=== PATIENT | male | born 1980 | race Caucasian/White ===

== ENCOUNTER 2020-06-19 19:17 | Emergency (ER) | payer OTHER, SELFPAY ==
[2020-06-19 19:33] VITALS: BP 139/81; PULSE 89; RESP 18; TEMP 37; O2SAT 97; BMI 34.8
[2020-06-19 20:33] LABS: Amphetamine Screen Urine POSITIVE (Not Detect); Barbiturates, Urine Not Detected (Not Detect); Benzodiazepines Screen Urine Not Detected (Not Detect); Cannabinoid Screen Urine POSITIVE (Not Detect); Cocaine Screen Urine Not Detected (Not Detect); Opiate Screen Urine Not Detected (Not Detect); Phencyclidine Screen Urine Not Detected (Not Detect)
[2020-06-19 20:40] LABS: COVID-19 Test Negative (Negative)
--- NOTE | 2020-06-19 21:04 | ED_ITS ---
HPI - Psych General Chief Complaint: Psychiatric Symptoms Stated Complaint: crisis Time Seen by Provider: 06/20/20 01:14 Source: patient and EMS Mode of arrival: EMS Limitations: altered mental status History of Present Illness HPI Narrative: 39-year-old male presents via EMS for suicidal statement and alcohol use. Patient's family called EMS, per EMS report, for suicidal statement made by this patient. At this time of my evaluation, patient is visibly intoxicated, slurring his words, and states that he is here for chest pain evaluation. He states that he is not eating or drinking properly, works 60+ hours a week, states that he was just drinking and smoking marijuana to relax. He needs multiple redirections to answer questions. Related Data Home Medications Medication Instructions Recorded Confirmed amlodipine 1 tab PO DAILY 06/19/20 06/19/20 folic acid 1 tab PO DAILY 06/19/20 06/19/20 gabapentin 300 mg PO BID 06/19/20 06/19/20 multivitamin [Daily-Lanie] 1 tab PO DAILY 06/19/20 06/19/20 trazodone 2 tab PO BEDTIME 06/19/20 06/19/20 Allergies Allergy/AdvReac Type Severity Reaction Status Date / Time lisinopril [Lisinopril] Allergy Intermediate ANGIOEDEMA Unverified 12/12/19 17:28 cat dander [CATS] Allergy Mild PUFFY EYES Unverified 12/12/19 17:28 olanzapine [From ZYPREXA] Allergy Unknown UNKNOWN Unverified 12/12/19 17:28 Review of Systems Review of Systems: Yes Unobtainable due to mental status PMFSH Past Medical History Attestation statement: The following information was validated with the patient. Source: old records reviewed Social History Social History Advance Directives: No Advance Directives Information Provided: No Physical Exam Vital Signs: Vital Signs: Last Vital Signs Temp 98.6 F 06/19/20 19:33 Pulse 89 06/19/20 19:33 Resp 18 06/19/20 19:33 BP 139/81 06/19/20 19:33 Pulse Ox 97 06/19/20 19:33 Body Mass Index 34.8 Appearance: Alert. Oriented X3. Moderate distress. Eyes: Pupils equal, round and reactive to light. ENT: Pharynx normal. Neck: Normal inspection. Neck supple. CVS: Normal heart rate and rhythm. Pulses normal. Respiratory: No respiratory distress. Breath sounds normal. Abdomen: Soft and nontender. Skin: Skin warm and dry. Normal skin color. Normal skin turgor. Extremities: No lower extremity edema. Moves all extremities against resistance. Neuro: No motor deficit. No sensory deficit. Cranial nerves 2-12 intact. No focal neural deficits. Course Course Course Narrative: 39-year-old male presents via EMS for suicidal statement and ETOH intoxication. Patient is not forthcoming with information, states that he is here for chest pain evaluation, he has multiple redirection to stay on task and answer questions, is compliant with physical exam at this time, smells of alcohol. ETOH 115, positive for amphetamines and marijuana. EKG is normal sinus, troponin is negative. Plan of care is for crisis evaluation in the morning. At 2:32 a.m. Physician observation started. Patient placed in physician observation because the patient needs to be evaluated by N and be evaluated and may need possible psych admission. At the time observation was started the patient's vitals were within normal limits and stable, patient is alert oriented, intoxicated on alcohol and amphetamine. Physical exam: No focal neural deficits, cranial nerves 2-12 intact, even unlabored respirations, lung sounds clear to auscultation all lobes, regular rate and rhythm, pulses equal to all extremities, brisk capillary refill, moves all extremities spontaneously. MDM - Psych Differential Diagnosis Differential diagnosis: Likely acute psychosis, suicidal ideation, depression, drug-induced psychotic disorder, acute anxiety, substance abuse, alcohol intoxication and mood disorder Medical Records Attestation: I reviewed the patient's medical records. Lab Data Attestation: I reviewed the patient's lab results. Result diagrams: 06/19/20 21:59 06/19/20 21:59 Labs: Lab Results 06/19/20 06/19/20 06/19/20 Range/Units 19:59 19:59 21:59 WBC (4.8-10.8) X10*3/uL RBC (4.60-5.80) X10*6/uL Hgb (14.0-18.0) g/dl Hct (42-52) % MCV (80-98) fL MCH (27.0-33.0) pg MCHC (31.0-36.0) g/dl RDW (11.0-16.0) % Plt Count (160-400) X10*3/uL MPV (9.4-12.4) fL Immature Gran % (Auto) (0.0-0.4) % Neut % (Auto) (45-73) % Lymph % (Auto) (20-40) % Randolph % (Auto) (2-11) % Eos % (Auto) (0-4) % Baso % (Auto) (0-2) % Lymph # (Auto) (1.2-4.9) X10*3/uL Randolph # (Auto) (0.1-1.2) X10*3/uL Eos # (Auto) (0.0-0.4) X10*3/uL Baso # (Auto) (0.0-0.2) X10*3/uL Abs Immat Gran (auto) (0.00-0.03) X10*3/uL Absolute Neuts (auto) (2.0-8.3) X10*3/uL Absolute Nucleated RBC (0.0-0.012) X10*3/uL Nucleated RBC % (auto) (0.0-0.2) /100WBC Smear Tech's Comments Sodium (135-145) mmol/L Potassium (3.3-5.1) mmol/L Chloride (96-108) mmol/L Carbon Dioxide (22-29) mmol/L Anion Gap (12-20) BUN (9-16) mg/dL Creatinine (0.5-1.4) mg/dL Estim Creat Clear Calc Estimated GFR Random Glucose (60-115) mg/dL Calcium (8.4-10.2) mg/dL Troponin I High Sens (<3.5-35.0) ng/L Urine Opiates Screen Not Detected (Not Detect) Ur Barbiturates Screen Not Detected (Not Detect) Ur Phencyclidine Scrn Not Detected (Not Detect) Ur Amphetamines Screen POSITIVE H (Not Detect) U Benzodiazepines Scrn Not Detected (Not Detect) Urine Cocaine Screen Not Detected (Not Detect) U Marijuana (THC) Screen POSITIVE H (Not Detect) Ethyl Alcohol 115 mg/dL COVID-19 (ROMARIO) Negative (Negative) COVID-19 Clin Com See Note 03/26/21 03/26/21 03/26/21 Range/Units 21:59 21:59 21:59 WBC 10.6 (4.8-10.8) X10*3/uL RBC 4.76 (4.60-5.80) X10*6/uL Hgb 13.9 L (14.0-18.0) g/dl Hct 42.7 (42-52) % MCV 89.7 (80-98) fL MCH 29.2 (27.0-33.0) pg MCHC 32.6 (31.0-36.0) g/dl RDW 13.4 (11.0-16.0) % Plt Count 225 (160-400) X10*3/uL MPV 10.6 (9.4-12.4) fL Immature Gran % (Auto) 0.3 (0.0-0.4) % Neut % (Auto) 62.7 (45-73) % Lymph % (Auto) 28.6 (20-40) % Randolph % (Auto) 5.7 (2-11) % Eos % (Auto) 2.1 (0-4) % Baso % (Auto) 0.6 (0-2) % Lymph # (Auto) 3.0 (1.2-4.9) X10*3/uL Randolph # (Auto) 0.6 (0.1-1.2) X10*3/uL Eos # (Auto) 0.2 (0.0-0.4) X10*3/uL Baso # (Auto) 0.1 (0.0-0.2) X10*3/uL Abs Immat Gran (auto) 0.03 (0.00-0.03) X10*3/uL Absolute Neuts (auto) 6.7 (2.0-8.3) X10*3/uL Absolute Nucleated RBC 0.000 (0.0-0.012) X10*3/uL Nucleated RBC % (auto) 0.0 (0.0-0.2) /100WBC Smear Tech's Comments VERIFIED Sodium 140 (135-145) mmol/L Potassium 4.2 (3.3-5.1) mmol/L Chloride 102 (96-108) mmol/L Carbon Dioxide 23 (22-29) mmol/L Anion Gap 19 (12-20) BUN 13 (9-16) mg/dL Creatinine 0.84 (0.5-1.4) mg/dL Estim Creat Clear Calc 149.7 Estimated GFR > 60 Random Glucose 80 (60-115) mg/dL Calcium 9.7 (8.4-10.2) mg/dL Troponin I High Sens < 3.5 (<3.5-35.0) ng/L Urine Opiates Screen (Not Detect) Ur Barbiturates Screen (Not Detect) Ur Phencyclidine Scrn (Not Detect) Ur Amphetamines Screen (Not Detect) U Benzodiazepines Scrn (Not Detect) Urine Cocaine Screen (Not Detect) U Marijuana (THC) Screen (Not Detect) Ethyl Alcohol mg/dL COVID-19 (ROMARIO) (Negative) COVID-19 Clin Com ECG Data Attestation: I personally reviewed and interpreted this ECG as follows: ECG interpretation date: 06/19/20 ECG interpretation time: 21:29 Prior ECG tracings: not available for review Interpretation: Ventricular rate 58 beats per minute, [place] 164, QRS 96, QT 424, QTC 416, sinus bradycardia, moderate voltage criteria for LVH may be normal variant, nonspecific T-wave abnormality, T-wave inversions in V4 V5 V6. EKG is unavailable on this computer system secondary to system with 130 error. Second computer utilized for comparison, no significant changes noted from October 29, 2018. Discharge Plan Discharge Prescriptions: No Action multivitamin [Daily-Lanie] Tablet 1 tab PO DAILY RF: 0 amlodipine 5 mg tablet 1 tab PO DAILY RF: 0 trazodone 100 mg tablet 2 tab PO BEDTIME RF: 0 gabapentin 300 mg capsule 300 mg PO BID RF: 0 folic acid 1 mg tablet 1 tab PO DAILY RF: 0
--- NOTE | 2020-06-19 21:24 | ECG_ITS ---
Test Reason : CHES DISC Blood Pressure : / mmHG Vent. Rate : 058 BPM Atrial Rate : 058 BPM P-R Int : 164 ms QRS Dur : 096 ms QT Int : 424 ms P-R-T Axes : 017 -03 -13 degrees QTc Int : 416 ms Sinus bradycardia Moderate voltage criteria for LVH, may be normal variant Nonspecific T wave abnormality Abnormal ECG No significant changes when compared with the previous EKG of 29 oct 2018 Referred By: Yulia Aguilar Electronically Signed By:LUCY BOWDEN
[2020-06-19 22:05] LABS: Basophils Percent Auto 0.6 % (0-2); Eosinophils Percent Auto 2.1 % (0-4); Imm Gran Abs Auto 0.03 X10*3/uL (0.00-0.03); Imm Gran Pct Auto 0.3 % (0.0-0.4); MANUAL DIFF FLAG SCAN; PLT CLUMP 1; SCAN SMEAR FLAG 1
[2020-06-19 22:07] LABS: Basophils Absolute Auto 0.1 X10*3/uL (0.0-0.2); Eosinophils Absolute Auto 0.2 X10*3/uL (0.0-0.4); Hematocrit 42.7 % (42-52); Hemoglobin 13.9 g/dl (14.0-18.0); Lymphocytes Percent Auto 28.6 % (20-40); Mean Corpuscular HGB Conc 32.6 g/dl (31.0-36.0); Mean Corpuscular Hemoglobin 29.2 pg (27.0-33.0); Mean Corpuscular Volume 89.7 fL (80-98); Mean Platelet Volume 10.6 fL (9.4-12.4); Monocytes Absolute Auto 0.6 X10*3/uL (0.1-1.2); Monocytes Percent Auto 5.7 % (2-11); Neutrophils Absolute Auto 6.7 X10*3/uL (2.0-8.3); Neutrophils Percent Auto 62.7 % (45-73); Platelet Count 225 X10*3/uL (160-400); Red Blood Count 4.76 X10*6/uL (4.60-5.80); Red Cell Distribution Width 13.4 % (11.0-16.0); White Blood Count 10.6 X10*3/uL (4.8-10.8)
[2020-06-19 22:29] LABS: Ethanol 115 mg/dL
[2020-06-19 22:30] LABS: Anion Gap 19 (12-20); Blood Urea Nitrogen 13 mg/dL (9-16); Calcium 9.7 mg/dL (8.4-10.2); Carbon Dioxide 23 mmol/L (22-29); Chloride 102 mmol/L (96-108); Creatinine Clr Calc Pharmacy 149.7; Estimated Glomerular Filt Rate > 60; Glucose Random 80 mg/dL (60-115); Potassium 4.2 mmol/L (3.3-5.1); Sodium 140 mmol/L (135-145)
[2020-06-19 22:37] LABS: Troponin-I High Sensitivity < 3.5 ng/L (<3.5-35.0)
[2020-06-19 23:02] LABS: SLIDE REVIEW VERIFIED
[2020-06-20] MEDS: LORazepam 1 MG TABLET 2 MG PO (02:46)
--- NOTE | 2020-06-20 07:18 | PC.NURSE ---
Report received from NEO Butler. Pt resting, resp unlabored.
--- NOTE | 2020-06-20 07:52 | PC.NURSE ---
CARE team in to see pt.
[2020-06-20 08:13] VITALS: BP 140/80; PULSE 67; RESP 20; TEMP 36.8; O2SAT 98
[2020-06-20] MEDS: LORazepam 1 MG TABLET PO (08:14)
--- NOTE | 2020-06-20 09:01 | PC.NURSE ---
Pt given discharge instructions- verbalized understanding, states he is safe to be discharged, no concerns reported.
--- NOTE | 2020-06-20 09:12 | PC.NURSE ---
Per pt request: pt given work note to include that he had received Ativan while in the ED. Pt stated he requires this information for his workplace.
== END 2020-06-20 09:14 | disposition home or self-care (01) ==
PROVIDERS: Nurse Practitioner Family; Emergency Provider Emergency Medicine
DX: F32.9 Major depressive disorder, single episode, unspecified (principal); F10.120 Alcohol abuse with intoxication, uncomplicated; Y90.5 Blood alcohol level of 100-119 mg/100 ml; R45.851 Suicidal ideations; F12.90 Cannabis use, unspecified, uncomplicated; Z20.822 Contact with and (suspected) exposure to COVID-19
CPT/HCPCS: 36415; 80048; 80307; 80320; 84484; 85025; 87635; 93005; 99284; 99285

== ENCOUNTER 2020-07-06 00:27 | Emergency (ER) | payer OTHER, SELFPAY ==
--- NOTE | ~2020-07-06 | XR_ITS ---
EXAMINATION: XR CHEST CLINICAL INFORMATION: Cough COMPARISON: 10/29/2018 TECHNIQUE: Frontal view of the chest was obtained. FINDINGS: No significant abnormality is noted involving the heart, lungs, mediastinum, bony thorax or soft tissues. XR/XR chest 1V IMPRESSION: Unremarkable examination.
[2020-07-06 00:29] VITALS: RESP 18; BMI 35.6
--- NOTE | 2020-07-06 00:48 | ECG_ITS ---
Test Reason : MEDINTERACTION Blood Pressure : / mmHG Vent. Rate : 063 BPM Atrial Rate : 063 BPM P-R Int : 154 ms QRS Dur : 094 ms QT Int : 426 ms P-R-T Axes : 029 -11 002 degrees QTc Int : 435 ms Normal sinus rhythm Voltage criteria for left ventricular hypertrophy Nonspecific T wave abnormality Possibly artifact appearing like pacer spikes Abnormal ECG When compared with ECG of 19-JUN-2020 21:29, No significant change was found Referred By: Samira Moore Electronically Signed By:LUCY BOWDEN
[2020-07-06 01:16] LABS: MANUAL DIFF FLAG NO
[2020-07-06 01:17] LABS: Basophils Absolute Auto 0.1 X10*3/uL (0.0-0.2); Basophils Percent Auto 0.6 % (0-2); Eosinophils Absolute Auto 0.3 X10*3/uL (0.0-0.4); Eosinophils Percent Auto 2.6 % (0-4); Hematocrit 43.2 % (42-52); Hemoglobin 14.1 g/dl (14.0-18.0); Imm Gran Abs Auto 0.03 X10*3/uL (0.00-0.03); Imm Gran Pct Auto 0.3 % (0.0-0.4); Lymphocytes Absolute Auto 2.9 X10*3/uL (1.2-4.9); Lymphocytes Percent Auto 29.8 % (20-40); Mean Corpuscular HGB Conc 32.6 g/dl (31.0-36.0); Mean Corpuscular Hemoglobin 29.2 pg (27.0-33.0); Mean Corpuscular Volume 89.4 fL (80-98); Mean Platelet Volume 9.3 fL (9.4-12.4); Monocytes Absolute Auto 0.6 X10*3/uL (0.1-1.2); Monocytes Percent Auto 5.6 % (2-11); Neutrophils Percent Auto 61.1 % (45-73); Platelet Count 316 X10*3/uL (160-400); Red Blood Count 4.83 X10*6/uL (4.60-5.80); Red Cell Distribution Width 13.3 % (11.0-16.0); White Blood Count 9.8 X10*3/uL (4.8-10.8)
[2020-07-06 01:37] LABS: Ethanol 58 mg/dL
[2020-07-06 01:42] LABS: Alanine Aminotransferase 25 U/L (0-40); Albumin Level 4.7 g/dL (3.5-5.0); Alkaline Phosphatase 68 U/L (39-117); Anion Gap 21 (12-20); Aspartate Amino Transferase 26 U/L (5-37); Bilirubin Total 0.2 mg/dL (0.0-1.0); Blood Urea Nitrogen 15 mg/dL (9-16); Calcium 9.3 mg/dL (8.4-10.2); Carbon Dioxide 19 mmol/L (22-29); Chloride 106 mmol/L (96-108); Creatinine Clr Calc Pharmacy 115.7; Estimated Glomerular Filt Rate > 60; Glucose Random 98 mg/dL (60-115); Lipase 26 U/L (8-78); Potassium 3.7 mmol/L (3.3-5.1); Sodium 142 mmol/L (135-145); Total Protein 7.4 g/dL (6.5-8.0)
--- NOTE | 2020-07-06 01:54 | ED_ITS ---
HPI - Alcohol General Chief Complaint: Psychiatric Symptoms Stated Complaint: ETOH USE W/HALLUCINATIONS Time Seen by Provider: 07/06/20 00:48 Source: patient Mode of arrival: EMS History of Present Illness HPI narrative: 40-year-old male who is brought in by EMS for alcohol intoxication and stating that he is hearing voices and wants detox. Otherwise, he denies SI/HI. complaint: alcohol intoxication Related Data Home Medications Medication Instructions Recorded Confirmed amlodipine 1 tab PO DAILY 06/19/20 07/06/20 folic acid 1 tab PO DAILY 06/19/20 07/06/20 gabapentin 300 mg PO BID 06/19/20 07/06/20 multivitamin [Daily-Lanie] 1 tab PO DAILY 06/19/20 07/06/20 trazodone 2 tab PO BEDTIME 06/19/20 07/06/20 lisdexamfetamine [Vyvanse] 1 cap PO QAM 06/20/20 07/06/20 Allergies Allergy/AdvReac Type Severity Reaction Status Date / Time lisinopril [Lisinopril] Allergy Intermediate ANGIOEDEMA Unverified 12/12/19 17:28 cat dander [CATS] Allergy Mild PUFFY EYES Unverified 12/12/19 17:28 olanzapine [From ZYPREXA] Allergy Unknown UNKNOWN Unverified 12/12/19 17:28 Review of Systems Review of Systems: Pertinent positives and negatives as stated in HPI 10 point review of systems is otherwise negative. PMFSH Past Medical History Source: nursing notes reviewed Social History Social History Alcohol intake: current Alcohol intake frequency: 3 or more drinks per day Smoking Status: Current every day smoker Use of substances other than those prescribed or required for medical reasons: Yes Substance Use Type: Marijuana Advance Directives: No Advance Directives Information Provided: No Physical Exam Vital Signs: Vital Signs: Last Vital Signs Temp 97.6 F 07/06/20 06:00 Pulse 60 07/06/20 06:00 Resp 18 07/06/20 06:00 BP 115/60 07/06/20 06:00 Pulse Ox 99 07/06/20 06:00 Body Mass Index 35.6 VITAL SIGNS: Reviewed. GENERAL: Well developed, well nourished, in no acute distress. HEAD: Normocephalic/atraumatic, EYES: PERRLA, EOMI EARS: Ext canals without abnormality NOSE: Nares patent bilateral OROPHARYNX: no oral lesions noted, posterior pharynx clear NECK: Supple, no adenopathy LUNGS: Normal breath sounds. No adventitious sounds or accessory muscle use. SpO2<99> CARDIOVASCULAR: Regular rate and rhythm without noted murmurs ABDOMEN: Soft, non-tender, non-distended with bowel sounds. NEUROLOGIC: Alert and oriented x 4. Course Course Course Narrative: This is a 40-year-old male with history and clinical presentation consistent with alcohol intoxication and suspect patient's statements regarding hallucinations and depression may stem from this. All investigations were reviewed and patient was stable for discharge and currently is not reporting any auditory/visual hallucinations and also denies any SI/HI. MDM - Alcohol Lab Data Result diagrams: 07/06/20 01:10 07/06/20 01:10 Labs: Lab Results 07/06/20 07/06/20 07/06/20 Range/Units 01:10 01:10 01:10 WBC 9.8 (4.8-10.8) X10*3/uL RBC 4.83 (4.60-5.80) X10*6/uL Hgb 14.1 (14.0-18.0) g/dl Hct 43.2 (42-52) % MCV 89.4 (80-98) fL MCH 29.2 (27.0-33.0) pg MCHC 32.6 (31.0-36.0) g/dl RDW 13.3 (11.0-16.0) % Plt Count 316 D (160-400) X10*3/uL MPV 9.3 L (9.4-12.4) fL Immature Gran % (Auto) 0.3 (0.0-0.4) % Neut % (Auto) 61.1 (45-73) % Lymph % (Auto) 29.8 (20-40) % Meagher % (Auto) 5.6 (2-11) % Eos % (Auto) 2.6 (0-4) % Baso % (Auto) 0.6 (0-2) % Lymph # (Auto) 2.9 (1.2-4.9) X10*3/uL Meagher # (Auto) 0.6 (0.1-1.2) X10*3/uL Eos # (Auto) 0.3 (0.0-0.4) X10*3/uL Baso # (Auto) 0.1 (0.0-0.2) X10*3/uL Abs Immat Gran (auto) 0.03 (0.00-0.03) X10*3/uL Absolute Neuts (auto) 6.0 (2.0-8.3) X10*3/uL Absolute Nucleated RBC 0.000 (0.0-0.012) X10*3/uL Nucleated RBC % (auto) 0.0 (0.0-0.2) /100WBC Sodium 142 (135-145) mmol/L Potassium 3.7 (3.3-5.1) mmol/L Chloride 106 (96-108) mmol/L Carbon Dioxide 19 L (22-29) mmol/L Anion Gap 21 H (12-20) BUN 15 (9-16) mg/dL Creatinine 0.93 (0.5-1.4) mg/dL Estim Creat Clear Calc 115.7 Estimated GFR > 60 Random Glucose 98 (60-115) mg/dL Calcium 9.3 (8.4-10.2) mg/dL Total Bilirubin 0.2 (0.0-1.0) mg/dL AST 26 (5-37) U/L ALT 25 (0-40) U/L Alkaline Phosphatase 68 (39-117) U/L Total Protein 7.4 (6.5-8.0) g/dL Albumin 4.7 (3.5-5.0) g/dL Lipase 26 (8-78) U/L Ethyl Alcohol 58 mg/dL ECG Data Attestation: I personally reviewed and interpreted this ECG as follows: Prior ECG tracings: available for review (06/19/2020 no acute changes on compar velvet) Interpretation: Normal sinus rhythm, HR-63, no evidence of acute ischemia, ND/QRS/QTC are within normal limits. Discharge Plan Discharge Clinical Impression: Alcohol dependence Patient Disposition: Home, Self-Care Instructions: Alcohol Use Disorder (ED) Additional Instructions: Please follow-up with your primary care provider in 2-3 days for re-evaluation. Do not hesitate to return to the emergency department should you experience any acute worsening of your symptoms. Prescriptions: No Action multivitamin [Daily-Lanie] Tablet 1 tab PO DAILY RF: 0 amlodipine 5 mg tablet 1 tab PO DAILY RF: 0 trazodone 100 mg tablet 2 tab PO BEDTIME RF: 0 gabapentin 300 mg capsule 300 mg PO BID RF: 0 folic acid 1 mg tablet 1 tab PO DAILY RF: 0 Vyvanse 40 mg capsule 1 cap PO QAM RF: 0 Referrals: Physician,Unknown [Primary Care Provider] - 2 days Interventions: ED Discharge Assessment Last Done: 07/06/20 06:18 Discharge Date/Time: 07/06/20 06:19
[2020-07-06 02:00] VITALS: BP 114/57; PULSE 55; RESP 18; TEMP 36.1; O2SAT 94
[2020-07-06 06:00] VITALS: BP 115/60; PULSE 60; RESP 18; TEMP 36.4; O2SAT 99
== END 2020-07-06 06:19 | disposition home or self-care (01) ==
PROVIDERS: Emergency Provider Student in an Organized Health Care Education/Training Program
DX: F10.220 Alcohol dependence with intoxication, uncomplicated (principal); Y90.2 Blood alcohol level of 40-59 mg/100 ml; R44.0 Auditory hallucinations; F17.200 Nicotine dependence, unspecified, uncomplicated; F12.90 Cannabis use, unspecified, uncomplicated
CPT/HCPCS: 36415; 71045; 80053; 80320; 83690; 85025; 93005; 99284; 99285

== ENCOUNTER 2020-07-09 19:33 | Emergency (ER) | payer OTHER, SELFPAY ==
[2020-07-09 19:51] VITALS: PULSE 77; RESP 16; TEMP 36.7; O2SAT 98; BMI 39.6
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
--- NOTE | 2020-07-09 21:17 | MHC.CARE ---
CARE Team checks in with pt. He reports increased depression and endorses SI. He is requesting a crisis assessment. CARE Team communicates to pt's RNKhadijah and fleet operations manager that pt has endorsed SI. Pt is waiting to be seen by a provider. He reported sx of alcohol withdrawal.
[2020-07-09 22:09] LABS: Appearance Urine CLEAR; Color Urine YELLOW; Glucose Urine UA NEG (NEG); Leukocyte Esterase Urine NEG (NEG); Nitrite Urine NEG (NEG); PH 5.5 (5.0-8.0); Specific Gravity - Urine >= 1.030 (1.005-1.025); Urine Blood 1+ (NEG); Urine Ketones 15 MG/DL (NEG); Urine Protein NEG (NEG-TRACE)
[2020-07-09 22:26] LABS: WBC Urine 0 /HPF (0-4)
[2020-07-09 22:43] LABS: Amphetamine Screen Urine POSITIVE (Not Detect); Barbiturates, Urine Not Detected (Not Detect); Benzodiazepines Screen Urine POSITIVE (Not Detect); Cannabinoid Screen Urine POSITIVE (Not Detect); Cocaine Screen Urine Not Detected (Not Detect); Opiate Screen Urine Not Detected (Not Detect); Phencyclidine Screen Urine Not Detected (Not Detect)
--- NOTE | 2020-07-09 23:16 | PC.NURSE ---
PT RESTING QUIETLY IN STRETCHER WITHOUT COMPLAINTS. PT REQUESTING WATER. PT ALERT, RESPIRATIONS EASY, N/L. SKIN W/D. WILL CONTINUE TO MONITOR PT.
[2020-07-09 23:28] VITALS: BP 150/80; PULSE 61; RESP 15; O2SAT 97
[2020-07-10] MEDS: traZODone HCL 100 MG TABLET 200 MG PO (00:34)
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
[2020-07-10 02:48] VITALS: BP 136/71; PULSE 58; RESP 15; O2SAT 96
--- NOTE | 2020-07-10 03:44 | PC.NURSE ---
FAXED AND CALLED TO N. N RECEIVED FAX.
[2020-07-10 08:11] VITALS: BP 149/85; PULSE 72; RESP 16; O2SAT 98
[2020-07-10] MEDS: LORazepam 1 MG TABLET 2 MG PO (08:50)
--- NOTE | 2020-07-10 12:10 | PC.NURSE ---
pt sleeping, resp even and nonlaboured.
--- NOTE | 2020-07-10 13:08 | PC.NURSE ---
PT AWAKE, EATING BITES OF LUNCH. BHN AT BEDSIDE
[2020-07-10 14:14] VITALS: BP 155/96; PULSE 84; RESP 16; O2SAT 97
--- NOTE | 2020-07-10 14:15 | PC.NURSE ---
TO BE DC'D TO DETOX TO START TOMORROW AM. NO SXS OF ETOH WD AT THIS TIME, DENIES SI/HI.
== END 2020-07-10 14:36 | disposition home or self-care (01) ==
PROVIDERS: Emergency Provider Internal Medicine
DX: F32.9 Major depressive disorder, single episode, unspecified (principal); R45.851 Suicidal ideations; S05.12XA Contusion of eyeball and orbital tissues, left eye, initial encounter; Y04.2XXA Assault by strike against or bumped into by another person, initial encounter; F12.90 Cannabis use, unspecified, uncomplicated; F19.90 Other psychoactive substance use, unspecified, uncomplicated; F13.90 Sedative, hypnotic, or anxiolytic use, unspecified, uncomplicated; F17.200 Nicotine dependence, unspecified, uncomplicated; Y93.9 Activity, unspecified; Y92.9 Unspecified place or not applicable; Y99.9 Unspecified external cause status
CPT/HCPCS: 80307; 81001; 99285

== ENCOUNTER 2020-09-20 08:09 | Emergency (ER) | payer OTHER, SELFPAY ==
[2020-09-20 08:14] VITALS: BP 155/76; PULSE 74
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
[2020-09-20 08:25] VITALS: BP 140/90; PULSE 80; RESP 18; TEMP 36.2; O2SAT 98; BMI 30.8
--- NOTE | 2020-09-20 08:46 | PC.NURSE ---
patient in hallway verbally innapropriate with staff and patients. swearing at patients who walk by in the hallway. taken to the bathroom, able to ambulate with steady gait.
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
== END 2020-09-20 09:30 | disposition home or self-care (01) ==
PROVIDERS: Emergency Provider Emergency Medicine
DX: S01.01XD Laceration without foreign body of scalp, subsequent encounter (principal); Y04.2XXD Assault by strike against or bumped into by another person, subsequent encounter; Z48.02 Encounter for removal of sutures; I10 Essential (primary) hypertension; F17.210 Nicotine dependence, cigarettes, uncomplicated; F12.90 Cannabis use, unspecified, uncomplicated; F10.20 Alcohol dependence, uncomplicated
CPT/HCPCS: 99283

== ENCOUNTER 2020-10-03 21:53 | Emergency (ER) | payer OTHER, SELFPAY ==
[2020-10-03 22:00] VITALS: BP 135/98; BP 149/90; PULSE 100; PULSE 90; RESP 20; TEMP 37.1; O2SAT 98; BMI 30.7
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
[2020-10-03] MEDS: Naloxone HCl Nasal TAKE HOME 4 MG SPRAY NOSTRILALT (23:12)
[2020-10-03 23:13] VITALS: BP 152/94; PULSE 74; RESP 18; O2SAT 98
== END 2020-10-03 23:17 | disposition home or self-care (01) ==
PROVIDERS: Emergency Provider Emergency Medicine Emergency Medical Services
DX: T40.1X1A Poisoning by heroin, accidental (unintentional), initial encounter (principal); Y92.59 Other trade areas as the place of occurrence of the external cause; I10 Essential (primary) hypertension; Z79.899 Other long term (current) drug therapy
CPT/HCPCS: 99283; 99285

== ENCOUNTER 2020-10-30 04:45 | Emergency (ER) | payer OTHER, SELFPAY ==
[2020-10-30 04:53] VITALS: BP 121/76; PULSE 62; RESP 16; O2SAT 96; BMI 27.1
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
[2020-10-30 07:41] VITALS: BP 141/79; PULSE 75; RESP 16; O2SAT 97
--- NOTE | 2020-10-30 07:48 | PC.NURSE ---
pATIENT GIVEN DISCHARGE INSTRUCTIONS AND DENIES ANY QUESTIONS
== END 2020-10-30 08:26 | disposition home or self-care (01) ==
PROVIDERS: Emergency Provider Emergency Medicine
DX: T40.1X1A Poisoning by heroin, accidental (unintentional), initial encounter (principal); Y92.9 Unspecified place or not applicable
CPT/HCPCS: 99282; 99285

== ENCOUNTER 2020-11-22 16:05 | Emergency (ER) | payer OTHER, SELFPAY ==
[2020-11-22 16:19] VITALS: BP 135/70; PULSE 73; RESP 16; O2SAT 94; BMI 30.1
--- NOTE | 2020-11-22 16:46 | ED.PSYCH ---
HPI - Psych General Chief Complaint: Psychiatric Symptoms <Yulia Aguilar NP - Last Filed: 11/23/20 01:11> Stated Complaint: ETOH/SI <Yulia Aguilar NP - Last Filed: 11/23/20 01:11> Time Seen by Provider: 11/23/20 01:39 <Yulia Aguilar NP - Last Filed: 11/23/20 01:11> Source: patient and EMS <Yulia Aguilar NP - Last Filed: 11/23/20 01:11> Mode of arrival: EMS <Yulia Aguilar NP - Last Filed: 11/23/20 01:11> Limitations: altered mental status (Intoxicated) <Yulia Aguilar NP - Last Filed: 11/23/20 01:11> History of Present Illness HPI Narrative: 40-year-old male presents via EMS for ETOH intoxication and suicidal ideation. Has had multiple visits in the past for EtOH, drug overdose requiring Narcan, and psychiatric evaluation <Yulia Aguilar NP - Last Filed: 11/23/20 01:11> MD complaint: suicidal ideation, feels depressed and alcohol abuse <Yulia Aguilar NP - Last Filed: 11/23/20 01:11> Onset (ago): unknown <Yulia Aguilar NP - Last Filed: 11/23/20 01:11> History of same: Yes <Yulia Aguilar NP - Last Filed: 11/23/20 01:11> Relieving factors: none <Yulia Aguilar NP - Last Filed: 11/23/20 01:11> Exacerbating factors: alcohol and drug use <Yulia Aguilar NP - Last Filed: 11/23/20 01:11> Context: recent alcohol abuse and significant life stressor <Yulia Aguilar NP - Last Filed: 11/23/20 01:11> Associated psychiatric symptoms: depression and suicidal ideation <Yulia Aguilar NP - Last Filed: 11/23/20 01:11> Associated symptoms: denies other symptoms <Yulia Aguilar NP - Last Filed: 11/23/20 01:11> Treatments prior to arrival: none <Yulia Aguilar NP - Last Filed: 11/23/20 01:11> If self harm: admits thoughts of self harm <RENETTA Owusu Last Filed: 11/23/20 01:11> Related Data Home Medications: Home Medications Medication Instructions Recorded Confirmed amlodipine 10 mg tablet 1 tab PO DAILY 11/23/20 11/23/20 clonazepam 0.5 mg tablet 1 tab PO DAILY PRN 11/23/20 11/23/20 folic acid 1 mg tablet 1 tab PO DAILY 11/23/20 11/23/20 gabapentin 600 mg tablet 1 tab PO BID 11/23/20 11/23/20 lisdexamfetamine 40 mg capsule 1 cap PO QAM 11/23/20 11/23/20 (Vyvanse) multivitamin with folic acid 400 1 tab PO DAILY 11/23/20 11/23/20 mcg tablet (Daily-Lanie (with folic acid)) naproxen 500 mg tablet 1 tab PO BID 11/23/20 11/23/20 trazodone 100 mg tablet 2 tab PO BEDTIME 11/23/20 11/23/20 ziprasidone HCl 40 mg capsule 1 cap PO BID 11/23/20 11/23/20 <RENETTA Owusu Last Filed: 11/23/20 01:11> Allergies/Adverse Reactions: Allergies Allergy/AdvReac Type Severity Reaction Status Date / Time lisinopril [Lisinopril] Allergy Intermediate ANGIOEDEMA Unverified 12/12/19 17:28 cat dander [CATS] Allergy Mild PUFFY EYES Unverified 12/12/19 17:28 olanzapine [From ZYPREXA] Allergy Unknown UNKNOWN Unverified 12/12/19 17:28 <RENETTA Owusu Last Filed: 11/23/20 01:11> Review of Systems Review of Systems: Yes Unobtainable due to mental status <RENETTA Owusu Last Filed: 11/23/20 01:11> [facility] Past Medical History Attestation statement: The following information was validated with the patient. <RENETTA Owusu Last Filed: 11/23/20 01:11> Source: old records reviewed <RENETTA Owusu Last Filed: 11/23/20 01:11> Medical History: Medical History Alcoholism HTN (hypertension) <Yulia Aguilar NP - Last Filed: 11/23/20 01:11> Social History Social History: Social History Alcohol intake: unknown Patient Tobacco Use Status: Current everyday Tobacco user Substance Use Type: Heroin Advance Directives: No Advance Directives Information Provided: No <Yulia Aguilar NP - Last Filed: 11/23/20 01:11> Physical Exam Vital Signs: Vital Signs: Last Vital Signs Temp 98.7 F 11/23/20 08:00 Pulse 85 11/23/20 08:00 Resp 16 11/23/20 08:00 BP 126/72 11/23/20 08:00 Pulse Ox 96 11/23/20 08:00 Body Mass Index 30.1 <Yulia Aguilar NP - Last Filed: 11/23/20 01:11> Vital Signs: Last Vital Signs Temp 98.7 F 11/23/20 08:00 Pulse 85 11/23/20 08:00 Resp 16 11/23/20 08:00 BP 126/72 11/23/20 08:00 Pulse Ox 96 11/23/20 08:00 Body Mass Index 30.1 <Alayna Hidalgo NP - Last Filed: 11/23/20 09:04> Appearance: Alert. Oriented X3. No acute distress. Eyes: Pupils equal, round and reactive to light. ENT: Pharynx normal. Neck: Normal inspection. Neck supple. CVS: Normal heart rate and rhythm. Pulses normal. Respiratory: No respiratory distress. Breath sounds normal. Abdomen: Soft and nontender. Skin: Skin warm and dry. Normal skin color. Normal skin turgor. Extremities: No lower extremity edema. Moves all extremities against resistance. Neuro: No motor deficit. No sensory deficit. Cranial nerves 2-12 intact. <RENETTA Owusu Last Filed: 11/23/20 01:11> Course Course Course Narrative: 40-year-old male presents with ETOH intoxication and suicidal ideation. Patient is not answering very many questions, but is allowing physical exam. Will order crisis consult, labs, drug screen and ETOH. Physician observation started at this time. <Yulia Aguilar NP - Last Filed: 11/23/20 01:11> 40-year-old male presents with ETOH intoxication and suicidal ideation. Patient is not answering very many questions, but is allowing physical exam. Will order crisis consult, labs, drug screen and ETOH. Physician observation started at this time. 0900-patient was seen by care team. No suicidal thoughts or homicidal thoughts. He is not interested in detox. He will be discharged home. <Alayna Hidalgo NP - Last Filed: 11/23/20 09:04> MDM - Psych Differential Diagnosis Differential diagnosis: Likely acute psychosis, suicidal ideation, depression and alcohol intoxication <Yulia Aguilar NP - Last Filed: 11/23/20 01:11> Medical Records Attestation: I reviewed the patient's medical records. <Yulia Aguilar NP - Last Filed: 11/23/20 01:11> Lab Data Attestation: I reviewed the patient's lab results. <Yulia Aguilar NP - Last Filed: 11/23/20 01:11> Result diagrams: : 11/22/20 16:59 <Yulia Aguilar NP - Last Filed: 11/23/20 01:11> Labs: Lab Results 11/22/20 11/22/20 11/22/20 Range/Units 16:59 16:59 16:59 WBC 8.9 (4.8-10.8) X10*3/uL RBC 4.38 L (4.60-5.80) X10*6/uL Hgb 13.2 L (14.0-18.0) g/dl Hct 39.8 L (42-52) % MCV 90.9 (80-98) fL MCH 30.1 (27.0-33.0) pg MCHC 33.2 (31.0-36.0) g/dl RDW 14.2 (11.0-16.0) % Plt Count 323 (160-400) X10*3/uL MPV 9.0 L (9.4-12.4) fL Immature Gran % (Auto) 0.1 (0.0-0.4) % Neut % (Auto) 55.4 (45-73) % Lymph % (Auto) 33.4 (20-40) % [place] % (Auto) 7.4 (2-11) % Eos % (Auto) 3.1 (0-4) % Baso % (Auto) 0.6 (0-2) % Lymph # (Auto) 3.0 (1.2-4.9) X10*3/uL [place] # (Auto) 0.7 (0.1-1.2) X10*3/uL Eos # (Auto) 0.3 (0.0-0.4) X10*3/uL Baso # (Auto) 0.1 (0.0-0.2) X10*3/uL Abs Immat Gran (auto) 0.01 (0.00-0.03) X10*3/uL Absolute Neuts (auto) 5.0 (2.0-8.3) X10*3/uL Absolute Nucleated RBC 0.000 (0.0-0.012) X10*3/uL Nucleated RBC % (auto) 0.0 (0.0-0.2) /100WBC Salicylates < 5.0 L (15-30) mg/dL Urine Opiates Screen (Not Detect) Urine Fentanyl Screen (Not Detect) Acetaminophen < 1 (<30) mcg/mL Ur Barbiturates Screen (Not Detect) Ur Phencyclidine Scrn (Not Detect) Ur Amphetamines Screen (Not Detect) U Benzodiazepines Scrn (Not Detect) Urine Cocaine Screen (Not Detect) U Marijuana (THC) Screen (Not Detect) Ethyl Alcohol 392 H* mg/dL COVID-19 ([facility]) (Negative) COVID-19 Clin Com 11/22/20 11/23/20 Range/Units 20:37 08:27 WBC (4.8-10.8) X10*3/uL RBC (4.60-5.80) X10*6/uL Hgb (14.0-18.0) g/dl Hct (42-52) % MCV (80-98) fL MCH (27.0-33.0) pg MCHC (31.0-36.0) g/dl RDW (11.0-16.0) % Plt Count (160-400) X10*3/uL MPV (9.4-12.4) fL Immature Gran % (Auto) (0.0-0.4) % Neut % (Auto) (45-73) % Lymph % (Auto) (20-40) % [place] % (Auto) (2-11) % Eos % (Auto) (0-4) % Baso % (Auto) (0-2) % Lymph # (Auto) (1.2-4.9) X10*3/uL [place] # (Auto) (0.1-1.2) X10*3/uL Eos # (Auto) (0.0-0.4) X10*3/uL Baso # (Auto) (0.0-0.2) X10*3/uL Abs Immat Gran (auto) (0.00-0.03) X10*3/uL Absolute Neuts (auto) (2.0-8.3) X10*3/uL Absolute Nucleated RBC (0.0-0.012) X10*3/uL Nucleated RBC % (auto) (0.0-0.2) /100WBC Salicylates (15-30) mg/dL Urine Opiates Screen Not Detected (Not Detect) Urine Fentanyl Screen POSITIVE H (Not Detect) Acetaminophen (<30) mcg/mL Ur Barbiturates Screen Not Detected (Not Detect) Ur Phencyclidine Scrn Not Detected (Not Detect) Ur Amphetamines Screen Not Detected (Not Detect) U Benzodiazepines Scrn Not Detected (Not Detect) Urine Cocaine Screen POSITIVE H (Not Detect) U Marijuana (THC) Screen Not Detected (Not Detect) Ethyl Alcohol mg/dL COVID-19 ([facility]) Negative (Negative) COVID-19 Clin Com See Note <Yulia Aguilar NP - Last Filed: 11/23/20 01:11> Lab Results 11/22/20 11/22/20 11/22/20 Range/Units 16:59 16:59 16:59 WBC 8.9 (4.8-10.8) X10*3/uL RBC 4.38 L (4.60-5.80) X10*6/uL Hgb 13.2 L (14.0-18.0) g/dl Hct 39.8 L (42-52) % MCV 90.9 (80-98) fL MCH 30.1 (27.0-33.0) pg MCHC 33.2 (31.0-36.0) g/dl RDW 14.2 (11.0-16.0) % Plt Count 323 (160-400) X10*3/uL MPV 9.0 L (9.4-12.4) fL Immature Gran % (Auto) 0.1 (0.0-0.4) % Neut % (Auto) 55.4 (45-73) % Lymph % (Auto) 33.4 (20-40) % [place] % (Auto) 7.4 (2-11) % Eos % (Auto) 3.1 (0-4) % Baso % (Auto) 0.6 (0-2) % Lymph # (Auto) 3.0 (1.2-4.9) X10*3/uL [place] # (Auto) 0.7 (0.1-1.2) X10*3/uL Eos # (Auto) 0.3 (0.0-0.4) X10*3/uL Baso # (Auto) 0.1 (0.0-0.2) X10*3/uL Abs Immat Gran (auto) 0.01 (0.00-0.03) X10*3/uL Absolute Neuts (auto) 5.0 (2.0-8.3) X10*3/uL Absolute Nucleated RBC 0.000 (0.0-0.012) X10*3/uL Nucleated RBC % (auto) 0.0 (0.0-0.2) /100WBC Salicylates < 5.0 L (15-30) mg/dL Urine Opiates Screen (Not Detect) Urine Fentanyl Screen (Not Detect) Acetaminophen < 1 (<30) mcg/mL Ur Barbiturates Screen (Not Detect) Ur Phencyclidine Scrn (Not Detect) Ur Amphetamines Screen (Not Detect) U Benzodiazepines Scrn (Not Detect) Urine Cocaine Screen (Not Detect) U Marijuana (THC) Screen (Not Detect) Ethyl Alcohol 392 H* mg/dL COVID-19 ([facility]) (Negative) COVID-19 Clin Com 11/22/20 11/23/20 Range/Units 20:37 08:27 WBC (4.8-10.8) X10*3/uL RBC (4.60-5.80) X10*6/uL Hgb (14.0-18.0) g/dl Hct (42-52) % MCV (80-98) fL MCH (27.0-33.0) pg MCHC (31.0-36.0) g/dl RDW (11.0-16.0) % Plt Count (160-400) X10*3/uL MPV (9.4-12.4) fL Immature Gran % (Auto) (0.0-0.4) % Neut % (Auto) (45-73) % Lymph % (Auto) (20-40) % [place] % (Auto) (2-11) % Eos % (Auto) (0-4) % Baso % (Auto) (0-2) % Lymph # (Auto) (1.2-4.9) X10*3/uL [place] # (Auto) (0.1-1.2) X10*3/uL Eos # (Auto) (0.0-0.4) X10*3/uL Baso # (Auto) (0.0-0.2) X10*3/uL Abs Immat Gran (auto) (0.00-0.03) X10*3/uL Absolute Neuts (auto) (2.0-8.3) X10*3/uL Absolute Nucleated RBC (0.0-0.012) X10*3/uL Nucleated RBC % (auto) (0.0-0.2) /100WBC Salicylates (15-30) mg/dL Urine Opiates Screen Not Detected (Not Detect) Urine Fentanyl Screen POSITIVE H (Not Detect) Acetaminophen (<30) mcg/mL Ur Barbiturates Screen Not Detected (Not Detect) Ur Phencyclidine Scrn Not Detected (Not Detect) Ur Amphetamines Screen Not Detected (Not Detect) U Benzodiazepines Scrn Not Detected (Not Detect) Urine Cocaine Screen POSITIVE H (Not Detect) U Marijuana (THC) Screen Not Detected (Not Detect) Ethyl Alcohol mg/dL COVID-19 ([facility]) Negative (Negative) COVID-19 Clin Com See Note <Alayna Hidalgo NP - Last Filed: 11/23/20 09:04> Discharge Plan Discharge Clinical Impression: Depression, Alcohol intoxication <Yulia Aguilar NP - Last Filed: 11/23/20 01:11> Patient Disposition: Home, Self-Care <Yulia Aguilar NP - Last Filed: 11/23/20 01:11> Instructions: Depression (ED), Alcohol Use Disorder (ED) <Yulia Aguilar NP - Last Filed: 11/23/20 01:11> Prescriptions: No Action gabapentin 600 mg tablet 1 tab PO BID RF: 0 clonazepam 0.5 mg tablet 1 tab PO DAILY PRN (Reason: anxiety) RF: 0 amlodipine 10 mg tablet 1 tab PO DAILY RF: 0 folic acid 1 mg tablet 1 tab PO DAILY RF: 0 ziprasidone HCl 40 mg capsule 1 cap PO BID RF: 0 naproxen 500 mg tablet 1 tab PO BID RF: 0 Vyvanse 40 mg capsule 1 cap PO QAM RF: 0 multivitamin with folic acid [Daily-Lanie (with folic acid)] 400 mcg tablet 1 tab PO DAILY RF: 0 trazodone 100 mg tablet 2 tab PO BEDTIME RF: 0 <Yulia Aguilar NP - Last Filed: 11/23/20 01:11> Referrals: Physician,Unknown [Primary Care Provider] - 2 days <Yulia Aguilar NP - Last Filed: 11/23/20 01:11>
[2020-11-22 17:04] LABS: MANUAL DIFF FLAG NO
[2020-11-22 17:06] LABS: Basophils Absolute Auto 0.1 X10*3/uL (0.0-0.2); Basophils Percent Auto 0.6 % (0-2); Eosinophils Absolute Auto 0.3 X10*3/uL (0.0-0.4); Eosinophils Percent Auto 3.1 % (0-4); Hematocrit 39.8 % (42-52); Hemoglobin 13.2 g/dl (14.0-18.0); Imm Gran Abs Auto 0.01 X10*3/uL (0.00-0.03); Imm Gran Pct Auto 0.1 % (0.0-0.4); Lymphocytes Percent Auto 33.4 % (20-40); Mean Corpuscular HGB Conc 33.2 g/dl (31.0-36.0); Mean Corpuscular Hemoglobin 30.1 pg (27.0-33.0); Mean Corpuscular Volume 90.9 fL (80-98); Monocytes Absolute Auto 0.7 X10*3/uL (0.1-1.2); Monocytes Percent Auto 7.4 % (2-11); Neutrophils Percent Auto 55.4 % (45-73); Platelet Count 323 X10*3/uL (160-400); Red Blood Count 4.38 X10*6/uL (4.60-5.80); Red Cell Distribution Width 14.2 % (11.0-16.0); White Blood Count 8.9 X10*3/uL (4.8-10.8)
[2020-11-22 17:26] LABS: Ethanol 392 mg/dL
[2020-11-22 17:29] LABS: Acetaminophen LAB < 1 mcg/mL (<30); Salicylate < 5.0 mg/dL (15-30)
--- NOTE | 2020-11-22 18:20 | PC.NURSE ---
PT HAS BEEN SLEEPING AND ON A 1:1 SINCE ARRIVAL TO FACILITY. RESP EVEN, NONLABOURED.
[2020-11-22 21:20] LABS: Amphetamine Screen Urine Not Detected (Not Detect); Barbiturates, Urine Not Detected (Not Detect); Benzodiazepines Screen Urine Not Detected (Not Detect); Cannabinoid Screen Urine Not Detected (Not Detect); Cocaine Screen Urine POSITIVE (Not Detect); Fentanyl, urine POSITIVE (Not Detect); Opiate Screen Urine Not Detected (Not Detect); Phencyclidine Screen Urine Not Detected (Not Detect)
[2020-11-23 05:02] VITALS: BP 132/81; PULSE 79; RESP 18; TEMP 36.9; O2SAT 97
[2020-11-23] MEDS: clonazePAM 0.5 MG TABLET PO (05:10)
--- NOTE | 2020-11-23 05:19 | PC.NURSE ---
Patient slept through the night, no distress observed/reported, patient just woke up requesting nighttime medication, patient was informed he can not have his nighttime medication at this time, reported anxiety related to ETOH withdrawal/CIWA assessed scored 3, PRN Klonopin 0.5 mg administered for anxiety, VSS, behavior appropriate, hydrating well, [facility] referral completed/confirmed/pending evaluation in the morning, med compliant, will continue to monitor.
--- NOTE | 2020-11-23 06:56 | PC.NURSE ---
patient appears to remain at rest at present, appears asleep, and in no distress, respirations are even and unlabored
[2020-11-23] MEDS: NaPROXEN 500 MG TABLET PO (07:57)
[2020-11-23] MEDS: Multivitamin TABLET 1 TAB PO (07:57)
[2020-11-23 07:58] VITALS: BP 132/81; PULSE 79
[2020-11-23] MEDS: Gabapentin 600 MG TABLET PO (07:58)
[2020-11-23] MEDS: Folic Acid 1 MG TABLET PO (07:58)
[2020-11-23] MEDS: amLODIPine Besylate 10 MG TABLET PO (07:58)
[2020-11-23 08:00] VITALS: BP 126/72; PULSE 85; RESP 16; TEMP 37.1; O2SAT 96
[2020-11-23 08:48] LABS: COVID-19 Test Negative (Negative); IDNOW Serial# 9DD0AD1C
--- NOTE | 2020-11-23 09:40 | MHC.CARE ---
Patient is a 40 year-old man who came to the ED by ambulance acutely intoxicated, this morning when alert and oriented, CARE Team met with him in 4. Patient denied suicidal ideation, said he did not know how that information was obtained but acknowledged he may have said that as he does not remember the events of last night, does not know how he got to the hospital last night.? In terms of history of suicide attempts, he stated that many years ago he tried to kill himself (no record of self-harm in [facility]). Patient reported that he wants to cut down on drinking, declined offer for referrals/MAT or recovery supports, said he has to work today. Stated he is familiar with the detox process, [facility] and MAT. Patient said he has providers at [facility], takes his medication and attends appointments regularly, has been staying in a [facility] and can return tonight. Patient was informed that his tox screen was positive for Fentanyl, he was not aware. Patient cleared for discharge, provider consulted and in agreement. Bus pass provided.
== END 2020-11-23 10:11 | disposition home or self-care (01) ==
PROVIDERS: Emergency Medicine; Nurse Practitioner Family; Emergency Provider Internal Medicine
DX: F33.1 Major depressive disorder, recurrent, moderate (principal); R45.851 Suicidal ideations; F10.129 Alcohol abuse with intoxication, unspecified; Y90.8 Blood alcohol level of 240 mg/100 ml or more; Z20.822 Contact with and (suspected) exposure to COVID-19; Z79.899 Other long term (current) drug therapy
CPT/HCPCS: 36415; 80143; 80179; 80307; 82077; 85025; 87635; 99285

== ENCOUNTER 2020-12-12 14:44 | Emergency (ER) | payer OTHER, SELFPAY ==
--- NOTE | ~2020-12-12 | CT_ITS ---
EXAMINATION: CT HEAD WITHOUT CONTRAST CLINICAL INFORMATION: Head trauma COMPARISON: Previous head CT most recent November 2018 TECHNIQUE: Contiguous axial imaging was performed from the skull base to vertex without intravenous administration of contrast. This CT examination was performed using dose optimization techniques as appropriate, variously including the following: *Automated exposure control *Adjustment of mA and/or kV according to patient size (this includes techniques or standardized protocols for targeted exams where dose is matched to indication/reason for exam; i.e. extremities or head) *Use of iterative reconstruction technique DLP: 820 mGy-cm FINDINGS: There is no evidence of an extra-axial collection. There is no evidence of intra-axial or extra-axial hemorrhage. The ventricles and extra-axial CSF spaces appear prominent for the patient's age just above mild generalized atrophy. White matter differentiation is normal. No mass, mass effect or infarct is seen. No skull fracture is seen. There are inflammatory changes in the bilateral maxillary sinuses. CT/CT head/brain wo con IMPRESSION: No acute intracranial findings. Probable mild generalized atrophy. Inflammatory changes in the bilateral maxillary sinuses.
--- NOTE | ~2020-12-12 | CT_ITS ---
EXAMINATION: CT CERVICAL SPINE WITHOUT CONTRAST CLINICAL INFORMATION: Fall COMPARISON: Previous exam most recent December 2014 TECHNIQUE: Axial images through the cervical spine without contrast. Sagittal and coronal reconstructions on the technologist workstation were performed. This CT examination was performed using dose optimization techniques as appropriate, variously including the following: *Automated exposure control *Adjustment of mA and/or kV according to patient size (this includes techniques or standardized protocols for targeted exams where dose is matched to indication/reason for exam; i.e. extremities or head) *Use of iterative reconstruction technique DLP: 467 mGy-cm FINDINGS: There is head tilt to the left and curvature of the cervical spine to the right. Bone alignment is otherwise normal. No fracture or dislocation is seen. There is degenerative spondylosis at C3-C4, C4-C5, C5-C6, C6-C7, and T1-T2. Prevertebral soft tissues are normal. Visualized lung apices are clear. There is shotty bilateral cervical lymphadenopathy. CT/CT cervical spine wo con IMPRESSION: Head tilt to the left and degenerative changes. No fracture or dislocation seen.
[2020-12-12 14:59] VITALS: BP 116/74; BP 140/88; PULSE 75; PULSE 85; RESP 18; TEMP 37; O2SAT 95; O2SAT 98; BMI 27.1
--- NOTE | 2020-12-12 15:16 | ED_ITS ---
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 Alkaline Phosphatase (39-117) U/L Total Creatine Kinase 811 H 816 H (38-174) U/L Total Protein (6.5-8.0) g/dL Albumin (3.5-5.0) g/dL Urine Color Urine Appearance Urine pH (5.0-8.0) Ur Specific [place] (1.005-1.025) Urine Protein (NEG-TRACE) MG/DL Urine Glucose (UA) (NEG) MG/DL Urine Ketones (NEG) MG/DL Urine Blood (NEG) Urine Nitrite (NEG) Ur Leukocyte Esterase (NEG) Urine Opiates Screen (Not Detect) Urine Fentanyl Screen (Not Detect) Ur Barbiturates Screen (Not Detect) Ur Phencyclidine Scrn (Not Detect) Ur Amphetamines Screen (Not Detect) U Benzodiazepines Scrn (Not Detect) Urine Cocaine Screen (Not Detect) U Marijuana (THC) Screen (Not Detect) Ethyl Alcohol 151 mg/dL <Steven Amezcua MD - Last Filed: 12/13/20 05:51> Imaging Data CT of head: Attestation: I personally reviewed and interpreted this imaging study as follows: <OTTO Duggan - Last Filed: 12/12/20 17:54> Radiologist's impression: FINDINGS: There is no evidence of an extra-axial collection. There is no evidence of intra-axial or extra-axial hemorrhage. The ventricles and extra-axial CSF spaces appear prominent for the patient's age just above mild generalized atrophy. White matter differentiation is normal. No mass, mass effect or infarct is seen. No skull fracture is seen. There are inflammatory changes in the bilateral maxillary sinuses. CT/CT head/brain wo con IMPRESSION: No acute intracranial findings. Probable mild generalized atrophy. Inflammatory changes in the bilateral maxillary sinuses. <OTTO Duggan - Last Filed: 12/12/20 17:54> CT of cervical spine: Attestation: I personally reviewed and interpreted this imaging study as follows: <OTTO Duggan - Last Filed: 12/12/20 17:54> Radiologist's impression: FINDINGS: There is head tilt to the left and curvature of the cervical spine to the right. Bone alignment is otherwise normal. No fracture or dislocation is seen. There is degenerative spondylosis at C3-C4, C4-C5, C5-C6, C6-C7, and T1-T2. Prevertebral soft tissues are normal. Visualized lung apices are clear. There is shotty bilateral cervical lymphadenopathy. CT/CT cervical spine wo con IMPRESSION: Head tilt to the left and degenerative changes. No fracture or dislocation seen.? <OTTO Duggan - Last Filed: 12/12/20 17:54> Critical Care Time Critical Care Time Critical Care Time: Yes <OTTO Duggan - Last Filed: 12/12/20 17:54> Total Critical Care Time: 37 <OTTO Duggan - Last Filed: 12/12/20 17:54> Attestation: I have personally provided critical care time exclusive of time spent on separately billable procedures. Time includes review of lab data, radiology results, discussion with consultants, and monitoring for potential decompensation. Intervention performed as documented. <OTTO Duggan - Last Filed: 12/12/20 17:54> Discharge Plan Discharge Clinical Impression: Alcoholic intoxication Qualifiers: Complication of substance-induced condition: uncomplicated Qualified Code(s): F10.920 - Alcohol use, unspecified with intoxication, uncomplicated Rhabdomyolysis Qualifiers: Rhabdomyolysis type: non-traumatic Qualified Code(s): M62.82 - Rhabdomyolysis <OTTO Duggan Last Filed: 12/12/20 17:54> Patient Disposition: Home, Self-Care <OTTO Duggan Last Filed: 12/12/20 17:54> Instructions: Rhabdomyolysis (ED), Alcohol Intoxication (ED), Abuse of Alcohol (ED), Alcohol Use Disorder (ED) <OTTO Duggan - Last Filed: 12/12/20 17:54> Additional Instructions: Stop drinking alcohol, it is very bad for your health Drink plenty of water Follow-up with your primary care provider. <OTTO Duggan - Last Filed: 12/12/20 17:54> Prescriptions: No Action gabapentin 600 mg tablet 1 tab PO BID RF: 0 clonazepam 0.5 mg tablet 1 tab PO DAILY PRN (Reason: anxiety) RF: 0 amlodipine 10 mg tablet 1 tab PO DAILY RF: 0 folic acid 1 mg tablet 1 tab PO DAILY RF: 0 ziprasidone HCl 40 mg capsule 1 cap PO BID RF: 0 naproxen 500 mg tablet 1 tab PO BID RF: 0 Vyvanse 40 mg capsule 1 cap PO QAM RF: 0 multivitamin with folic acid [Daily-Lanie (with folic acid)] 400 mcg tablet 1 tab PO DAILY RF: 0 trazodone 100 mg tablet 2 tab PO BEDTIME RF: 0 <OTTO Duggan - Last Filed: 12/12/20 17:54>
[2020-12-12 15:54] LABS: MANUAL DIFF FLAG NO
[2020-12-12 15:55] LABS: Appearance Urine CLEAR; Color Urine STRAW; Glucose Urine UA NEG (NEG); Leukocyte Esterase Urine NEG (NEG); Nitrite Urine NEG (NEG); Specific Gravity - Urine <= 1.005 (1.005-1.025); Urine Blood NEG (NEG); Urine Ketones NEG (NEG); Urine Protein NEG (NEG-TRACE)
[2020-12-12 15:59] LABS: Basophils Percent Auto 0.6 % (0-2); Eosinophils Absolute Auto 0.2 X10*3/uL (0.0-0.4); Eosinophils Percent Auto 3.9 % (0-4); Hematocrit 35.8 % (42-52); Imm Gran Abs Auto 0.02 X10*3/uL (0.00-0.03); Imm Gran Pct Auto 0.3 % (0.0-0.4); Lymphocytes Absolute Auto 2.2 X10*3/uL (1.2-4.9); Lymphocytes Percent Auto 35.5 % (20-40); Mean Corpuscular HGB Conc 33.5 g/dl (31.0-36.0); Mean Corpuscular Hemoglobin 30.2 pg (27.0-33.0); Mean Corpuscular Volume 90.2 fL (80-98); Monocytes Absolute Auto 0.3 X10*3/uL (0.1-1.2); Monocytes Percent Auto 5.3 % (2-11); Neutrophils Absolute Auto 3.4 X10*3/uL (2.0-8.3); Neutrophils Percent Auto 54.4 % (45-73); Platelet Count 288 X10*3/uL (160-400); Red Blood Count 3.97 X10*6/uL (4.60-5.80); Red Cell Distribution Width 14.1 % (11.0-16.0); White Blood Count 6.2 X10*3/uL (4.8-10.8)
[2020-12-12 16:09] LABS: Ethanol 329 mg/dL
[2020-12-12 16:11] LABS: Amphetamine Screen Urine Not Detected (Not Detect); Barbiturates, Urine Not Detected (Not Detect); Benzodiazepines Screen Urine Not Detected (Not Detect); Cannabinoid Screen Urine Not Detected (Not Detect); Cocaine Screen Urine POSITIVE (Not Detect); Fentanyl, urine POSITIVE (Not Detect); Opiate Screen Urine Not Detected (Not Detect); Phencyclidine Screen Urine Not Detected (Not Detect)
[2020-12-12 16:16] LABS: Alanine Aminotransferase 50 U/L (0-40); Alkaline Phosphatase 76 U/L (39-117); Anion Gap 13 (12-20); Aspartate Amino Transferase 50 U/L (5-37); Bilirubin Direct < 0.2 mg/dL (0.0-0.5); Bilirubin Total < 0.2 mg/dL (0.0-1.0); Blood Urea Nitrogen 10 mg/dL (9-16); Calcium 8.5 mg/dL (8.4-10.2); Carbon Dioxide 25 mmol/L (22-29); Chloride 108 mmol/L (96-108); Creatinine Clr Calc Pharmacy 127.8; Estimated Glomerular Filt Rate > 60; Glucose Random 119 mg/dL (60-115); Potassium 3.8 mmol/L (3.3-5.1); Sodium 142 mmol/L (135-145); Total Protein 6.3 g/dL (6.5-8.0)
[2020-12-12] MEDS: 0.9 % Sodium Chloride 1,000 ML 999 ML IVCONT ×2 (17:29→17:31)
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
[2020-12-12 18:08] VITALS: BP 102/55; PULSE 62; RESP 18; TEMP 37.1; O2SAT 95
[2020-12-12 22:42] LABS: Ethanol 151 mg/dL
[2020-12-12 23:52] VITALS: BP 150/83; PULSE 74; RESP 16; O2SAT 95
--- NOTE | 2020-12-12 23:54 | PC.NURSE ---
Pt alert, awaiting plan/dspo. Speaking in full sentences, using bedside urinal as needed. VSS. steady on feet. Reports right hand pain x weeks
--- NOTE | 2020-12-13 04:51 | PC.NURSE ---
pt is currently asleep, respirations even and unlabored
[2020-12-13 05:38] VITALS: BP 138/93; PULSE 74; RESP 16; O2SAT 96
--- NOTE | 2020-12-13 05:40 | PC.NURSE ---
pt resting in the stretcher, pt reports that he is starting to go into withdrawals, reports some nausea/tremors per pt but not visible to this rn with a slight headache, vs stable. aware
[2020-12-13] MEDS: ondansetron HCL 4 MG/2 ML VIAL IVPUSH (06:02)
[2020-12-13] MEDS: LORazepam 1 MG TABLET 2 MG PO (06:03)
== END 2020-12-13 06:33 | disposition home or self-care (01) ==
PROVIDERS: Physician Assistant; Emergency Provider Emergency Medicine
DX: S09.90XA Unspecified injury of head, initial encounter (principal); F10.920 Alcohol use, unspecified with intoxication, uncomplicated; M62.82 Rhabdomyolysis; G44.309 Post-traumatic headache, unspecified, not intractable; M54.2 Cervicalgia; F14.10 Cocaine abuse, uncomplicated; Y90.6 Blood alcohol level of 120-199 mg/100 ml; W19.XXXA Unspecified fall, initial encounter; Y93.9 Activity, unspecified; Y92.410 Unspecified street and highway as the place of occurrence of the external cause; Y99.9 Unspecified external cause status; Z79.899 Other long term (current) drug therapy; F17.200 Nicotine dependence, unspecified, uncomplicated; Z71.6 Tobacco abuse counseling
CPT/HCPCS: 36415; 70450; 72125; 80048; 80076; 80307; 81003; 82077; 82550; 85025; 96361; 96374; 99284; J2405

== ENCOUNTER 2020-12-26 13:12 | Emergency (ER) | payer OTHER, SELFPAY ==
--- NOTE | 2020-12-26 13:20 | ED_ITS ---
HPI - Alcohol General Stated Complaint: etoh/si Time Seen by Provider: 12/26/20 13:20 Source: patient and EMS Mode of arrival: EMS Limitations: other (ETOH use) Related Data Home Medications Medication Instructions Recorded Confirmed amlodipine 10 mg tablet 1 tab PO DAILY 11/23/20 11/23/20 clonazepam 0.5 mg tablet 1 tab PO DAILY PRN 11/23/20 11/23/20 folic acid 1 mg tablet 1 tab PO DAILY 11/23/20 11/23/20 gabapentin 600 mg tablet 1 tab PO BID 11/23/20 11/23/20 lisdexamfetamine 40 mg capsule 1 cap PO QAM 11/23/20 11/23/20 (Vyvanse) multivitamin with folic acid 400 1 tab PO DAILY 11/23/20 11/23/20 mcg tablet (Daily-Lanie (with folic acid)) naproxen 500 mg tablet 1 tab PO BID 11/23/20 11/23/20 trazodone 100 mg tablet 2 tab PO BEDTIME 11/23/20 11/23/20 ziprasidone HCl 40 mg capsule 1 cap PO BID 11/23/20 11/23/20 Allergies Allergy/AdvReac Type Severity Reaction Status Date / Time lisinopril [Lisinopril] Allergy Intermediate ANGIOEDEMA Unverified 12/12/19 17:28 cat dander [CATS] Allergy Mild PUFFY EYES Unverified 12/12/19 17:28 olanzapine [From ZYPREXA] Allergy Unknown UNKNOWN Unverified 12/12/19 17:28 [facility] Past Medical History Medical History Alcoholism HTN (hypertension) Social History Social History Alcohol intake: current Alcohol intake frequency: 3 or more drinks per day Alcohol type: hard liquor Patient Tobacco Use Status: Current everyday Tobacco user Substance Use Type: Crack/Cocaine Discharge Plan Discharge Prescriptions: No Action gabapentin 600 mg tablet 1 tab PO BID RF: 0 clonazepam 0.5 mg tablet 1 tab PO DAILY PRN (Reason: anxiety) RF: 0 amlodipine 10 mg tablet 1 tab PO DAILY RF: 0 folic acid 1 mg tablet 1 tab PO DAILY RF: 0 ziprasidone HCl 40 mg capsule 1 cap PO BID RF: 0 naproxen 500 mg tablet 1 tab PO BID RF: 0 Vyvanse 40 mg capsule 1 cap PO QAM RF: 0 multivitamin with folic acid [Daily-Lanie (with folic acid)] 400 mcg tablet 1 tab PO DAILY RF: 0 trazodone 100 mg tablet 2 tab PO BEDTIME RF: 0
[2020-12-26 13:24] VITALS: BP 152/98; PULSE 100; O2SAT 97; BMI 27.1
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
--- NOTE | 2020-12-26 13:49 | PC.NURSE ---
pts belongings in locker 7
[2020-12-26 14:09] LABS: COVID-19 Test Negative (Negative)
[2020-12-26 14:16] VITALS: BP 112/54; PULSE 64; RESP 18
[2020-12-26 14:19] LABS: Amphetamine Screen Urine Not Detected (Not Detect); Barbiturates, Urine POSITIVE (Not Detect); Benzodiazepines Screen Urine Not Detected (Not Detect); Cannabinoid Screen Urine Not Detected (Not Detect); Cocaine Screen Urine POSITIVE (Not Detect); Fentanyl, urine POSITIVE (Not Detect); Opiate Screen Urine Not Detected (Not Detect); Phencyclidine Screen Urine Not Detected (Not Detect)
[2020-12-26 14:48] LABS: MANUAL DIFF FLAG NO
[2020-12-26 14:50] LABS: Basophils Absolute Auto 0.1 X10*3/uL (0.0-0.2); Basophils Percent Auto 0.7 % (0-2); Eosinophils Absolute Auto 0.1 X10*3/uL (0.0-0.4); Eosinophils Percent Auto 1.2 % (0-4); Hematocrit 39.4 % (42-52); Hemoglobin 13.4 g/dl (14.0-18.0); Imm Gran Abs Auto 0.04 X10*3/uL (0.00-0.03); Imm Gran Pct Auto 0.5 % (0.0-0.4); Lymphocytes Absolute Auto 2.2 X10*3/uL (1.2-4.9); Lymphocytes Percent Auto 26.3 % (20-40); Mean Corpuscular Hemoglobin 30.2 pg (27.0-33.0); Mean Corpuscular Volume 88.9 fL (80-98); Monocytes Absolute Auto 0.5 X10*3/uL (0.1-1.2); Neutrophils Absolute Auto 5.4 X10*3/uL (2.0-8.3); Neutrophils Percent Auto 65.3 % (45-73); Platelet Count 317 X10*3/uL (160-400); Red Blood Count 4.43 X10*6/uL (4.60-5.80); Red Cell Distribution Width 13.8 % (11.0-16.0); White Blood Count 8.3 X10*3/uL (4.8-10.8)
[2020-12-26 15:02] LABS: Ethanol 338 mg/dL
[2020-12-26 15:04] LABS: Alanine Aminotransferase 85 U/L (0-40); Albumin Level 4.2 g/dL (3.5-5.0); Alkaline Phosphatase 77 U/L (39-117); Anion Gap 16 (12-20); Aspartate Amino Transferase 80 U/L (5-37); Bilirubin Direct < 0.2 mg/dL (0.0-0.5); Bilirubin Total 0.2 mg/dL (0.0-1.0); Blood Urea Nitrogen 8 mg/dL (9-16); Carbon Dioxide 20 mmol/L (22-29); Chloride 100 mmol/L (96-108); Estimated Glomerular Filt Rate > 60; Glucose Random 118 mg/dL (60-115); Magnesium 2.1 mg/dL (1.6-2.6); Potassium 3.7 mmol/L (3.3-5.1); Sodium 132 mmol/L (135-145); Total Protein 6.8 g/dL (6.5-8.0)
[2020-12-26 19:02] VITALS: BP 107/63; PULSE 86; TEMP 37.3; O2SAT 95
[2020-12-26] MEDS: LORazepam 1 MG TABLET 2 MG PO (20:48)
--- NOTE | 2020-12-26 21:21 | PC.NURSE ---
[facility] contacted for crisis referral. N stated that no clinicians are available at this time.
[2020-12-27] VITALS (8 sets, daily range): BP systolic 126–141; BP diastolic 66–86; PULSE 70–81; RESP 16–18; TEMP 36.7; O2SAT 95–98
[2020-12-27] MEDS: chlordiazePOXIDE HCl 25 MG CAPSULE 50 MG PO (03:55)
[2020-12-27] MEDS: Multivitamin TABLET 1 TAB PO (08:30)
[2020-12-27] MEDS: Folic Acid 1 MG TABLET PO (08:30)
[2020-12-27] MEDS: amLODIPine Besylate 10 MG TABLET PO (08:31)
[2020-12-27] MEDS: NaPROXEN 500 MG TABLET PO ×2 (08:31→20:09)
[2020-12-27] MEDS: Gabapentin 600 MG TABLET PO ×2 (08:31→20:10)
[2020-12-27] MEDS: LORazepam 1 MG TABLET 2 MG PO ×3 (09:13→18:29)
[2020-12-27] MEDS: Sulfamethox/Trimeth 800/160 TABLET 1 TAB PO ×2 (09:13→20:09)
--- NOTE | 2020-12-27 09:48 | MHC.CARE ---
CARE Team spoke briefly with patient in [facility] to ask if he was interested in a detox referral, he stated that he wants to Section 35 himself tomorrow. Patient said he does not feel that he can stop drinking on his own and detox is not enough treatment. Does not have a family member to support the petition, has done this by himself successfully in the past, unable to say when, however.
[2020-12-27] MEDS: cloNIDine HCL 0.1 MG TABLET PO (15:06)
--- NOTE | 2020-12-27 18:01 | MHC.RECOVSUP ---
? Reason for consult Recovery Support o Current location: [facility] o Identified substance use concern: Alocohol - Support ? Intervention: o Community resources provided o Harm reduction discussion ? Plan: o Follow up tomorrow o Patient awaiting crisis evaluation o Patient to follow up with [facility] after discharge ? Additional information: Patient wants to section 35 himself..Patient will be allowed to stay till the Morning
[2020-12-27] MEDS: traZODone HCL 100 MG TABLET 200 MG PO (20:10)
--- NOTE | 2020-12-27 20:14 | PC.NURSE ---
pt alert, oriented, and calm. requests meds at 8p. meds given, refused geodon.
[2020-12-28 06:15] VITALS: BP 128/59; PULSE 65; RESP 17; TEMP 36.6; O2SAT 96
[2020-12-28] MEDS: clonazePAM 0.5 MG TABLET PO (06:18)
--- NOTE | 2020-12-28 06:28 | PC.NURSE ---
Patient slept through the night, no distress observed/reported, asymptomatic of withdrawal, prn Klonopin 0.5 mg administered per request, patient got seen by care team, patient reported he wants to self check in for section 35, patient will be d/c in the morning, behavior appropriate, medication compliant, will continue to monitor.
--- NOTE | 2020-12-28 07:22 | PC.NURSE ---
patient appears to remain asleep at present, respirations are even and unlabored, patient appears in no distress
[2020-12-28 08:33] VITALS: BP 130/78; PULSE 62; RESP 16; TEMP 36.8; O2SAT 95
== END 2020-12-28 08:56 | disposition home or self-care (01) ==
PROVIDERS: Physician Assistant; Emergency Provider Emergency Medicine; PCP Internal Medicine
DX: F10.129 Alcohol abuse with intoxication, unspecified (principal); F14.90 Cocaine use, unspecified, uncomplicated; Y90.8 Blood alcohol level of 240 mg/100 ml or more; F11.90 Opioid use, unspecified, uncomplicated; Z20.822 Contact with and (suspected) exposure to COVID-19; Z79.899 Other long term (current) drug therapy
CPT/HCPCS: 36415; 80048; 80076; 80307; 82077; 83735; 85025; 87635; 99285

== ENCOUNTER 2020-12-28 15:33 | Emergency (ER) | payer OTHER, SELFPAY ==
[2020-12-28 15:40] VITALS: BMI 27.8
[2020-12-28 16:00] VITALS: TEMP 36.2
--- NOTE | 2020-12-28 16:01 | MHC.CARE ---
CARE team contacted by Sera from [facility]. Pt self presented to request a Sect 35 petition for himself. He arrived intoxicated, then left shortly after completing the paperwork, and when he returned he was more intoxicated. The court officers had him sent to the ED for medical clearance. The motion picture printer approved the Sect 35, going into effect in the morning. Sera is requesting that a BAL and toxicology screen, and if pt is still in the ED come morning that we call the [place] [employer] to notify them that there's an active Sect 35 warrant and to pick him up from the hospital. This tech writer spoke with ED charge nurse re: current plan and request that pt be permitted to remain in ED until the morning. She will relay this information to the nurse and the ED provider when one picks up the assignment. If pt makes any statements of suicide or self harm, CARE team will be consulted to assess him.
[2020-12-28 16:12] VITALS: BP 124/58; PULSE 70; RESP 18; O2SAT 96
--- NOTE | 2020-12-28 16:30 | ED_ITS ---
HPI - Alcohol General Chief Complaint: ETOH/Substance Use Stated Complaint: etoh Time Seen by Provider: 12/28/20 16:22 Source: patient Mode of arrival: EMS Limitations: no limitations History of Present Illness HPI narrative: Patient comes emergency room sent by the court. This morning, patient was discharge from this facility, patient went to court and petition for a Section 35 for himself. Since he was intoxicated in court, he was sent to the emergency room. Patient denies chest pain, no shortness of breath, denies suicidal or homicidal ideations. Related Data Home Medications Medication Instructions Recorded Confirmed amlodipine 10 mg tablet 1 tab PO DAILY 11/23/20 12/26/20 clonazepam 0.5 mg tablet 1 tab PO DAILY PRN 11/23/20 12/26/20 folic acid 1 mg tablet 1 tab PO DAILY 11/23/20 12/26/20 gabapentin 600 mg tablet 1 tab PO BID 11/23/20 12/26/20 lisdexamfetamine 40 mg capsule 1 cap PO QAM 11/23/20 12/26/20 (Vyvanse) multivitamin with folic acid 400 1 tab PO DAILY 11/23/20 12/26/20 mcg tablet (Daily-Lanie (with folic acid)) naproxen 500 mg tablet 1 tab PO BID 11/23/20 12/26/20 trazodone 100 mg tablet 2 tab PO BEDTIME 11/23/20 12/26/20 ziprasidone HCl 40 mg capsule 1 cap PO BID 11/23/20 12/26/20 loratadine 10 mg tablet 1 tab PO DAILY PRN 12/26/20 12/26/20 Allergies Allergy/AdvReac Type Severity Reaction Status Date / Time lisinopril [Lisinopril] Allergy Intermediate ANGIOEDEMA Unverified 12/12/19 17:28 cat dander [CATS] Allergy Mild PUFFY EYES Unverified 12/12/19 17:28 olanzapine [From ZYPREXA] Allergy Unknown UNKNOWN Unverified 12/12/19 17:28 Review of Systems Review of Systems: Constitutional : No Weight loss, No Fever, No Chills, No Night Sweats, No Fatigue, No Malaise ENT/Mouth : No Hearing loss, No Ear Pain, No Nasal Congestion, No Sinus Pain, No Hoarseness, No sore throat, No Rhinorrhea, No Swallowing Difficulty Eyes: No Eye Pain, No Swelling, No Redness, No Foreign Body, No Discharge, No Vision Changes Cardiovascular : No Chest Pain, No SOB, No Dyspnea on Exertion, No Orthopnea, No Edema, No Palpitations Respiratory : No Cough, No Sputum, No Wheezing, No Smoke Exposure, No Dyspnea Gastrointestinal : No Nausea, No Vomiting, No Diarrhea, No Constipation, No abdominal Pain, No Hematochezia, No Melena Genitourinary : no irregular bleeding, No Dysuria, No Urinary Frequency, No Hematuria, No Urinary Incontinence, No Urgency, No Flank Pain, No Urinary Flow Changes, No Hesitancy Musculoskeletal : No joint pain, No Myalgias, No Joint Swelling Skin : No Skin Lesions, No rash Neuro : No Weakness, No Numbness, No Paresthesias, No Loss of Consciousness, No Dizziness, No Headache Psych : No Anxiety/Panic, No Depression, No SI/HI/AH/VH, No Social Issues, Heme/Lymph: No Bruising, No Bleeding,No Lymphadenopathy Endocrine : No Polyuria, No Polydipsia, No Temperature Intolerance [facility] Past Medical History Medical History Alcoholism HTN (hypertension) Social History Social History Alcohol intake: current Alcohol intake frequency: 3 or more drinks per day Alcohol type: beer and hard liquor Patient Tobacco Use Status: Current everyday Tobacco user Use of substances other than those prescribed or required for medical reasons: Yes Substance Use Type: Crack/Cocaine Substance Use Frequency: Daily Last Used Substance: Just Prior to Admission Advance Directives: No Advance Directives Information Provided: No Physical Exam Vital Signs: Vital Signs: Last Vital Signs Temp 97.2 F 12/28/20 16:00 Pulse 70 12/28/20 16:12 Resp 18 12/28/20 16:12 BP 124/58 L 12/28/20 16:12 Pulse Ox 96 12/28/20 16:12 Body Mass Index 27.8 Const: Other: Appearance: Alert. Oriented X3. Somnolent but easily arousable, intoxicated Eyes: Pupils equal, round and reactive to light. ENT: Pharynx normal. Neck: Normal inspection. Neck supple. No lymph nodes noted. No crepitus CVS: Normal heart rate and rhythm. Pulses normal. Normal S1 and S2 Respiratory: No respiratory distress. Breath sounds normal. No Wheezing. No rales Abdomen: Soft and nontender. No rigidity. No distention. good BS x4 Skin: Skin warm and dry. Normal skin color. Normal skin turgor. Extremities: No lower extremity edema. No Lacerations. No Rash Neuro: Oriented X 3. No motor deficit. No sensory deficit. Moving all extermities. No slurred speech Course Course Course Narrative: Take care team was able to get in touch with the court. Patient is sections 35 is active. Plan is to keep the patient overnight, tomorrow he will leave the facility with PD escort. At this time, patient is calm, cooperative, agreeable with plan Physician observation was started at 17:15. Patient will be waiting to be taken to detox for tomorrow in the morning. Sign-out given to Dr. Moore Discharge Plan Discharge Clinical Impression: Alcoholic intoxication Prescriptions: No Action gabapentin 600 mg tablet 1 tab PO BID RF: 0 clonazepam 0.5 mg tablet 1 tab PO DAILY PRN (Reason: anxiety) RF: 0 amlodipine 10 mg tablet 1 tab PO DAILY RF: 0 folic acid 1 mg tablet 1 tab PO DAILY RF: 0 ziprasidone HCl 40 mg capsule 1 cap PO BID RF: 0 naproxen 500 mg tablet 1 tab PO BID RF: 0 Vyvanse 40 mg capsule 1 cap PO QAM RF: 0 multivitamin with folic acid [Daily-Lanie (with folic acid)] 400 mcg tablet 1 tab PO DAILY RF: 0 trazodone 100 mg tablet 2 tab PO BEDTIME RF: 0 loratadine 10 mg tablet 1 tab PO DAILY PRN (Reason: allergies) RF: 0
--- NOTE | 2020-12-28 17:38 | MHC.CARE ---
CARE team met with pt at the request of the ED charge nurse after pt began demanding to leave the hospital. This securities underwriter discussed with the him what the outcome of his Sect 35 petition was and he stated that he wanted to go back to his hotel and turn himself in tomorrow morning. He was encouraged to stay in the ED so that he can have support throughout the night as needed and get some rest before his commitment. He stated that the lights were bright and it was noisy, and that he wanted to get out of this situation and eat [place] food. He was agreeable to moving to the pod and staying the night until he could discharge on the warrant to treatment. After moving to the pod, pt refused to give vitals, refused to change, and refused bloodwork. He was demanding to leave and did not appear to have any recollection of what had just been discussed. He denied having signed any paperwork at the courthouse and that he wasn't being committed on a Sect 35. This securities underwriter reiterated that he is in fact, and that the warrant it active in the morning. He again stated that he would turn himself in but wanted to go back to the hotel. He was agitated and required security presence due to his level of escalation and the escalation of another pt. Pt is unable to be held involuntarily pending warrant and was escorted out of the pod by security.
[2020-12-28 18:20] LABS: Amphetamine Screen Urine Not Detected (Not Detect); Barbiturates, Urine POSITIVE (Not Detect); Benzodiazepines Screen Urine POSITIVE (Not Detect); Cannabinoid Screen Urine Not Detected (Not Detect); Cocaine Screen Urine POSITIVE (Not Detect); Fentanyl, urine Not Detected (Not Detect); Opiate Screen Urine Not Detected (Not Detect); Phencyclidine Screen Urine Not Detected (Not Detect)
[2020-12-28 20:10] LABS: Ethanol 123 mg/dL
[2020-12-28 20:12] LABS: COVID-19 Test Negative (Negative); IDNOW Serial# 08D9AD1C
[2020-12-28 20:13] VITALS: BP 134/73; PULSE 78; RESP 20; TEMP 37.1; O2SAT 97
--- NOTE | 2020-12-28 20:35 | MHC.CARE ---
Pt did not leave the ED. When he discovered that it was raining outside he elected to remain in the BH pod overnight after all. CARE team will continue to check in throughout the evening and will contact [employer] in the morning.
[2020-12-28] MEDS: clonazePAM 0.5 MG TABLET PO (20:43)
[2020-12-28] MEDS: Gabapentin 600 MG TABLET PO (20:43)
[2020-12-28] MEDS: traZODone HCL 100 MG TABLET 200 MG PO (20:43)
[2020-12-28] MEDS: NaPROXEN 500 MG TABLET PO (20:43)
[2020-12-28] MEDS: Sulfamethox/Trimeth 800/160 TABLET 1 TAB PO (20:43)
[2020-12-29] MEDS: LORazepam 1 MG TABLET 2 MG PO ×2 (05:40→09:36)
[2020-12-29 05:46] VITALS: BP 148/87; PULSE 76; RESP 17; TEMP 36.7; O2SAT 97
--- NOTE | 2020-12-29 05:49 | PC.NURSE ---
Patient slept through the night, no distress observed/reported, patient woke up in the morning seems anxious, CIWA assessed scored 8, PRN ativan 2 mg tablet administered as ordered, behavior appropriate, medication compliant, patient self filed for section 35, will leave the ED POD in the morning, will continue to monitor.
--- NOTE | 2020-12-29 07:16 | PC.NURSE ---
patient appears at rest at present with even unlabored breaths patient appears in no distress
[2020-12-29] MEDS: Gabapentin 600 MG TABLET PO (08:44)
[2020-12-29 08:45] VITALS: BP 148/87; PULSE 76
[2020-12-29] MEDS: Multivitamin TABLET 1 TAB PO (08:45)
[2020-12-29] MEDS: amLODIPine Besylate 10 MG TABLET PO (08:45)
[2020-12-29] MEDS: Sulfamethox/Trimeth 800/160 TABLET 1 TAB PO (08:45)
[2020-12-29] MEDS: NaPROXEN 500 MG TABLET PO (08:45)
[2020-12-29] MEDS: Folic Acid 1 MG TABLET PO (08:45)
[2020-12-29 08:58] VITALS: BP 145/90; PULSE 64; RESP 16; TEMP 36.8; O2SAT 96
[2020-12-29] MEDS: clonazePAM 0.5 MG TABLET PO (09:32)
--- NOTE | 2020-12-29 09:46 | PC.NURSE ---
patient escalated a bit prior to police arriving to serve section 35, demanding to leave that he wanted [employer] food, despite the fact in the earlier part of morning patient stated he wanted to continue with section. patient refused to sign dc paperwork with this telegraphic typewriter operator chief.
== END 2020-12-29 09:57 ==
PROVIDERS: Emergency Provider Emergency Medicine
DX: F10.129 Alcohol abuse with intoxication, unspecified (principal); R11.2 Nausea with vomiting, unspecified; F14.90 Cocaine use, unspecified, uncomplicated; Y90.8 Blood alcohol level of 240 mg/100 ml or more; Z20.822 Contact with and (suspected) exposure to COVID-19; Z79.899 Other long term (current) drug therapy
CPT/HCPCS: 36415; 80307; 82077; 87635; 99285

== ENCOUNTER 2021-10-25 14:05 | Emergency (ER) | payer OTHER, SELFPAY ==
[2021-10-25 14:19] VITALS: BP 109/51; PULSE 71; RESP 16; TEMP 36.8; O2SAT 94
--- NOTE | 2021-10-25 14:30 | ED_ITS ---
HPI - Alcohol General Stated Complaint: ETOH Time Seen by Provider: 10/25/21 14:24 Source: patient and EMS Mode of arrival: EMS Limitations: no limitations History of Present Illness HPI narrative: 41-year-old male with a history alcohol abuse and dependence with several ER visits for alcohol intoxication who presents to the ER for medical clearance for placement to a possible detox. He reportedly presented to [facility] for alcohol detox today, he was visibly intoxicated and was referred to the hospital for medical clearance. Patient reports drinking a lot of vodka. unknown when his last intake was. He denies any other drug use. He is a poor historian and is acutely intoxicated. MD complaint: alcohol intoxication Last drink: Unknown Chronic alcohol use: Yes Previous visits for alcohol intoxication: Yes Recent trauma: No Associated symptoms: denies other symptoms Treatments prior to arrival: none Related Data Home Medications Medication Instructions Recorded Confirmed amlodipine 10 mg tablet 1 tab PO DAILY 11/23/20 12/28/20 clonazepam 0.5 mg tablet 1 tab PO DAILY PRN anxiety 11/23/20 12/28/20 folic acid 1 mg tablet 1 tab PO DAILY 11/23/20 12/28/20 gabapentin 600 mg tablet 1 tab PO BID 11/23/20 12/28/20 lisdexamfetamine 40 mg capsule 1 cap PO QAM attention deficit 11/23/20 12/28/20 (Vyvanse) hyperactivity disorder multivitamin with folic acid 400 1 tab PO DAILY 11/23/20 12/28/20 mcg tablet (Daily-Lanie (with folic acid)) naproxen 500 mg tablet 1 tab PO BID 11/23/20 12/28/20 trazodone 100 mg tablet 2 tab PO BEDTIME 11/23/20 12/28/20 loratadine 10 mg tablet 1 tab PO DAILY PRN allergies 12/26/20 12/28/20 sulfamethoxazole-trimethoprim 1 tab PO BID 12/28/20 12/28/20 Allergies Allergy/AdvReac Type Severity Reaction Status Date / Time lisinopril [Lisinopril] Allergy Intermediate ANGIOEDEMA Unverified 12/12/19 17:28 cat dander [CATS] Allergy Mild PUFFY EYES Unverified 12/12/19 17:28 olanzapine [From ZYPREXA] Allergy Unknown UNKNOWN Unverified 12/12/19 17:28 Review of Systems Review of Systems: Constitutional: No Fever, No Chills ENT/Mouth: No sore throat, No Rhinorrhea, No Swallowing Difficulty Eyes: No Eye Pain, No Swelling, No Redness Cardiovascular: No Chest Pain, No SOB, No Orthopnea, No Edema Respiratory: No Cough, No Sputum, No Wheezing, No dyspnea Gastrointestinal: No Nausea, No Vomiting, No Diarrhea, No abdominal Pain, No Hematochezia, No Melena Genitourinary: No Dysuria, No Urinary Frequency, No Hematuria Musculoskeletal: No joint pain, No Myalgias Skin: No Skin Lesions, No rash Neuro: No Weakness, No Numbness, No Dizziness, No Headache Psych: No Anxiety/Panic, + Depression, No SI Heme/Lymph: No Bruising, No Lymphadenopathy Endocrine: No Polyuria, No Polydipsia PMFSH Past Medical History Medical History Alcoholism HTN (hypertension) Social History Social History Alcohol intake: current Alcohol intake frequency: 3 or more drinks per day Alcohol type: beer and hard liquor Patient Tobacco Use Status: Current everyday Tobacco user Substance Use Type: Crack/Cocaine Physical Exam ED Vital Signs: Vital Signs - 24 hr 10/25/21 14:19 Temperature 98.2 F Pulse Rate 71 Respiratory Rate 16 Blood Pressure 109/51 L Pulse Oximetry 94 Oxygen Delivery Method Room Air Appearance: Alert. Oriented X2. Smells of alcohol, slurred speech at times Eyes: Pupils equal, round and reactive to light. ENT: Pharynx normal. Neck: Normal inspection. Neck supple. CVS: Normal heart rate and rhythm. Pulses normal. Respiratory: No respiratory distress. Breath sounds normal. Abdomen: Soft and nontender. +BS x4 Skin: Skin warm and dry. Normal skin color. Normal skin turgor. No rashes. Extremities: No lower extremity edema. No UE track bunn. Neuro: Oriented X 2. moves all extremities, follows commands, nonfocal. Slurred speech, at time incoherent. Course Course Course Narrative: 41-year-old male with a history of alcohol abuse and dependence, depression, polysubstance abuse who presents to the ER intoxicated. He presents for medical clearance for placement to a possible alcohol detox program. Will get alcohol level, basic lab workup, and have the coach professional athletes see him once he is clinically sober. Patient agrees with plan Reevaluation(s) Reevaluation #1: Tech attempted blood draw x1, unsuccessful. Will attempt again, he is currently sleeping. Physician observation started at 5:15pm. Patient placed in physician observation because patient is awaiting lab workup and referral to [facility] for possible detox. At the time observation was started patient's vital signs were stable. Patient is sleeping. Neuro exam is non-focal. CV: RRR and lungs are clear. Will continue to monitor. MDM - Alcohol Lab Data Labs: Lab Results 10/25/21 Range/Units 15:19 COVID-19 ([facility]) Negative (Negative) COVID-19 Clin Com See Note Discharge Plan Discharge Clinical Impression: Alcohol intoxication Patient Disposition: Still a Patient Prescriptions: No Action gabapentin 600 mg tablet 1 tab PO BID clonazepam 0.5 mg tablet 1 tab PO DAILY PRN (Reason: anxiety) amlodipine 10 mg tablet 1 tab PO DAILY folic acid 1 mg tablet 1 tab PO DAILY naproxen 500 mg tablet 1 tab PO BID Vyvanse 40 mg capsule 1 cap PO QAM multivitamin with folic acid [Daily-Lanie (with folic acid)] 400 mcg tablet 1 tab PO DAILY trazodone 100 mg tablet 2 tab PO BEDTIME loratadine 10 mg tablet 1 tab PO DAILY PRN (Reason: allergies) sulfamethoxazole-trimethoprim 1 tab PO BID
[2021-10-25 15:37] LABS: COVID-19 Test Negative (Negative); IDNOW Serial# 16C4AD1C
[2021-10-25 18:35] LABS: MANUAL DIFF FLAG NO
[2021-10-25 18:45] LABS: Basophils Absolute Auto 0.1 X10*3/uL (0.0-0.2); Basophils Percent Auto 0.6 % (0-2); Eosinophils Absolute Auto 0.4 X10*3/uL (0.0-0.4); Hematocrit 41.1 % (42.0-52.0); Hemoglobin 13.9 g/dl (14.0-18.0); Imm Gran Abs Auto 0.05 X10*3/uL (0.00-0.03); Imm Gran Pct Auto 0.6 % (0.0-0.4); Lymphocytes Absolute Auto 3.7 X10*3/uL (1.2-4.9); Lymphocytes Percent Auto 42.3 % (20-40); Mean Corpuscular HGB Conc 33.8 g/dl (31.0-36.0); Mean Corpuscular Hemoglobin 29.4 pg (27.0-33.0); Mean Corpuscular Volume 86.9 fL (80.0-98.0); Mean Platelet Volume 9.8 fL (9.4-12.4); Monocytes Absolute Auto 0.5 X10*3/uL (0.1-1.2); Monocytes Percent Auto 5.3 % (2-11); Neutrophils Percent Auto 46.2 % (45-73); Platelet Count 281 X10*3/uL (160-400); Red Blood Count 4.73 X10*6/uL (4.60-5.80); Red Cell Distribution Width 13.9 % (11.0-16.0); White Blood Count 8.7 X10*3/uL (4.8-10.8)
[2021-10-25 18:58] VITALS: BP 121/84; PULSE 82; RESP 17; O2SAT 96
[2021-10-25 19:13] LABS: Alanine Aminotransferase 17 U/L (0-40); Albumin Level 4.3 g/dL (3.5-5.0); Alkaline Phosphatase 57 U/L (39-117); Anion Gap 17 (12-20); Aspartate Amino Transferase 23 U/L (5-37); Bilirubin Direct < 0.2 mg/dL (0.0-0.5); Bilirubin Total 0.2 mg/dL (0.0-1.0); Blood Urea Nitrogen 9 mg/dL (9-16); Calcium 8.8 mg/dL (8.4-10.2); Carbon Dioxide 21 mmol/L (22-29); Chloride 111 mmol/L (96-108); Estimated Glomerular Filt Rate > 60; Ethanol 224 mg/dL; Glucose Random 99 mg/dL (60-115); Potassium 4.3 mmol/L (3.3-5.1); Sodium 145 mmol/L (135-145); Total Protein 6.9 g/dL (6.5-8.0)
--- NOTE | 2021-10-25 19:28 | PC.NURSE ---
pt left without his diacharge papers. pt told security that he was discharged and he was let out the doors by security. pt was alert oriented steady gait. no s/s of distress.
== END 2021-10-25 19:28 | disposition home or self-care (01) ==
PROVIDERS: Physician Assistant; Emergency Provider Emergency Medicine
DX: F10.129 Alcohol abuse with intoxication, unspecified (principal); Y90.9 Presence of alcohol in blood, level not specified; F33.1 Major depressive disorder, recurrent, moderate; Z20.822 Contact with and (suspected) exposure to COVID-19; Z79.899 Other long term (current) drug therapy
CPT/HCPCS: 80048; 80076; 82077; 82550; 83735; 85025; 87635; 99283

== ENCOUNTER 2021-11-14 19:05 | Emergency (ER) | payer OTHER, SELFPAY ==
[2021-11-14 19:15] VITALS: BP 133/69; BP 142/73; PULSE 79; PULSE 92; RESP 18; TEMP 36.8; O2SAT 96; O2SAT 97; BMI 28.0
--- NOTE | 2021-11-14 19:50 | ED.ALCOHOL ---
HPI - Alcohol General Chief Complaint: ETOH/Substance Use Stated Complaint: neck pain Time Seen by Provider: 11/14/21 19:42 Source: patient, EMS and old records reviewed Mode of arrival: EMS Limitations: no limitations History of Present Illness HPI narrative: 41-year-old male with history of alcohol abuse and dependence, several ER visits for alcohol intoxication who presents to the ER via EMS with alcohol intoxication. History is limited as patient is intoxicated and does not recall the events of today. He has no physical complaints except for being hungry and thirsty. He has no signs of any trauma. MD complaint: alcohol intoxication Last drink: Just prior to admission Chronic alcohol use: Yes Previous visits for alcohol intoxication: Yes Recent trauma: Yes Associated symptoms: denies other symptoms Treatments prior to arrival: none Related Data Home Medications Medication Instructions Recorded Confirmed amlodipine 10 mg tablet 1 tab PO DAILY 11/23/20 12/28/20 clonazepam 0.5 mg tablet 1 tab PO DAILY PRN anxiety 11/23/20 12/28/20 folic acid 1 mg tablet 1 tab PO DAILY 11/23/20 12/28/20 gabapentin 600 mg tablet 1 tab PO BID 11/23/20 12/28/20 lisdexamfetamine 40 mg capsule 1 cap PO QAM attention deficit 11/23/20 12/28/20 (Vyvanse) hyperactivity disorder multivitamin with folic acid 400 1 tab PO DAILY 11/23/20 12/28/20 mcg tablet (Daily-Lanie (with folic acid)) naproxen 500 mg tablet 1 tab PO BID 11/23/20 12/28/20 trazodone 100 mg tablet 2 tab PO BEDTIME 11/23/20 12/28/20 loratadine 10 mg tablet 1 tab PO DAILY PRN allergies 12/26/20 12/28/20 sulfamethoxazole-trimethoprim 1 tab PO BID 12/28/20 12/28/20 Allergies Allergy/AdvReac Type Severity Reaction Status Date / Time lisinopril [Lisinopril] Allergy Intermediate ANGIOEDEMA Unverified 12/12/19 17:28 cat dander [CATS] Allergy Mild PUFFY EYES Unverified 12/12/19 17:28 olanzapine [From ZYPREXA] Allergy Unknown UNKNOWN Unverified 12/12/19 17:28 Review of Systems Review of Systems: Constitutional: No Fever, No Chills ENT/Mouth: No sore throat, No Rhinorrhea, No Swallowing Difficulty Eyes: No Eye Pain, No Swelling, No Redness Cardiovascular: No Chest Pain, No SOB, No Orthopnea, No Edema Respiratory: No Cough, No Sputum, No Wheezing, No dyspnea Gastrointestinal: No Nausea, No Vomiting, No Diarrhea, No abdominal Pain, No Hematochezia, No Melena Genitourinary: No Dysuria, No Urinary Frequency, No Hematuria Musculoskeletal: No joint pain, No Myalgias Skin: No Skin Lesions, No rash Neuro: No Weakness, No Numbness, No Dizziness, No Headache Psych: No Anxiety/Panic, No Depression Heme/Lymph: No Bruising, No Lymphadenopathy Endocrine: No Polyuria, No Polydipsia PMFSH Past Medical History Medical History Alcoholism HTN (hypertension) Social History Social History Alcohol intake: current Alcohol intake frequency: 3 or more drinks per day Alcohol type: beer and hard liquor Patient Tobacco Use Status: Current everyday Tobacco user Substance Use Type: Crack/Cocaine Advance Directives: No Advance Directives Information Provided: No Physical Exam ED Vital Signs: Vital Signs - 24 hr 11/14/21 19:15 11/14/21 23:57 Temperature 98.3 F 98.3 F Pulse Rate 92 72 Respiratory Rate 18 16 Blood Pressure 142/73 H 116/55 L Pulse Oximetry 97 94 Oxygen Delivery Method Room Air Room Air BMI result Body Mass Index 28.0 Appearance: Alert. Oriented X3. No acute distress. Eyes: Pupils equal, round and reactive to light. ENT: Pharynx normal. Neck: Normal inspection. Neck supple. CVS: Normal heart rate and rhythm. Pulses normal. Respiratory: No respiratory distress. Breath sounds normal. Abdomen: Soft and nontender. +BS x4 Skin: Skin warm and dry. Normal skin color. Normal skin turgor. No rashes. Extremities: No lower extremity edema. Atraumatic x4 Neuro: Oriented X 3. Slurred speech, smells of alcohol. slow but steady gait, nonfocal. Course Course Course Narrative: 41 yo male with history of ETOH abuse and dependence presenting with intoxication. Unable to get an accurate history. Will check basic labs, etoh level and utox. Eating and drinking now. will monitor. Reevaluation(s) Reevaluation #1: Patient is sleeping comfortably. Labs showing alcohol level of 261. Once he is clinically sober will have the care team address detox. Physician observation started at 12:51am. Patient placed in physician observation because patient is awaiting sobriety reevaluation for the possible detox At the time observation was started patient's vital signs were stable. Patient is sleeping. Neuro exam is non-focal. CV: RRR and lungs are clear. Will continue to monitor. MDM - Alcohol Lab Data Result diagrams: 11/14/21 20:16 11/14/21 22:53 Labs: Lab Results 11/14/21 11/14/21 11/14/21 Range/Units 20:16 20:16 22:53 WBC 9.7 (4.8-10.8) X10*3/uL RBC 4.90 (4.60-5.80) X10*6/uL Hgb 14.4 (14.0-18.0) g/dl Hct 42.6 (42.0-52.0) % MCV 86.9 (80.0-98.0) fL MCH 29.4 (27.0-33.0) pg MCHC 33.8 (31.0-36.0) g/dl RDW 13.9 (11.0-16.0) % Plt Count 278 (160-400) X10*3/uL MPV 9.1 L (9.4-12.4) fL Immature Gran % (Auto) 0.6 H (0.0-0.4) % Neut % (Auto) 52.9 (45-73) % Lymph % (Auto) 33.0 (20-40) % [place] % (Auto) 6.2 (2-11) % Eos % (Auto) 6.4 H (0-4) % Baso % (Auto) 0.9 (0-2) % Lymph # (Auto) 3.2 (1.2-4.9) X10*3/uL [place] # (Auto) 0.6 (0.1-1.2) X10*3/uL Eos # (Auto) 0.6 H (0.0-0.4) X10*3/uL Baso # (Auto) 0.1 (0.0-0.2) X10*3/uL Abs Immat Gran (auto) 0.06 H (0.00-0.03) X10*3/uL Absolute Neuts (auto) 5.1 (2.0-8.3) x10*3/uL Absolute Nucleated RBC 0.000 (0.0-0.012) X10*3/uL Nucleated RBC % (auto) 0.0 (0.0-0.2) /100WBC Sodium 143 (135-145) mmol/L Potassium 3.9 (3.3-5.1) mmol/L Chloride 108 (96-108) mmol/L Carbon Dioxide 23 (22-29) mmol/L Anion Gap 16 (12-20) BUN 8 L (9-16) mg/dL Creatinine 0.79 (0.5-1.4) mg/dL Estim Creat Clear Calc 136.7 Estimated GFR > 60 Random Glucose 95 (60-115) mg/dL Calcium 8.8 (8.4-10.2) mg/dL Magnesium 2.0 (1.6-2.6) mg/dL Total Bilirubin 0.2 (0.0-1.0) mg/dL Direct Bilirubin < 0.2 (0.0-0.5) mg/dL AST 22 (5-37) U/L ALT 19 (0-40) U/L Alkaline Phosphatase 59 (39-117) U/L Total Protein 6.6 (6.5-8.0) g/dL Albumin 4.1 (3.5-5.0) g/dL Ethyl Alcohol 261 mg/dL COVID-19 ([facility]) Negative (Negative) COVID-19 Clin Com See Note Discharge Plan Discharge Clinical Impression: Alcoholic intoxication Prescriptions: No Action gabapentin 600 mg tablet 1 tab PO BID clonazepam 0.5 mg tablet 1 tab PO DAILY PRN (Reason: anxiety) amlodipine 10 mg tablet 1 tab PO DAILY folic acid 1 mg tablet 1 tab PO DAILY naproxen 500 mg tablet 1 tab PO BID Vyvanse 40 mg capsule 1 cap PO QAM multivitamin with folic acid [Daily-Lanie (with folic acid)] 400 mcg tablet 1 tab PO DAILY trazodone 100 mg tablet 2 tab PO BEDTIME loratadine 10 mg tablet 1 tab PO DAILY PRN (Reason: allergies) sulfamethoxazole-trimethoprim 1 tab PO BID
[2021-11-14 20:21] LABS: MANUAL DIFF FLAG NO
[2021-11-14 20:23] LABS: Basophils Absolute Auto 0.1 X10*3/uL (0.0-0.2); Basophils Percent Auto 0.9 % (0-2); Eosinophils Absolute Auto 0.6 X10*3/uL (0.0-0.4); Eosinophils Percent Auto 6.4 % (0-4); Hematocrit 42.6 % (42.0-52.0); Hemoglobin 14.4 g/dl (14.0-18.0); Imm Gran Abs Auto 0.06 X10*3/uL (0.00-0.03); Imm Gran Pct Auto 0.6 % (0.0-0.4); Lymphocytes Absolute Auto 3.2 X10*3/uL (1.2-4.9); Mean Corpuscular HGB Conc 33.8 g/dl (31.0-36.0); Mean Corpuscular Hemoglobin 29.4 pg (27.0-33.0); Mean Corpuscular Volume 86.9 fL (80.0-98.0); Mean Platelet Volume 9.1 fL (9.4-12.4); Monocytes Absolute Auto 0.6 X10*3/uL (0.1-1.2); Monocytes Percent Auto 6.2 % (2-11); Neutrophils Absolute Auto 5.1 x10*3/uL (2.0-8.3); Neutrophils Percent Auto 52.9 % (45-73); Platelet Count 278 X10*3/uL (160-400); Red Cell Distribution Width 13.9 % (11.0-16.0); White Blood Count 9.7 X10*3/uL (4.8-10.8)
[2021-11-14 20:41] LABS: COVID-19 Test Negative (Negative)
[2021-11-14 23:20] LABS: Alanine Aminotransferase 19 U/L (0-40); Albumin Level 4.1 g/dL (3.5-5.0); Alkaline Phosphatase 59 U/L (39-117); Anion Gap 16 (12-20); Aspartate Amino Transferase 22 U/L (5-37); Bilirubin Direct < 0.2 mg/dL (0.0-0.5); Bilirubin Total 0.2 mg/dL (0.0-1.0); Blood Urea Nitrogen 8 mg/dL (9-16); Calcium 8.8 mg/dL (8.4-10.2); Carbon Dioxide 23 mmol/L (22-29); Chloride 108 mmol/L (96-108); Creatinine Clr Calc Pharmacy 136.7; Estimated Glomerular Filt Rate > 60; Ethanol 261 mg/dL; Glucose Random 95 mg/dL (60-115); Potassium 3.9 mmol/L (3.3-5.1); Sodium 143 mmol/L (135-145); Total Protein 6.6 g/dL (6.5-8.0)
[2021-11-14 23:57] VITALS: BP 116/55; PULSE 72; RESP 16; TEMP 36.8; O2SAT 94
[2021-11-15 00:10] VITALS: PULSE 83
[2021-11-15 03:04] LABS: Appearance Urine Clear; Color Urine Yellow; Glucose Urine UA Negative (Negative); Leukocyte Esterase Urine Negative (Negative); Nitrite Urine Negative (Negative); PH 5.5 (5.0-8.0); Urine Blood Negative (Negative); Urine Ketones Negative (Negative); Urine Protein Negative (Neg-Trace)
[2021-11-15 03:18] LABS: Amphetamine Screen Urine POSITIVE (Not Detect); Barbiturates, Urine Not Detected (Not Detect); Benzodiazepines Screen Urine Not Detected (Not Detect); Cannabinoid Screen Urine POSITIVE (Not Detect); Cocaine Screen Urine Not Detected (Not Detect); Fentanyl, urine POSITIVE (Not Detect); Opiate Screen Urine Not Detected (Not Detect); Phencyclidine Screen Urine Not Detected (Not Detect)
[2021-11-15 05:59] VITALS: BP 115/60; PULSE 59; RESP 20; O2SAT 94
--- NOTE | 2021-11-15 09:46 | PC.NURSE ---
Pt agreeable to [facility].
--- NOTE | 2021-11-15 10:01 | MHC.RECOVRN ---
Referral and phone screen complete with [facility]. Awaiting review.
[2021-11-15 10:09] VITALS: BP 128/70; PULSE 65; RESP 16; O2SAT 95
--- NOTE | 2021-11-15 10:20 | MHC.RECOVRN ---
Pt accepted to [facility] for 3PM admission, must bring medications in hand. RN aware.
== END 2021-11-15 10:48 | disposition home or self-care (01) ==
PROVIDERS: Physician Assistant; Emergency Provider Emergency Medicine
DX: F10.129 Alcohol abuse with intoxication, unspecified (principal); M54.2 Cervicalgia; Y90.8 Blood alcohol level of 240 mg/100 ml or more; Z20.822 Contact with and (suspected) exposure to COVID-19; Z79.899 Other long term (current) drug therapy
CPT/HCPCS: 80048; 80076; 80307; 81003; 82077; 83735; 85025; 87635; 99285

== ENCOUNTER 2021-11-29 19:25 | Inpatient (IN) | payer OTHER, SELFPAY ==
--- NOTE | 2021-11-29 19:50 | ED_ITS ---
HPI - Psych General Stated Complaint: crisis Time Seen by Provider: 11/29/21 19:45 Source: EMS Mode of arrival: EMS Limitations: other (Intoxicated) History of Present Illness HPI Narrative: According to EMS, patient was found in a park, intoxicated. Patient made suicidal statements that he wants to overdose using heroin. Here in the emergency room, patient is awake, too intoxicated to give any significant hist ory. Patient upset, stating that he does not want to be a failure. Patient denies falling or hitting his head. Patient was Section [address] Related Data Home Medications Medication Instructions Recorded Confirmed amlodipine 10 mg tablet 1 tab PO DAILY 11/23/20 12/28/20 clonazepam 0.5 mg tablet 1 tab PO DAILY PRN anxiety 11/23/20 12/28/20 folic acid 1 mg tablet 1 tab PO DAILY 11/23/20 12/28/20 gabapentin 600 mg tablet 1 tab PO BID 11/23/20 12/28/20 lisdexamfetamine 40 mg capsule 1 cap PO QAM attention deficit 11/23/20 12/28/20 (Vyvanse) hyperactivity disorder multivitamin with folic acid 400 1 tab PO DAILY 11/23/20 12/28/20 mcg tablet (Daily-Lanie (with folic acid)) naproxen 500 mg tablet 1 tab PO BID 11/23/20 12/28/20 trazodone 100 mg tablet 2 tab PO BEDTIME 11/23/20 12/28/20 loratadine 10 mg tablet 1 tab PO DAILY PRN allergies 12/26/20 12/28/20 sulfamethoxazole-trimethoprim 1 tab PO BID 12/28/20 12/28/20 Allergies Allergy/AdvReac Type Severity Reaction Status Date / Time lisinopril [Lisinopril] Allergy Intermediate ANGIOEDEMA Unverified 12/12/19 17:28 cat dander [CATS] Allergy Mild PUFFY EYES Unverified 12/12/19 17:28 olanzapine [From ZYPREXA] Allergy Unknown UNKNOWN Unverified 12/12/19 17:28 Review of Systems Review of Systems: Yes Unobtainable due to mental status (Intoxicated) PMFSH Past Medical History Medical History Alcoholism HTN (hypertension) Social History Social History Alcohol intake: current Alcohol intake frequency: 3 or more drinks per day Alcohol type: beer and hard liquor Patient Tobacco Use Status: Current everyday Tobacco user Substance Use Type: Crack/Cocaine Physical Exam Const: Other: Appearance: Alert. Oriented X1. No acute distress. Intoxicated Eyes: Pupils equal, round and reactive to light. ENT: Pharynx normal. Neck: Normal inspection. Neck supple. No lymph nodes noted. No crepitus CVS: Normal heart rate and rhythm. Pulses normal. Normal S1 and S2 Respiratory: No respiratory distress. Breath sounds normal. No Wheezing. No rales Abdomen: Soft and nontender. No rigidity. No distention. Skin: Skin warm and dry. Normal skin color. Normal skin turgor. Extremities: No lower extremity edema. No Lacerations. No Rash Neuro: No motor deficit. No sensory deficit. Moving all extremities. No slurred speech. CN 2 through 12 grossly intact Psych: calm, cooperative, intoxicated Course Course Course Narrative: Patient's labs are pending. Patient is on a Section 12 that was started out in the community by police department. Behavioral health network consult pending. At this time, patient is still intoxicated and not making much sense. Plan: Metabolize to freedom, then have behavioral health network evaluate the patient when he is sober. Physician observation started at 20:00 Discharge Plan Discharge Clinical Impression: Alcohol intoxication, Suicidal ideation Patient Disposition: Still a Patient Prescriptions: No Action gabapentin 600 mg tablet 1 tab PO BID clonazepam 0.5 mg tablet 1 tab PO DAILY PRN (Reason: anxiety) amlodipine 10 mg tablet 1 tab PO DAILY folic acid 1 mg tablet 1 tab PO DAILY naproxen 500 mg tablet 1 tab PO BID Vyvanse 40 mg capsule 1 cap PO QAM multivitamin with folic acid [Daily-Lanie (with folic acid)] 400 mcg tablet 1 tab PO DAILY trazodone 100 mg tablet 2 tab PO BEDTIME loratadine 10 mg tablet 1 tab PO DAILY PRN (Reason: allergies) sulfamethoxazole-trimethoprim 1 tab PO BID
[2021-11-29 19:52] VITALS: BP 150/80; BP 192/90; PULSE 84; PULSE 89; RESP 16; TEMP 37.2; O2SAT 98; BMI 34.2
[2021-11-29 22:00] VITALS: BP 130/73; PULSE 72; RESP 16; TEMP 36.8; O2SAT 98
[2021-11-29 22:02] LABS: MANUAL DIFF FLAG NO
[2021-11-29 22:05] LABS: Basophils Absolute Auto 0.1 X10*3/uL (0.0-0.2); Basophils Percent Auto 0.7 % (0-2); Eosinophils Absolute Auto 0.2 X10*3/uL (0.0-0.4); Eosinophils Percent Auto 1.7 % (0-4); Hematocrit 43.8 % (42.0-52.0); Hemoglobin 14.9 g/dl (14.0-18.0); Imm Gran Pct Auto 0.9 % (0.0-0.4); Lymphocytes Absolute Auto 3.8 X10*3/uL (1.2-4.9); Lymphocytes Percent Auto 33.2 % (20-40); Mean Corpuscular Volume 91.1 fL (80.0-98.0); Mean Platelet Volume 9.4 fL (9.4-12.4); Monocytes Absolute Auto 0.7 X10*3/uL (0.1-1.2); Monocytes Percent Auto 6.3 % (2-11); Neutrophils Absolute Auto 6.5 x10*3/uL (2.0-8.3); Neutrophils Percent Auto 57.2 % (45-73); Platelet Count 236 X10*3/uL (160-400); Red Blood Count 4.81 X10*6/uL (4.60-5.80); Red Cell Distribution Width 14.3 % (11.0-16.0); White Blood Count 11.4 X10*3/uL (4.8-10.8)
[2021-11-29 22:20] LABS: Ethanol 296 mg/dL
[2021-11-29 22:24] LABS: Alanine Aminotransferase 31 U/L (0-40); Albumin Level 4.9 g/dL (3.5-5.0); Alkaline Phosphatase 71 U/L (39-117); Anion Gap 22 (12-20); Aspartate Amino Transferase 57 U/L (5-37); Bilirubin Direct < 0.2 mg/dL (0.0-0.5); Bilirubin Total 0.3 mg/dL (0.0-1.0); Blood Urea Nitrogen 10 mg/dL (9-16); Calcium 8.8 mg/dL (8.4-10.2); Carbon Dioxide 19 mmol/L (22-29); Chloride 103 mmol/L (96-108); Creatinine Clr Calc Pharmacy 157.8; Estimated Glomerular Filt Rate > 60; Glucose Random 70 mg/dL (60-115); Magnesium 1.9 mg/dL (1.6-2.6); Sodium 140 mmol/L (135-145); Total Protein 8.1 g/dL (6.5-8.0)
[2021-11-30 01:41] LABS: COVID-19 Test Negative (Negative)
[2021-11-30 01:43] LABS: Amphetamine Screen Urine Not Detected (Not Detect); Barbiturates, Urine Not Detected (Not Detect); Benzodiazepines Screen Urine Not Detected (Not Detect); Cannabinoid Screen Urine POSITIVE (Not Detect); Cocaine Screen Urine POSITIVE (Not Detect); Fentanyl, urine POSITIVE (Not Detect); Opiate Screen Urine Not Detected (Not Detect); Phencyclidine Screen Urine Not Detected (Not Detect)
--- NOTE | 2021-11-30 01:53 | PC.NURSE ---
[facility] referral sent at this time
[2021-11-30] MEDS: Acetaminophen 325 MG TABLET 975 MG PO (03:58)
[2021-11-30] MEDS: chlordiazePOXIDE HCl 25 MG CAPSULE PO ×2 (03:59→13:24)
[2021-11-30 06:00] VITALS: BP 158/87; PULSE 80; RESP 16; TEMP 36.8; O2SAT 97
[2021-11-30 08:04] VITALS: BP 138/77; PULSE 73; RESP 18; O2SAT 94
[2021-11-30] MEDS: chlordiazePOXIDE HCl 25 MG CAPSULE 50 MG PO (09:25)
[2021-11-30] MEDS: Calcium Carbonate 750 MG TAB.CHEW PO (11:18)
--- NOTE | 2021-11-30 11:44 | PHA.MEDREC ---
Pharmacy Consult ? Medication Reconciliation Pharmacy has completed the medication reconciliation. Pt able to name all of his home medications, but did state that he doesn't know the last time he took them and mentioned when he drinks he avoids taking them. When I asked him about the ziprasidone he did mention that he doesn't like the way it makes him feel and that it keeps him awake, and noted he had been weaning off of it. He mentioned a 40mg and 60mg dose that does show in claim history, however I am not adding it because he has stated he has not been taking it.
[2021-11-30 13:00] VITALS: BP 157/84; PULSE 66; RESP 19; TEMP 36.3; O2SAT 96
[2021-11-30] MEDS: Multivitamin TABLET 1 TAB PO (13:24)
[2021-11-30] MEDS: Gabapentin 600 MG TABLET PO ×2 (13:24→20:16)
[2021-11-30] MEDS: Thiamine HCL 100 MG TABLET PO (13:24)
[2021-11-30] MEDS: Folic Acid 1 MG TABLET PO (13:24)
[2021-11-30] MEDS: amLODIPine Besylate 10 MG TABLET PO (13:26)
[2021-11-30 15:24] LABS: CT PCR NOT DETECTED (Not Detect.); NG PCR NOT DETECTED (Not Detect.)
[2021-11-30] MEDS: clonazePAM 0.5 MG TABLET PO (16:59)
[2021-11-30] MEDS: traZODone HCL 100 MG TABLET 200 MG PO (20:16)
[2021-11-30 20:26] VITALS: BP 153/92; PULSE 75; RESP 16; O2SAT 97
--- NOTE | 2021-11-30 20:43 | PC.NURSE ---
Patient compliant with HS medication, disposition per N is section 12 Inpatient bed search, VSS, Appetite good, behavior non concerning at this time, will continue to monitor.
--- NOTE | 2021-12-01 | ECG_ITS ---
Test Reason : MEDICAL CLEARENCE Blood Pressure : / mmHG Vent. Rate : 070 BPM Atrial Rate : 070 BPM P-R Int : 156 ms QRS Dur : 092 ms QT Int : 432 ms P-R-T Axes : 009 -05 012 degrees QTc Int : 466 ms Normal sinus rhythm Normal ECG When compared with ECG of 06-JUL-2020 00:57, Nonspecific T wave abnormality no longer evident in Anterolateral leads Referred By: Bello Lin Electronically Signed By:LISSETTE MARC
[2021-12-01 00:07] VITALS: BP 143/84; PULSE 98; RESP 17; TEMP 36.8; O2SAT 93
--- NOTE | 2021-12-01 05:32 | PC.NURSE ---
Patient slept through the night, no distress observed/reported, medication compliant, behavior non concerning, asymptomatic of etoh withdrawal, disposition per [facility] is section 12 inpatient bed search, VSS, will continue to monitor.
--- NOTE | 2021-12-01 07:07 | PC.NURSE ---
patient appears to remain asleep at present respirations are even and unlabored patient appears in no distress
[2021-12-01] MEDS: Folic Acid 1 MG TABLET PO (10:57)
[2021-12-01] MEDS: Gabapentin 600 MG TABLET PO ×3 (10:57→20:23)
[2021-12-01] MEDS: Thiamine HCL 100 MG TABLET PO (10:57)
[2021-12-01] MEDS: Multivitamin TABLET 1 TAB PO (10:57)
[2021-12-01] MEDS: Nicotine 14 MG PATCH.TD24 TRANSDERMA (10:57)
[2021-12-01] MEDS: amLODIPine Besylate 10 MG TABLET PO (10:57)
[2021-12-01] MEDS: clonazePAM 0.5 MG TABLET PO (11:03)
[2021-12-01 12:49] LABS: COVID-19 Test Negative (Negative); IDNOW Serial# 16C4AD1C
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
[2021-12-01] MEDS: Acetaminophen 325 MG TABLET 650 MG PO (15:14)
[2021-12-01 15:45] VITALS: BP 132/76; PULSE 79; RESP 16; TEMP 36.6; O2SAT 95
--- NOTE | 2021-12-01 17:25 | PC.NURSE ---
Pt is 41-year-old COVID-negtive male admitted from [facility] ED after endorsing SI with plan, and intent to OD on heroin. However, during assessment on M3, pt denied SI/HI/AH/VH. Pt reports recent stressors including gf kicking him out and the imminent of a child with gf who is eight months . MedHx: Htn, asthma, TBI, chronic back pain, hx of w-d seizures 2 years ago per pt. PsycheHx: F32.9 unspecified depressive d-o; F10.20 alcohol use d-o; F14.20 stimulant use d-o, severe, cocaine. Pt c/o headache, tremors during initial arrival on M3 with leg shaking; however, once settled into interview displayed no visual symptoms of w/d and denied diaphoresis. CIWA 5 based on reported headache, mild anxiety, mild perspiration observed on forehead. Pt A&O, INAD, pleasant and cooperative, appears depressed with congruent affect.
[2021-12-01] MEDS: chlordiazePOXIDE HCl 25 MG CAPSULE 50 MG PO (18:15)
[2021-12-01 19:25] VITALS: BP 142/80; PULSE 77; RESP 16; TEMP 36.6; O2SAT 95
[2021-12-01] MEDS: traZODone HCL 100 MG TABLET 200 MG PO (20:23)
[2021-12-02] MEDS: clonazePAM 0.5 MG TABLET PO ×2 (04:06→19:38)
[2021-12-02] MEDS: Acetaminophen 325 MG TABLET 650 MG PO ×3 (04:15→22:45)
[2021-12-02 07:00] VITALS: BMI 29.1
[2021-12-02 08:30] VITALS: BP 137/82; PULSE 63; RESP 20; TEMP 36.4; O2SAT 94
[2021-12-02 09:19] LABS: Estimated Average Glucose 103 mg/dL; Hemoglobin A1c % 5.2 %
[2021-12-02] MEDS: amLODIPine Besylate 10 MG TABLET PO (09:46)
[2021-12-02] MEDS: Thiamine HCL 100 MG TABLET PO (09:47)
[2021-12-02] MEDS: Gabapentin 600 MG TABLET PO ×3 (09:47→22:45)
[2021-12-02] MEDS: Folic Acid 1 MG TABLET PO (09:47)
[2021-12-02] MEDS: Multivitamin TABLET 1 TAB PO (09:47)
[2021-12-02] MEDS: Nicotine 14 MG PATCH.TD24 TRANSDERMA (09:53)
[2021-12-02] MEDS: LORazepam 1 MG TABLET PO (11:21)
--- NOTE | 2021-12-02 13:44 | HO.PSYCHPN ---
Subjective Subjective Date of Service: 12/02/21 Reason For Visit: Psychosis Subjective Notes: Conditional Voluntary Interim History: Pt in bed, minimally engaging. Pt states he is depressed, denies AH/VH, despite day before stating he hears mother's voice. He states he wants to be back on antidepressant- agrees to start effexor. He reports poor sleep. He denies SI/HI. He states he has a court case on 12/09. Medication Compliance: Yes Side effects from medications: No Attending Groups: No Review of Systems Review of Systems Yes Unobtainable due to mental status (Intoxicated) Constitutional: Reports lethargy and Reports poor appetite Eyes: Reports no additional eye complaints Cardiovascular: Denies chest pain, Denies rapid heart rate, Denies edema, Denies leg ulcers, Denies palpitations, Denies dyspnea and Denies dyspnea on exertion Respiratory: Denies dyspnea and Denies dyspnea on exertion Gastrointestinal: Denies fecal incontinence, Denies diarrhea, Denies nausea and Denies hematemesis Endocrine: Denies palpitations Mental Status Exam Mental Status Exam Narrative: Appearance: casually groomed, fair hygiene in NAD Behavior: superficially cooperative psychomotor: no agitation or retardation noted Speech: clear, normal rate/rhythm/volume, spontaneous Thought process: linear Thought content:no signs of delusions or psychosis, wanting to go back to [facility] Mood: depressed Affect: blunted SI:denies HI:denies VH/AH:none Delusions:none Insight/judgment:poor x 2. Memory/cog: alert, oriented x 3. grossly intact to conversational testing. Diagnostics Vital Signs (24Hr): Vital Signs - 24 hr 12/02/21 21:50 12/03/21 09:58 Temperature 98.4 F 97.8 F Pulse Rate 72 66 Respiratory Rate 18 16 Blood Pressure 144/85 H 134/85 Pulse Oximetry 95 94 Oxygen Delivery Method Room Air Room Air BMI result Body Mass Index 29.1 Labs Results: 11/29/21 21:55 12/02/21 08:30 Labs: Laboratory Results - last 48 hr 12/02/21 12/02/21 12/02/21 08:30 08:30 08:30 Sodium 140 Potassium 4.4 Chloride 105 Carbon Dioxide 21 L Anion Gap 18 BUN 10 Creatinine 0.76 Estim Creat Clear Calc 157.6 Estimated GFR > 60 Fasting Glucose 108 H Estimat Average Glucose 103 Hemoglobin A1c % 5.2 Calcium 9.0 Total Bilirubin 0.2 AST 33 D ALT 32 Alkaline Phosphatase 67 Total Protein 6.7 Albumin 3.9 D Triglycerides 140 Cholesterol 158 LDL Cholesterol, Calc 77 HDL Cholesterol 53 Vitamin B12 1027 H Folate 13.8 Medications Medications Current Medications Acetaminophen (Acetaminophen 325 Mg Tablet) 650 mg PO Q6H PRN PRN Reason: Headache/Pain Mild Scale (1-3) Last Admin: 12/02/21 22:45 Dose: 650 mg Al Hydroxide/Mg Hydroxide (Magnesium Hydrox/Alum Hydrox 30 Ml Oral.Susp) 30 ml PO Q6H PRN PRN Reason: Heartburn/Nausea Albuterol Sulfate (Albuterol Sulfate 90 Mcg 8 Gm Inhaler) 2 puff INHALE Q4H PRN PRN Reason: Wheezing, shortness of Amlodipine Besylate (Amlodipine Besylate 10 Mg Tablet) 10 mg PO DAILY [facility]; Protocol Last Admin: 12/03/21 10:00 Dose: 10 mg Clonazepam (Clonazepam 0.5 Mg Tablet) 0.5 mg PO BID PRN PRN Reason: anxiety Last Admin: 12/03/21 10:12 Dose: 0.5 mg Folic Acid (Folic Acid 1 Mg Tablet) 1 mg PO DAILY [facility] Last Admin: 12/03/21 10:00 Dose: 1 mg Gabapentin (Gabapentin 600 Mg Tablet) 600 mg PO TID [facility] Last Admin: 12/03/21 10:00 Dose: 600 mg Hydroxyzine HCl (Hydroxyzine Hcl 25 Mg Tablet) 25 mg PO Q6H PRN PRN Reason: Anxiety Last Admin: 12/03/21 03:34 Dose: 25 mg Loratadine (Loratadine 10 Mg Tablet) 10 mg PO DAILY PRN PRN Reason: allergies Lorazepam (Lorazepam 1 Mg Tablet) 2 mg PO Q4H PRN PRN Reason: ciwa ar>13-17 Lorazepam (Lorazepam 1 Mg Tablet) 1 mg PO Q4H PRN PRN Reason: ciwa >7-12 Magnesium Hydroxide (Milk Of Magnesia 30 Ml Oral.Susp) 30 ml PO DAILY PRN PRN Reason: Constipation Multivitamins/Vitamin C (Multivitamin Tablet) 1 tab PO DAILY [facility] Last Admin: 12/03/21 09:59 Dose: 1 tab Nicotine (Nicotine 14 Mg Patch.Td24) 14 mg TRANSDERMA DAILY [facility] Last Admin: 12/03/21 10:01 Dose: 14 mg Nicotine Polacrilex (Nicotine Polacrilex 2 Mg Gum) 2 mg BUCCAL Q2H PRN PRN Reason: nicotine withdrawal Last Admin: 12/02/21 21:54 Dose: 2 mg Ondansetron HCl (Ondansetron Odt 4 Mg Tab.Rapdis) 4 mg TRANSLINGU Q8H PRN PRN Reason: Nausea Last Admin: 12/02/21 22:44 Dose: 4 mg Pharmacy Consult (Consult Rx Perform Med Rec) 1 each MISCELLANE ONCE PRN PRN Reason: Consult order Thiamine HCl (Thiamine Hcl 100 Mg Tablet) 100 mg PO DAILY [facility] Last Admin: 12/03/21 10:00 Dose: 100 mg Trazodone HCl (Trazodone Hcl 100 Mg Tablet) 200 mg PO BEDTIME [facility] Last Admin: 12/02/21 22:44 Dose: 200 mg Trazodone HCl (Trazodone Hcl 50 Mg Tablet) 50 mg PO BEDTIME PRN PRN Reason: Insomnia Last Admin: 12/03/21 03:34 Dose: 50 mg Venlafaxine HCl (Venlafaxine Hcl Er 37.5 Mg Cap.Er.24h) 37.5 mg PO DAILY GAB[facility]ELLE Last Admin: 12/03/21 10:00 Dose: 37.5 mg Allergies Allergies Allergy/AdvReac Type Severity Reaction Status Date / Time lisinopril [Lisinopril] Allergy Intermediate ANGIOEDEMA Verified 12/01/21 19:41 cat dander [CATS] Allergy Mild PUFFY EYES Verified 12/01/21 19:41 olanzapine [From ZYPREXA] Allergy Unknown UNKNOWN Verified 12/01/21 19:41 Assessment & Plan Assessment & Plan (1) MDD (major depressive disorder), recurrent episode, moderate: Status: Acute Code(s): F33.1 - Major depressive disorder, recurrent, moderate (2) Alcohol use disorder, moderate, dependence: Status: Acute Code(s): F10.20 - Alcohol dependence, uncomplicated (3) Cocaine use disorder, moderate, dependence: Status: Acute Code(s): F14.20 - Cocaine dependence, uncomplicated Plan Mr. Ko is a 41 year-old male with hx of MDD, polysubstance use disorder, multiple inpatient admission for the past 10 years. Utox positive for fentanyl, cocaine, cannabis. It appears he has been able to stay longer in residential programs for substance use. He completed 6 months program but quickly relapsed in 09/2021. He denies SI/HI. He does not appear internally preoccupied. He endorses depression, reports he wants to go back on antidepressant. We discussed risks, benefits and alternative treatment options. He agrees to start Effexor. He reports in the past he was on geodon but became very restless, so he stopped this medications. PLAN 1. Admit to M3, cv 15 minutes checks for safety 2. Start effexor 37.5mg po daily 3. CIWA- per protocol for alcohol withdrawal 12/02 continue Effexor 37.5mg po daily, will titrate. Pt future oriented in that GF expecting his first baby in less than a month and he wants to get back on track in terms of substance use. No SI/HI. No signs of psychosis. No complications with alcohol withdrawal. I spent minutes with the patient and/or on the patient floor today, greater than?50% of which was spent counseling/coordinating care. Reason for contiued inpatient stay Substantial Risk for: inability to function
[2021-12-02 16:21] LABS: Folate 13.8 ng/mL (> or = 4.0); Vitamin B12 1027 pg/mL (200-900)
[2021-12-02 16:32] LABS: Alanine Aminotransferase 32 U/L (0-40); Albumin Level 3.9 g/dL (3.5-5.0); Alkaline Phosphatase 67 U/L (39-117); Anion Gap 18 (12-20); Aspartate Amino Transferase 33 U/L (5-37); Bilirubin Total 0.2 mg/dL (0.0-1.0); Blood Urea Nitrogen 10 mg/dL (9-16); Carbon Dioxide 21 mmol/L (22-29); Chloride 105 mmol/L (96-108); Cholesterol 158 mg/dL; Creatinine Clr Calc Pharmacy 157.6; Estimated Glomerular Filt Rate > 60; Glucose Fasting 108 mg/dL (60-99); HDL Cholesterol 53 mg/dL; LDL Cholesterol Calculated 77 mg/dl; Potassium 4.4 mmol/L (3.3-5.1); Sodium 140 mmol/L (135-145); Total Protein 6.7 g/dL (6.5-8.0); Triglycerides 140 mg/dL
[2021-12-02] MEDS: Venlafaxine HCl ER 37.5 MG CAP.ER.24H PO (16:35)
[2021-12-02 21:50] VITALS: BP 144/85; PULSE 72; RESP 18; TEMP 36.9; O2SAT 95
[2021-12-02] MEDS: Nicotine Polacrilex 2 MG GUM BUCCAL (21:54)
[2021-12-02] MEDS: traZODone HCL 100 MG TABLET 200 MG PO (22:44)
[2021-12-02] MEDS: Ondansetron ODT 4 MG TAB.RAPDIS TRANSLINGU (22:44)
[2021-12-03] MEDS: hydrOXYzine HCL 25 MG TABLET PO (03:34)
[2021-12-03] MEDS: traZODone HCL 50 MG TABLET PO (03:34)
[2021-12-03 09:58] VITALS: BP 134/85; PULSE 66; RESP 16; TEMP 36.6; O2SAT 94
[2021-12-03] MEDS: Multivitamin TABLET 1 TAB PO (09:59)
[2021-12-03] MEDS: Gabapentin 600 MG TABLET PO ×3 (10:00→22:21)
[2021-12-03] MEDS: Folic Acid 1 MG TABLET PO (10:00)
[2021-12-03] MEDS: amLODIPine Besylate 10 MG TABLET PO (10:00)
[2021-12-03] MEDS: Venlafaxine HCl ER 37.5 MG CAP.ER.24H PO (10:00)
[2021-12-03] MEDS: Thiamine HCL 100 MG TABLET PO (10:00)
[2021-12-03] MEDS: Nicotine 14 MG PATCH.TD24 TRANSDERMA (10:01)
[2021-12-03] MEDS: clonazePAM 0.5 MG TABLET PO ×2 (10:12→19:51)
--- NOTE | 2021-12-03 13:47 | P.PNPSI_ITS ---
Subjective Subjective Date of Service: 12/03/21 Reason For Visit: Psychosis Subjective Notes: Conditional Voluntary Interim History: Pt mostly in bed all day today as well. He reports waking up frequently last night, which is confirmed by nursing. He requests trazodone to be increased- he is currently on 200mg, we discussed max dose 300mg po qhs. He denies SI/HI. He does not appear internally preoccupied. He denies VH/AH. He wants to be discharged prior to court hearing on 12/09 and work OP to find CSS. Medication Compliance: Yes Side effects from medications: No Review of Systems Review of Systems Yes Unobtainable due to mental status (Intoxicated) Constitutional: Reports lethargy and Reports poor appetite Eyes: Reports no additional eye complaints Cardiovascular: Denies chest pain, Denies rapid heart rate, Denies edema, Denies leg ulcers, Denies palpitations, Denies dyspnea and Denies dyspnea on exertion Respiratory: Denies dyspnea and Denies dyspnea on exertion Gastrointestinal: Denies fecal incontinence, Denies diarrhea, Denies nausea and Denies hematemesis Endocrine: Denies palpitations Mental Status Exam Mental Status Exam Narrative: Appearance: casually groomed, fair hygiene in NAD Behavior: superficially cooperative psychomotor: no agitation or retardation noted Speech: clear, normal rate/rhythm/volume, spontaneous Thought process: linear Thought content:no signs of delusions or psychosis, wanting to go back to css Mood: depressed Affect: blunted SI:denies HI:denies VH/AH:none Delusions:none Insight/judgment:poor x 2. Memory/cog: alert, oriented x 3. grossly intact to conversational testing. Diagnostics Vital Signs (24Hr): Vital Signs - 24 hr 12/02/21 21:50 12/03/21 09:58 Temperature 98.4 F 97.8 F Pulse Rate 72 66 Respiratory Rate 18 16 Blood Pressure 144/85 H 134/85 Pulse Oximetry 95 94 Oxygen Delivery Method Room Air Room Air BMI result Body Mass Index 29.1 Labs Results: 11/29/21 21:55 12/02/21 08:30 Labs: Laboratory Results - last 48 hr 12/02/21 12/02/21 12/02/21 08:30 08:30 08:30 Sodium 140 Potassium 4.4 Chloride 105 Carbon Dioxide 21 L Anion Gap 18 BUN 10 Creatinine 0.76 Estim Creat Clear Calc 157.6 Estimated GFR > 60 Fasting Glucose 108 H Estimat Average Glucose 103 Hemoglobin A1c % 5.2 Calcium 9.0 Total Bilirubin 0.2 AST 33 D ALT 32 Alkaline Phosphatase 67 Total Protein 6.7 Albumin 3.9 D Triglycerides 140 Cholesterol 158 LDL Cholesterol, Calc 77 HDL Cholesterol 53 Vitamin B12 1027 H Folate 13.8 Medications Medications Current Medications Acetaminophen (Acetaminophen 325 Mg Tablet) 650 mg PO Q6H PRN PRN Reason: Headache/Pain Mild Scale (1-3) Last Admin: 12/02/21 22:45 Dose: 650 mg Al Hydroxide/Mg Hydroxide (Magnesium Hydrox/Alum Hydrox 30 Ml Oral.Susp) 30 ml PO Q6H PRN PRN Reason: Heartburn/Nausea Albuterol Sulfate (Albuterol Sulfate 90 Mcg 8 Gm Inhaler) 2 puff INHALE Q4H PRN PRN Reason: Wheezing, shortness of Amlodipine Besylate (Amlodipine Besylate 10 Mg Tablet) 10 mg PO DAILY [facility]; Protocol Last Admin: 12/03/21 10:00 Dose: 10 mg Clonazepam (Clonazepam 0.5 Mg Tablet) 0.5 mg PO BID PRN PRN Reason: anxiety Last Admin: 12/03/21 10:12 Dose: 0.5 mg Folic Acid (Folic Acid 1 Mg Tablet) 1 mg PO DAILY [facility] Last Admin: 12/03/21 10:00 Dose: 1 mg Gabapentin (Gabapentin 600 Mg Tablet) 600 mg PO TID [facility] Last Admin: 12/03/21 10:00 Dose: 600 mg Hydroxyzine HCl (Hydroxyzine Hcl 25 Mg Tablet) 25 mg PO Q6H PRN PRN Reason: Anxiety Last Admin: 12/03/21 03:34 Dose: 25 mg Loratadine (Loratadine 10 Mg Tablet) 10 mg PO DAILY PRN PRN Reason: allergies Lorazepam (Lorazepam 1 Mg Tablet) 2 mg PO Q4H PRN PRN Reason: ciwa ar>13-17 Lorazepam (Lorazepam 1 Mg Tablet) 1 mg PO Q4H PRN PRN Reason: ciwa >7-12 Magnesium Hydroxide (Milk Of Magnesia 30 Ml Oral.Susp) 30 ml PO DAILY PRN PRN Reason: Constipation Multivitamins/Vitamin C (Multivitamin Tablet) 1 tab PO DAILY [facility] Last Admin: 12/03/21 09:59 Dose: 1 tab Nicotine (Nicotine 14 Mg Patch.Td24) 14 mg TRANSDERMA DAILY [facility] Last Admin: 12/03/21 10:01 Dose: 14 mg Nicotine Polacrilex (Nicotine Polacrilex 2 Mg Gum) 2 mg BUCCAL Q2H PRN PRN Reason: nicotine withdrawal Last Admin: 12/02/21 21:54 Dose: 2 mg Ondansetron HCl (Ondansetron Odt 4 Mg Tab.Rapdis) 4 mg TRANSLINGU Q8H PRN PRN Reason: Nausea Last Admin: 12/02/21 22:44 Dose: 4 mg Pharmacy Consult (Consult Rx Perform Med Rec) 1 each MISCELLANE ONCE PRN PRN Reason: Consult order Thiamine HCl (Thiamine Hcl 100 Mg Tablet) 100 mg PO DAILY [facility] Last Admin: 12/03/21 10:00 Dose: 100 mg Trazodone HCl (Trazodone Hcl 100 Mg Tablet) 200 mg PO BEDTIME [facility] Last Admin: 12/02/21 22:44 Dose: 200 mg Trazodone HCl (Trazodone Hcl 50 Mg Tablet) 50 mg PO BEDTIME PRN PRN Reason: Insomnia Last Admin: 12/03/21 03:34 Dose: 50 mg Venlafaxine HCl (Venlafaxine Hcl Er 37.5 Mg Cap.Er.24h) 37.5 mg PO DAILY [facility] Last Admin: 12/03/21 10:00 Dose: 37.5 mg Allergies Allergies Allergy/AdvReac Type Severity Reaction Status Date / Time lisinopril [Lisinopril] Allergy Intermediate ANGIOEDEMA Verified 12/01/21 19:41 cat dander [CATS] Allergy Mild PUFFY EYES Verified 12/01/21 19:41 olanzapine [From ZYPREXA] Allergy Unknown UNKNOWN Verified 12/01/21 19:41 Assessment & Plan Assessment & Plan (1) MDD (major depressive disorder), recurrent episode, moderate: Status: Acute Code(s): F33.1 - Major depressive disorder, recurrent, moderate (2) Alcohol use disorder, moderate, dependence: Status: Acute Code(s): F10.20 - Alcohol dependence, uncomplicated (3) Cocaine use disorder, moderate, dependence: Status: Acute Code(s): F14.20 - Cocaine dependence, uncomplicated Plan Mr. Ko is a 41 year-old male with hx of MDD, polysubstance use disorder, multiple inpatient admission for the past 10 years. Utox positive for fentanyl, cocaine, cannabis. It appears he has been able to stay longer in residential programs for substance use. He completed 6 months program but quickly relapsed in 09/2021. He denies SI/HI. He does not appear internally preoccupied. He endorses depression, reports he wants to go back on antidepressant. We discussed risks, benefits and alternative treatment options. He agrees to start Effexor. He reports in the past he was on geodon but became very restless, so he stopped this medications. PLAN 1. Admit to M3, cv 15 minutes checks for safety 2. Start effexor 37.5mg po daily 3. CIWA- per protocol for alcohol withdrawal 12/02 continue Effexor 37.5mg po daily, will titrate. Pt future oriented in that GF expecting his first baby in less than a month and he wants to get back on track in terms of substance use. No SI/HI. No signs of psychosis. No complications with alcohol withdrawal. 12/03 increase tomorrow Effexor to 75mg po daily. Increase trazodone to 300mg po qhs for sleep. add melatonin. I spent minutes with the patient and/or on the patient floor today, greater than?50% of which was spent counseling/coordinating care. Reason for contiued inpatient stay Substantial Risk for: harm to self
[2021-12-03] MEDS: Acetaminophen 325 MG TABLET 650 MG PO (16:43)
[2021-12-03] MEDS: Nicotine Polacrilex 2 MG GUM BUCCAL (18:57)
[2021-12-03] MEDS: Ibuprofen 600 MG TABLET PO (20:21)
[2021-12-03] MEDS: cloNIDine HCL 0.1 MG TABLET PO (20:21)
[2021-12-03 21:00] VITALS: BP 144/83; PULSE 65; RESP 18; TEMP 36.9; O2SAT 99
[2021-12-03] MEDS: traZODone HCL 100 MG TABLET 300 MG PO (22:21)
[2021-12-04 09:21] VITALS: BP 119/59; PULSE 63; RESP 18; TEMP 36.8; O2SAT 94
[2021-12-04] MEDS: amLODIPine Besylate 10 MG TABLET PO (09:22)
[2021-12-04] MEDS: Venlafaxine HCl ER 75 MG CAP.ER.24H PO (09:22)
[2021-12-04] MEDS: Gabapentin 600 MG TABLET PO ×3 (09:22→20:21)
[2021-12-04] MEDS: Multivitamin TABLET 1 TAB PO (09:23)
[2021-12-04] MEDS: Thiamine HCL 100 MG TABLET PO (09:23)
[2021-12-04] MEDS: Folic Acid 1 MG TABLET PO (09:23)
[2021-12-04] MEDS: Acetaminophen 325 MG TABLET 650 MG PO (12:26)
[2021-12-04] MEDS: cloNIDine HCL 0.1 MG TABLET PO ×2 (12:27→20:21)
[2021-12-04] MEDS: clonazePAM 0.5 MG TABLET PO ×2 (12:27→20:58)
[2021-12-04 12:37] VITALS: BP 138/72; PULSE 80; RESP 18; O2SAT 95
--- NOTE | 2021-12-04 15:41 | HO.PSYCHPN ---
Subjective Subjective Date of Service: 12/04/21 Reason For Visit: Psychosis depression Subjective Notes: Conditional Voluntary Interim History: pt fatigued isolated in bedHistory of depression and paranoia relapse with alcohol use had been on Vivitrol previously Medication Compliance: Yes Review of Systems Acute medical concerns: No Mental Status Exam Mental Status Exam Patient Appearance: Fatigued Patient Orientation: Person, Place, Time and Situation Level of Consciousness: Lethargic Patient Behavior: Cooperative Mood Description: Constricted and Depressed Affect Description: Withdrawn and Constricted Hallucinations: None Delusions: Not Present Thought Content: positive for Poverty of Content, negative for Suicidal Ideation or negative for Homicidal Ideation Diagnostics Vital Signs (24Hr): Vital Signs - 24 hr 12/04/21 20:10 12/05/21 06:00 Temperature 97.9 F 98.1 F Pulse Rate 70 58 Respiratory Rate 18 18 Blood Pressure 132/83 120/59 L Pulse Oximetry 95 95 Oxygen Delivery Method Room Air Room Air BMI result Body Mass Index 29.1 Labs Results: 11/29/21 21:55 12/02/21 08:30 Medications Medications Current Medications Acetaminophen (Acetaminophen 325 Mg Tablet) 650 mg PO Q6H PRN PRN Reason: Headache/Pain Mild Scale (1-3) Last Admin: 12/04/21 12:26 Dose: 650 mg Al Hydroxide/Mg Hydroxide (Magnesium Hydrox/Alum Hydrox 30 Ml Oral.Susp) 30 ml PO Q6H PRN PRN Reason: Heartburn/Nausea Albuterol Sulfate (Albuterol Sulfate 90 Mcg 8 Gm Inhaler) 2 puff INHALE Q4H PRN PRN Reason: Wheezing, shortness of Amlodipine Besylate (Amlodipine Besylate 10 Mg Tablet) 10 mg PO DAILY [facility]; Protocol Last Admin: 12/05/21 09:45 Dose: 10 mg Clonazepam (Clonazepam 0.5 Mg Tablet) 0.5 mg PO BID PRN PRN Reason: severe anxiety Last Admin: 12/05/21 12:16 Dose: 0.5 mg Clonidine HCl (Clonidine Hcl 0.1 Mg Tablet) 0.1 mg PO TID PRN; Protocol PRN Reason: anxiety Last Admin: 12/05/21 12:16 Dose: 0.1 mg Folic Acid (Folic Acid 1 Mg Tablet) 1 mg PO DAILY [facility] Last Admin: 12/05/21 09:45 Dose: 1 mg Gabapentin (Gabapentin 600 Mg Tablet) 600 mg PO TID [facility] Last Admin: 12/05/21 09:44 Dose: 600 mg Hydroxyzine HCl (Hydroxyzine Hcl 50 Mg Tablet) 50 mg PO Q6H PRN PRN Reason: Anxiety Ibuprofen (Ibuprofen 600 Mg Tablet) 600 mg PO Q6H PRN PRN Reason: mod pain Last Admin: 12/04/21 20:58 Dose: 600 mg Loratadine (Loratadine 10 Mg Tablet) 10 mg PO DAILY PRN PRN Reason: allergies Lorazepam (Lorazepam 1 Mg Tablet) 2 mg PO Q4H PRN PRN Reason: ciwa ar>13-17 Lorazepam (Lorazepam 1 Mg Tablet) 1 mg PO Q4H PRN PRN Reason: ciwa >7-12 Magnesium Hydroxide (Milk Of Magnesia 30 Ml Oral.Susp) 30 ml PO DAILY PRN PRN Reason: Constipation Multivitamins/Vitamin C (Multivitamin Tablet) 1 tab PO DAILY [facility] Last Admin: 12/05/21 09:44 Dose: 1 tab Nicotine (Nicotine 14 Mg Patch.Td24) 14 mg TRANSDERMA DAILY [facility] Last Admin: 12/05/21 09:45 Dose: 14 mg Nicotine Polacrilex (Nicotine Polacrilex 2 Mg Gum) 2 mg BUCCAL Q2H PRN PRN Reason: nicotine withdrawal Last Admin: 12/03/21 18:57 Dose: 2 mg Ondansetron HCl (Ondansetron Odt 4 Mg Tab.Rapdis) 4 mg TRANSLINGU Q8H PRN PRN Reason: Nausea Last Admin: 12/02/21 22:44 Dose: 4 mg Pharmacy Consult (Consult Rx Perform Med Rec) 1 each MISCELLANE ONCE PRN PRN Reason: Consult order Thiamine HCl (Thiamine Hcl 100 Mg Tablet) 100 mg PO DAILY [facility] Last Admin: 12/05/21 09:44 Dose: 100 mg Trazodone HCl (Trazodone Hcl 50 Mg Tablet) 50 mg PO BEDTIME PRN PRN Reason: Insomnia Last Admin: 12/03/21 03:34 Dose: 50 mg Trazodone HCl (Trazodone Hcl 100 Mg Tablet) 300 mg PO BEDTIME [facility] Last Admin: 12/04/21 21:32 Dose: 300 mg Venlafaxine HCl (Venlafaxine Hcl Er 75 Mg Cap.Er.24h) 75 mg PO DAILY [facility] Last Admin: 12/05/21 09:44 Dose: 75 mg Allergies Allergies Allergy/AdvReac Type Severity Reaction Status Date / Time lisinopril [Lisinopril] Allergy Intermediate ANGIOEDEMA Verified 12/01/21 19:41 cat dander [CATS] Allergy Mild PUFFY EYES Verified 12/01/21 19:41 olanzapine [From ZYPREXA] Allergy Unknown UNKNOWN Verified 12/01/21 19:41 Assessment & Plan Assessment & Plan (1) MDD (major depressive disorder), recurrent episode, moderate: Status: Acute Code(s): F33.1 - Major depressive disorder, recurrent, moderate Assessment and Plan: Continue plan of care CIWA Effexor started restructure naltrexone when possible (2) Alcohol use disorder, moderate, dependence: Status: Acute Code(s): F10.20 - Alcohol dependence, uncomplicated (3) Cocaine use disorder, moderate, dependence: Status: Acute Code(s): F14.20 - Cocaine dependence, uncomplicated Plan Mr. Ko is a 41 year-old male with hx of MDD, polysubstance use disorder, multiple inpatient admission for the past 10 years. Utox positive for fentanyl, cocaine, cannabis. It appears he has been able to stay longer in residential programs for substance use. He completed 6 months program but quickly relapsed in 09/2021. He denies SI/HI. He does not appear internally preoccupied. He endorses depression, reports he wants to go back on antidepressant. We discussed risks, benefits and alternative treatment options. He agrees to start Effexor. He reports in the past he was on geodon but became very restless, so he stopped this medications. PLAN 1. Admit to M3, cv 15 minutes checks for safety 2. Start effexor 37.5mg po daily 3. CIWA- per protocol for alcohol withdrawal I spent minutes with the patient and/or on the patient floor today, greater than?50% of which was spent counseling/coordinating care. Reason for contiued inpatient stay Substantial Risk for: harm to self and rapid decompensation
[2021-12-04 20:10] VITALS: BP 132/83; PULSE 70; RESP 18; TEMP 36.6; O2SAT 95
[2021-12-04] MEDS: Ibuprofen 600 MG TABLET PO (20:58)
[2021-12-04] MEDS: traZODone HCL 100 MG TABLET 300 MG PO (21:32)
[2021-12-05 06:00] VITALS: BP 120/59; PULSE 58; RESP 18; TEMP 36.7; O2SAT 95
[2021-12-05] MEDS: Gabapentin 600 MG TABLET PO ×3 (09:44→21:13)
[2021-12-05] MEDS: Venlafaxine HCl ER 75 MG CAP.ER.24H PO (09:44)
[2021-12-05] MEDS: Multivitamin TABLET 1 TAB PO (09:44)
[2021-12-05] MEDS: Thiamine HCL 100 MG TABLET PO (09:44)
[2021-12-05] MEDS: Folic Acid 1 MG TABLET PO (09:45)
[2021-12-05] MEDS: Nicotine 14 MG PATCH.TD24 TRANSDERMA (09:45)
[2021-12-05] MEDS: amLODIPine Besylate 10 MG TABLET PO (09:45)
[2021-12-05] MEDS: clonazePAM 0.5 MG TABLET PO ×2 (12:16→20:20)
[2021-12-05] MEDS: cloNIDine HCL 0.1 MG TABLET PO ×2 (12:16→18:58)
[2021-12-05 18:55] VITALS: BP 141/87; PULSE 65; RESP 16; TEMP 36.6; O2SAT 97
[2021-12-05] MEDS: Acetaminophen 325 MG TABLET 650 MG PO (20:14)
[2021-12-05 21:20] VITALS: BP 126/73; PULSE 54
--- NOTE | 2021-12-05 22:22 | PC.NURSE ---
Pt A&O, INAD, pleasant and cooperative, responds appropriately. Denies safety concerns, SI/HI/AH/VH/depression, pain. Reports anxiety. 1600 CIWA 1 and 1999 CIWA 3. Consulted with provider who completed schedule CIWA assessments. Pt continues to request clonazepam for anxiety, reports good effectiveness. Medication adherent. Requested PRN acetaminophen for h-a with good effect. Administered prn clonidine for anxiety/elevated BP with good effect.
[2021-12-05] MEDS: traZODone HCL 100 MG TABLET 300 MG PO (22:33)
--- NOTE | 2021-12-05 23:49 | P.PNPSI_ITS ---
Subjective Subjective Date of Service: 12/05/21 Reason For Visit: Psychosis depression Subjective Notes: Conditional Voluntary Interim History: The patient was much more alert today future oriented denied any psychotic symptoms he had a history of being on Geodon we discussed restarting Vivitrol he was interested in the [facility] program or other IOP program. Anxiety a peer to men triggered by his girlfriend's no symptoms of withdrawal Medication Compliance: Yes Mental Status Exam Mental Status Exam Patient Appearance: Appropriate Patient Orientation: Person, Place, Time and Situation Level of Consciousness: Lethargic Patient Behavior: Cooperative Mood Description: Constricted Affect Description: Anxious Ability to Follow Directions: Good Speech Pattern: Clear and Appropriate Hallucinations: None Delusions: Not Present Thought Content: positive for Intact, negative for Suicidal Ideation or negative for Homicidal Ideation Judgement: Good Diagnostics Vital Signs (24Hr): Vital Signs - 24 hr 12/05/21 06:00 12/05/21 18:55 12/05/21 21:20 Temperature 98.1 F 98 F Pulse Rate 58 65 54 Respiratory Rate 18 16 Blood Pressure 120/59 L 141/87 H 126/73 Pulse Oximetry 95 97 Oxygen Delivery Method Room Air Room Air BMI result Body Mass Index 29.1 Labs Results: 11/29/21 21:55 12/02/21 08:30 Medications Medications Current Medications Acetaminophen (Acetaminophen 325 Mg Tablet) 650 mg PO Q6H PRN PRN Reason: Headache/Pain Mild Scale (1-3) Last Admin: 12/05/21 20:14 Dose: 650 mg Al Hydroxide/Mg Hydroxide (Magnesium Hydrox/Alum Hydrox 30 Ml Oral.Susp) 30 ml PO Q6H PRN PRN Reason: Heartburn/Nausea Albuterol Sulfate (Albuterol Sulfate 90 Mcg 8 Gm Inhaler) 2 puff INHALE Q4H PRN PRN Reason: Wheezing, shortness of Amlodipine Besylate (Amlodipine Besylate 10 Mg Tablet) 10 mg PO DAILY [facility]; Protocol Last Admin: 12/05/21 09:45 Dose: 10 mg Clonazepam (Clonazepam 0.5 Mg Tablet) 0.5 mg PO BID PRN PRN Reason: severe anxiety Last Admin: 12/05/21 20:20 Dose: 0.5 mg Clonidine HCl (Clonidine Hcl 0.1 Mg Tablet) 0.1 mg PO TID PRN; Protocol PRN Reason: anxiety Last Admin: 12/05/21 18:58 Dose: 0.1 mg Folic Acid (Folic Acid 1 Mg Tablet) 1 mg PO DAILY [facility] Last Admin: 12/05/21 09:45 Dose: 1 mg Gabapentin (Gabapentin 600 Mg Tablet) 600 mg PO TID [facility] Last Admin: 12/05/21 21:13 Dose: 600 mg Hydroxyzine HCl (Hydroxyzine Hcl 50 Mg Tablet) 50 mg PO Q6H PRN PRN Reason: Anxiety Ibuprofen (Ibuprofen 600 Mg Tablet) 600 mg PO Q6H PRN PRN Reason: mod pain Last Admin: 12/04/21 20:58 Dose: 600 mg Loratadine (Loratadine 10 Mg Tablet) 10 mg PO DAILY PRN PRN Reason: allergies Lorazepam (Lorazepam 1 Mg Tablet) 2 mg PO Q4H PRN PRN Reason: ciwa ar>13-17 Lorazepam (Lorazepam 1 Mg Tablet) 1 mg PO Q4H PRN PRN Reason: ciwa >7-12 Magnesium Hydroxide (Milk Of Magnesia 30 Ml Oral.Susp) 30 ml PO DAILY PRN PRN Reason: Constipation Multivitamins/Vitamin C (Multivitamin Tablet) 1 tab PO DAILY [facility] Last Admin: 12/05/21 09:44 Dose: 1 tab Nicotine (Nicotine 14 Mg Patch.Td24) 14 mg TRANSDERMA DAILY [facility] Last Admin: 12/05/21 09:45 Dose: 14 mg Nicotine Polacrilex (Nicotine Polacrilex 2 Mg Gum) 2 mg BUCCAL Q2H PRN PRN Reason: nicotine withdrawal Last Admin: 12/03/21 18:57 Dose: 2 mg Ondansetron HCl (Ondansetron Odt 4 Mg Tab.Rapdis) 4 mg TRANSLINGU Q8H PRN PRN Reason: Nausea Last Admin: 12/02/21 22:44 Dose: 4 mg Pharmacy Consult (Consult Rx Perform Med Rec) 1 each MISCELLANE ONCE PRN PRN Reason: Consult order Thiamine HCl (Thiamine Hcl 100 Mg Tablet) 100 mg PO DAILY [facility] Last Admin: 12/05/21 09:44 Dose: 100 mg Trazodone HCl (Trazodone Hcl 50 Mg Tablet) 50 mg PO BEDTIME PRN PRN Reason: Insomnia Last Admin: 12/03/21 03:34 Dose: 50 mg Trazodone HCl (Trazodone Hcl 100 Mg Tablet) 300 mg PO BEDTIME [facility] Last Admin: 12/05/21 22:33 Dose: 300 mg Venlafaxine HCl (Venlafaxine Hcl Er 75 Mg Cap.Er.24h) 75 mg PO DAILY [facility] Last Admin: 12/05/21 09:44 Dose: 75 mg Allergies Allergies Allergy/AdvReac Type Severity Reaction Status Date / Time lisinopril [Lisinopril] Allergy Intermediate ANGIOEDEMA Verified 12/01/21 19:41 cat dander [CATS] Allergy Mild PUFFY EYES Verified 12/01/21 19:41 olanzapine [From ZYPREXA] Allergy Unknown UNKNOWN Verified 12/01/21 19:41 Assessment & Plan Assessment & Plan (1) MDD (major depressive disorder), recurrent episode, moderate: Status: Acute Code(s): F33.1 - Major depressive disorder, recurrent, moderate (2) Alcohol use disorder, moderate, dependence: Status: Acute Code(s): F10.20 - Alcohol dependence, uncomplicated (3) Cocaine use disorder, moderate, dependence: Status: Acute Code(s): F14.20 - Cocaine dependence, uncomplicated Plan Mr. Ko is a 41 year-old male with hx of MDD, polysubstance use disorder, multiple inpatient admission for the past 10 years. Utox positive for fentanyl, cocaine, cannabis. It appears he has been able to stay longer in residential programs for substance use. He completed 6 months program but quickly relapsed in 09/2021. He denies SI/HI. He does not appear internally preoccupied. He endorses depression, reports he wants to go back on antidepressant. We discussed risks, benefits and alternative treatment options. He agrees to start Effexor. He reports in the past he was on geodon but became very restless, so he stopped this medications. PLAN 1. Admit to M3, cv 15 minutes checks for safety 2. Start effexor 37.5mg po daily 3. CIWA- per protocol for alcohol withdrawal 12/05/2021 Patient future oriented can discontinue CIWA continue Effexor or naltrexone when possible been looking to go back on Vivitrol I spent minutes with the patient and/or on the patient floor today, greater than?50% of which was spent counseling/coordinating care. Reason for contiued inpatient stay Substantial Risk for: harm to self and med/psych decompensation
[2021-12-06 08:48] VITALS: BP 124/64; PULSE 54; RESP 16; TEMP 36.8; O2SAT 94
[2021-12-06] MEDS: Nicotine 14 MG PATCH.TD24 TRANSDERMA (08:50)
[2021-12-06] MEDS: Multivitamin TABLET 1 TAB PO (08:51)
[2021-12-06] MEDS: Gabapentin 600 MG TABLET PO ×3 (08:51→20:21)
[2021-12-06] MEDS: Venlafaxine HCl ER 75 MG CAP.ER.24H PO (08:51)
[2021-12-06] MEDS: Thiamine HCL 100 MG TABLET PO (08:51)
[2021-12-06] MEDS: Folic Acid 1 MG TABLET PO (08:52)
[2021-12-06] MEDS: amLODIPine Besylate 10 MG TABLET PO (08:53)
[2021-12-06 08:54] VITALS: PULSE 64
--- NOTE | 2021-12-06 09:22 | HO.PSYCHPN ---
Subjective Subjective Date of Service: 12/06/21 Reason For Visit: Psychosis depression Subjective Notes: Conditional Voluntary Interim History: Pt reports he is sleeping better. He reports feeling less depressed, no SI/HI. No signs of psychosis. He has been more visible on the unit. He reports wanting to be referred to [facility], interested in reconnecting with [facility] viv[facility]rol in [place]. No behavioral concerns. Medication Compliance: Yes Side effects from medications: No Review of Systems Review of Systems Yes Unobtainable due to mental status (Intoxicated) Constitutional: Reports lethargy and Reports poor appetite Eyes: Reports no additional eye complaints Cardiovascular: Denies chest pain, Denies rapid heart rate, Denies edema, Denies leg ulcers, Denies palpitations, Denies dyspnea and Denies dyspnea on exertion Respiratory: Denies dyspnea and Denies dyspnea on exertion Gastrointestinal: Denies fecal incontinence, Denies diarrhea, Denies nausea and Denies hematemesis Endocrine: Denies palpitations Mental Status Exam Mental Status Exam Narrative: Appearance: casually groomed, fair hygiene in NAD Behavior: superficially cooperative psychomotor: no agitation or retardation noted Speech: clear, normal rate/rhythm/volume, spontaneous Thought process: linear Thought content:no signs of delusions or psychosis, wanting to go back to [facility] Mood: better Affect: brighter, non labile SI:denies HI:denies VH/AH:none Delusions:none Insight/judgment:poor x 2. Memory/cog: alert, oriented x 3. grossly intact to conversational testing. Diagnostics Vital Signs (24Hr): Vital Signs - 24 hr 12/06/21 14:32 12/06/21 20:30 Temperature 98.6 F Pulse Rate 81 77 Respiratory Rate 18 Blood Pressure 146/81 H 134/77 Pulse Oximetry 95 Oxygen Delivery Method Room Air BMI result Body Mass Index 29.1 Labs Results: 11/29/21 21:55 12/02/21 08:30 Medications Medications Current Medications Acetaminophen (Acetaminophen 325 Mg Tablet) 650 mg PO Q6H PRN PRN Reason: Headache/Pain Mild Scale (1-3) Last Admin: 12/05/21 20:14 Dose: 650 mg Al Hydroxide/Mg Hydroxide (Magnesium Hydrox/Alum Hydrox 30 Ml Oral.Susp) 30 ml PO Q6H PRN PRN Reason: Heartburn/Nausea Albuterol Sulfate (Albuterol Sulfate 90 Mcg 8 Gm Inhaler) 2 puff INHALE Q4H PRN PRN Reason: Wheezing, shortness of Amlodipine Besylate (Amlodipine Besylate 10 Mg Tablet) 10 mg PO DAILY [facility]; Protocol Last Admin: 12/06/21 08:53 Dose: 10 mg Clonazepam (Clonazepam 0.5 Mg Tablet) 0.5 mg PO BID PRN PRN Reason: severe anxiety Last Admin: 12/06/21 22:27 Dose: 0.5 mg Clonidine HCl (Clonidine Hcl 0.1 Mg Tablet) 0.1 mg PO TID PRN; Protocol PRN Reason: anxiety Last Admin: 12/06/21 20:22 Dose: 0.1 mg Folic Acid (Folic Acid 1 Mg Tablet) 1 mg PO DAILY [facility] Last Admin: 12/06/21 08:52 Dose: 1 mg Gabapentin (Gabapentin 600 Mg Tablet) 600 mg PO TID [facility] Last Admin: 12/06/21 20:21 Dose: 600 mg Hydroxyzine HCl (Hydroxyzine Hcl 50 Mg Tablet) 50 mg PO Q6H PRN PRN Reason: Anxiety Ibuprofen (Ibuprofen 600 Mg Tablet) 600 mg PO Q6H PRN PRN Reason: mod pain Last Admin: 12/04/21 20:58 Dose: 600 mg Loratadine (Loratadine 10 Mg Tablet) 10 mg PO DAILY PRN PRN Reason: allergies Magnesium Hydroxide (Milk Of Magnesia 30 Ml Oral.Susp) 30 ml PO DAILY PRN PRN Reason: Constipation Multivitamins/Vitamin C (Multivitamin Tablet) 1 tab PO DAILY [facility] Last Admin: 12/06/21 08:51 Dose: 1 tab Nicotine (Nicotine 14 Mg Patch.Td24) 14 mg TRANSDERMA DAILY [facility] Last Admin: 12/06/21 08:50 Dose: 14 mg Nicotine Polacrilex (Nicotine Polacrilex 2 Mg Gum) 2 mg BUCCAL Q2H PRN PRN Reason: nicotine withdrawal Last Admin: 12/03/21 18:57 Dose: 2 mg Ondansetron HCl (Ondansetron Odt 4 Mg Tab.Rapdis) 4 mg TRANSLINGU Q8H PRN PRN Reason: Nausea Last Admin: 12/02/21 22:44 Dose: 4 mg Pharmacy Consult (Consult Rx Perform Med Rec) 1 each MISCELLANE ONCE PRN PRN Reason: Consult order Thiamine HCl (Thiamine Hcl 100 Mg Tablet) 100 mg PO DAILY [facility] Last Admin: 12/06/21 08:51 Dose: 100 mg Trazodone HCl (Trazodone Hcl 50 Mg Tablet) 50 mg PO BEDTIME PRN PRN Reason: Insomnia Last Admin: 12/03/21 03:34 Dose: 50 mg Trazodone HCl (Trazodone Hcl 100 Mg Tablet) 300 mg PO BEDTIME [facility] Last Admin: 12/06/21 22:26 Dose: 300 mg Venlafaxine HCl (Venlafaxine Hcl Er 75 Mg Cap.Er.24h) 75 mg PO DAILY [facility] Last Admin: 12/06/21 08:51 Dose: 75 mg Allergies Allergies Allergy/AdvReac Type Severity Reaction Status Date / Time lisinopril [Lisinopril] Allergy Intermediate ANGIOEDEMA Verified 12/01/21 19:41 cat dander [CATS] Allergy Mild PUFFY EYES Verified 12/01/21 19:41 olanzapine [From ZYPREXA] Allergy Unknown UNKNOWN Verified 12/01/21 19:41 Assessment & Plan Assessment & Plan (1) MDD (major depressive disorder), recurrent episode, moderate: Status: Acute Code(s): F33.1 - Major depressive disorder, recurrent, moderate (2) Alcohol use disorder, moderate, dependence: Status: Acute Code(s): F10.20 - Alcohol dependence, uncomplicated (3) Cocaine use disorder, moderate, dependence: Status: Acute Code(s): F14.20 - Cocaine dependence, uncomplicated Plan Mr. Ko is a 41 year-old male with hx of MDD, polysubstance use disorder, multiple inpatient admission for the past 10 years. Utox positive for fentanyl, cocaine, cannabis. It appears he has been able to stay longer in residential programs for substance use. He completed 6 months program but quickly relapsed in 09/2021. He denies SI/HI. He does not appear internally preoccupied. He endorses depression, reports he wants to go back on antidepressant. We discussed risks, benefits and alternative treatment options. He agrees to start Effexor. He reports in the past he was on geodon but became very restless, so he stopped this medications. PLAN 1. Admit to M[facility], cv 15 minutes checks for safety 2. Start effexor 37.5mg po daily 3. CIWA- per protocol for alcohol withdrawal 12/05/2021 Patient future oriented can discontinue CIWA continue Effexor or naltrexone when possible been looking to go back on Vivitrol 12/06 continue current medications, plan for d/c on 12/08, interested in PHP, referral to [facility] to resume vivitrol. I spent minutes with the patient and/or on the patient floor today, greater than?50% of which was spent counseling/coordinating care. Reason for contiued inpatient stay Substantial Risk for: stable for discharge
[2021-12-06] MEDS: cloNIDine HCL 0.1 MG TABLET PO ×2 (14:29→20:22)
[2021-12-06] MEDS: clonazePAM 0.5 MG TABLET PO ×2 (14:29→22:27)
[2021-12-06 14:32] VITALS: BP 146/81; PULSE 81
[2021-12-06 20:30] VITALS: BP 134/77; PULSE 77; RESP 18; TEMP 37; O2SAT 95
[2021-12-06] MEDS: traZODone HCL 100 MG TABLET 300 MG PO (22:26)
[2021-12-07 06:00] VITALS: BP 151/78; PULSE 75; RESP 16; TEMP 36.8; O2SAT 95
[2021-12-07] MEDS: Nicotine 14 MG PATCH.TD24 TRANSDERMA (10:04)
[2021-12-07] MEDS: Thiamine HCL 100 MG TABLET PO (10:05)
[2021-12-07] MEDS: Venlafaxine HCl ER 75 MG CAP.ER.24H PO (10:05)
[2021-12-07] MEDS: Folic Acid 1 MG TABLET PO (10:05)
[2021-12-07] MEDS: Gabapentin 600 MG TABLET PO ×3 (10:05→21:34)
[2021-12-07] MEDS: amLODIPine Besylate 10 MG TABLET PO (10:06)
[2021-12-07] MEDS: Multivitamin TABLET 1 TAB PO (10:06)
[2021-12-07] MEDS: Naltrexone HCl 50 MG TABLET PO (10:08)
[2021-12-07] MEDS: cloNIDine HCL 0.1 MG TABLET PO ×2 (10:08→19:05)
[2021-12-07] MEDS: clonazePAM 0.5 MG TABLET PO ×2 (10:09→19:06)
--- NOTE | 2021-12-07 12:47 | P.PNPSI_ITS ---
Subjective Subjective Date of Service: 12/07/21 Reason For Visit: Psychosis depression Subjective Notes: Conditional Voluntary Interim History: Pt reports he is feeling less depressed. He continues to denied SI/HI. No signs of psychosis or delusions. No behavioral concerns. He will step down to [facility]. started on naltrexon with plan to receive OP vivitrol. Per nursing, he slept well. Medication Compliance: Yes Side effects from medications: No Review of Systems Review of Systems Yes Unobtainable due to mental status (Intoxicated) Constitutional: Reports lethargy and Reports poor appetite Eyes: Reports no additional eye complaints Cardiovascular: Denies chest pain, Denies rapid heart rate, Denies edema, Denies leg ulcers, Denies palpitations, Denies dyspnea and Denies dyspnea on exertion Respiratory: Denies dyspnea and Denies dyspnea on exertion Gastrointestinal: Denies fecal incontinence, Denies diarrhea, Denies nausea and Denies hematemesis Endocrine: Denies palpitations Mental Status Exam Mental Status Exam Narrative: Appearance: casually groomed, fair hygiene in NAD Behavior: superficially cooperative psychomotor: no agitation or retardation noted Speech: clear, normal rate/rhythm/volume, spontaneous Thought process: linear Thought content:no signs of delusions or psychosis, wanting to go back to [facility] Mood: better Affect: brighter, non labile SI:denies HI:denies VH/AH:none Delusions:none Insight/judgment:poor x 2. Memory/cog: alert, oriented x 3. grossly intact to conversational testing. Diagnostics Vital Signs (24Hr): Vital Signs - 24 hr 12/06/21 14:32 12/06/21 20:30 12/07/21 06:00 Temperature 98.6 F 98.2 F Pulse Rate 81 77 75 Respiratory Rate 18 16 Blood Pressure 146/81 H 134/77 151/78 H Pulse Oximetry 95 95 Oxygen Delivery Method Room Air Room Air BMI result Body Mass Index 29.1 Labs Results: 11/29/21 21:55 12/02/21 08:30 Medications Medications Current Medications Acetaminophen (Acetaminophen 325 Mg Tablet) 650 mg PO Q6H PRN PRN Reason: Headache/Pain Mild Scale (1-3) Last Admin: 12/05/21 20:14 Dose: 650 mg Al Hydroxide/Mg Hydroxide (Magnesium Hydrox/Alum Hydrox 30 Ml Oral.Susp) 30 ml PO Q6H PRN PRN Reason: Heartburn/Nausea Albuterol Sulfate (Albuterol Sulfate 90 Mcg 8 Gm Inhaler) 2 puff INHALE Q4H PRN PRN Reason: Wheezing, shortness of Amlodipine Besylate (Amlodipine Besylate 10 Mg Tablet) 10 mg PO DAILY [facility]; Protocol Last Admin: 12/07/21 10:06 Dose: 10 mg Clonazepam (Clonazepam 0.5 Mg Tablet) 0.5 mg PO BID PRN PRN Reason: severe anxiety Last Admin: 12/07/21 10:09 Dose: 0.5 mg Clonidine HCl (Clonidine Hcl 0.1 Mg Tablet) 0.1 mg PO TID PRN; Protocol PRN Reason: anxiety Last Admin: 12/07/21 10:08 Dose: 0.1 mg Folic Acid (Folic Acid 1 Mg Tablet) 1 mg PO DAILY [facility] Last Admin: 12/07/21 10:05 Dose: 1 mg Gabapentin (Gabapentin 600 Mg Tablet) 600 mg PO TID [facility] Last Admin: 12/07/21 10:05 Dose: 600 mg Hydroxyzine HCl (Hydroxyzine Hcl 50 Mg Tablet) 50 mg PO Q6H PRN PRN Reason: Anxiety Ibuprofen (Ibuprofen 600 Mg Tablet) 600 mg PO Q6H PRN PRN Reason: mod pain Last Admin: 12/04/21 20:58 Dose: 600 mg Loratadine (Loratadine 10 Mg Tablet) 10 mg PO DAILY PRN PRN Reason: allergies Magnesium Hydroxide (Milk Of Magnesia 30 Ml Oral.Susp) 30 ml PO DAILY PRN PRN Reason: Constipation Multivitamins/Vitamin C (Multivitamin Tablet) 1 tab PO DAILY [facility] Last Admin: 12/07/21 10:06 Dose: 1 tab Naltrexone HCl (Naltrexone Hcl 50 Mg Tablet) 50 mg PO DAILY [facility] Last Admin: 12/07/21 10:08 Dose: 50 mg Nicotine (Nicotine 14 Mg Patch.Td24) 14 mg TRANSDERMA DAILY [facility] Last Admin: 12/07/21 10:04 Dose: 14 mg Nicotine Polacrilex (Nicotine Polacrilex 2 Mg Gum) 2 mg BUCCAL Q2H PRN PRN Reason: nicotine withdrawal Last Admin: 12/03/21 18:57 Dose: 2 mg Ondansetron HCl (Ondansetron Odt 4 Mg Tab.Rapdis) 4 mg TRANSLINGU Q8H PRN PRN Reason: Nausea Last Admin: 12/02/21 22:44 Dose: 4 mg Pharmacy Consult (Consult Rx Perform Med Rec) 1 each MISCELLANE ONCE PRN PRN Reason: Consult order Thiamine HCl (Thiamine Hcl 100 Mg Tablet) 100 mg PO DAILY [facility] Last Admin: 12/07/21 10:05 Dose: 100 mg Trazodone HCl (Trazodone Hcl 50 Mg Tablet) 50 mg PO BEDTIME PRN PRN Reason: Insomnia Last Admin: 12/03/21 03:34 Dose: 50 mg Trazodone HCl (Trazodone Hcl 100 Mg Tablet) 300 mg PO BEDTIME [facility] Last Admin: 12/06/21 22:26 Dose: 300 mg Venlafaxine HCl (Venlafaxine Hcl Er 75 Mg Cap.Er.24h) 75 mg PO DAILY [facility] Last Admin: 12/07/21 10:05 Dose: 75 mg Allergies Allergies Allergy/AdvReac Type Severity Reaction Status Date / Time lisinopril [Lisinopril] Allergy Intermediate ANGIOEDEMA Verified 12/01/21 19:41 cat dander [CATS] Allergy Mild PUFFY EYES Verified 12/01/21 19:41 olanzapine [From ZYPREXA] Allergy Unknown UNKNOWN Verified 12/01/21 19:41 Assessment & Plan Assessment & Plan (1) MDD (major depressive disorder), recurrent episode, moderate: Status: Acute Code(s): F33.1 - Major depressive disorder, recurrent, moderate (2) Alcohol use disorder, moderate, dependence: Status: Acute Code(s): F10.20 - Alcohol dependence, uncomplicated (3) Cocaine use disorder, moderate, dependence: Status: Acute Code(s): F14.20 - Cocaine dependence, uncomplicated Plan Mr. Ko is a 41 year-old male with hx of MDD, polysubstance use disorder, multiple inpatient admission for the past 10 years. Utox positive for fentanyl, cocaine, cannabis. It appears he has been able to stay longer in residential programs for substance use. He completed 6 months program but quickly relapsed in 09/2021. He denies SI/HI. He does not appear internally preoccupied. He endorses depression, reports he wants to go back on antidepressant. We discussed risks, benefits and alternative treatment options. He agrees to start Effexor. He reports in the past he was on geodon but became very restless, so he stopped this medications. PLAN 1. Admit to M3, cv 15 minutes checks for safety 2. Start effexor 37.5mg po daily 3. CIWA- per protocol for alcohol withdrawal 12/05/2021 Patient future oriented can discontinue CIWA continue Effexor or naltrexone when possible been looking to go back on Vivitrol 12/06 continue current medications, plan for d/c on 12/08, interested in PHP, referral to [facility] to resume vivitrol. 12/07 continue current medications and plan. I spent __25____ minutes with the patient and/or on the patient floor today, greater than?50% of which was spent counseling/coordinating care. Reason for contiued inpatient stay Substantial Risk for: stable for discharge
[2021-12-07 21:30] VITALS: BP 124/74; PULSE 93; RESP 18; TEMP 36.4; O2SAT 94
[2021-12-07] MEDS: Ibuprofen 600 MG TABLET PO (21:34)
[2021-12-07] MEDS: hydrOXYzine HCL 50 MG TABLET PO (21:35)
[2021-12-07] MEDS: traZODone HCL 100 MG TABLET 300 MG PO (21:36)
[2021-12-08] MEDS: Nicotine 14 MG PATCH.TD24 TRANSDERMA (08:49)
[2021-12-08] MEDS: Gabapentin 600 MG TABLET PO (08:50)
[2021-12-08] MEDS: Venlafaxine HCl ER 75 MG CAP.ER.24H PO (08:50)
[2021-12-08] MEDS: amLODIPine Besylate 10 MG TABLET PO (08:50)
[2021-12-08] MEDS: Thiamine HCL 100 MG TABLET PO (08:50)
[2021-12-08] MEDS: Folic Acid 1 MG TABLET PO (08:50)
[2021-12-08] MEDS: Multivitamin TABLET 1 TAB PO (08:50)
[2021-12-08] MEDS: Naltrexone HCl 50 MG TABLET PO (08:50)
[2021-12-08] MEDS: cloNIDine HCL 0.1 MG TABLET PO (08:59)
[2021-12-08 09:20] VITALS: BP 129/69; PULSE 62; RESP 14; TEMP 36.6; O2SAT 96
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
[2021-12-08] MEDS: Naloxone HCl Nasal TAKE HOME 4 MG SPRAY NOSTRILALT (10:13)
== END 2021-12-08 11:10 | disposition home health service (06) | DRG 751 ==
LOC: HO.ED 11-30 12:07 → HO.PADLT16 12-01 13:48
PROVIDERS: Emergency Medicine; Emergency Medicine Emergency Medical Services; Physician Assistant; Admitting Provider Psychiatry & Neurology Psychiatry; Emergency Provider Student in an Organized Health Care Education/Training Program; Visit Provider Social Worker
DX: F33.1 Major depressive disorder, recurrent, moderate (principal); R45.851 Suicidal ideations; F17.210 Nicotine dependence, cigarettes, uncomplicated; I10 Essential (primary) hypertension; Z71.6 Tobacco abuse counseling; F10.220 Alcohol dependence with intoxication, uncomplicated; F14.20 Cocaine dependence, uncomplicated; Y90.8 Blood alcohol level of 240 mg/100 ml or more; Z20.822 Contact with and (suspected) exposure to COVID-19; Z88.8 Allergy status to other drugs, medicaments and biological substances; Z79.899 Other long term (current) drug therapy
CPT/HCPCS: 36415; 80048; 80053; 80061; 80076; 80307; 82077; 82607; 82746; 83036; 83735; 85025; 87491; 87591; 87635; 93005; 99285

== ENCOUNTER 2022-01-03 04:12 | Emergency (ER) | payer OTHER, SELFPAY ==
--- NOTE | ~2022-01-03 | CT_ITS ---
EXAMINATION: CT HEAD WITHOUT CONTRAST CLINICAL INFORMATION: Fall, EtOH COMPARISON: CT brain 12/12/2020 TECHNIQUE: Contiguous axial imaging was performed from the skull base to vertex without intravenous administration of contrast. This CT examination was performed using dose optimization techniques as appropriate, variously including the following: *Automated exposure control *Adjustment of mA and/or kV according to patient size (this includes techniques or standardized protocols for targeted exams where dose is matched to indication/reason for exam; i.e. extremities or head) *Use of iterative reconstruction technique DLP: 8.6 mGy-cm FINDINGS: There is no acute intra-axial, extra-axial bleed, masses or midline shift. There is no acute infarction in evolution. There is no edema. [place] to white matter differentiation is maintained normal. The lateral ventricles are symmetrical in size and configuration without enlargement. Bone windows reveal no calvarial abnormality. There is no scalp soft tissue abnormality. There is mild mucoperiosteal thickening of all sinuses. Bilateral mastoid sinuses are clear. CT/CT head/brain wo IV con IMPRESSION: No acute intracranial process seen. Chronic pansinusitis
[2022-01-03 04:31] VITALS: BP 104/55; PULSE 73; RESP 18; TEMP 36.8; O2SAT 94; BMI 32.1
[2022-01-03 04:52] LABS: COVID-19 Test Negative (Negative)
[2022-01-03 05:07] LABS: Alanine Aminotransferase 27 U/L (0-40); Albumin Level 4.8 g/dL (3.5-5.0); Alkaline Phosphatase 66 U/L (39-117); Anion Gap 17 (12-20); Aspartate Amino Transferase 39 U/L (5-37); Bilirubin Direct < 0.2 mg/dL (0.0-0.5); Bilirubin Total 0.4 mg/dL (0.0-1.0); Blood Urea Nitrogen 12 mg/dL (9-16); Calcium 9.1 mg/dL (8.4-10.2); Carbon Dioxide 25 mmol/L (22-29); Chloride 103 mmol/L (96-108); Creatinine Clr Calc Pharmacy 131.4; Estimated Glomerular Filt Rate > 60; Ethanol 244 mg/dL; Glucose Random 107 mg/dL (60-115); Lipase 33 U/L (8-78); Potassium 3.9 mmol/L (3.3-5.1); Sodium 141 mmol/L (135-145); Total Protein 7.6 g/dL (6.5-8.0)
[2022-01-03 06:53] VITALS: BP 105/54; PULSE 70; RESP 18; O2SAT 94
--- NOTE | 2022-01-03 07:21 | ED_ITS ---
HPI - Alcohol General Chief Complaint: ETOH/Substance Use Stated Complaint: ETOH? Time Seen by Provider: 01/03/22 06:36 Source: patient Mode of arrival: ambulatory History of Present Illness HPI narrative: 41-year-old male with history of high blood pressure and alcohol dependence presents requesting detox and states that he fell this evening with pain to the right side of his head but otherwise denies pain anywhere else in the chest wall or bilateral upper extremities. Patient states that he drinks approximately 1-2 pt a day and has had a history of seizures when abstaining from alcohol. He denies any SI/HI. Related Data Home Medications Medication Instructions Recorded Confirmed clonazepam 0.5 mg tablet 1 tab PO BID PRN anxiety 11/23/20 11/30/21 loratadine 10 mg tablet 1 tab PO DAILY PRN allergies 12/26/20 11/30/21 nicotine 14 mg/24 hr daily 1 patch topical DAILY 11/30/21 11/30/21 transdermal patch albuterol sulfate 90 mcg/actuation 2 puff inhalation Q4-6H PRN 12/01/21 12/01/21 aerosol inhaler (ProAir HFA) wheezing Previous Rx's Medication Instructions Recorded amlodipine 10 mg tablet 10 mg PO DAILY #30 tabs 12/08/21 clonidine HCl 0.1 mg tablet 0.1 mg PO TID PRN anxiety #90 tabs 12/08/21 folic acid 1 mg tablet 1 mg PO DAILY #30 tabs 12/08/21 gabapentin 600 mg tablet 600 mg PO TID #90 tabs 12/08/21 hydroxyzine HCl 50 mg tablet 50 mg PO Q6H PRN Anxiety #30 tabs 12/08/21 multivitamin (Daily-Lanie tablet) 1 tab PO DAILY #30 tabs 12/08/21 naltrexone 50 mg tablet 50 mg PO DAILY #30 tabs 12/08/21 thiamine mononitrate (vit B1) 100 100 mg PO DAILY #30 tabs 12/08/21 mg tablet trazodone 100 mg tablet 300 mg PO BEDTIME #90 tabs 12/08/21 venlafaxine 75 mg capsule,extended 75 mg PO DAILY #30 caps 12/08/21 release 24 hr Allergies Allergy/AdvReac Type Severity Reaction Status Date / Time lisinopril [Lisinopril] Allergy Intermediate ANGIOEDEMA Verified 12/01/21 19:41 cat dander [CATS] Allergy Mild PUFFY EYES Verified 12/01/21 19:41 olanzapine [From ZYPREXA] Allergy Unknown UNKNOWN Verified 12/01/21 19:41 Review of Systems Review of Systems: Pertinent positives and negatives as stated in HPI 10 point review of systems is otherwise negative. [facility] Past Medical History Source: nursing notes reviewed Medical History Alcoholism HTN (hypertension) Social History Social History Household Members: Other Household Members Other:: Pt reports gf kicked him out and he is currently homeless. Housing: Other Do you presently have visiting nurse or other home services: No Alcohol intake: current Alcohol intake frequency: 3 or more drinks per day Alcohol type: beer and hard liquor Patient Tobacco Use Status: Current everyday Tobacco user Tobacco use type: Cigarette Cigarette Packs Per Day: 0.5 Cigarettes Per Day: 10.0 Years Smoked: 12 e-Cigarette/Vaping Use: Former Use Second Hand Smoke Exposure: No Substance Use Type: Crack/Cocaine, Marijuana and Caffiene Advance Directives: No Advance Directives Information Provided: No service: No Sexual orientation: Straight/Heterosexual Physical Exam ED Vital Signs: Vital Signs - 24 hr 01/03/22 04:31 01/03/22 06:53 Temperature 98.2 F Pulse Rate 73 70 Respiratory Rate 18 18 Blood Pressure 104/55 L 105/54 L Pulse Oximetry 94 94 Oxygen Delivery Method Room Air Room Air BMI result Body Mass Index 32.1 VITAL SIGNS: Reviewed. GENERAL: Well developed, well nourished, in no acute distress , appears under the influence. HEAD: Normocephalic/Abrasion to right superior parietal EYES: PERRLA, EOMI, no nystagmus EARS: Ext canals without abnormality, TMs non-bulging and non-erythematous NOSE: Nares patent bilateral OROPHARYNX: no oral lesions noted, posterior pharynx clear and non-erythematous without noted tonsillar enlargement/erythema/exudates NECK: Supple, no adenopathy LUNGS: Normal breath sounds. No adventitious sounds or accessory muscle use. SpO2<94> CARDIOVASCULAR: Regular rate and rhythm without noted murmurs ABDOMEN: Soft, non-tender, non-distended with bowel sounds. MUSCULOSKELETAL: No tenderness, deformities, or effusions noted on gross inspection. EXTREMITIES: No cyanosis, clubbing or edema. SKIN: Inspection of the skin reveals no rashes NEUROLOGIC: Alert and oriented x 4. Strength and sensation to light touch were grossly intact x 4. Course Course Course Narrative: 41-year-old male with history and clinical presentation consistent with alcohol dependence and requesting detox. Will obtain head CT to ensure no intracranial bleed although low clinical suspicion as there are no neurological findings. Care team consult placed for detox and patient will receive Librium if CIWA greater than 10. Review of all investigations otherwise negative other than BAL-244. Patient is otherwise medically cleared for detox placement. Reevaluation(s) Reevaluation #1: Patient placed in physician observation because the patient needed more time for detox placement. At the time observation was started the patient's vital signs were stable, patient is alert and oriented but slightly agitated, neuro: Nonfocal, CV RRR, lungs clear Time: 08:22 MDM - Alcohol Lab Data Result diagrams: 01/03/22 07:33 01/03/22 04:33 Labs: Lab Results 01/03/22 01/03/22 01/03/22 Range/Units 04:33 04:33 07:33 WBC 9.0 (4.8-10.8) X10*3/uL RBC 4.63 (4.60-5.80) X10*6/uL Hgb 13.5 L (14.0-18.0) g/dl Hct 40.6 L (42.0-52.0) % MCV 87.7 (80.0-98.0) fL MCH 29.2 (27.0-33.0) pg MCHC 33.3 (31.0-36.0) g/dl RDW 14.1 (11.0-16.0) % Plt Count 244 (160-400) X10*3/uL MPV 9.2 L (9.4-12.4) fL Immature Gran % (Auto) 0.6 H (0.0-0.4) % Neut % (Auto) 43.6 L (45-73) % Lymph % (Auto) 41.0 H (20-40) % [place] % (Auto) 8.1 (2-11) % Eos % (Auto) 5.9 H (0-4) % Baso % (Auto) 0.8 (0-2) % Lymph # (Auto) 3.7 (1.2-4.9) X10*3/uL [place] # (Auto) 0.7 (0.1-1.2) X10*3/uL Eos # (Auto) 0.5 H (0.0-0.4) X10*3/uL Baso # (Auto) 0.1 (0.0-0.2) X10*3/uL Abs Immat Gran (auto) 0.05 H (0.00-0.03) X10*3/uL Absolute Neuts (auto) 3.9 (2.0-8.3) x10*3/uL Absolute Nucleated RBC 0.000 (0.0-0.012) X10*3/uL Nucleated RBC % (auto) 0.0 (0.0-0.2) /100WBC Sodium 141 (135-145) mmol/L Potassium 3.9 (3.3-5.1) mmol/L Chloride 103 (96-108) mmol/L Carbon Dioxide 25 (22-29) mmol/L Anion Gap 17 (12-20) BUN 12 (9-16) mg/dL Creatinine 0.90 (0.5-1.4) mg/dL Estim Creat Clear Calc 131.4 Estimated GFR > 60 Random Glucose 107 D (60-115) mg/dL Calcium 9.1 (8.4-10.2) mg/dL Total Bilirubin 0.4 (0.0-1.0) mg/dL Direct Bilirubin < 0.2 (0.0-0.5) mg/dL AST 39 H (5-37) U/L ALT 27 (0-40) U/L Alkaline Phosphatase 66 (39-117) U/L Total Protein 7.6 (6.5-8.0) g/dL Albumin 4.8 D (3.5-5.0) g/dL Lipase 33 (8-78) U/L Ethyl Alcohol 244 mg/dL COVID-19 (ROMARIO) Negative (Negative) COVID-19 Clin Com See Note Discharge Plan Discharge Clinical Impression: Alcohol use disorder, moderate, dependence, Alcoholic intoxication Patient Disposition: Still a Patient Prescriptions: No Action clonazepam 0.5 mg tablet 1 tab PO BID PRN (Reason: anxiety) loratadine 10 mg tablet 1 tab PO DAILY PRN (Reason: allergies) nicotine 14 mg/24 hr patch 24 hour 1 patch topical DAILY albuterol sulfate [ProAir HFA] 90 mcg/actuation HFA aerosol inhaler 2 puff inhalation Q4-6H PRN (Reason: wheezing) clonidine HCl 0.1 mg Tablet 0.1 mg PO TID PRN (Reason: anxiety) Qty: 90 0RF Protocol: Hold for SBP< HOLD for SBP < : 90 gabapentin 600 mg Tablet 600 mg PO TID Qty: 90 0RF trazodone 100 mg Tablet 300 mg PO BEDTIME Qty: 90 0RF amlodipine 10 mg Tablet 10 mg PO DAILY Qty: 30 0RF Protocol: Hold for SBP< HOLD for SBP < : 90 multivitamin [Daily-Lanie] Tablet 1 tab PO DAILY Qty: 30 0RF venlafaxine 75 mg Capsule,Extended Release 24hr 75 mg PO DAILY Qty: 30 0RF naltrexone 50 mg Tablet 50 mg PO DAILY Qty: 30 0RF hydroxyzine HCl 50 mg Tablet 50 mg PO Q6H PRN (Reason: Anxiety) Qty: 30 0RF folic acid 1 mg Tablet 1 mg PO DAILY Qty: 30 0RF thiamine mononitrate (vit B1) 100 mg Tablet 100 mg PO DAILY Qty: 30 0RF
[2022-01-03 07:37] LABS: MANUAL DIFF FLAG NO
[2022-01-03 07:39] LABS: Basophils Absolute Auto 0.1 X10*3/uL (0.0-0.2); Basophils Percent Auto 0.8 % (0-2); Eosinophils Absolute Auto 0.5 X10*3/uL (0.0-0.4); Eosinophils Percent Auto 5.9 % (0-4); Hematocrit 40.6 % (42.0-52.0); Hemoglobin 13.5 g/dl (14.0-18.0); Imm Gran Abs Auto 0.05 X10*3/uL (0.00-0.03); Imm Gran Pct Auto 0.6 % (0.0-0.4); Lymphocytes Absolute Auto 3.7 X10*3/uL (1.2-4.9); Mean Corpuscular HGB Conc 33.3 g/dl (31.0-36.0); Mean Corpuscular Hemoglobin 29.2 pg (27.0-33.0); Mean Corpuscular Volume 87.7 fL (80.0-98.0); Mean Platelet Volume 9.2 fL (9.4-12.4); Monocytes Absolute Auto 0.7 X10*3/uL (0.1-1.2); Monocytes Percent Auto 8.1 % (2-11); Neutrophils Absolute Auto 3.9 x10*3/uL (2.0-8.3); Neutrophils Percent Auto 43.6 % (45-73); Platelet Count 244 X10*3/uL (160-400); Red Blood Count 4.63 X10*6/uL (4.60-5.80); Red Cell Distribution Width 14.1 % (11.0-16.0)
[2022-01-03] MEDS: chlordiazePOXIDE HCl 25 MG CAPSULE PO (08:42)
--- NOTE | 2022-01-03 10:28 | PHA.MEDREC ---
Addendum entered by Yara Harrell [facility] 01/03/22 10:38: patient has not started taking the naltrexone 50 mg tablets- he wants to wait for injection Original Note: Pharmacy Consult ? Medication Reconciliation Pharmacy has completed the medication reconciliation. spoke with patient in the ED. Patient knew all medications and was able to list off. Patient has his vyvanse with him.
--- NOTE | 2022-01-03 15:10 | MHC.RECOVSUP ---
Recovery Support note: Patient presented to [facility] ED seeking detox. Patient referred to [facility] and accepted for admission. Transported via [employer].
== END 2022-01-03 11:07 | disposition other institution (70) ==
PROVIDERS: Emergency Provider Student in an Organized Health Care Education/Training Program
DX: F10.220 Alcohol dependence with intoxication, uncomplicated (principal); Y90.8 Blood alcohol level of 240 mg/100 ml or more; Z20.822 Contact with and (suspected) exposure to COVID-19; F17.210 Nicotine dependence, cigarettes, uncomplicated; F12.90 Cannabis use, unspecified, uncomplicated; I10 Essential (primary) hypertension; Z79.899 Other long term (current) drug therapy
CPT/HCPCS: 36415; 70450; 80053; 82077; 82248; 83690; 85025; 87635; 99284

== ENCOUNTER 2022-01-09 13:22 | Emergency (ER) | payer OTHER, SELFPAY ==
[2022-01-09 13:31] VITALS: BP 114/76; BP 119/64; PULSE 64; PULSE 69; RESP 16; TEMP 36.6; O2SAT 95; BMI 34.3
--- NOTE | 2022-01-09 13:50 | ED.ALCOHOL ---
HPI - Alcohol General Chief Complaint: ETOH/Substance Use <OTTO Julian - Last Filed: 01/10/22 15:30> Stated Complaint: AMS,ETOH <OTTO Julian - Last Filed: 01/10/22 15:30> Time Seen by Provider: 01/09/22 13:26 <OTTO Julian - Last Filed: 01/10/22 15:30> Source: patient <OTTO Julian - Last Filed: 01/10/22 15:30> Mode of arrival: ambulatory <OTTO Julian - Last Filed: 01/10/22 15:30> Limitations: no limitations <OTTO Julian Last Filed: 01/10/22 15:30> History of Present Illness HPI narrative: 41 yold male with pmh of alcohol abuse presents for alcohol on breath. As per EMS patient was dropped off at [facility] seeking detox, but than he was intoxicated so they called ambulance and brought him to the ED. Patient admits to drinking and is intoxicated. <OTTO Julian - Last Filed: 01/10/22 15:30> MD complaint: alcohol intoxication <OTTO Julian - Last Filed: 01/10/22 15:30> Related Data Home Medications: Home Medications Medication Instructions Recorded Confirmed clonazepam 0.5 mg tablet 1 tab PO BID PRN anxiety 11/23/20 01/09/22 loratadine 10 mg tablet 1 tab PO DAILY PRN allergies 12/26/20 01/09/22 nicotine 14 mg/24 hr daily 1 patch topical DAILY 11/30/21 01/09/22 transdermal patch albuterol sulfate 90 mcg/actuation 2 puff inhalation Q4-6H PRN 12/01/21 01/09/22 aerosol inhaler (ProAir HFA) wheezing dextroamphetamine-amphetamine 10 1 tab PO DAILY@1200 01/03/22 01/09/22 mg tablet lisdexamfetamine 40 mg capsule 1 cap PO DAILY 01/03/22 01/09/22 (Vyvanse) ziprasidone HCl 60 mg capsule 1 cap PO BID 01/03/22 01/09/22 Previous Rx's Medication Instructions Recorded amlodipine 10 mg tablet 10 mg PO DAILY #30 tabs 12/08/21 clonidine HCl 0.1 mg tablet 0.1 mg PO TID PRN anxiety #90 tabs 12/08/21 folic acid 1 mg tablet 1 mg PO DAILY #30 tabs 12/08/21 gabapentin 600 mg tablet 600 mg PO TID #90 tabs 12/08/21 hydroxyzine HCl 50 mg tablet 50 mg PO Q6H PRN Anxiety #30 tabs 12/08/21 multivitamin (Daily-Lanie tablet) 1 tab PO DAILY #30 tabs 12/08/21 naltrexone 50 mg tablet 50 mg PO DAILY #30 tabs 12/08/21 thiamine mononitrate (vit B1) 100 100 mg PO DAILY #30 tabs 12/08/21 mg tablet trazodone 100 mg tablet 300 mg PO BEDTIME #90 tabs 12/08/21 venlafaxine 75 mg capsule,extended 75 mg PO DAILY #30 caps 12/08/21 release 24 hr chlordiazepoxide HCl 25 mg capsule 50 mg PO Q3H PRN alcohol 01/10/22 withdrawal 3 days #14 caps <OTTO Julian - Last Filed: 01/10/22 15:30> Allergies/Adverse Reactions: Allergies Allergy/AdvReac Type Severity Reaction Status Date / Time lisinopril [Lisinopril] Allergy Intermediate ANGIOEDEMA Verified 12/01/21 19:41 cat dander [CATS] Allergy Mild PUFFY EYES Verified 12/01/21 19:41 olanzapine [From ZYPREXA] Allergy Unknown UNKNOWN Verified 12/01/21 19:41 <OTTO Julian - Last Filed: 01/10/22 15:30> Review of Systems Review of Systems: Alcohol on breath <OTTO Julian - Last Filed: 01/10/22 15:30> Yes all other systems are reviewed and are negative <OTTO Julian - Last Filed: 01/10/22 15:30> PMFSH Past Medical History Medical History: Medical History Alcoholism HTN (hypertension) <OTTO Julian - Last Filed: 01/10/22 15:30> Social History Social History: Social History Household Members: Other Household Members Other:: Pt reports gf kicked him out and he is currently homeless. Housing: Other Do you presently have visiting nurse or other home services: No Alcohol intake: current Alcohol intake frequency: 3 or more drinks per day Alcohol type: beer and hard liquor Patient Tobacco Use Status: Current everyday Tobacco user Tobacco use type: Cigarette Cigarette Packs Per Day: 0.5 Cigarettes Per Day: 10.0 Years Smoked: 12 e-Cigarette/Vaping Use: Former Use Second Hand Smoke Exposure: No Substance Use Type: Crack/Cocaine, Marijuana and Caffiene Advance Directives: No Advance Directives Information Provided: No service: No Sexual orientation: Straight/Heterosexual <OTTO Julian Last Filed: 01/10/22 15:30> Physical Exam ED Vital Signs: Vital Signs - 24 hr 01/09/22 20:00 01/10/22 00:37 01/10/22 06:36 Temperature 98.4 F 97.9 F Pulse Rate 70 67 Respiratory Rate 18 18 18 Blood Pressure 116/57 L 149/79 H Pulse Oximetry 92 93 Oxygen Delivery Method Room Air Room Air BMI result Body Mass Index 34.3 <OTTO Julian Last Filed: 01/10/22 15:30> Vital Signs - 24 hr 01/09/22 20:00 01/10/22 00:37 01/10/22 06:36 Temperature 98.4 F 97.9 F Pulse Rate 70 67 Respiratory Rate 18 18 18 Blood Pressure 116/57 L 149/79 H Pulse Oximetry 92 93 Oxygen Delivery Method Room Air Room Air BMI result Body Mass Index 34.3 <Kristi Barnes DO - Last Filed: 01/10/22 10:01> Const General: cooperative, healthy appearing, comfortable, no acute distress, well developed, alert, awake and Physically active <OTTO Julian Last Filed: 01/10/22 15:30> Orientation/consciousness: oriented to person, oriented to place, oriented to time and patient oriented x3 <OTTO Julian Last Filed: 01/10/22 15:30> HENMT Head: Yes normal to inspection, Yes No palpable skull fracture present, Yes normocephalic, Yes atraumatic and No abrasion <OTTO Julian Last Filed: 01/10/22 15:30> Eyes General: appearance normal, both eyes and all related structures <OTTO Julina Last Filed: 01/10/22 15:30> Neck Neck: Yes normal visual inspection, Yes full ROM, Yes no lymphadenopathy, Yes no meningeal signs, Yes trachea midline, Yes supple, No anterior neck swelling and No tender <OTTO Julian Laura Last Filed: 01/10/22 15:30> Chest Chest palpation & inspection: normal inspection of the chest and normal palpation of entire chest wall <OTTO Julian Last Filed: 01/10/22 15:30> Resp Effort & Inspection: normal respiratory effort and able to speak in complete sentences <OTTO Julian Last Filed: 01/10/22 15:30> Auscultation: clear to auscultation bilaterally <OTTO Julian Last Filed: 01/10/22 15:30> Cardio Jugular venous distension: no JVD <OTTO Julian Laura Last Filed: 01/10/22 15:30> Heart sounds: S1 normal heart sound present and S2 normal heart sound present <OTTO Julian Last Filed: 01/10/22 15:30> GI Inspection: Yes normal to inspection and No abdominal wall ecchymosis <TOTO Julian Last Filed: 01/10/22 15:30> Palpation (GI): Soft to palpation, not firm, nontender, no guarding and not rigid <OTTO Julian Laura Last Filed: 01/10/22 15:30> General: No CVA tenderness and Yes no CVA tenderness <OTTO Julian Larua Last Filed: 01/10/22 15:30> Back/Spine/Pelvis Back: no CVA tenderness, No CVA tenderness and No back tenderness <OTTO Julian Last Filed: 01/10/22 15:30> Skin General skin exam: no rashes or lesions noted and elasticity normal <OTTO Julian Last Filed: 01/10/22 15:30> Neuro Other: Alcohol on breath <OTTO Julian Laura Last Filed: 01/10/22 15:30> General: oriented to person, oriented to place, oriented to time, patient oriented x3, gait normal, no meningeal signs and CN's II-XI intact bilaterally <OTTO Julian - Last Filed: 01/10/22 15:30> Cranial nerves: Yes CN's II-XII intact bilaterally <OTTO Julian - Last Filed: 01/10/22 15:30> Extrem General: Yes normal to inspection and Yes full ROM <OTTO Julian - Last Filed: 01/10/22 15:30> Psych Appearance: grossly normal, well kempt and not disheveled <OTTO Julian - Last Filed: 01/10/22 15:30> Course Course Course Narrative: Alcohol on breath. Patient detox per will do labs and care team counsult <OTTO Julian - Last Filed: 01/10/22 15:30> Alcohol on breath. Patient detox per will do labs and care team counsult 10AM - MEDICALLY CLEARED, SEEN BY ADDICTION MEDICINE STABLE FOR DC DECLINES DETOX WILL START ON LIBRIUM TAPER FROM HERE CAN CALL DETOX CENTERS AT HOME <Kristi Barnes DO - Last Filed: 01/10/22 10:01> Reevaluation(s) Reevaluation #1: Care team consulted Erik evaluated patient states patient recently discharged from detox program last week and was at [facility] presents today. He states patient can not do intake today but if patient stable overnight patient and get intake tomorrow go to my [facility]. Patient could be re-evaluated by care team regarding head athletic trainer/strength coach tomorrow for detox placement. Alcohol level 372 at 14:05. <OTTO Julian - Last Filed: 01/10/22 15:30> Time: 19:31 <OTTO Julian - Last Filed: 01/10/22 15:30> MDM - Alcohol Lab Data Result diagrams: : 01/09/22 14:05 01/09/22 14:05 <OTTO Julian - Last Filed: 01/10/22 15:30> Labs: Lab Results 01/09/22 01/09/22 01/09/22 Range/Units 14:05 14:05 14:26 WBC 8.8 (4.8-10.8) X10*3/uL RBC 4.99 (4.60-5.80) X10*6/uL Hgb 14.6 (14.0-18.0) g/dl Hct 44.2 (42.0-52.0) % MCV 88.6 (80.0-98.0) fL MCH 29.3 (27.0-33.0) pg MCHC 33.0 (31.0-36.0) g/dl RDW 14.5 (11.0-16.0) % Plt Count 266 (160-400) X10*3/uL MPV 9.2 L (9.4-12.4) fL Immature Gran % (Auto) 0.6 H (0.0-0.4) % Neut % (Auto) 45.2 (45-73) % Lymph % (Auto) 41.6 H (20-40) % [place] % (Auto) 6.4 (2-11) % Eos % (Auto) 5.2 H (0-4) % Baso % (Auto) 1.0 (0-2) % Lymph # (Auto) 3.7 (1.2-4.9) X10*3/uL [place] # (Auto) 0.6 (0.1-1.2) X10*3/uL Eos # (Auto) 0.5 H (0.0-0.4) X10*3/uL Baso # (Auto) 0.1 (0.0-0.2) X10*3/uL Abs Immat Gran (auto) 0.05 H (0.00-0.03) X10*3/uL Absolute Neuts (auto) 4.0 (2.0-8.3) x10*3/uL Absolute Nucleated RBC 0.000 (0.0-0.012) X10*3/uL Nucleated RBC % (auto) 0.0 (0.0-0.2) /100WBC Sodium 143 (135-145) mmol/L Potassium 4.2 (3.3-5.1) mmol/L Chloride 104 (96-108) mmol/L Carbon Dioxide 22 (22-29) mmol/L Anion Gap 21 H (12-20) BUN 11 (9-16) mg/dL Creatinine 0.79 (0.5-1.4) mg/dL Estim Creat Clear Calc 123.7 Estimated GFR > 60 Random Glucose 108 (60-115) mg/dL Calcium 9.1 (8.4-10.2) mg/dL Total Bilirubin 0.2 (0.0-1.0) mg/dL AST 30 (5-37) U/L ALT 24 (0-40) U/L Alkaline Phosphatase 68 (39-117) U/L Total Protein 7.8 (6.5-8.0) g/dL Albumin 4.7 (3.5-5.0) g/dL Urine Opiates Screen Not Detected (Not Detect) Urine Fentanyl Screen POSITIVE H (Not Detect) Ur Barbiturates Screen POSITIVE H (Not Detect) Ur Phencyclidine Scrn Not Detected (Not Detect) Ur Amphetamines Screen POSITIVE H (Not Detect) U Benzodiazepines Scrn Not Detected (Not Detect) Urine Cocaine Screen Not Detected (Not Detect) U Marijuana (THC) Screen POSITIVE H (Not Detect) Ethyl Alcohol 372 H* mg/dL <OTTO Julian - Last Filed: 01/10/22 15:30> Lab Results 01/09/22 01/09/22 01/09/22 Range/Units 14:05 14:05 14:26 WBC 8.8 (4.8-10.8) X10*3/uL RBC 4.99 (4.60-5.80) X10*6/uL Hgb 14.6 (14.0-18.0) g/dl Hct 44.2 (42.0-52.0) % MCV 88.6 (80.0-98.0) fL MCH 29.3 (27.0-33.0) pg MCHC 33.0 (31.0-36.0) g/dl RDW 14.5 (11.0-16.0) % Plt Count 266 (160-400) X10*3/uL MPV 9.2 L (9.4-12.4) fL Immature Gran % (Auto) 0.6 H (0.0-0.4) % Neut % (Auto) 45.2 (45-73) % Lymph % (Auto) 41.6 H (20-40) % [place] % (Auto) 6.4 (2-11) % Eos % (Auto) 5.2 H (0-4) % Baso % (Auto) 1.0 (0-2) % Lymph # (Auto) 3.7 (1.2-4.9) X10*3/uL [place] # (Auto) 0.6 (0.1-1.2) X10*3/uL Eos # (Auto) 0.5 H (0.0-0.4) X10*3/uL Baso # (Auto) 0.1 (0.0-0.2) X10*3/uL Abs Immat Gran (auto) 0.05 H (0.00-0.03) X10*3/uL Absolute Neuts (auto) 4.0 (2.0-8.3) x10*3/uL Absolute Nucleated RBC 0.000 (0.0-0.012) X10*3/uL Nucleated RBC % (auto) 0.0 (0.0-0.2) /100WBC Sodium 143 (135-145) mmol/L Potassium 4.2 (3.3-5.1) mmol/L Chloride 104 (96-108) mmol/L Carbon Dioxide 22 (22-29) mmol/L Anion Gap 21 H (12-20) BUN 11 (9-16) mg/dL Creatinine 0.79 (0.5-1.4) mg/dL Estim Creat Clear Calc 123.7 Estimated GFR > 60 Random Glucose 108 (60-115) mg/dL Calcium 9.1 (8.4-10.2) mg/dL Total Bilirubin 0.2 (0.0-1.0) mg/dL AST 30 (5-37) U/L ALT 24 (0-40) U/L Alkaline Phosphatase 68 (39-117) U/L Total Protein 7.8 (6.5-8.0) g/dL Albumin 4.7 (3.5-5.0) g/dL Urine Opiates Screen Not Detected (Not Detect) Urine Fentanyl Screen POSITIVE H (Not Detect) Ur Barbiturates Screen POSITIVE H (Not Detect) Ur Phencyclidine Scrn Not Detected (Not Detect) Ur Amphetamines Screen POSITIVE H (Not Detect) U Benzodiazepines Scrn Not Detected (Not Detect) Urine Cocaine Screen Not Detected (Not Detect) U Marijuana (THC) Screen POSITIVE H (Not Detect) Ethyl Alcohol 372 H* mg/dL <Kristi Barnes DO - Last Filed: 01/10/22 10:01> Discharge Plan Discharge Clinical Impression: Polysubstance abuse Alcoholic intoxication Qualifiers: Complication of substance-induced condition: uncomplicated Qualified Code(s): F10.920 - Alcohol use, unspecified with intoxication, uncomplicated <OTTO Julian - Last Filed: 01/10/22 15:30> Patient Disposition: Home, Self-Care <OTTO Julian - Last Filed: 01/10/22 15:30> Instructions: Abuse of Alcohol (ED), Polysubstance Abuse (ED) <OTTO Julian - Last Filed: 01/10/22 15:30> Additional Instructions: return to ED for any worsening symptoms or concerns please consider detox services at home - call from home <OTTO Julian - Last Filed: 01/10/22 15:30> Prescriptions: New chlordiazepoxide HCl 25 mg capsule 50 mg PO Q3H PRN (Reason: alcohol withdrawal) 3 Days Qty: 14 0RF Rx Instructions: until symptoms controlled No Action clonazepam 0.5 mg tablet 1 tab PO BID PRN (Reason: anxiety) loratadine 10 mg tablet 1 tab PO DAILY PRN (Reason: allergies) nicotine 14 mg/24 hr patch 24 hour 1 patch topical DAILY albuterol sulfate [ProAir HFA] 90 mcg/actuation HFA aerosol inhaler 2 puff inhalation Q4-6H PRN (Reason: wheezing) clonidine HCl 0.1 mg Tablet 0.1 mg PO TID PRN (Reason: anxiety) Qty: 90 0RF Protocol: Hold for SBP< HOLD for SBP < : 90 gabapentin 600 mg Tablet 600 mg PO TID Qty: 90 0RF trazodone 100 mg Tablet 300 mg PO BEDTIME Qty: 90 0RF amlodipine 10 mg Tablet 10 mg PO DAILY Qty: 30 0RF Protocol: Hold for SBP< HOLD for SBP < : 90 multivitamin [Daily-Lanie] Tablet 1 tab PO DAILY Qty: 30 0RF venlafaxine 75 mg Capsule,Extended Release 24hr 75 mg PO DAILY Qty: 30 0RF naltrexone 50 mg Tablet 50 mg PO DAILY Qty: 30 0RF hydroxyzine HCl 50 mg Tablet 50 mg PO Q6H PRN (Reason: Anxiety) Qty: 30 0RF folic acid 1 mg Tablet 1 mg PO DAILY Qty: 30 0RF thiamine mononitrate (vit B1) 100 mg Tablet 100 mg PO DAILY Qty: 30 0RF dextroamphetamine-amphetamine 10 mg tablet 1 tab PO DAILY@1200 ziprasidone HCl 60 mg capsule 1 cap PO BID Vyvanse 40 mg capsule 1 cap PO DAILY <OTTO Julian - Last Filed: 01/10/22 15:30> Interventions: ED Discharge Assessment Last Done: 01/10/22 10:39 <OTTO Julian - Last Filed: 01/10/22 15:30> Discharge Date/Time: 01/10/22 10:42 <OTTO Julian - Last Filed: 01/10/22 15:30>
--- NOTE | 2022-01-09 13:56 | MHC.RECOVSUP ---
Recovery Support note: This conventional underwriter contacted [facility] to inquire what happened at their facility. Loni reports patient was scheduled for a 1245 admission time at their facility however he presented intoxicated and fell twice. [facility] unable to admit patient due to level of intoxication.
[2022-01-09 14:15] LABS: MANUAL DIFF FLAG NO
[2022-01-09 14:16] LABS: Basophils Absolute Auto 0.1 X10*3/uL (0.0-0.2); Eosinophils Absolute Auto 0.5 X10*3/uL (0.0-0.4); Eosinophils Percent Auto 5.2 % (0-4); Hematocrit 44.2 % (42.0-52.0); Hemoglobin 14.6 g/dl (14.0-18.0); Imm Gran Abs Auto 0.05 X10*3/uL (0.00-0.03); Imm Gran Pct Auto 0.6 % (0.0-0.4); Lymphocytes Absolute Auto 3.7 X10*3/uL (1.2-4.9); Lymphocytes Percent Auto 41.6 % (20-40); Mean Corpuscular Hemoglobin 29.3 pg (27.0-33.0); Mean Corpuscular Volume 88.6 fL (80.0-98.0); Mean Platelet Volume 9.2 fL (9.4-12.4); Monocytes Absolute Auto 0.6 X10*3/uL (0.1-1.2); Monocytes Percent Auto 6.4 % (2-11); Neutrophils Percent Auto 45.2 % (45-73); Platelet Count 266 X10*3/uL (160-400); Red Blood Count 4.99 X10*6/uL (4.60-5.80); Red Cell Distribution Width 14.5 % (11.0-16.0); White Blood Count 8.8 X10*3/uL (4.8-10.8)
[2022-01-09 14:36] LABS: Alanine Aminotransferase 24 U/L (0-40); Albumin Level 4.7 g/dL (3.5-5.0); Alkaline Phosphatase 68 U/L (39-117); Anion Gap 21 (12-20); Aspartate Amino Transferase 30 U/L (5-37); Bilirubin Total 0.2 mg/dL (0.0-1.0); Blood Urea Nitrogen 11 mg/dL (9-16); Calcium 9.1 mg/dL (8.4-10.2); Carbon Dioxide 22 mmol/L (22-29); Chloride 104 mmol/L (96-108); Creatinine Clr Calc Pharmacy 123.7; Estimated Glomerular Filt Rate > 60; Ethanol 372 mg/dL; Glucose Random 108 mg/dL (60-115); Potassium 4.2 mmol/L (3.3-5.1); Sodium 143 mmol/L (135-145); Total Protein 7.8 g/dL (6.5-8.0)
[2022-01-09 14:45] LABS: Amphetamine Screen Urine POSITIVE (Not Detect); Barbiturates, Urine POSITIVE (Not Detect); Benzodiazepines Screen Urine Not Detected (Not Detect); Cannabinoid Screen Urine POSITIVE (Not Detect); Cocaine Screen Urine Not Detected (Not Detect); Fentanyl, urine POSITIVE (Not Detect); Opiate Screen Urine Not Detected (Not Detect); Phencyclidine Screen Urine Not Detected (Not Detect)
[2022-01-09 15:24] VITALS: BP 132/72; PULSE 55; RESP 18; TEMP 36.3; O2SAT 94
--- OUTSIDE RECORDS SUMMARY | 2022-01-09 16:10 | XMS_ITS | Continuity of Care Document ---
:1980 Author Organization [facility] Address [address] [place] [address]- Care Team Providers Name Role Phone Not on Staff, PCP Primary Care Physician Unavailable Encounter [facility] Date(s): 09/09/20 - 09/09/[address] [address]- Encounter Diagnosis Alcohol intoxication (Final) - 09/09/20 Scalp laceration (Final) - 09/09/20 Facial laceration (Final) - 09/09/20 Discharge Disposition: A-D/C Home Attending Physician: Naun Dent MD Admitting Physician: Naun Dent MD Referring Physician: Not on Staff, Referring MD Immunizations Given and Recorded Vaccine Date Status Refusal Reason tetanus/diphtheria/pertussis, acel(Tdap) 09/09/20 Given Vital Signs Most recent to oldest 1 2 3 [Reference Range]: Oxygen Saturation [94-100 %] 99 % 99 % 98 % (09/09/20 6:35 AM) (09/09/20 5:06 AM) (09/09/20 1:5 5 AM) Pulse Rate [55-90 bpm] 83 bpm 82 bpm 84 bpm (09/09/20 6:35 AM) (09/09/20 5:06 AM) (09/09/20 1:5 5 AM) Blood Pressure [90-138/55-84 mm 137/94 mm Hg 128/96 mm Hg 161/102 mm Hg Hg] (09/09/20 6:35 AM) (09/09/20 5:06 AM) *H* (09/09/20 1:55 AM ) Respiratory Rate [16-30 br/min] 16 br/min 16 br/min 16 br/min (09/09/20 6:35 AM) (09/09/20 5:06 AM) (09/09/20 1:5 5 AM) Temperature [96.8-100.4 DegF] 98.3 DegF (09/09/20 1:55 AM) Mode of Delivery (Oxygen) Room air (09/09/20 1:55 AM) Blood pressure sites Arm, left Arm, left (09/09/20 5:06 AM) (09/09/20 1:55 AM) Temperature Route Oral (09/09/20 1:55 AM)
--- NOTE | 2022-01-09 18:19 | MHC.RECOVSUP ---
Recovery Support note: Patient is a 41 year old Malay speaking male who presented to [facility] via EMS after presenting to [facility] for admission intoxicated. Patient was sent to [facility] from [facility] on 01/03 however reports it was horrible and that he did not stay for the duration of treatment. Patient is interested in going back to [facility]. Grace at reports there is a scheduled discharge tomorrow and that if it goes through, there will be a male bed available for Zeferino. Patient is requesting to remain in the emergency department until tomorrow. Discussed with ED provider.
[2022-01-09 20:00] VITALS: RESP 18
--- NOTE | 2022-01-09 22:42 | PHA.MEDREC ---
Pharmacy Consult ? Medication Reconciliation Pharmacy has reviewed the medication reconciliation completed by Kate. Rhonda Ugalde, Km[facility]
[2022-01-09] MEDS: Gabapentin 600 MG TABLET PO (23:09)
[2022-01-09] MEDS: traZODone HCL 100 MG TABLET 300 MG PO (23:09)
--- NOTE | 2022-01-09 23:09 | PC.NURSE ---
unable to scan medicines due to unavailability of computers on wheels in the department. right patient, right dose, right med verified by myself NEO Moe prior to administration of Trazodone and Gabapentin
[2022-01-10 00:37] VITALS: BP 116/57; PULSE 70; RESP 18; TEMP 36.9; O2SAT 92
--- NOTE | 2022-01-10 04:53 | PC.NURSE ---
Patient still sleeping waiting for him to wake can leave anytime he wakes up.
[2022-01-10 06:36] VITALS: BP 149/79; PULSE 67; RESP 18; TEMP 36.6; O2SAT 93
--- NOTE | 2022-01-10 09:59 | PC.NURSE ---
pt is awake and alert, pt is refusing breakfast. pt maintains appropriate eye contact and speaking in clear and even tones. care team at bedside.
[2022-01-10] MEDS: amLODIPine Besylate 10 MG TABLET PO (10:20)
[2022-01-10] MEDS: Multivitamin TABLET 1 TAB PO (10:20)
[2022-01-10] MEDS: Gabapentin 600 MG TABLET PO (10:20)
[2022-01-10] MEDS: Folic Acid 1 MG TABLET PO (10:20)
[2022-01-10] MEDS: Thiamine HCL 100 MG TABLET PO (10:21)
[2022-01-10] MEDS: Venlafaxine HCl ER 75 MG CAP.ER.24H PO (10:21)
[2022-01-10] MEDS: chlordiazePOXIDE HCl 25 MG CAPSULE 50 MG PO (10:33)
--- NOTE | 2022-01-10 10:55 | MHC.RECOVRN ---
T/W met w/ pt, pt laying down, sunglasses on, alert. T/W reviewed no beds at [facility] per [facility] this a.m, offered [facility]. Pt reports girlfriend is 8.5 months and is due in several days. Pt reports would like to go to Detox in the area. Pt reports is not allowed back at [facility] due to leaving [place] recently. Pt reports headache, anxiety, sensitive to light, CIWA 21. T/W reviewed w/ Provider, pt given dose of Librium and at d/c Librium taper. T/W reviewed plan w/ Pt, pt in agreement. Pt encouraged to call [facility] from the community. Pt given bus passes, med education reviewed related to Librium taper. Pt verbalized understanding.
== END 2022-01-10 10:42 | disposition home or self-care (01) ==
PROVIDERS: Physician Assistant; Emergency Provider Emergency Medicine
DX: F10.129 Alcohol abuse with intoxication, unspecified (principal); Y90.8 Blood alcohol level of 240 mg/100 ml or more; Z79.899 Other long term (current) drug therapy; F17.210 Nicotine dependence, cigarettes, uncomplicated; Z71.6 Tobacco abuse counseling
CPT/HCPCS: 36415; 80053; 80307; 82077; 85025; 99284

== ENCOUNTER 2022-02-02 20:43 | Emergency (ER) | payer OTHER, SELFPAY ==
--- NOTE | ~2022-02-02 | XR_ITS ---
EXAMINATION: XR ELBOW, RIGHT CLINICAL INFORMATION: Trauma COMPARISON: None TECHNIQUE: AP, lateral, and oblique views of the right elbow. FINDINGS: No acute fracture or dislocation. XR/XR elbow RT 2V IMPRESSION: No acute fracture or dislocation right elbow
[2022-02-02 21:39] VITALS: BP 125/79; PULSE 63; RESP 18; O2SAT 94; BMI 32.1
--- NOTE | 2022-02-02 21:39 | ED.GENADULT ---
HPI - General Adult General Chief complaint: ETOH/Substance Use Stated complaint: alcohol poisoning Time Seen by Provider: 02/02/22 22:01 Related Data Home Medications Medication Instructions Recorded Confirmed clonazepam 0.5 mg tablet 1 tab PO BID PRN anxiety 11/23/20 01/09/22 loratadine 10 mg tablet 1 tab PO DAILY PRN allergies 12/26/20 01/09/22 nicotine 14 mg/24 hr daily 1 patch topical DAILY 11/30/21 01/09/22 transdermal patch albuterol sulfate 90 mcg/actuation 2 puff inhalation Q4-6H PRN 12/01/21 01/09/22 aerosol inhaler (ProAir HFA) wheezing dextroamphetamine-amphetamine 10 1 tab PO DAILY@1200 01/03/22 01/09/22 mg tablet lisdexamfetamine 40 mg capsule 1 cap PO DAILY 01/03/22 01/09/22 (Vyvanse) ziprasidone HCl 60 mg capsule 1 cap PO BID 01/03/22 01/09/22 Previous Rx's Medication Instructions Recorded amlodipine 10 mg tablet 10 mg PO DAILY #30 tabs 12/08/21 clonidine HCl 0.1 mg tablet 0.1 mg PO TID PRN anxiety #90 tabs 12/08/21 folic acid 1 mg tablet 1 mg PO DAILY #30 tabs 12/08/21 gabapentin 600 mg tablet 600 mg PO TID #90 tabs 12/08/21 hydroxyzine HCl 50 mg tablet 50 mg PO Q6H PRN Anxiety #30 tabs 12/08/21 multivitamin (Daily-Lanie tablet) 1 tab PO DAILY #30 tabs 12/08/21 naltrexone 50 mg tablet 50 mg PO DAILY #30 tabs 12/08/21 thiamine mononitrate (vit B1) 100 100 mg PO DAILY #30 tabs 12/08/21 mg tablet trazodone 100 mg tablet 300 mg PO BEDTIME #90 tabs 12/08/21 venlafaxine 75 mg capsule,extended 75 mg PO DAILY #30 caps 12/08/21 release 24 hr chlordiazepoxide HCl 25 mg capsule 50 mg PO Q3H PRN alcohol 01/10/22 withdrawal 3 days #14 caps Allergies Allergy/AdvReac Type Severity Reaction Status Date / Time lisinopril [Lisinopril] Allergy Intermediate ANGIOEDEMA Verified 12/01/21 19:41 cat dander [CATS] Allergy Mild PUFFY EYES Verified 12/01/21 19:41 olanzapine [From ZYPREXA] Allergy Unknown UNKNOWN Verified 12/01/21 19:41 [facility] Past Medical History Medical History Alcoholism HTN (hypertension) Social History Social History Household Members: Other Household Members Other:: Pt reports gf kicked him out and he is currently homeless. Housing: Other Do you presently have visiting nurse or other home services: No Alcohol intake: current Alcohol intake frequency: 3 or more drinks per day Alcohol type: beer and hard liquor Patient Tobacco Use Status: Current everyday Tobacco user Tobacco use type: Cigarette Cigarette Packs Per Day: 0.5 Cigarettes Per Day: 10.0 Years Smoked: 12 Smoked in Last 30 Days: Yes e-Cigarette/Vaping Use: Former Use Second Hand Smoke Exposure: No Use of substances other than those prescribed or required for medical reasons: No Substance Use Type: Crack/Cocaine, Marijuana and Caffiene Advance Directives: No Advance Directives Information Provided: No service: No Sexual orientation: Straight/Heterosexual Physical Exam ED Vital Signs: Vital Signs - 24 hr 02/03/22 00:24 02/03/22 04:10 02/03/22 07:54 Temperature 98.6 F Pulse Rate 66 65 64 Respiratory Rate 16 16 20 Blood Pressure 128/77 126/74 102/45 L Pulse Oximetry 95 96 94 Oxygen Delivery Method Room Air Room Air Room Air 02/03/22 10:34 Temperature 98.5 F Pulse Rate 71 Respiratory Rate 19 Blood Pressure 115/53 L Pulse Oximetry 95 Oxygen Delivery Method Room Air BMI result Body Mass Index 32.1 Course Course Course Narrative: -pt states i'm drunk , i wanna go to detox requesting to go to [facility] -pt has incomprehensible speech, slurred speech, 100% alcohol proof 2.5 pints per pt -pt seeking detox, states that that jan 21 2022 his partenr had a baby and wants to stop drinking for them -PE: pt very intoxicated, falling asleep, easily arousable, can't walk, sitting in a wheel chair , slurred speech, BP 125/79, HR 63, no signs of trauma Medical Decision Making Lab Data Result diagrams: 02/02/22 22:49 02/02/22 22:49 Labs: Lab Results 02/02/22 02/02/22 02/03/22 Range/Units 22:49 22:49 07:57 WBC 9.5 (4.8-10.8) X10*3/uL RBC 4.73 (4.60-5.80) X10*6/uL Hgb 14.1 (14.0-18.0) g/dl Hct 41.4 L (42.0-52.0) % MCV 87.5 (80.0-98.0) fL MCH 29.8 (27.0-33.0) pg MCHC 34.1 (31.0-36.0) g/dl RDW 13.5 (11.0-16.0) % Plt Count 284 (160-400) X10*3/uL MPV 9.1 L (9.4-12.4) fL Immature Gran % (Auto) 0.4 (0.0-0.4) % Neut % (Auto) 51.0 (45-73) % Lymph % (Auto) 37.8 (20-40) % Morrison % (Auto) 5.4 (2-11) % Eos % (Auto) 4.6 H (0-4) % Baso % (Auto) 0.8 (0-2) % Lymph # (Auto) 3.6 (1.2-4.9) X10*3/uL Morrison # (Auto) 0.5 (0.1-1.2) X10*3/uL Eos # (Auto) 0.4 (0.0-0.4) X10*3/uL Baso # (Auto) 0.1 (0.0-0.2) X10*3/uL Abs Immat Gran (auto) 0.04 H (0.00-0.03) X10*3/uL Absolute Neuts (auto) 4.8 (2.0-8.3) x10*3/uL Absolute Nucleated RBC 0.000 (0.0-0.012) X10*3/uL Nucleated RBC % (auto) 0.0 (0.0-0.2) /100WBC Sodium 139 (135-145) mmol/L Potassium 3.8 (3.3-5.1) mmol/L Chloride 104 (96-108) mmol/L Carbon Dioxide 22 (22-29) mmol/L Anion Gap 17 (12-20) BUN 10 (9-16) mg/dL Creatinine 0.74 (0.5-1.4) mg/dL Estim Creat Clear Calc 159.8 Estimated GFR > 60 Random Glucose 92 (60-115) mg/dL Calcium 8.8 (8.4-10.2) mg/dL Total Bilirubin 0.3 (0.0-1.0) mg/dL Direct Bilirubin < 0.2 (0.0-0.5) mg/dL AST 29 (5-37) U/L ALT 24 (0-40) U/L Alkaline Phosphatase 66 (39-117) U/L Total Protein 7.2 (6.5-8.0) g/dL Albumin 4.4 (3.5-5.0) g/dL Lipase 29 (8-78) U/L Urine Color Yellow Urine Appearance Clear Urine pH 5.0 (5.0-9.0) Ur Specific Everson 1.015 (1.005-1.025) Urine Protein Negative (Neg-Trace) mg/dL Urine Glucose (UA) Negative (Negative) mg/dL Urine Ketones Negative (Negative) mg/dL Urine Blood Negative (Negative) Urine Nitrite Negative (Negative) Ur Leukocyte Esterase Negative (Negative) Urine Opiates Screen (Not Detect) Urine Fentanyl Screen (Not Detect) Ur Barbiturates Screen (Not Detect) Ur Phencyclidine Scrn (Not Detect) Ur Amphetamines Screen (Not Detect) U Benzodiazepines Scrn (Not Detect) Urine Cocaine Screen (Not Detect) U Marijuana (THC) Screen (Not Detect) Ethyl Alcohol 348 H* mg/dL 02/03/22 Range/Units 07:57 WBC (4.8-10.8) X10*3/uL RBC (4.60-5.80) X10*6/uL Hgb (14.0-18.0) g/dl Hct (42.0-52.0) % MCV (80.0-98.0) fL MCH (27.0-33.0) pg MCHC (31.0-36.0) g/dl RDW (11.0-16.0) % Plt Count (160-400) X10*3/uL MPV (9.4-12.4) fL Immature Gran % (Auto) (0.0-0.4) % Neut % (Auto) (45-73) % Lymph % (Auto) (20-40) % Morrison % (Auto) (2-11) % Eos % (Auto) (0-4) % Baso % (Auto) (0-2) % Lymph # (Auto) (1.2-4.9) X10*3/uL Morrison # (Auto) (0.1-1.2) X10*3/uL Eos # (Auto) (0.0-0.4) X10*3/uL Baso # (Auto) (0.0-0.2) X10*3/uL Abs Immat Gran (auto) (0.00-0.03) X10*3/uL Absolute Neuts (auto) (2.0-8.3) x10*3/uL Absolute Nucleated RBC (0.0-0.012) X10*3/uL Nucleated RBC % (auto) (0.0-0.2) /100WBC Sodium (135-145) mmol/L Potassium (3.3-5.1) mmol/L Chloride (96-108) mmol/L Carbon Dioxide (22-29) mmol/L Anion Gap (12-20) BUN (9-16) mg/dL Creatinine (0.5-1.4) mg/dL Estim Creat Clear Calc Estimated GFR Random Glucose (60-115) mg/dL Calcium (8.4-10.2) mg/dL Total Bilirubin (0.0-1.0) mg/dL Direct Bilirubin (0.0-0.5) mg/dL AST (5-37) U/L ALT (0-40) U/L Alkaline Phosphatase (39-117) U/L Total Protein (6.5-8.0) g/dL Albumin (3.5-5.0) g/dL Lipase (8-78) U/L Urine Color Urine Appearance Urine pH (5.0-9.0) Ur Specific Everson (1.005-1.025) Urine Protein (Neg-Trace) mg/dL Urine Glucose (UA) (Negative) mg/dL Urine Ketones (Negative) mg/dL Urine Blood (Negative) Urine Nitrite (Negative) Ur Leukocyte Esterase (Negative) Urine Opiates Screen Not Detected (Not Detect) Urine Fentanyl Screen POSITIVE H (Not Detect) Ur Barbiturates Screen Not Detected (Not Detect) Ur Phencyclidine Scrn Not Detected (Not Detect) Ur Amphetamines Screen POSITIVE H (Not Detect) U Benzodiazepines Scrn POSITIVE H (Not Detect) Urine Cocaine Screen POSITIVE H (Not Detect) U Marijuana (THC) Screen POSITIVE H (Not Detect) Ethyl Alcohol mg/dL Discharge Plan Discharge Clinical Impression: Alcoholic intoxication Patient Disposition: Home, Self-Care Instructions: Alcohol Intoxication (ED) Additional Instructions: Follow up with your primary care provider. Return to the emergency department immediately if your symptoms worsen or if you develop any dizziness, shortness of breath, difficulty breathing, chest pain, blurry vision, loss of vision, nausea, vomiting, abdominal pain, fever, chills, back pain, or any other complaints. Prescriptions: No Action clonazepam 0.5 mg tablet 1 tab PO BID PRN (Reason: anxiety) loratadine 10 mg tablet 1 tab PO DAILY PRN (Reason: allergies) nicotine 14 mg/24 hr patch 24 hour 1 patch topical DAILY albuterol sulfate [ProAir HFA] 90 mcg/actuation HFA aerosol inhaler 2 puff inhalation Q4-6H PRN (Reason: wheezing) clonidine HCl 0.1 mg Tablet 0.1 mg PO TID PRN (Reason: anxiety) Qty: 90 0RF Protocol: Hold for SBP< HOLD for SBP < : 90 gabapentin 600 mg Tablet 600 mg PO TID Qty: 90 0RF trazodone 100 mg Tablet 300 mg PO BEDTIME Qty: 90 0RF amlodipine 10 mg Tablet 10 mg PO DAILY Qty: 30 0RF Protocol: Hold for SBP< HOLD for SBP < : 90 multivitamin [Daily-Lanie] Tablet 1 tab PO DAILY Qty: 30 0RF venlafaxine 75 mg Capsule,Extended Release 24hr 75 mg PO DAILY Qty: 30 0RF naltrexone 50 mg Tablet 50 mg PO DAILY Qty: 30 0RF hydroxyzine HCl 50 mg Tablet 50 mg PO Q6H PRN (Reason: Anxiety) Qty: 30 0RF folic acid 1 mg Tablet 1 mg PO DAILY Qty: 30 0RF thiamine mononitrate (vit B1) 100 mg Tablet 100 mg PO DAILY Qty: 30 0RF dextroamphetamine-amphetamine 10 mg tablet 1 tab PO DAILY@1200 ziprasidone HCl 60 mg capsule 1 cap PO BID Vyvanse 40 mg capsule 1 cap PO DAILY chlordiazepoxide HCl 25 mg capsule 50 mg PO Q3H PRN (Reason: alcohol withdrawal) 3 Days Qty: 14 0RF Rx Instructions: until symptoms controlled Interventions: ED Discharge Assessment Last Done: 02/03/22 12:30 Discharge Date/Time: 02/03/22 12:31 Print Language: Venezuelan
--- NOTE | 2022-02-02 22:14 | ED.ALCOHOL ---
HPI - Alcohol General Chief Complaint: ETOH/Substance Use Stated Complaint: alcohol poisoning Time Seen by Provider: 02/02/22 22:01 Source: patient Mode of arrival: ambulatory Limitations: no limitations and altered mental status (Due to alcohol intoxication.) History of Present Illness HPI narrative: 41-year-old male with known history of alcohol abuse had multiple previous ED visits for similar presentation. In the ED patient is sleeping with slurred speech, incomprehensible, admitted to drinking alcohol last night, limited historian due to intoxication at this point unable to tell me if he feels suicidal or homicidal, unable to tell me if any other coingestion. Right elbow x-ray was ordered from the waiting room unable to obtain a reason for the x-ray right elbow show no deformity with full range of motion. Related Data Home Medications Medication Instructions Recorded Confirmed clonazepam 0.5 mg tablet 1 tab PO BID PRN anxiety 11/23/20 01/09/22 loratadine 10 mg tablet 1 tab PO DAILY PRN allergies 12/26/20 01/09/22 nicotine 14 mg/24 hr daily 1 patch topical DAILY 11/30/21 01/09/22 transdermal patch albuterol sulfate 90 mcg/actuation 2 puff inhalation Q4-6H PRN 12/01/21 01/09/22 aerosol inhaler (ProAir HFA) wheezing dextroamphetamine-amphetamine 10 1 tab PO DAILY@1200 01/03/22 01/09/22 mg tablet lisdexamfetamine 40 mg capsule 1 cap PO DAILY 01/03/22 01/09/22 (Vyvanse) ziprasidone HCl 60 mg capsule 1 cap PO BID 01/03/22 01/09/22 Previous Rx's Medication Instructions Recorded amlodipine 10 mg tablet 10 mg PO DAILY #30 tabs 12/08/21 clonidine HCl 0.1 mg tablet 0.1 mg PO TID PRN anxiety #90 tabs 12/08/21 folic acid 1 mg tablet 1 mg PO DAILY #30 tabs 12/08/21 gabapentin 600 mg tablet 600 mg PO TID #90 tabs 12/08/21 hydroxyzine HCl 50 mg tablet 50 mg PO Q6H PRN Anxiety #30 tabs 12/08/21 multivitamin (Daily-Lanie tablet) 1 tab PO DAILY #30 tabs 12/08/21 naltrexone 50 mg tablet 50 mg PO DAILY #30 tabs 12/08/21 thiamine mononitrate (vit B1) 100 100 mg PO DAILY #30 tabs 12/08/21 mg tablet trazodone 100 mg tablet 300 mg PO BEDTIME #90 tabs 12/08/21 venlafaxine 75 mg capsule,extended 75 mg PO DAILY #30 caps 12/08/21 release 24 hr chlordiazepoxide HCl 25 mg capsule 50 mg PO Q3H PRN alcohol 01/10/22 withdrawal 3 days #14 caps Allergies Allergy/AdvReac Type Severity Reaction Status Date / Time lisinopril [Lisinopril] Allergy Intermediate ANGIOEDEMA Verified 12/01/21 19:41 cat dander [CATS] Allergy Mild PUFFY EYES Verified 12/01/21 19:41 olanzapine [From ZYPREXA] Allergy Unknown UNKNOWN Verified 12/01/21 19:41 Review of Systems Review of Systems: All other systems are reviewed and are negative Constitutional: Reports as per HPI and Reports no additional constitutional complaints Eyes: Reports as per HPI and Reports no additional eye complaints Reports system reviewed and no additional complaints, except as documented Cardiovascular: Reports as per HPI and Reports no additional cardiovascular complaints Respiratory: Reports as per HPI and Reports no additional respiratory complaints Gastrointestinal: Reports as per HPI and Reports no additional gastrointestinal complaints Genitourinary: Reports no additional female genitourinary complaints Musculoskeletal: Reports no additional musculoskeletal complaints Skin/Breast: Reports system reviewed and no additional complaints, except as docu Psychiatric: Reports no additional psychiatric complaints Endocrine: Reports no additional endocrine complaints Hematologic/Lymphatic: Reports no additional hematologic/lymphatic complaints Allergic/Immunologic: Reports no additional allergic/immunologic complaints Reports system reviewed and no additional complaints, except as documented and Reports Abnormal speech present [facility] Past Medical History Medical History Alcoholism HTN (hypertension) Social History Social History Household Members: Other Household Members Other:: Pt reports gf kicked him out and he is currently homeless. Housing: Other Do you presently have visiting nurse or other home services: No Alcohol intake: current Alcohol intake frequency: 3 or more drinks per day Alcohol type: beer and hard liquor Patient Tobacco Use Status: Current everyday Tobacco user Tobacco use type: Cigarette Cigarette Packs Per Day: 0.5 Cigarettes Per Day: 10.0 Years Smoked: 12 e-Cigarette/Vaping Use: Former Use Second Hand Smoke Exposure: No Substance Use Type: Crack/Cocaine, Marijuana and Caffiene Advance Directives: No Advance Directives Information Provided: No service: No Sexual orientation: Straight/Heterosexual Physical Exam ED Vital Signs: Vital Signs - 24 hr 02/02/22 21:39 Pulse Rate 63 Respiratory Rate 18 Blood Pressure 125/79 Pulse Oximetry 94 Oxygen Delivery Method Room Air BMI result Body Mass Index 32.1 Vital signs have been reviewed as appeared to be correct. Blood pressure normal. Heart rate normal. Respiration rate normal. Temperature normal. Oxygen saturation normal. Appearance: Lethargic a due to alcohol intoxication. No acute distress. Head: Normal external exam. Normocephalic. Atraumatic. No Edwards signs noted. No raccoon eyes noted Eyes: PERRLA. EOMI. Conjunctiva and sclera normal. Eyelids normal. ENT: TM's Normal. Pharynx normal. Uvula midline. Moist mucous membranes. No trismus noted. No drooling noted. No muffled voice noted. Neck: Normal inspection. Neck supple. FROM. No adenopathy. Thyroid Normal. No meningeal signs. No neck mass noted. CVS: Normal heart rate and rhythm. Heart sound normal. No murmurs noted. Pulses normal throughout. Respiratory: No respiratory distress. Painless inspiration. Breath sounds normal. No wheezes/rales/rhonchi noted. Chest nontender. No accessory muscle usage noted or decreased air movement noted. Abdomen: Soft and nontender. Bowel sounds normal in all 4 quadrants. No distention noted. No organomegaly noted. No visible injury noted. Back: No CVA tenderness. Full range of motion noted. Skin: Skin warm and dry. Normal skin color. Normal skin turgor. No rashes/lesions/lacerations noted. Extremities: No lower extremity edema. Extremities exhibit normal range of motion. Extremities nontender. Neuro: Lethargic, slurred speech, incomprehensible conversation. Cranial nerve exam: II-XII are grossly intact No motor deficit. No sensory deficit. Reflexes normal. Course Course Course Narrative: Alcohol intoxication, no history is obtained due to intoxication, will observe the patient until he is more sober but according to triage note patient was requesting detox. Reevaluation(s) Reevaluation #1: Physician observation started at22:20 . Patient placed in physician observation because the patient need care team evaluation for placement patient's vital sign were stable, patient is alert and oriented , neuro exam unchanged, unremarkable rest of physical exam. Time: 22:20 MDM - Alcohol Lab Data Attestation: I reviewed the patient's lab results. Result diagrams: 02/02/22 22:49 02/02/22 22:49 Labs: Lab Results 02/02/22 02/02/22 Range/Units 22:49 22:49 WBC 9.5 (4.8-10.8) X10*3/uL RBC 4.73 (4.60-5.80) X10*6/uL Hgb 14.1 (14.0-18.0) g/dl Hct 41.4 L (42.0-52.0) % MCV 87.5 (80.0-98.0) fL MCH 29.8 (27.0-33.0) pg MCHC 34.1 (31.0-36.0) g/dl RDW 13.5 (11.0-16.0) % Plt Count 284 (160-400) X10*3/uL MPV 9.1 L (9.4-12.4) fL Immature Gran % (Auto) 0.4 (0.0-0.4) % Neut % (Auto) 51.0 (45-73) % Lymph % (Auto) 37.8 (20-40) % Wilcox % (Auto) 5.4 (2-11) % Eos % (Auto) 4.6 H (0-4) % Baso % (Auto) 0.8 (0-2) % Lymph # (Auto) 3.6 (1.2-4.9) X10*3/uL Wilcox # (Auto) 0.5 (0.1-1.2) X10*3/uL Eos # (Auto) 0.4 (0.0-0.4) X10*3/uL Baso # (Auto) 0.1 (0.0-0.2) X10*3/uL Abs Immat Gran (auto) 0.04 H (0.00-0.03) X10*3/uL Absolute Neuts (auto) 4.8 (2.0-8.3) x10*3/uL Absolute Nucleated RBC 0.000 (0.0-0.012) X10*3/uL Nucleated RBC % (auto) 0.0 (0.0-0.2) /100WBC Sodium 139 (135-145) mmol/L Potassium 3.8 (3.3-5.1) mmol/L Chloride 104 (96-108) mmol/L Carbon Dioxide 22 (22-29) mmol/L Anion Gap 17 (12-20) BUN 10 (9-16) mg/dL Creatinine 0.74 (0.5-1.4) mg/dL Estim Creat Clear Calc 159.8 Estimated GFR > 60 Random Glucose 92 (60-115) mg/dL Calcium 8.8 (8.4-10.2) mg/dL Total Bilirubin 0.3 (0.0-1.0) mg/dL Direct Bilirubin < 0.2 (0.0-0.5) mg/dL AST 29 (5-37) U/L ALT 24 (0-40) U/L Alkaline Phosphatase 66 (39-117) U/L Total Protein 7.2 (6.5-8.0) g/dL Albumin 4.4 (3.5-5.0) g/dL Lipase 29 (8-78) U/L Ethyl Alcohol 348 H* mg/dL Imaging Data Right elbow x-ray: Attestation: I personally reviewed and interpreted this imaging study as follows: Radiologist's impression: No fracture and no dislocation of the right elbow. Discharge Plan Discharge Clinical Impression: Alcoholic intoxication Patient Disposition: Still a Patient Prescriptions: No Action clonazepam 0.5 mg tablet 1 tab PO BID PRN (Reason: anxiety) loratadine 10 mg tablet 1 tab PO DAILY PRN (Reason: allergies) nicotine 14 mg/24 hr patch 24 hour 1 patch topical DAILY albuterol sulfate [ProAir HFA] 90 mcg/actuation HFA aerosol inhaler 2 puff inhalation Q4-6H PRN (Reason: wheezing) clonidine HCl 0.1 mg Tablet 0.1 mg PO TID PRN (Reason: anxiety) Qty: 90 0RF Protocol: Hold for SBP< HOLD for SBP < : 90 gabapentin 600 mg Tablet 600 mg PO TID Qty: 90 0RF trazodone 100 mg Tablet 300 mg PO BEDTIME Qty: 90 0RF amlodipine 10 mg Tablet 10 mg PO DAILY Qty: 30 0RF Protocol: Hold for SBP< HOLD for SBP < : 90 multivitamin [Daily-Lanie] Tablet 1 tab PO DAILY Qty: 30 0RF venlafaxine 75 mg Capsule,Extended Release 24hr 75 mg PO DAILY Qty: 30 0RF naltrexone 50 mg Tablet 50 mg PO DAILY Qty: 30 0RF hydroxyzine HCl 50 mg Tablet 50 mg PO Q6H PRN (Reason: Anxiety) Qty: 30 0RF folic acid 1 mg Tablet 1 mg PO DAILY Qty: 30 0RF thiamine mononitrate (vit B1) 100 mg Tablet 100 mg PO DAILY Qty: 30 0RF dextroamphetamine-amphetamine 10 mg tablet 1 tab PO DAILY@1200 ziprasidone HCl 60 mg capsule 1 cap PO BID Vyvanse 40 mg capsule 1 cap PO DAILY chlordiazepoxide HCl 25 mg capsule 50 mg PO Q3H PRN (Reason: alcohol withdrawal) 3 Days Qty: 14 0RF Rx Instructions: until symptoms controlled
[2022-02-02 22:54] LABS: MANUAL DIFF FLAG NO
[2022-02-02 22:55] LABS: Basophils Absolute Auto 0.1 X10*3/uL (0.0-0.2); Basophils Percent Auto 0.8 % (0-2); Eosinophils Absolute Auto 0.4 X10*3/uL (0.0-0.4); Eosinophils Percent Auto 4.6 % (0-4); Hematocrit 41.4 % (42.0-52.0); Hemoglobin 14.1 g/dl (14.0-18.0); Imm Gran Abs Auto 0.04 X10*3/uL (0.00-0.03); Imm Gran Pct Auto 0.4 % (0.0-0.4); Lymphocytes Absolute Auto 3.6 X10*3/uL (1.2-4.9); Lymphocytes Percent Auto 37.8 % (20-40); Mean Corpuscular HGB Conc 34.1 g/dl (31.0-36.0); Mean Corpuscular Hemoglobin 29.8 pg (27.0-33.0); Mean Corpuscular Volume 87.5 fL (80.0-98.0); Mean Platelet Volume 9.1 fL (9.4-12.4); Monocytes Absolute Auto 0.5 X10*3/uL (0.1-1.2); Monocytes Percent Auto 5.4 % (2-11); Neutrophils Absolute Auto 4.8 x10*3/uL (2.0-8.3); Platelet Count 284 X10*3/uL (160-400); Red Blood Count 4.73 X10*6/uL (4.60-5.80); Red Cell Distribution Width 13.5 % (11.0-16.0); White Blood Count 9.5 X10*3/uL (4.8-10.8)
[2022-02-02 23:16] LABS: Alanine Aminotransferase 24 U/L (0-40); Albumin Level 4.4 g/dL (3.5-5.0); Alkaline Phosphatase 66 U/L (39-117); Anion Gap 17 (12-20); Aspartate Amino Transferase 29 U/L (5-37); Bilirubin Direct < 0.2 mg/dL (0.0-0.5); Bilirubin Total 0.3 mg/dL (0.0-1.0); Blood Urea Nitrogen 10 mg/dL (9-16); Calcium 8.8 mg/dL (8.4-10.2); Carbon Dioxide 22 mmol/L (22-29); Chloride 104 mmol/L (96-108); Creatinine Clr Calc Pharmacy 159.8; Estimated Glomerular Filt Rate > 60; Ethanol 348 mg/dL; Glucose Random 92 mg/dL (60-115); Lipase 29 U/L (8-78); Potassium 3.8 mmol/L (3.3-5.1); Sodium 139 mmol/L (135-145); Total Protein 7.2 g/dL (6.5-8.0)
[2022-02-03 00:24] VITALS: BP 128/77; PULSE 66; RESP 16; TEMP 37; O2SAT 95
[2022-02-03 04:10] VITALS: BP 126/74; PULSE 65; RESP 16; O2SAT 96
[2022-02-03 07:54] VITALS: BP 102/45; PULSE 64; RESP 20; O2SAT 94
[2022-02-03 08:04] LABS: Appearance Urine Clear; Color Urine Yellow; Glucose Urine UA Negative (Negative); Leukocyte Esterase Urine Negative (Negative); Nitrite Urine Negative (Negative); Specific Gravity - Urine 1.015 (1.005-1.025); Urine Blood Negative (Negative); Urine Ketones Negative (Negative); Urine Protein Negative (Neg-Trace)
[2022-02-03 08:21] LABS: Amphetamine Screen Urine POSITIVE (Not Detect); Barbiturates, Urine Not Detected (Not Detect); Benzodiazepines Screen Urine POSITIVE (Not Detect); Cannabinoid Screen Urine POSITIVE (Not Detect); Cocaine Screen Urine POSITIVE (Not Detect); Fentanyl, urine POSITIVE (Not Detect); Opiate Screen Urine Not Detected (Not Detect); Phencyclidine Screen Urine Not Detected (Not Detect)
[2022-02-03 10:34] VITALS: BP 115/53; PULSE 71; RESP 19; TEMP 36.9; O2SAT 95
--- NOTE | 2022-02-04 14:31 | MHC.RECOVRN ---
Late entry: Met with pt on 02/03 who requested [facility]. T/w arranged phone intake, pt completed and was given admission time of 5:15PM. [place] requesting to [place] [facility] go home, shower, get clothes, and present to ATS at admission time. RN aware.
== END 2022-02-03 12:31 | disposition home or self-care (01) ==
PROVIDERS: Emergency Provider Emergency Medicine
DX: F10.129 Alcohol abuse with intoxication, unspecified (principal); R45.851 Suicidal ideations; M25.521 Pain in right elbow; Y90.8 Blood alcohol level of 240 mg/100 ml or more; F14.10 Cocaine abuse, uncomplicated; F17.210 Nicotine dependence, cigarettes, uncomplicated; Z71.6 Tobacco abuse counseling; Z79.899 Other long term (current) drug therapy
CPT/HCPCS: 36415; 73070; 80048; 80076; 80307; 81003; 82077; 83690; 85025; 99283; 99284

== ENCOUNTER 2022-02-03 15:34 | Emergency (ER) | payer OTHER, SELFPAY ==
--- NOTE | ~2022-02-03 | CT_ITS ---
EXAMINATION: CT HEAD WITHOUT CONTRAST CLINICAL INFORMATION: Fall COMPARISON: 01/03/2022 TECHNIQUE: Contiguous axial imaging was performed from the skull base to vertex without intravenous administration of contrast. This CT examination was performed using dose optimization techniques as appropriate, variously including the following: *Automated exposure control *Adjustment of mA and/or kV according to patient size (this includes techniques or standardized protocols for targeted exams where dose is matched to indication/reason for exam; i.e. extremities or head) *Use of iterative reconstruction technique DLP: 818 mGy-cm FINDINGS: There is no midline shift. There is no mass effect. There is no hemorrhage. The basal cisterns appear patent. The posterior fossa is grossly within normal limits. There is no extra-axial collection. Note is made of sinus disease. CT/CT head/brain wo IV con IMPRESSION: Negative acute noncontrast CT of the brain. Sinus disease is noted
[2022-02-03 15:50] VITALS: BP 116/71; BP 132/90; PULSE 66; PULSE 76; RESP 18; TEMP 36.9; O2SAT 93; BMI 35.5
[2022-02-03 15:57] VITALS: BP 116/71; PULSE 76; RESP 18; TEMP 36.9; O2SAT 93
--- NOTE | 2022-02-03 16:01 | PC.NURSE ---
Addendum entered by Payal Richmond 02/03/22 16:34: Pt requires 3+ assist to maintain safety while ambulating. Pt moved from 7 to 22H. Report given to Lisa Munoz. Abrasion noted to rt elbow from fall MAT INSPECTOR by EMS for this encounter. Addendum entered by Payal Richmond 02/03/22 16:12: Due to level of intoxication and concerns that patient can not safely remain in a bed w/o rails due ETOH use, plan at this time is to move pt to main ed Original Note: Pt arrives via EMS-for etoh use. Pt unsteady on feet. Pt had vodka on person upon arrival. Pt changed over. Pt placed in [facility] due to fall risk/high level of intoxication. Security searching belongings at this time.
--- NOTE | 2022-02-03 16:12 | ED_ITS ---
HPI - Alcohol General Chief Complaint: ETOH/Substance Use <OTTO Garcia - Last Filed: 02/03/22 23:57> Stated Complaint: etoh <OTTO Garcia - Last Filed: 02/03/22 23:57> Time Seen by Provider: 02/03/22 16:05 <OTTO Garcia - Last Filed: 02/03/22 23:57> Source: patient and EMS <OTTO Garcia - Last Filed: 02/03/22 23:57> Mode of arrival: EMS <OTTO Garcia - Last Filed: 02/03/22 23:57> Limitations: other (Patient evidently intoxicated.) <OTTO Garcia - Last Filed: 02/03/22 23:57> History of Present Illness HPI narrative: This is a 41-year-old male known history of alcohol abuse, major depression, cocaine use disorder presents to the emergency department for 2nd in a row with acute alcohol intoxication. Patient was noted to be intoxicated at a restaurant was brought in by EMS for further evaluation and treatment. Patient tells me drink a lot of vodka today, he states I fucked up . Denies visual, auditory and tactile hallucinations. Denies suicidal and homicidal ideations. Upon arrival patient ambulating with unsteady gait per EMS, tells me he did not fall or have any trauma. Patient was in the hospital yesterday, wanted to get placed for detox, and he ended up leaving earlier today. Patient denies any medical complaints at this time. Patient not on blood thinners. Patient is seeking detox <OTTO Garcia - Last Filed: 02/03/22 23:57> Related Data Home Medications: Home Medications Medication Instructions Recorded Confirmed clonazepam 0.5 mg tablet 1 tab PO BID PRN anxiety 11/23/20 01/09/22 loratadine 10 mg tablet 1 tab PO DAILY PRN allergies 12/26/20 01/09/22 nicotine 14 mg/24 hr daily 1 patch topical DAILY 11/30/21 01/09/22 transdermal patch albuterol sulfate 90 mcg/actuation 2 puff inhalation Q4-6H PRN 12/01/21 01/09/22 aerosol inhaler (ProAir HFA) wheezing dextroamphetamine-amphetamine 10 1 tab PO DAILY@1200 01/03/22 01/09/22 mg tablet lisdexamfetamine 40 mg capsule 1 cap PO DAILY 01/03/22 01/09/22 (Vyvanse) ziprasidone HCl 60 mg capsule 1 cap PO BID 01/03/22 01/09/22 Previous Rx's Medication Instructions Recorded amlodipine 10 mg tablet 10 mg PO DAILY #30 tabs 12/08/21 clonidine HCl 0.1 mg tablet 0.1 mg PO TID PRN anxiety #90 tabs 12/08/21 folic acid 1 mg tablet 1 mg PO DAILY #30 tabs 12/08/21 gabapentin 600 mg tablet 600 mg PO TID #90 tabs 12/08/21 hydroxyzine HCl 50 mg tablet 50 mg PO Q6H PRN Anxiety #30 tabs 12/08/21 multivitamin (Daily-Lanie tablet) 1 tab PO DAILY #30 tabs 12/08/21 naltrexone 50 mg tablet 50 mg PO DAILY #30 tabs 12/08/21 thiamine mononitrate (vit B1) 100 100 mg PO DAILY #30 tabs 12/08/21 mg tablet trazodone 100 mg tablet 300 mg PO BEDTIME #90 tabs 12/08/21 venlafaxine 75 mg capsule,extended 75 mg PO DAILY #30 caps 12/08/21 release 24 hr chlordiazepoxide HCl 25 mg capsule 50 mg PO Q3H PRN alcohol 01/10/22 withdrawal 3 days #14 caps <OTTO Garcia - Last Filed: 02/03/22 23:57> Allergies/Adverse Reactions: Allergies Allergy/AdvReac Type Severity Reaction Status Date / Time lisinopril [Lisinopril] Allergy Intermediate ANGIOEDEMA Verified 12/01/21 19:41 cat dander [CATS] Allergy Mild PUFFY EYES Verified 12/01/21 19:41 olanzapine [From ZYPREXA] Allergy Unknown UNKNOWN Verified 12/01/21 19:41 <OTTO Garcia - Last Filed: 02/03/22 23:57> Review of Systems Review of Systems: Constitutional : No Weight loss, No Fever, No Chills, No Fatigue, No Malaise ENT/Mouth : No sore throat, No Rhinorrhea Eyes: No Eye Pain, No Swelling, No Redness Cardiovascular : No Chest Pain, No SOB, No Dyspnea on Exertion, No Orthopnea, No Edema, No Palpitations Respiratory : No Cough, No Sputum, No Wheezing Gastrointestinal : No Nausea, No Vomiting, No Diarrhea, No Constipation, No abdominal Pain, No Hematochezia, No Melena Genitourinary : No Dysuria, No Urinary Frequency, No Hematuria, Musculoskeletal : No joint pain, No Myalgias, No Joint Swelling Skin : No Skin Lesions, No rash Neuro : No Weakness, No Numbness, No Dizziness, No Headache Psych : No Anxiety/Panic, No Depression All other systems reviewed and are negative <OTTO Garcia - Last Filed: 02/03/22 23:57> Yes all other systems are reviewed and are negative <OTTO Garcia - Last Filed: 02/03/22 23:57> [facility]LY [facility] Past Medical History Attestation statement: The following information was validated with the patient. <OTTO Garcia - Last Filed: 02/03/22 23:57> Source: old records reviewed and nursing notes reviewed <OTTO Garcia - Last Filed: 02/03/22 23:57> Medical History: Medical History Alcoholism HTN (hypertension) <OTTO Garcia - Last Filed: 02/03/22 23:57> Social History Social History: Social History Household Members: Other Household Members Other:: Pt reports gf kicked him out and he is currently homeless. Housing: Other Do you presently have visiting nurse or other home services: No Alcohol intake: current Alcohol intake frequency: 3 or more drinks per day Alcohol type: beer and hard liquor Patient Tobacco Use Status: Current everyday Tobacco user Tobacco use type: Cigarette Cigarette Packs Per Day: 0.5 Cigarettes Per Day: 10.0 Years Smoked: 12 Smoked in Last 30 Days: Yes e-Cigarette/Vaping Use: Former Use Second Hand Smoke Exposure: No Use of substances other than those prescribed or required for medical reasons: No Substance Use Type: Crack/Cocaine, Marijuana and Caffiene Advance Directives: No Advance Directives Information Provided: No service: No Sexual orientation: Straight/Heterosexual <OTOT Garcia - Last Filed: 02/03/22 23:57> Physical Exam ED Vital Signs: Vital Signs - 24 hr 02/03/22 15:50 02/03/22 15:57 02/04/22 01:51 Temperature 98.5 F 98.5 F 99 F Pulse Rate 76 76 75 Respiratory Rate 18 18 17 Blood Pressure 116/71 116/71 142/63 H Pulse Oximetry 93 93 92 Oxygen Delivery Method Room Air Room Air Room Air 02/04/22 04:49 Temperature 98 F Pulse Rate 80 Respiratory Rate 17 Blood Pressure 140/83 H Pulse Oximetry 95 Oxygen Delivery Method Room Air BMI result Body Mass Index 35.5 vss <OTTO Garcia - Last Filed: 02/03/22 23:57> Vital Signs - 24 hr 02/03/22 15:50 02/03/22 15:57 02/04/22 01:51 Temperature 98.5 F 98.5 F 99 F Pulse Rate 76 76 75 Respiratory Rate 18 18 17 Blood Pressure 116/71 116/71 142/63 H Pulse Oximetry 93 93 92 Oxygen Delivery Method Room Air Room Air Room Air 02/04/22 04:49 Temperature 98 F Pulse Rate 80 Respiratory Rate 17 Blood Pressure 140/83 H Pulse Oximetry 95 Oxygen Delivery Method Room Air BMI result Body Mass Index 35.5 <Izaiah Fernandes MD - Last Filed: 02/04/22 07:40> Appearance: Alert.? Oriented X3.? No acute distress.? Patient smells like alcohol. Head: Normocephalic, atraumatic, no step-offs or deformities Eyes: Pupils equal, round and reactive to light.? ENT: Pharynx normal.? Neck: Normal inspection.? Neck supple.? CVS: Normal heart rate and rhythm.? Pulses normal.? Respiratory: No respiratory distress.? Breath sounds normal.? Abdomen: Soft and nontender.? Skin: Skin warm and dry.? Normal skin color.? Normal skin turgor.? Extremities: No lower extremity edema.? No calf ttp. 5/5 strength to bilateral upper and lower extremities Neuro: Oriented X 3.? No motor deficit.? No sensory deficit. CN 2-12 intact. Patient ambulating with steady gait normal coordination. <OTTO Garcia - Last Filed: 02/03/22 23:57> Course Course Course Narrative: 730 am patient refused to go to detox would like to go to detox office on as outpatient will discharge patient home <Izaiah Fernandes MD - Last Filed: 02/04/22 07:40> Reevaluation(s) Reevaluation #1: Patient did not laboratory studies done. However allowed for them to obtain CT of the head which showed no acute findings. Patient agitated, screaming at security, screaming at other staff members, threatening to hit them. Destructive to the unit, tells us is about to become aggressive and other people in the department. Security at bedside. Patient requesting to and states would like to patient given Ativan. <OTTO Garcia - Last Filed: 02/03/22 23:57> Time: 22:40 <OTTO Garcia - Last Filed: 02/03/22 23:57> Reevaluation #2: Ivanna from the care team reports that he was supposed to go to [facility] for 17:15 today however he never made it to me of assistance patient kirsten ded to leave the hospital, now he is back intoxicated. According to the recovery team he is a follow-up for tomorrow. As there are no beds today. <OTTO Garcia - Last Filed: 02/03/22 23:57> Time: 21:07 <OTTO Garcia - Last Filed: 02/03/22 23:57> Reevaluation #3: Patient continues to refuse laboratory studies however he had some done yesterday, which showed no acute findings. At this time patient will be placed into physician observation to allow more time to be evaluated by the care team recovery team for substance use evaluation. At time observation was started patient common cooperative no acute distress will continue to monitor. <OTTO Garcia - Last Filed: 02/03/22 23:57> Time: 23:56 <OTTO Garcia Last Filed: 02/03/22 23:57> Medications Administered Discontinued Medications Generic Name Dose Route Start Last Admin Trade Name Rayo PRN Reason Stop Dose Admin Lorazepam 2 mg 02/03/22 22:33 02/03/22 22:43 Lorazepam 1 Mg Tablet PO 02/03/22 22:34 2 mg ONCE ONE Administration <OTTO Garcia - Last Filed: 02/03/22 23:57> Medications Administered Discontinued Medications Generic Name Dose Route Start Last Admin Trade Name Rayo PRN Reason Stop Dose Admin Lorazepam 2 mg 02/03/22 22:33 02/03/22 22:43 Lorazepam 1 Mg Tablet PO 02/03/22 22:34 2 mg ONCE ONE Administration <Izaiah Fernandes MD - Last Filed: 02/04/22 07:40> MDM - Alcohol MDM Narrative Medical decision making narrative: 1615 41-year-old male presents to the emergency department with acute alcohol intoxication, patient left earlier today, initially he had requested detox however ended up leaving this hospital this morning. Now returns acutely into [facility]. Denies SI HI. No known trauma. Upon physical examination patient smells like alcohol however no focal neuro deficits, ambulating with steady gait, following commands alert and oriented x4. Regular rate and rhythm, lungs clear, abdomen soft nontender nondistended. Plan at this time medical clearance and evaluation by recovery rn. <OTTO Garcia - Last Filed: 02/03/22 23:57> Medical Records Attestation: I reviewed the patient's medical records. <OTTO Garcia - Last Filed: 02/03/22 23:57> Lab Data Attestation: I reviewed the patient's lab results. <OTTO Garcia - Last Filed: 02/03/22 23:57> Result diagrams: : 02/04/22 01:42 02/04/22 01:42 <OTTO Garcia - Last Filed: 02/03/22 23:57> Labs: Lab Results 02/03/22 02/03/22 02/03/22 Range/Units 17:25 17:25 17:26 WBC (4.8-10.8) X10*3/uL RBC (4.60-5.80) X10*6/uL Hgb (14.0-18.0) g/dl Hct (42.0-52.0) % MCV (80.0-98.0) fL MCH (27.0-33.0) pg MCHC (31.0-36.0) g/dl RDW (11.0-16.0) % Plt Count (160-400) X10*3/uL MPV (9.4-12.4) fL Immature Gran % (Auto) (0.0-0.4) % Neut % (Auto) (45-73) % Lymph % (Auto) (20-40) % [place]entry % (Auto) (2-11) % Eos % (Auto) (0-4) % Baso % (Auto) (0-2) % Lymph # (Auto) (1.2-4.9) X10*3/uL [place]entry # (Auto) (0.1-1.2) X10*3/uL Eos # (Auto) (0.0-0.4) X10*3/uL Baso # (Auto) (0.0-0.2) X10*3/uL Abs Immat Gran (auto) (0.00-0.03) X10*3/uL Absolute Neuts (auto) (2.0-8.3) x10*3/uL Absolute Nucleated RBC (0.0-0.012) X10*3/uL Nucleated RBC % (auto) (0.0-0.2) /100WBC Sodium (135-145) mmol/L Potassium (3.3-5.1) mmol/L Chloride (96-108) mmol/L Carbon Dioxide (22-29) mmol/L Anion Gap (12-20) BUN (9-16) mg/dL Creatinine (0.5-1.4) mg/dL Estim Creat Clear Calc Estimated GFR Random Glucose (60-115) mg/dL Calcium (8.4-10.2) mg/dL Magnesium (1.6-2.6) mg/dL Total Bilirubin (0.0-1.0) mg/dL AST (5-37) U/L ALT (0-40) U/L Alkaline Phosphatase (39-117) U/L Total Protein (6.5-8.0) g/dL Albumin (3.5-5.0) g/dL Urine Color Yellow Urine Appearance Clear Urine pH 6.0 (5.0-9.0) Ur Specific [place] <= 1.005 (1.005-1.025) Urine Protein Negative (Neg-Trace) mg/dL Urine Glucose (UA) Negative (Negative) mg/dL Urine Ketones Negative (Negative) mg/dL Urine Blood Negative (Negative) Urine Nitrite Negative (Negative) Ur Leukocyte Esterase Negative (Negative) Urine Opiates Screen Not Detected (Not Detect) Urine Fentanyl Screen Not Detected (Not Detect) Ur Barbiturates Screen Not Detected (Not Detect) Ur Phencyclidine Scrn Not Detected (Not Detect) Ur Amphetamines Screen Not Detected (Not Detect) U Benzodiazepines Scrn Not Detected (Not Detect) Urine Cocaine Screen POSITIVE H (Not Detect) U Marijuana (THC) Screen Not Detected (Not Detect) Ethyl Alcohol mg/dL COVID-19 (ROMARIO) Negative (Negative) COVID-19 Clin Com See Note 02/04/22 02/04/22 Range/Units 01:42 01:42 WBC 7.9 (4.8-10.8) X10*3/uL RBC 4.87 (4.60-5.80) X10*6/uL Hgb 14.3 (14.0-18.0) g/dl Hct 42.9 (42.0-52.0) % MCV 88.1 (80.0-98.0) fL MCH 29.4 (27.0-33.0) pg MCHC 33.3 (31.0-36.0) g/dl RDW 14.1 (11.0-16.0) % Plt Count 288 (160-400) X10*3/uL MPV 9.1 L (9.4-12.4) fL Immature Gran % (Auto) 0.4 (0.0-0.4) % Neut % (Auto) 43.5 L (45-73) % Lymph % (Auto) 40.8 H (20-40) % [place] % (Auto) 7.1 (2-11) % Eos % (Auto) 7.2 H (0-4) % Baso % (Auto) 1.0 (0-2) % Lymph # (Auto) 3.2 (1.2-4.9) X10*3/uL [place] # (Auto) 0.6 (0.1-1.2) X10*3/uL Eos # (Auto) 0.6 H (0.0-0.4) X10*3/uL Baso # (Auto) 0.1 (0.0-0.2) X10*3/uL Abs Immat Gran (auto) 0.03 (0.00-0.03) X10*3/uL Absolute Neuts (auto) 3.5 (2.0-8.3) x10*3/uL Absolute Nucleated RBC 0.000 (0.0-0.012) X10*3/uL Nucleated RBC % (auto) 0.0 (0.0-0.2) /100WBC Sodium 144 (135-145) mmol/L Potassium 4.3 (3.3-5.1) mmol/L Chloride 108 (96-108) mmol/L Carbon Dioxide 24 (22-29) mmol/L Anion Gap 16 (12-20) BUN 12 (9-16) mg/dL Creatinine 1.08 (0.5-1.4) mg/dL Estim Creat Clear Calc 98.5 Estimated GFR > 60 Random Glucose 89 (60-115) mg/dL Calcium 8.8 (8.4-10.2) mg/dL Magnesium 1.9 (1.6-2.6) mg/dL Total Bilirubin 0.3 (0.0-1.0) mg/dL AST 27 (5-37) U/L ALT 23 (0-40) U/L Alkaline Phosphatase 61 (39-117) U/L Total Protein 6.8 (6.5-8.0) g/dL Albumin 4.2 (3.5-5.0) g/dL Urine Color Urine Appearance Urine pH (5.0-9.0) Ur Specific [place] (1.005-1.025) Urine Protein (Neg-Trace) mg/dL Urine Glucose (UA) (Negative) mg/dL Urine Ketones (Negative) mg/dL Urine Blood (Negative) Urine Nitrite (Negative) Ur Leukocyte Esterase (Negative) Urine Opiates Screen (Not Detect) Urine Fentanyl Screen (Not Detect) Ur Barbiturates Screen (Not Detect) Ur Phencyclidine Scrn (Not Detect) Ur Amphetamines Screen (Not Detect) U Benzodiazepines Scrn (Not Detect) Urine Cocaine Screen (Not Detect) U Marijuana (THC) Screen (Not Detect) Ethyl Alcohol 166 mg/dL COVID-19 (ROMARIO) (Negative) COVID-19 Clin Com <OTTO Garcia - Last Filed: 02/03/22 23:57> Lab Results 02/03/22 02/03/22 02/03/22 Range/Units 17:25 17:25 17:26 WBC (4.8-10.8) X10*3/uL RBC (4.60-5.80) X10*6/uL Hgb (14.0-18.0) g/dl Hct (42.0-52.0) % MCV (80.0-98.0) fL MCH (27.0-33.0) pg MCHC (31.0-36.0) g/dl RDW (11.0-16.0) % Plt Count (160-400) X10*3/uL MPV (9.4-12.4) fL Immature Gran % (Auto) (0.0-0.4) % Neut % (Auto) (45-73) % Lymph % (Auto) (20-40) % [place] % (Auto) (2-11) % Eos % (Auto) (0-4) % Baso % (Auto) (0-2) % Lymph # (Auto) (1.2-4.9) X10*3/uL [place] # (Auto) (0.1-1.2) X10*3/uL Eos # (Auto) (0.0-0.4) X10*3/uL Baso # (Auto) (0.0-0.2) X10*3/uL Abs Immat Gran (auto) (0.00-0.03) X10*3/uL Absolute Neuts (auto) (2.0-8.3) x10*3/uL Absolute Nucleated RBC (0.0-0.012) X10*3/uL Nucleated RBC % (auto) (0.0-0.2) /100WBC Sodium (135-145) mmol/L Potassium (3.3-5.1) mmol/L Chloride (96-108) mmol/L Carbon Dioxide (22-29) mmol/L Anion Gap (12-20) BUN (9-16) mg/dL Creatinine (0.5-1.4) mg/dL Estim Creat Clear Calc Estimated GFR Random Glucose (60-115) mg/dL Calcium (8.4-10.2) mg/dL Magnesium (1.6-2.6) mg/dL Total Bilirubin (0.0-1.0) mg/dL AST (5-37) U/L ALT (0-40) U/L Alkaline Phosphatase (39-117) U/L Total Protein (6.5-8.0) g/dL Albumin (3.5-5.0) g/dL Urine Color Yellow Urine Appearance Clear Urine pH 6.0 (5.0-9.0) Ur Specific [place] <= 1.005 (1.005-1.025) Urine Protein Negative (Neg-Trace) mg/dL Urine Glucose (UA) Negative (Negative) mg/dL Urine Ketones Negative (Negative) mg/dL Urine Blood Negative (Negative) Urine Nitrite Negative (Negative) Ur Leukocyte Esterase Negative (Negative) Urine Opiates Screen Not Detected (Not Detect) Urine Fentanyl Screen Not Detected (Not Detect) Ur Barbiturates Screen Not Detected (Not Detect) Ur Phencyclidine Scrn Not Detected (Not Detect) Ur Amphetamines Screen Not Detected (Not Detect) U Benzodiazepines Scrn Not Detected (Not Detect) Urine Cocaine Screen POSITIVE H (Not Detect) U Marijuana (THC) Screen Not Detected (Not Detect) Ethyl Alcohol mg/dL COVID-19 ([facility]IO) Negative (Negative) COVID-19 Clin Com See Note 02/04/22 02/04/22 Range/Units 01:42 01:42 WBC 7.9 (4.8-10.8) X10*3/uL RBC 4.87 (4.60-5.80) X10*6/uL Hgb 14.3 (14.0-18.0) g/dl Hct 42.9 (42.0-52.0) % MCV 88.1 (80.0-98.0) fL MCH 29.4 (27.0-33.0) pg MCHC 33.3 (31.0-36.0) g/dl RDW 14.1 (11.0-16.0) % Plt Count 288 (160-400) X10*3/uL MPV 9.1 L (9.4-12.4) fL Immature Gran % (Auto) 0.4 (0.0-0.4) % Neut % (Auto) 43.5 L (45-73) % Lymph % (Auto) 40.8 H (20-40) % [place] % (Auto) 7.1 (2-11) % Eos % (Auto) 7.2 H (0-4) % Baso % (Auto) 1.0 (0-2) % Lymph # (Auto) 3.2 (1.2-4.9) X10*3/uL [place] # (Auto) 0.6 (0.1-1.2) X10*3/uL Eos # (Auto) 0.6 H (0.0-0.4) X10*3/uL Baso # (Auto) 0.1 (0.0-0.2) X10*3/uL Abs Immat Gran (auto) 0.03 (0.00-0.03) X10*3/uL Absolute Neuts (auto) 3.5 (2.0-8.3) x10*3/uL Absolute Nucleated RBC 0.000 (0.0-0.012) X10*3/uL Nucleated RBC % (auto) 0.0 (0.0-0.2) /100WBC Sodium 144 (135-145) mmol/L Potassium 4.3 (3.3-5.1) mmol/L Chloride 108 (96-108) mmol/L Carbon Dioxide 24 (22-29) mmol/L Anion Gap 16 (12-20) BUN 12 (9-16) mg/dL Creatinine 1.08 (0.5-1.4) mg/dL Estim Creat Clear Calc 98.5 Estimated GFR > 60 Random Glucose 89 (60-115) mg/dL Calcium 8.8 (8.4-10.2) mg/dL Magnesium 1.9 (1.6-2.6) mg/dL Total Bilirubin 0.3 (0.0-1.0) mg/dL AST 27 (5-37) U/L ALT 23 (0-40) U/L Alkaline Phosphatase 61 (39-117) U/L Total Protein 6.8 (6.5-8.0) g/dL Albumin 4.2 (3.5-5.0) g/dL Urine Color Urine Appearance Urine pH (5.0-9.0) Ur Specific [place] (1.005-1.025) Urine Protein (Neg-Trace) mg/dL Urine Glucose (UA) (Negative) mg/dL Urine Ketones (Negative) mg/dL Urine Blood (Negative) Urine Nitrite (Negative) Ur Leukocyte Esterase (Negative) Urine Opiates Screen (Not Detect) Urine Fentanyl Screen (Not Detect) Ur Barbiturates Screen (Not Detect) Ur Phencyclidine Scrn (Not Detect) Ur Amphetamines Screen (Not Detect) U Benzodiazepines Scrn (Not Detect) Urine Cocaine Screen (Not Detect) U Marijuana (THC) Screen (Not Detect) Ethyl Alcohol 166 mg/dL COVID-19 ([facility]IO) (Negative) COVID-19 Clin Com <Izaiah Fernandes MD - Last Filed: 02/04/22 07:40> Critical Care Time Critical Care Time Critical Care Time: No <OTTO Garcia - Last Filed: 02/03/22 23:57> Discharge Plan Discharge Clinical Impression: Alcoholic intoxication <OTTO Garcia - Last Filed: 02/03/22 23:57> Patient Disposition: Home, Self-Care <OTTO Garcia - Last Filed: 02/03/22 23:57> Instructions: Abuse of Alcohol (ED) <OTTO Garcia - Last Filed: 02/03/22 23:57> Additional Instructions: Stop drinking alcohol Follow-up with detox as advised <OTTO Garcia - Last Filed: 02/03/22 23:57> Prescriptions: No Action clonazepam 0.5 mg tablet 1 tab PO BID PRN (Reason: anxiety) loratadine 10 mg tablet 1 tab PO DAILY PRN (Reason: allergies) nicotine 14 mg/24 hr patch 24 hour 1 patch topical DAILY albuterol sulfate [ProAir HFA] 90 mcg/actuation HFA aerosol inhaler 2 puff inhalation Q4-6H PRN (Reason: wheezing) clonidine HCl 0.1 mg Tablet 0.1 mg PO TID PRN (Reason: anxiety) Qty: 90 0RF Protocol: Hold for SBP< HOLD for SBP < : 90 gabapentin 600 mg Tablet 600 mg PO TID Qty: 90 0RF trazodone 100 mg Tablet 300 mg PO BEDTIME Qty: 90 0RF amlodipine 10 mg Tablet 10 mg PO DAILY Qty: 30 0RF Protocol: Hold for SBP< HOLD for SBP < : 90 multivitamin [Daily-Lanie] Tablet 1 tab PO DAILY Qty: 30 0RF venlafaxine 75 mg Capsule,Extended Release 24hr 75 mg PO DAILY Qty: 30 0RF naltrexone 50 mg Tablet 50 mg PO DAILY Qty: 30 0RF hydroxyzine HCl 50 mg Tablet 50 mg PO Q6H PRN (Reason: Anxiety) Qty: 30 0RF folic acid 1 mg Tablet 1 mg PO DAILY Qty: 30 0RF thiamine mononitrate (vit B1) 100 mg Tablet 100 mg PO DAILY Qty: 30 0RF dextroamphetamine-amphetamine 10 mg tablet 1 tab PO DAILY@1200 ziprasidone HCl 60 mg capsule 1 cap PO BID Vyvanse 40 mg capsule 1 cap PO DAILY chlordiazepoxide HCl 25 mg capsule 50 mg PO Q3H PRN (Reason: alcohol withdrawal) 3 Days Qty: 14 0RF Rx Instructions: until symptoms controlled <OTTO Garcia - Last Filed: 02/03/22 23:57>
[2022-02-03 17:37] LABS: Appearance Urine Clear; Color Urine Yellow; Glucose Urine UA Negative (Negative); Leukocyte Esterase Urine Negative (Negative); Nitrite Urine Negative (Negative); Specific Gravity - Urine <= 1.005 (1.005-1.025); Urine Blood Negative (Negative); Urine Ketones Negative (Negative); Urine Protein Negative (Neg-Trace)
[2022-02-03 17:44] LABS: Amphetamine Screen Urine Not Detected (Not Detect); Barbiturates, Urine Not Detected (Not Detect); Benzodiazepines Screen Urine Not Detected (Not Detect); Cannabinoid Screen Urine Not Detected (Not Detect); Cocaine Screen Urine POSITIVE (Not Detect); Fentanyl, urine Not Detected (Not Detect); Opiate Screen Urine Not Detected (Not Detect); Phencyclidine Screen Urine Not Detected (Not Detect)
[2022-02-03 17:52] LABS: COVID-19 Test Negative (Negative); IDNOW Serial# 16C4AD1C
--- NOTE | 2022-02-03 19:00 | MHC.RECOVSUP ---
? Reason for consult:ETOH o? Current location:[facility]22[facility]? o? Identified substance use concern:? -? Seeking ATS (detox) ?? Intervention: o? ATS bed search started/completed/in process o? Harm reduction discussion ? Plan: o? Follow up tomorrow? ? Additional information:RC met with pt, pt is interested in ATS, upon speaking with Payal (nurse) I was informed pt was supposed to go to [facility] today for 5:15 intake but never made it. Please follow up with pt in the morning.
[2022-02-03] MEDS: LORazepam 1 MG TABLET 2 MG PO (22:43)
[2022-02-04 01:51] VITALS: BP 142/63; PULSE 75; RESP 17; TEMP 37.2; O2SAT 92
[2022-02-04 01:51] LABS: MANUAL DIFF FLAG NO
[2022-02-04 01:52] LABS: Basophils Absolute Auto 0.1 X10*3/uL (0.0-0.2); Eosinophils Absolute Auto 0.6 X10*3/uL (0.0-0.4); Eosinophils Percent Auto 7.2 % (0-4); Hematocrit 42.9 % (42.0-52.0); Hemoglobin 14.3 g/dl (14.0-18.0); Imm Gran Abs Auto 0.03 X10*3/uL (0.00-0.03); Imm Gran Pct Auto 0.4 % (0.0-0.4); Lymphocytes Absolute Auto 3.2 X10*3/uL (1.2-4.9); Lymphocytes Percent Auto 40.8 % (20-40); Mean Corpuscular HGB Conc 33.3 g/dl (31.0-36.0); Mean Corpuscular Hemoglobin 29.4 pg (27.0-33.0); Mean Corpuscular Volume 88.1 fL (80.0-98.0); Mean Platelet Volume 9.1 fL (9.4-12.4); Monocytes Absolute Auto 0.6 X10*3/uL (0.1-1.2); Monocytes Percent Auto 7.1 % (2-11); Neutrophils Absolute Auto 3.5 x10*3/uL (2.0-8.3); Neutrophils Percent Auto 43.5 % (45-73); Platelet Count 288 X10*3/uL (160-400); Red Blood Count 4.87 X10*6/uL (4.60-5.80); Red Cell Distribution Width 14.1 % (11.0-16.0); White Blood Count 7.9 X10*3/uL (4.8-10.8)
[2022-02-04 02:24] LABS: Alanine Aminotransferase 23 U/L (0-40); Albumin Level 4.2 g/dL (3.5-5.0); Alkaline Phosphatase 61 U/L (39-117); Anion Gap 16 (12-20); Aspartate Amino Transferase 27 U/L (5-37); Bilirubin Total 0.3 mg/dL (0.0-1.0); Blood Urea Nitrogen 12 mg/dL (9-16); Calcium 8.8 mg/dL (8.4-10.2); Carbon Dioxide 24 mmol/L (22-29); Chloride 108 mmol/L (96-108); Creatinine Clr Calc Pharmacy 98.5; Estimated Glomerular Filt Rate > 60; Ethanol 166 mg/dL; Glucose Random 89 mg/dL (60-115); Magnesium 1.9 mg/dL (1.6-2.6); Potassium 4.3 mmol/L (3.3-5.1); Sodium 144 mmol/L (135-145); Total Protein 6.8 g/dL (6.5-8.0)
[2022-02-04 04:49] VITALS: BP 140/83; PULSE 80; RESP 17; TEMP 36.6; O2SAT 95
== END 2022-02-04 07:53 | disposition home or self-care (01) ==
PROVIDERS: Physician Assistant; Emergency Provider Emergency Medicine
DX: F10.220 Alcohol dependence with intoxication, uncomplicated (principal); Y90.6 Blood alcohol level of 120-199 mg/100 ml; R45.1 Restlessness and agitation; Z91.81 History of falling; Z20.822 Contact with and (suspected) exposure to COVID-19; F33.1 Major depressive disorder, recurrent, moderate; F14.20 Cocaine dependence, uncomplicated; F17.210 Nicotine dependence, cigarettes, uncomplicated; Z79.899 Other long term (current) drug therapy
CPT/HCPCS: 70450; 80053; 80307; 81003; 82077; 83735; 85025; 87635; 99285

== ENCOUNTER 2022-02-05 15:09 | Emergency (ER) | payer OTHER, SELFPAY ==
--- NOTE | ~2022-02-05 | CT_ITS ---
EXAMINATION: CT CERVICAL SPINE without contrast CLINICAL INFORMATION: Reason for Exam intoxicated with facial trauma, neck pain COMPARISON: No prior CT available, TECHNIQUE: Computed axial sagittal and coronal images acquired using department's standard protocol. This CT examination was performed using dose optimization techniques as appropriate, variously including the following: *Automated exposure control *Adjustment of mA and/or kV according to patient size (this includes techniques or standardized protocols for targeted exams where dose is matched to indication/reason for exam; i.e. extremities or head) *Use of iterative reconstruction technique CONTRAST: None DLP: 2807 mGy-cm FINDINGS: Exam somewhat limited, the imaging plane is not aligned to the anatomical axial plane. SKULL BASE: Visualized structures at skull base are normal, CERVICAL VERTEBRAE: Seven cervical vertebrae identified maintaining proper height and alignment, DISCS: C1-C2: There is no CT evidence of significant osseous narrowing of the central canal or neural foramen. C2-C3: There is no CT evidence of significant osseous narrowing of the central canal or neural foramen. C3-C4: There is no CT evidence of significant osseous narrowing of the central canal or neural foramen. C4-C5: There is no CT evidence of significant osseous narrowing of the central canal or neural foramen. C5-C6: There is no CT evidence of significant osseous narrowing of the central canal or neural foramen. C6-C7: There is no CT evidence of significant osseous narrowing of the central canal or neural foramen. C7-T1: There is no CT evidence of significant osseous narrowing of the central canal or neural foramen. PARAVERTEBRAL SOFT TISSUE: Paravertebral soft tissues unremarkable. CT/CT cervical spine wo IV con IMPRESSION: 1. No CT evidence of cervical spine fracture. 2. Exam somewhat limited, the imaging plane is not aligned to the anatomical axial plane.
--- NOTE | ~2022-02-05 | CT_ITS ---
EXAMINATION: CT facial bones wo IV con, CT head/brain wo IV con CLINICAL INFORMATION: Reason for Exam intoxcated with facial trauma COMPARISON: No prior CT scan available for comparison. TECHNIQUE: Department standard protocol. This CT examination was performed using dose optimization techniques as appropriate, variously including the following: *Automated exposure control *Adjustment of mA and/or kV according to patient size (this includes techniques or standardized protocols for targeted exams where dose is matched to indication/reason for exam; i.e. extremities or head) *Use of iterative reconstruction technique DLP: 2807 mGy-cm FINDINGS: CEREBRAL HEMISPHERES: There is no evidence of intra-axial or extra-axial mass, hemorrhage or acute infarct. BRAIN PARENCHYMA: Normal krishnamurthy-white matter differentiation. SUBDURAL SPACE: No bleed. BASAL GANGLIA AND PINEAL GLAND: Unremarkable VENTRICLES: Symmetric and normal in size. CEREBELLUM AND BRAINSTEM: No space-occupying mass, hemorrhage or acute infarct. CEREBELLOPONTINE ANGLES: No lesion found. ORBITS: No intraorbital mass. VESSELS: Unremarkable SKULL BASE: Unremarkable INCLUDED SINUSES AT SKULL BASE: Clear CT FACIAL BONES FINDINGS : SKULL BASE: Included structures at skull base are normal. BONES: Skull base, orbital bones, nasal bones, maxillary bones, mandibles, zygomatic arches, and included cervical vertebrae are normal. ORBITS: Globes are symmetric. Orbital structures are normal. SALIVARY GLANDS: Unremarkable SINUSES: There is diffuse mucosal thickening of paranasal sinuses involving both maxillary sinuses, ethmoidal air cells, sphenoidal air cells with near complete opacification of some of these air cells likely diffuse sinusitis. CT/CT facial bones wo IV con IMPRESSION: 1. No CT evidence of intracranial space-occupying mass, bleed or infarct. 2. No facial bone fractures. 3. Diffuse mucosal thickening of paranasal sinuses likely diffuse might be chronic sinusitis.
--- NOTE | 2022-02-05 07:50 | ECG_ITS ---
Test Reason : FALL Blood Pressure : / mmHG Vent. Rate : 061 BPM Atrial Rate : 061 BPM P-R Int : 158 ms QRS Dur : 100 ms QT Int : 432 ms P-R-T Axes : 032 -16 -21 degrees QTc Int : 434 ms Normal sinus rhythm RSR' or QR pattern in V1 suggests right ventricular conduction delay Minimal voltage criteria for LVH, may be normal variant ( R in aVL ) Nonspecific T wave abnormality Abnormal ECG When compared with ECG of 01-DEC-2021 10:34, Nonspecific T wave abnormality now evident in Lateral leads Referred By: Elizabeth Torres Electronically Signed By:[email or web address] LOCK MD
[2022-02-05 15:17] VITALS: BP 140/87; BP 143/77; PULSE 68; PULSE 75; RESP 16; TEMP 36.9; O2SAT 93; O2SAT 96; BMI 22.9
--- NOTE | 2022-02-05 15:42 | ED.ALCOHOL ---
HPI - Alcohol General Chief Complaint: Psychiatric Symptoms Stated Complaint: SI W/ plan ETOH Time Seen by Provider: 02/05/22 15:42 Source: patient and EMS Mode of arrival: EMS Limitations: altered mental status History of Present Illness HPI narrative: 41-year-old male with history of alcohol use disorder, cocaine use disorder, depression who presents to the ER for evaluation of alcohol intoxication. He reportedly made some suicidal statements to EMS. On arrival to the ER patient is significantly intoxicated unable to provide any history. He fell asleep and is snoring loudly. 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 MD complaint: alcohol intoxication Last drink: Just prior to admission Chronic alcohol use: Yes Previous visits for alcohol intoxication: Yes Treatments prior to arrival: none Related Data Home Medications Medication Instructions Recorded Confirmed clonazepam 0.5 mg tablet 1 tab PO BID PRN anxiety 11/23/20 02/06/22 loratadine 10 mg tablet 1 tab PO DAILY PRN allergies 12/26/20 01/09/22 nicotine 14 mg/24 hr daily 1 patch topical DAILY 11/30/21 01/09/22 transdermal patch albuterol sulfate 90 mcg/actuation 2 puff inhalation Q4-6H PRN 12/01/21 01/09/22 aerosol inhaler (ProAir HFA) wheezing dextroamphetamine-amphetamine 10 1 tab PO DAILY@1200 01/03/22 02/06/22 mg tablet lisdexamfetamine 40 mg capsule 1 cap PO DAILY 01/03/22 02/06/22 (Vyvanse) ziprasidone HCl 60 mg capsule 1 cap PO BID 01/03/22 01/09/22 Previous Rx's Medication Instructions Recorded amlodipine 10 mg tablet 10 mg PO DAILY #30 tabs 12/08/21 clonidine HCl 0.1 mg tablet 0.1 mg PO TID PRN anxiety #90 tabs 12/08/21 folic acid 1 mg tablet 1 mg PO DAILY #30 tabs 12/08/21 gabapentin 600 mg tablet 600 mg PO TID #90 tabs 12/08/21 hydroxyzine HCl 50 mg tablet 50 mg PO Q6H PRN Anxiety #30 tabs 12/08/21 multivitamin (Daily-Lanie tablet) 1 tab PO DAILY #30 tabs 12/08/21 naltrexone 50 mg tablet 50 mg PO DAILY #30 tabs 12/08/21 thiamine mononitrate (vit B1) 100 100 mg PO DAILY #30 tabs 12/08/21 mg tablet trazodone 100 mg tablet 300 mg PO BEDTIME #90 tabs 12/08/21 venlafaxine 75 mg capsule,extended 75 mg PO DAILY #30 caps 12/08/21 release 24 hr chlordiazepoxide HCl 25 mg capsule 50 mg PO Q3H PRN alcohol 01/10/22 withdrawal 3 days #14 caps Allergies Allergy/AdvReac Type Severity Reaction Status Date / Time lisinopril [Lisinopril] Allergy Intermediate ANGIOEDEMA Verified 12/01/21 19:41 cat dander [CATS] Allergy Mild PUFFY EYES Verified 12/01/21 19:41 olanzapine [From ZYPREXA] Allergy Unknown UNKNOWN Verified 12/01/21 19:41 Review of Systems Review of Systems: Yes Unobtainable due to mental condition and Unobtainable due to mental status PMFSH Past Medical History Medical History Alcoholism HTN (hypertension) Social History Social History Household Members: Other Household Members Other:: Pt reports gf kicked him out and he is currently homeless. Housing: Other Do you presently have visiting nurse or other home services: No Alcohol intake: current Alcohol intake frequency: 3 or more drinks per day Alcohol type: beer and hard liquor Patient Tobacco Use Status: Current everyday Tobacco user Tobacco use type: Cigarette Cigarette Packs Per Day: 0.5 Cigarettes Per Day: 10.0 Years Smoked: 12 e-Cigarette/Vaping Use: Former Use Second Hand Smoke Exposure: No Substance Use Type: Crack/Cocaine, Marijuana and Caffiene Advance Directives: No Advance Directives Information Provided: No service: No Sexual orientation: Straight/Heterosexual Physical Exam ED Vital Signs: Vital Signs - 24 hr 02/05/22 15:17 02/05/22 19:52 02/05/22 23:45 Temperature 98.5 F 98.2 F 98.4 F Pulse Rate 75 54 68 Respiratory Rate 16 10 L 18 Blood Pressure 140/87 H 127/80 125/80 Pulse Oximetry 93 94 94 Oxygen Delivery Method Room Air Room Air Room Air 02/06/22 03:17 02/06/22 06:15 02/06/22 07:26 Temperature 97.0 F 98.1 F Pulse Rate 56 58 65 Respiratory Rate 18 17 14 Blood Pressure 130/73 126/76 119/61 Pulse Oximetry 94 95 93 Oxygen Delivery Method Room Air Room Air Room Air 02/06/22 10:52 Temperature 98.2 F Pulse Rate 73 Respiratory Rate 14 Blood Pressure 139/75 Pulse Oximetry 95 Oxygen Delivery Method Room Air BMI result Body Mass Index 22.9 Appearance: lethargic, smells of alcohol, arouses to voice but quickly falls back asleep. Head/face: Superficial abrasion over the left upper maxillary area on his face. Eyes: Pupils equal, round and reactive to light. ENT: Pharynx normal. Neck: Normal inspection. Neck supple. CVS: Normal heart rate and rhythm. Pulses normal. Respiratory: No respiratory distress. Breath sounds normal. Abdomen: Soft and nontender. +BS x4 Skin: Skin warm and dry. Normal skin color. Normal skin turgor. No rashes. Extremities: No lower extremity edema. Atraumatic x4 Neuro/psych: Intoxicated, unable to maintain wakefulness, unable to follow simple commands or speak coherently. Unable to assess cranial nerves. Moving all extremities. Unable to assess gait. Course Course Course Narrative: 41-year-old male with history of EtOH abuse, cocaine abuse, depression who presents to the ER for evaluation of alcohol intoxication and suicidal ideation. Unable to make an accurate assessment or evaluation of him due to his significant intoxication. Lab workup is pending. Will get U tox as well. given the abrasions on his face and inability to obtain history will get CT scans of his facial bones head, and cervical spine with concern of possible fall or trauma. Once clinically sober will have crisis team evaluate him. Reevaluation(s) Reevaluation #1: Moved out of the pod and to the main emergency department as patient was urinating on himself and vomiting on himself. Alcohol level is still pending. Will and tab to place IV and hydrate with IV fluids. Will continue to monitor his airway and give a dose of zofran. Medications Administered Discontinued Medications Generic Name Dose Route Start Last Admin Trade Name Freq PRN Reason Stop Dose Admin Chlordiazepoxide HCl 50 mg 02/06/22 03:57 02/06/22 04:30 Chlordiazepoxide Hcl 25 Mg Capsule PO 02/06/22 03:58 50 mg ONCE ONE Administration Sodium Chloride 1,000 mls @ 999 mls/hr 02/05/22 16:30 02/05/22 22:02 Ns IVCONT 02/05/22 17:30 Infused .Q1H1M GABRIELLE Infusion Lorazepam 1 mg 02/06/22 01:11 02/06/22 01:35 Lorazepam 1 Mg Tablet PO 02/06/22 01:12 1 mg ONCE ONE Administration Lorazepam 2 mg 02/06/22 10:08 02/06/22 10:28 Lorazepam 1 Mg Tablet PO 02/06/22 10:09 2 mg ONCE ONE Administration Ondansetron HCl 4 mg 02/05/22 17:19 02/05/22 18:16 Ondansetron Hcl 4 Mg/2 Ml Vial IVPUSH 02/05/22 17:20 4 mg ONCE ONE Administration MDM - Alcohol Lab Data Result diagrams: 02/06/22 02:19 02/06/22 02:19 Labs: Lab Results 02/05/22 02/05/22 02/06/22 Range/Units 15:44 17:39 02:19 WBC 7.4 (4.8-10.8) X10*3/uL RBC 4.46 L (4.60-5.80) X10*6/uL Hgb 13.0 L (14.0-18.0) g/dl Hct 39.6 L (42.0-52.0) % MCV 88.8 (80.0-98.0) fL MCH 29.1 (27.0-33.0) pg MCHC 32.8 (31.0-36.0) g/dl RDW 13.7 (11.0-16.0) % Plt Count 230 (160-400) X10*3/uL MPV 9.0 L (9.4-12.4) fL Immature Gran % (Auto) 0.4 (0.0-0.4) % Neut % (Auto) 40.5 L (45-73) % Lymph % (Auto) 44.3 H (20-40) % Glascock % (Auto) 7.4 (2-11) % Eos % (Auto) 6.5 H (0-4) % Baso % (Auto) 0.9 (0-2) % Lymph # (Auto) 3.3 (1.2-4.9) X10*3/uL Glascock # (Auto) 0.6 (0.1-1.2) X10*3/uL Eos # (Auto) 0.5 H (0.0-0.4) X10*3/uL Baso # (Auto) 0.1 (0.0-0.2) X10*3/uL Abs Immat Gran (auto) 0.03 (0.00-0.03) X10*3/uL Absolute Neuts (auto) 3.0 (2.0-8.3) x10*3/uL Absolute Nucleated RBC 0.000 (0.0-0.012) X10*3/uL Nucleated RBC % (auto) 0.0 (0.0-0.2) /100WBC Sodium (135-145) mmol/L Potassium (3.3-5.1) mmol/L Chloride (96-108) mmol/L Carbon Dioxide (22-29) mmol/L Anion Gap (12-20) BUN (9-16) mg/dL Creatinine (0.5-1.4) mg/dL Estim Creat Clear Calc Estimated GFR Random Glucose (60-115) mg/dL Calcium (8.4-10.2) mg/dL Magnesium (1.6-2.6) mg/dL Total Bilirubin (0.0-1.0) mg/dL Direct Bilirubin (0.0-0.5) mg/dL AST (5-37) U/L ALT (0-40) U/L Alkaline Phosphatase (39-117) U/L Total Protein (6.5-8.0) g/dL Albumin (3.5-5.0) g/dL Urine Opiates Screen Not Detected (Not Detect) Urine Fentanyl Screen POSITIVE H (Not Detect) Ur Barbiturates Screen Not Detected (Not Detect) Ur Phencyclidine Scrn Not Detected (Not Detect) Ur Amphetamines Screen Not Detected (Not Detect) U Benzodiazepines Scrn Not Detected (Not Detect) Urine Cocaine Screen Not Detected (Not Detect) U Marijuana (THC) Screen Not Detected (Not Detect) Ethyl Alcohol mg/dL COVID-19 ([facility]) Negative (Negative) COVID-19 Clin Com See Note 02/06/22 Range/Units 02:19 WBC (4.8-10.8) X10*3/uL RBC (4.60-5.80) X10*6/uL Hgb (14.0-18.0) g/dl Hct (42.0-52.0) % MCV (80.0-98.0) fL MCH (27.0-33.0) pg MCHC (31.0-36.0) g/dl RDW (11.0-16.0) % Plt Count (160-400) X10*3/uL MPV (9.4-12.4) fL Immature Gran % (Auto) (0.0-0.4) % Neut % (Auto) (45-73) % Lymph % (Auto) (20-40) % Glascock % (Auto) (2-11) % Eos % (Auto) (0-4) % Baso % (Auto) (0-2) % Lymph # (Auto) (1.2-4.9) X10*3/uL Glascock # (Auto) (0.1-1.2) X10*3/uL Eos # (Auto) (0.0-0.4) X10*3/uL Baso # (Auto) (0.0-0.2) X10*3/uL Abs Immat Gran (auto) (0.00-0.03) X10*3/uL Absolute Neuts (auto) (2.0-8.3) x10*3/uL Absolute Nucleated RBC (0.0-0.012) X10*3/uL Nucleated RBC % (auto) (0.0-0.2) /100WBC Sodium 145 (135-145) mmol/L Potassium 3.8 (3.3-5.1) mmol/L Chloride 109 H (96-108) mmol/L Carbon Dioxide 27 (22-29) mmol/L Anion Gap 13 (12-20) BUN 8 L (9-16) mg/dL Creatinine 0.71 (0.5-1.4) mg/dL Estim Creat Clear Calc 139.1 Estimated GFR > 60 Random Glucose 114 (60-115) mg/dL Calcium 8.4 (8.4-10.2) mg/dL Magnesium 1.8 (1.6-2.6) mg/dL Total Bilirubin 0.2 (0.0-1.0) mg/dL Direct Bilirubin < 0.2 (0.0-0.5) mg/dL AST 28 (5-37) U/L ALT 22 (0-40) U/L Alkaline Phosphatase 62 (39-117) U/L Total Protein 6.4 L (6.5-8.0) g/dL Albumin 3.9 (3.5-5.0) g/dL Urine Opiates Screen (Not Detect) Urine Fentanyl Screen (Not Detect) Ur Barbiturates Screen (Not Detect) Ur Phencyclidine Scrn (Not Detect) Ur Amphetamines Screen (Not Detect) U Benzodiazepines Scrn (Not Detect) Urine Cocaine Screen (Not Detect) U Marijuana (THC) Screen (Not Detect) Ethyl Alcohol 176 mg/dL COVID-19 ([facility]) (Negative) COVID-19 Clin Com Discharge Plan Discharge Clinical Impression: Alcohol intoxication Patient Disposition: Still a Patient Prescriptions: No Action clonazepam 0.5 mg tablet 1 tab PO BID PRN (Reason: anxiety) loratadine 10 mg tablet 1 tab PO DAILY PRN (Reason: allergies) nicotine 14 mg/24 hr patch 24 hour 1 patch topical DAILY albuterol sulfate [ProAir HFA] 90 mcg/actuation HFA aerosol inhaler 2 puff inhalation Q4-6H PRN (Reason: wheezing) clonidine HCl 0.1 mg Tablet 0.1 mg PO TID PRN (Reason: anxiety) Qty: 90 0RF Protocol: Hold for SBP< HOLD for SBP < : 90 gabapentin 600 mg Tablet 600 mg PO TID Qty: 90 0RF trazodone 100 mg Tablet 300 mg PO BEDTIME Qty: 90 0RF amlodipine 10 mg Tablet 10 mg PO DAILY Qty: 30 0RF Protocol: Hold for SBP< HOLD for SBP < : 90 multivitamin [Daily-Lanie] Tablet 1 tab PO DAILY Qty: 30 0RF venlafaxine 75 mg Capsule,Extended Release 24hr 75 mg PO DAILY Qty: 30 0RF naltrexone 50 mg Tablet 50 mg PO DAILY Qty: 30 0RF hydroxyzine HCl 50 mg Tablet 50 mg PO Q6H PRN (Reason: Anxiety) Qty: 30 0RF folic acid 1 mg Tablet 1 mg PO DAILY Qty: 30 0RF thiamine mononitrate (vit B1) 100 mg Tablet 100 mg PO DAILY Qty: 30 0RF dextroamphetamine-amphetamine 10 mg tablet 1 tab PO DAILY@1200 ziprasidone HCl 60 mg capsule 1 cap PO BID Vyvanse 40 mg capsule 1 cap PO DAILY chlordiazepoxide HCl 25 mg capsule 50 mg PO Q3H PRN (Reason: alcohol withdrawal) 3 Days Qty: 14 0RF Rx Instructions: until symptoms controlled
[2022-02-05 16:09] LABS: COVID-19 Test Negative (Negative); IDNOW Serial# 16C4AD1C
--- NOTE | 2022-02-05 16:28 | PC.NURSE ---
t/w attempted to change management specialist pt with pct fariba. pt too inebriated to follow directions. t/w secured pt belongings in locker 7. pt vomited and urinated on self. t/w attempted to change pants but pt unable to assist with changing process. soiled pants were cut off with scissors and pt was changed into hospital attire. rn aware
[2022-02-05 17:57] LABS: Amphetamine Screen Urine Not Detected (Not Detect); Barbiturates, Urine Not Detected (Not Detect); Benzodiazepines Screen Urine Not Detected (Not Detect); Cannabinoid Screen Urine Not Detected (Not Detect); Cocaine Screen Urine Not Detected (Not Detect); Fentanyl, urine POSITIVE (Not Detect); Opiate Screen Urine Not Detected (Not Detect); Phencyclidine Screen Urine Not Detected (Not Detect)
[2022-02-05] MEDS: ondansetron HCL 4 MG/2 ML VIAL IVPUSH (18:16)
[2022-02-05] MEDS: 0.9 % Sodium Chloride 1,000 ML 999 ML IVCONT (18:17)
[2022-02-05 19:52] VITALS: BP 127/80; PULSE 54; RESP 10; TEMP 36.8; O2SAT 94
--- NOTE | 2022-02-05 22:36 | PC.NURSE ---
Phelbotomy came to draw patient patient refused labs. Patient is a hard stick.
--- NOTE | 2022-02-05 22:36 | PC.NURSE ---
Spoke with lab, [facility] states pt refused to have blood drawn. SG
[2022-02-05 23:45] VITALS: BP 125/80; PULSE 68; RESP 18; TEMP 36.9; O2SAT 94
--- NOTE | 2022-02-06 01:10 | PC.NURSE ---
BLOOD DRAW - Tried getting labs from PT left hand using a butterfly but was unbale to obtain a sample. Pt states that he is dehydrated and is a hard stick because his veins blow . Segundo Valdivia made aware
[2022-02-06] MEDS: LORazepam 1 MG TABLET PO (01:35)
[2022-02-06 02:25] LABS: MANUAL DIFF FLAG NO
[2022-02-06 02:26] LABS: Basophils Absolute Auto 0.1 X10*3/uL (0.0-0.2); Basophils Percent Auto 0.9 % (0-2); Eosinophils Absolute Auto 0.5 X10*3/uL (0.0-0.4); Eosinophils Percent Auto 6.5 % (0-4); Hematocrit 39.6 % (42.0-52.0); Imm Gran Abs Auto 0.03 X10*3/uL (0.00-0.03); Imm Gran Pct Auto 0.4 % (0.0-0.4); Lymphocytes Absolute Auto 3.3 X10*3/uL (1.2-4.9); Lymphocytes Percent Auto 44.3 % (20-40); Mean Corpuscular HGB Conc 32.8 g/dl (31.0-36.0); Mean Corpuscular Hemoglobin 29.1 pg (27.0-33.0); Mean Corpuscular Volume 88.8 fL (80.0-98.0); Monocytes Absolute Auto 0.6 X10*3/uL (0.1-1.2); Monocytes Percent Auto 7.4 % (2-11); Neutrophils Percent Auto 40.5 % (45-73); Platelet Count 230 X10*3/uL (160-400); Red Blood Count 4.46 X10*6/uL (4.60-5.80); Red Cell Distribution Width 13.7 % (11.0-16.0); White Blood Count 7.4 X10*3/uL (4.8-10.8)
[2022-02-06 02:42] LABS: Alanine Aminotransferase 22 U/L (0-40); Albumin Level 3.9 g/dL (3.5-5.0); Alkaline Phosphatase 62 U/L (39-117); Anion Gap 13 (12-20); Aspartate Amino Transferase 28 U/L (5-37); Bilirubin Direct < 0.2 mg/dL (0.0-0.5); Bilirubin Total 0.2 mg/dL (0.0-1.0); Blood Urea Nitrogen 8 mg/dL (9-16); Calcium 8.4 mg/dL (8.4-10.2); Carbon Dioxide 27 mmol/L (22-29); Chloride 109 mmol/L (96-108); Creatinine Clr Calc Pharmacy 139.1; Estimated Glomerular Filt Rate > 60; Ethanol 176 mg/dL; Glucose Random 114 mg/dL (60-115); Magnesium 1.8 mg/dL (1.6-2.6); Potassium 3.8 mmol/L (3.3-5.1); Sodium 145 mmol/L (135-145); Total Protein 6.4 g/dL (6.5-8.0)
[2022-02-06 03:17] VITALS: BP 130/73; PULSE 56; RESP 18; TEMP 36.1; O2SAT 94
[2022-02-06] MEDS: chlordiazePOXIDE HCl 25 MG CAPSULE 50 MG PO (04:30)
[2022-02-06 06:15] VITALS: BP 126/76; PULSE 58; RESP 17; O2SAT 95
--- NOTE | 2022-02-06 07:21 | MHC.CARE ---
Augusto Smart Sheet Submitted
[2022-02-06 07:26] VITALS: BP 119/61; PULSE 65; RESP 14; TEMP 36.7; O2SAT 93
[2022-02-06] MEDS: LORazepam 1 MG TABLET 2 MG PO (10:28)
--- NOTE | 2022-02-06 10:34 | PC.NURSE ---
Pt alert and oriented. Pt denies SI/HI at this time. States he is just seeking detox.
[2022-02-06 10:52] VITALS: BP 139/75; PULSE 73; RESP 14; TEMP 36.8; O2SAT 95
--- NOTE | 2022-02-06 11:13 | PHA.MEDREC ---
Pharmacy Consult ? Medication Reconciliation Pharmacy has completed the medication reconciliation.
--- NOTE | 2022-02-06 12:02 | MHC.RECOVSUP ---
? Reason for consult Recovery Support o Current location: ED14 o Identified substance use concern: Alcohol - Seeking ATS (detox) - Support ? Intervention: o Community resources provided o Harm reduction discussion ? Plan: o Referral to [facility] o [facility] in progress [facility] o Follow up tomorrow o Patient to follow up with [facility] after discharge ? Additional information: Met with Patient we had a good recovery talk... Patient recently had a child and want to do better for himself.. Patient stated that He wishes to [facility] stated that [facility] know him and that its possiable that he could have as bed for tomorrow. Paper work will be faxed.
--- NOTE | 2022-02-06 12:31 | MHC.CARE ---
Pt is a 41 y/o, single, French speaking male who is previously known to the CARE Team through prior ED visits and inpatient stays.? Pt most often presents under the influence and is followed by the Recovery Team.? Yesterday, pt arrived via ambulance intoxicated.? EMS reports that pt made SI statements during transport.? There is no documentation identifying what those statements are.? Today, CARE Team assessed pt for risk.? Pt was assessed in his room in the Main ED.? Pt was alert and oriented x4, was engaged in the assessment, and is help seeking.? He appears his stated age and appears neat and well groomed.? Pt denies SI, HI, , AVH, and self-harm urges.? He does not recall the nature of the statements he made but did state ?I get stupid and say stupid things when I get drunk?.? He does not recall the events that brought him to this facility or much of anything that transpired before.? He reports that he was ?really? drunk and was ?Treating this homeless katty to [employer] at the place by [facility]? He stated that he remembers seeing his cousins.? Pt does not recall much after that.? Pt reports he has a son, his first child, and he is having a hard time with the realization that he is a father and has responsibilities for others now.? Pt expresses that he wants detox. Pt?s eye contact and speech are unremarkable.? He expresses concern for his physical health as he feels like his drinking is taking a serious toll on his physical wellbeing.? He reports being compliant with his medication as prescribed.? He reports good appetite and sleep.? His affect at times is tearful when he discusses his son and his not beinjg a positive influence in the child?s life.? Plan is for pt to be referred to the Recovery team for resources.? Pt does not appear to be at risk at this time.? This plan was discussed with and agreed upon by ED provider Dr. Meza and CARE Team quality control specialist clinician Xavier MEADOWS.
--- NOTE | 2022-02-06 14:35 | PC.NURSE ---
Pt cleared by Care Team, moved to [facility] for detox placement.
[2022-02-06 14:40] VITALS: BP 137/87; PULSE 62; RESP 14; TEMP 36.9; O2SAT 97
== END 2022-02-06 15:25 | disposition home or self-care (01) ==
PROVIDERS: Physician Assistant; Emergency Provider Emergency Medicine
DX: F10.220 Alcohol dependence with intoxication, uncomplicated (principal); Y90.6 Blood alcohol level of 120-199 mg/100 ml; S00.81XA Abrasion of other part of head, initial encounter; X58.XXXA Exposure to other specified factors, initial encounter; F41.9 Anxiety disorder, unspecified; F33.1 Major depressive disorder, recurrent, moderate; I10 Essential (primary) hypertension; F14.20 Cocaine dependence, uncomplicated; F17.210 Nicotine dependence, cigarettes, uncomplicated; Y93.9 Activity, unspecified; Y92.9 Unspecified place or not applicable; Y99.9 Unspecified external cause status; Z20.822 Contact with and (suspected) exposure to COVID-19; Z79.899 Other long term (current) drug therapy
CPT/HCPCS: 70450; 70486; 72125; 80048; 80076; 80307; 82077; 83735; 85025; 87635; 93005; 96361; 96374; 99285; J2405

== ENCOUNTER 2022-02-23 14:45 | Emergency (ER) | payer OTHER, SELFPAY ==
--- NOTE | ~2022-02-23 | CT_ITS ---
EXAMINATION: CT ABDOMEN AND PELVIS WITHOUT CONTRAST CLINICAL INFORMATION: Right lower quadrant pain COMPARISON: None TECHNIQUE: Multidetector volumetric imaging was performed from the superior aspect of the liver through the pubic symphysis. Sagittal and coronal reformatted images were obtained on the technologist's workstation. This CT examination was performed using dose optimization techniques as appropriate, variously including the following: *Automated exposure control *Adjustment of mA and/or kV according to patient size (this includes techniques or standardized protocols for targeted exams where dose is matched to indication/reason for exam; i.e. extremities or head) *Use of iterative reconstruction technique DLP: 1371 mGy-cm FINDINGS: LUNG BASES: The visualized lung bases are unremarkable. LIVER, GALLBLADDER, AND BILIARY TREE: The liver is normal in size, shape, and attenuation. No focal hepatic lesion or biliary ductal dilatation is present. The gallbladder is unremarkable with no evidence of radiopaque gallstones, gallbladder wall thickening, or obvious pericholecystic inflammatory changes. PANCREAS: Unremarkable. SPLEEN: Unremarkable. ADRENAL GLANDS: Unremarkable. KIDNEYS AND URETERS: The kidneys are normal in size, shape, and attenuation. No hydronephrosis, hydroureter, or calculi seen. No perinephric stranding. BLADDER: Unremarkable. GASTROINTESTINAL TRACT: No acute abnormality. There is no bowel wall thickening /edema. There is no bowel obstruction. There is a moderate to large volume of stool in the colon. The appendix is normal . The small bowel loops are unremarkable. The stomach is normal. There is no hiatal hernia. ABDOMINAL WALL: No significant hernia is appreciated. LYMPH NODES: Normal. VASCULAR: Unremarkable. PELVIC VISCERA: Unremarkable. OSSEOUS STRUCTURES: There are old healed and nonunited fractures of the left lateral posterior ninth and eighth ribs and the lateral seventh rib. Old healed fracture left symphysis pubis. Partial bridging spur of the symphysis pubis. Degenerative spondylosis spine. Vacuum disc phenomenon L5-S1. Large anterior spur at the superior endplate of L3. There is no acute osseous abnormality. CT/CT abdomen pelvis wo IV con IMPRESSION: No significant abnormality. Fleischner guidelines were followed.
--- NOTE | 2022-02-23 14:58 | ED_ITS ---
HPI - Alcohol General Chief Complaint: ETOH/Substance Use <OTTO Mcgregor - Last Filed: 02/23/22 17:23> Stated Complaint: intoxication <OTTO Mcgregor - Last Filed: 02/23/22 17:23> Time Seen by Provider: 02/23/22 14:50 <OTTO Mcgregor - Last Filed: 02/23/22 17:23> Source: patient and EMS <OTTO Mcgregor - Last Filed: 02/23/22 17:23> Mode of arrival: EMS <OTTO Mcgregor - Last Filed: 02/23/22 17:23> History of Present Illness HPI narrative: 41-year-old male with a past medical history of ETOH abuse, depression, cocaine use disorder, presenting to the ED via EMS for ETOH intoxication. [place]. Patient admits to drinking 2 pt of 100 proof vodka today, reports drinking daily, last drink [employer]. Admits to history of withdrawal seizures. Also reports abdominal pain x a while. Denies other illicit substances. Reports increasing depression with issues at home with partner and son. Denies SI/HI. Denies injury, trauma, fall, headache, CP/SOB, nausea, vomiting, diarrhea <OTTO Mcgregor - Last Filed: 02/23/22 17:23> MD complaint: alcohol intoxication, alcohol dependence and desires rehab <OTTO Mcgregor - Last Filed: 02/23/22 17:23> Last drink: Just prior to admission <OTTO Mcgregor - Last Filed: 02/23/22 17:23> Related Data Home Medications: Home Medications Medication Instructions Recorded Confirmed clonazepam 0.5 mg tablet 1 tab PO BID PRN anxiety 11/23/20 02/06/22 loratadine 10 mg tablet 1 tab PO DAILY PRN allergies 12/26/20 02/06/22 nicotine 14 mg/24 hr daily 1 patch topical DAILY 11/30/21 02/06/22 transdermal patch albuterol sulfate 90 mcg/actuation 2 puff inhalation Q4-6H PRN 12/01/21 02/06/22 aerosol inhaler (ProAir HFA) wheezing dextroamphetamine-amphetamine 10 1 tab PO DAILY@1200 01/03/22 02/06/22 mg tablet lisdexamfetamine 40 mg capsule 1 cap PO DAILY 01/03/22 02/06/22 (Vyvanse) ziprasidone HCl 60 mg capsule 1 cap PO BID 01/03/22 02/06/22 trazodone 100 mg tablet 200 mg PO BEDTIME 02/06/22 02/06/22 Previous Rx's Medication Instructions Recorded amlodipine 10 mg tablet 10 mg PO DAILY #30 tabs 12/08/21 clonidine HCl 0.1 mg tablet 0.1 mg PO TID PRN anxiety #90 tabs 12/08/21 folic acid 1 mg tablet 1 mg PO DAILY #30 tabs 12/08/21 gabapentin 600 mg tablet 600 mg PO TID #90 tabs 12/08/21 hydroxyzine HCl 50 mg tablet 50 mg PO Q6H PRN Anxiety #30 tabs 12/08/21 multivitamin (Daily-Lanie tablet) 1 tab PO DAILY #30 tabs 12/08/21 naltrexone 50 mg tablet 50 mg PO DAILY #30 tabs 12/08/21 thiamine mononitrate (vit B1) 100 100 mg PO DAILY #30 tabs 12/08/21 mg tablet venlafaxine 75 mg capsule,extended 75 mg PO DAILY #30 caps 12/08/21 release 24 hr <OTTO Mcgregor - Last Filed: 02/23/22 17:23> Allergies/Adverse Reactions: Allergies Allergy/AdvReac Type Severity Reaction Status Date / Time lisinopril [Lisinopril] Allergy Intermediate ANGIOEDEMA Verified 12/01/21 19:41 cat dander [CATS] Allergy Mild PUFFY EYES Verified 12/01/21 19:41 olanzapine [From ZYPREXA] Allergy Unknown UNKNOWN Verified 12/01/21 19:41 <OTTO Mcgregor - Last Filed: 02/23/22 17:23> Review of Systems Review of Systems: Constitutional: No Fever, No Chills, No Fatigue, No Malaise ENT/Mouth: No Ear Pain, No Nasal Congestion, No sore throat, No Rhinorrhea, No Swallowing Difficulty Eyes: No Eye Pain, No Swelling, No Redness, No Vision Changes Cardiovascular: No Chest Pain, No SOB Respiratory: No Cough, No Sputum, No Dyspnea Gastrointestinal: No Nausea, No Vomiting, No Diarrhea, No Constipation, + Abdominal pain Genitourinary: No Dysuria, No Urinary Frequency, No Hematuria, No Flank Pain Musculoskeletal: No joint pain, No Myalgias, No Joint Swelling Skin: No Skin Lesions, No rash Neuro: No Weakness, No Headache Psych: No Anxiety/Panic, + Depression, No SI/HI/AH/VH, + Social Issues <OTTO Mcgregor - Last Filed: 02/23/22 17:23> Yes all other systems are reviewed and are negative <OTTO Mcgregor - Last Filed: 02/23/22 17:23> Constitutional: Constitutional: Reports as per HPI <OTTO Mcgregor - Last Filed: 02/23/22 17:23> [facility] Past Medical History Attestation statement: The following information was validated with the patient. <OTTO Mcgregor - Last Filed: 02/23/22 17:23> Medical History: Medical History Alcoholism HTN (hypertension) <OTTO Mcgregor - Last Filed: 02/23/22 17:23> Social History Social History: Social History Household Members: Other Household Members Other:: Pt reports gf kicked him out and he is currently homeless. Housing: Other Do you presently have visiting nurse or other home services: No Alcohol intake: current Alcohol intake frequency: 3 or more drinks per day Alcohol type: beer and hard liquor Patient Tobacco Use Status: Current everyday Tobacco user Tobacco use type: Cigarette Cigarette Packs Per Day: 0.5 Cigarettes Per Day: 10.0 Years Smoked: 12 Smoked in Last 30 Days: No e-Cigarette/Vaping Use: Former Use Second Hand Smoke Exposure: No Use of substances other than those prescribed or required for medical reasons: Refusing to respond Substance Use Type: Crack/Cocaine, Marijuana and Caffiene Advance Directives: No Advance Directives Information Provided: No service: No Sexual orientation: Straight/Heterosexual <OTTO Mcgregor - Last Filed: 02/23/22 17:23> Physical Exam ED Vital Signs: Vital Signs - 24 hr 02/23/22 15:07 02/23/22 19:23 02/23/22 22:43 Temperature 98.1 F 98.4 F Pulse Rate 61 61 65 Respiratory Rate 17 17 17 Blood Pressure 137/83 115/61 154/82 H Pulse Oximetry 93 97 94 Oxygen Delivery Method Room Air Room Air Room Air 02/24/22 02:12 02/24/22 03:51 02/24/22 07:36 Temperature 97.9 F 98.5 F 98.2 F Pulse Rate 96 74 72 Respiratory Rate 19 19 14 Blood Pressure 141/80 H 154/82 H 142/78 H Pulse Oximetry 98 95 95 Oxygen Delivery Method Room Air Room Air Room Air BMI result Body Mass Index 22.4 <OTTO Mcgregor - Last Filed: 02/23/22 17:23> Vital Signs - 24 hr 02/23/22 15:07 02/23/22 19:23 02/23/22 22:43 Temperature 98.1 F 98.4 F Pulse Rate 61 61 65 Respiratory Rate 17 17 17 Blood Pressure 137/83 115/61 154/82 H Pulse Oximetry 93 97 94 Oxygen Delivery Method Room Air Room Air Room Air 02/24/22 02:12 02/24/22 03:51 02/24/22 07:36 Temperature 97.9 F 98.5 F 98.2 F Pulse Rate 96 74 72 Respiratory Rate 19 19 14 Blood Pressure 141/80 H 154/82 H 142/78 H Pulse Oximetry 98 95 95 Oxygen Delivery Method Room Air Room Air Room Air BMI result Body Mass Index 22.4 <OTTO Duggan - Last Filed: 02/24/22 09:11> Const Other: + ETOH odor on breath <OTTO Mcgregor - Last Filed: 02/23/22 17:23> General: cooperative, healthy appearing, no acute distress, alert and intoxicated appearing <OTTO Mcgregor Last Filed: 02/23/22 17:23> Limitations: no limitations <OTTO Mcgregor Last Filed: 02/23/22 17:23> HENMT Head: Yes normal to inspection and Yes atraumatic <OTTO Mcgregor Last Filed: 02/23/22 17:23> Ears: hearing grossly normal bilaterally <OTTO Mcgregor Last Filed: 02/23/22 17:23> General nose exam: Normal external nose present <Brittany Perlitaely PA - Last Filed: 02/23/22 17:23> Face and sinus: Yes normal facial exam <Brittany Perlitaely OK - Last Filed: 02/23/22 17:23> Throat: Yes posterior oropharynx normal <Brittany Perlitaely OK - Last Filed: 02/23/22 17:23> Eyes General: appearance normal, both eyes and all related structures <Brittany Perlitaely OK - Last Filed: 02/23/22 17:23> Pupils: Equal, round and reactive pupils present <Brittany Perlitaely OK - Last Filed: 02/23/22 17:23> EOM: EOMs intact bilaterally <Brittany Perlitaely OK - Last Filed: 02/23/22 17:23> Neck Neck: Yes normal visual inspection and Yes no meningeal signs <Brittany Perlitaely OK - Last Filed: 02/23/22 17:23> Resp Effort & Inspection: normal respiratory effort and no respiratory distress <Brittany Perlitaely OK - Last Filed: 02/23/22 17:23> Auscultation: clear to auscultation bilaterally, no crackles, no rales, no rhonchi and no wheezes <Brittany Perlitaely OK - Last Filed: 02/23/22 17:23> Cardio Rate: regular rate <Brittany Perlitaely OK - Last Filed: 02/23/22 17:23> Heart sounds: S1 normal heart sound present and S2 normal heart sound present <Brittany Perlitaely OK - Last Filed: 02/23/22 17:23> GI Inspection: Yes normal to inspection <Brittany Perlitaely OK - Last Filed: 02/23/22 17:23> Palpation (GI): Soft to palpation, Tenderness to palpation present (GI) (Diffusely > RLQ) with no rebound tenderness, no guarding and not rigid <Brittany Perlitaely PA - Last Filed: 02/23/22 17:23> Skin Rashes: no rashes <Brittany Perlitaely PA - Last Filed: 02/23/22 17:23> Wounds: no wounds <Brittany Perlitaely OK - Last Filed: 11/30/22 17:23> Neuro General: tone normal, moves all extremities, no meningeal signs and CN's II-XI intact bilaterally <OTTO Mcgregor Last Filed: 02/23/22 17:23> Cranial nerves: Yes Equal, round and reactive pupils present <OTTO Mcgregor Last Filed: 02/23/22 17:23> Extrem General: Yes normal to inspection <OTTO Mcgregor Last Filed: 02/23/22 17:23> Psych Affect: Sad affect present <OTTO Mcgregor Last Filed: 02/23/22 17:23> Attitude: cooperative <OTTO Mcgregor Last Filed: 02/23/22 17:23> Thought content: suicidality, no homicidality and Depressive thoughts present <OTTO Mcgregor Last Filed: 02/23/22 17:23> Course Course Course Narrative: -UA negative. Urine drug screen negative. -CT abdomen/pelvis without acute findings. Patient currently refusing lab draw. -1800--ED care transferred to [facility] pending clinical sobriety and CARE/recovery eval <OTTO Mcgregor Last Filed: 02/23/22 17:23> Reevaluation(s) Reevaluation #1: physician observation started overnight at 1800 last night. pending CARE/ wellness coach evaluation - CIWA 7 this morning. given librium PO at 4am with good effect, will repeat. BP slightly elevated this morning but HR normal. Will continue to monitor. <OTTO Duggan - Last Filed: 02/24/22 09:11> Medications Administered Discontinued Medications Generic Name Dose Route Start Last Admin Trade Name Freq PRN Reason Stop Dose Admin Chlordiazepoxide HCl 25 mg 02/24/22 04:17 02/24/22 04:34 Chlordiazepoxide Hcl 25 Mg Capsule PO 02/24/22 04:18 25 mg ONCE ONE Administration <OTTO Mcgregor Last Filed: 02/23/22 17:23> Medications Administered Discontinued Medications Generic Name Dose Route Start Last Admin Trade Name Freq PRN Reason Stop Dose Admin Chlordiazepoxide HCl 25 mg 02/24/22 04:17 02/24/22 04:34 Chlordiazepoxide Hcl 25 Mg Capsule PO 02/24/22 04:18 25 mg ONCE ONE Administration <OTTO Duggan - Last Filed: 02/24/22 09:11> MDM - Alcohol MDM Narrative Medical decision making narrative: 41-year-old male with a past medical history of ETOH abuse, depression, cocaine use disorder, presenting to the ED via EMS for ETOH intoxication. Also reports abdominal pain x a while. On exam vital signs stable, ETOH odor on breath, lethargic but alert to voice, no evidence of trauma, moving all extremities, abdomen soft diffusely tender > RLQ no rebound or guarding. Concern for ETOH intoxication/dependence and depression vs intra-abdominal pathology including cirrhosis/pancreatitis vs appendicitis/diverticulitis Plan: Labs, tox screen, CT AP, crisis consult, observe and reassess for clinical sobriety <OTTO Mcgregor - Last Filed: 02/23/22 17:23> Differential Diagnosis Differential diagnosis: Likely alcohol dependence and alcohol intoxication <OTTO Mcgregor - Last Filed: 02/23/22 17:23> Medical Records Attestation: I reviewed the patient's medical records. <OTTO Mcgregor - Last Filed: 02/23/22 17:23> Lab Data Attestation: I reviewed the patient's lab results. <OTTO Mcgregor - Last Filed: 02/23/22 17:23> Result diagrams: : 02/23/22 20:02 02/23/22 20:02 <OTTO Mcgregor - Last Filed: 02/23/22 17:23> Labs: Lab Results 02/23/22 02/23/22 02/23/22 Range/Units 16:07 16:07 20:02 WBC Cancelled RBC Cancelled Hgb Cancelled Hct Cancelled MCV Cancelled MCH Cancelled MCHC Cancelled RDW Cancelled Plt Count Cancelled MPV Cancelled Immature Gran % (Auto) Cancelled Neut % (Auto) Cancelled Lymph % (Auto) Cancelled [place] % (Auto) Cancelled Eos % (Auto) Cancelled Baso % (Auto) Cancelled Lymph # (Auto) Cancelled [place] # (Auto) Cancelled Eos # (Auto) Cancelled Baso # (Auto) Cancelled Abs Immat Gran (auto) Cancelled Absolute Neuts (auto) Cancelled Absolute Nucleated RBC Cancelled Nucleated RBC % (auto) Cancelled Sodium (135-145) mmol/L Potassium (3.3-5.1) mmol/L Chloride (96-108) mmol/L Carbon Dioxide (22-29) mmol/L Anion Gap (12-20) BUN (9-16) mg/dL Creatinine (0.5-1.4) mg/dL Estim Creat Clear Calc Estimated GFR Random Glucose (60-115) mg/dL Calcium (8.4-10.2) mg/dL Magnesium (1.6-2.6) mg/dL Total Bilirubin (0.0-1.0) mg/dL Direct Bilirubin (0.0-0.5) mg/dL AST (5-37) U/L ALT (0-40) U/L Alkaline Phosphatase (39-117) U/L Total Protein (6.5-8.0) g/dL Albumin (3.5-5.0) g/dL Lipase (8-78) U/L Urine Color Yellow Urine Appearance Clear Urine pH 5.5 (5.0-9.0) Ur Specific [place] <= 1.005 (1.005-1.025) Urine Protein Negative (Neg-Trace) mg/dL Urine Glucose (UA) Negative (Negative) mg/dL Urine Ketones Negative (Negative) mg/dL Urine Blood Negative (Negative) Urine Nitrite Negative (Negative) Ur Leukocyte Esterase Negative (Negative) Urine Opiates Screen Not Detected (Not Detect) Urine Fentanyl Screen Not Detected (Not Detect) Ur Barbiturates Screen Not Detected (Not Detect) Ur Phencyclidine Scrn Not Detected (Not Detect) Ur Amphetamines Screen Not Detected (Not Detect) U Benzodiazepines Scrn Not Detected (Not Detect) Urine Cocaine Screen Not Detected (Not Detect) U Marijuana (THC) Screen Not Detected (Not Detect) Ethyl Alcohol mg/dL 02/23/22 Range/Units 20:02 WBC RBC Hgb Hct MCV MCH MCHC RDW Plt Count MPV Immature Gran % (Auto) Neut % (Auto) Lymph % (Auto) [place] % (Auto) Eos % (Auto) Baso % (Auto) Lymph # (Auto) [place] # (Auto) Eos # (Auto) Baso # (Auto) Abs Immat Gran (auto) Absolute Neuts (auto) Absolute Nucleated RBC Nucleated RBC % (auto) Sodium 139 (135-145) mmol/L Potassium 4.4 (3.3-5.1) mmol/L Chloride 108 (96-108) mmol/L Carbon Dioxide 17 L (22-29) mmol/L Anion Gap 18 (12-20) BUN 13 (9-16) mg/dL Creatinine 0.79 (0.5-1.4) mg/dL Estim Creat Clear Calc 136.7 Estimated GFR > 60 Random Glucose 104 (60-115) mg/dL Calcium 9.3 D (8.4-10.2) mg/dL Magnesium 2.2 (1.6-2.6) mg/dL Total Bilirubin 0.2 (0.0-1.0) mg/dL Direct Bilirubin < 0.2 (0.0-0.5) mg/dL AST 33 (5-37) U/L ALT 24 (0-40) U/L Alkaline Phosphatase 63 (39-117) U/L Total Protein 7.7 (6.5-8.0) g/dL Albumin 4.7 (3.5-5.0) g/dL Lipase 47 (8-78) U/L Urine Color Urine Appearance Urine pH (5.0-9.0) Ur Specific [place] (1.005-1.025) Urine Protein (Neg-Trace) mg/dL Urine Glucose (UA) (Negative) mg/dL Urine Ketones (Negative) mg/dL Urine Blood (Negative) Urine Nitrite (Negative) Ur Leukocyte Esterase (Negative) Urine Opiates Screen (Not Detect) Urine Fentanyl Screen (Not Detect) Ur Barbiturates Screen (Not Detect) Ur Phencyclidine Scrn (Not Detect) Ur Amphetamines Screen (Not Detect) U Benzodiazepines Scrn (Not Detect) Urine Cocaine Screen (Not Detect) U Marijuana (THC) Screen (Not Detect) Ethyl Alcohol 190 mg/dL <OTTO Mcgregor - Last Filed: 02/23/22 17:23> Lab Results 02/23/22 02/23/22 02/23/22 Range/Units 16:07 16:07 20:02 WBC Cancelled RBC Cancelled Hgb Cancelled Hct Cancelled MCV Cancelled MCH Cancelled MCHC Cancelled RDW Cancelled Plt Count Cancelled MPV Cancelled Immature Gran % (Auto) Cancelled Neut % (Auto) Cancelled Lymph % (Auto) Cancelled [place] % (Auto) Cancelled Eos % (Auto) Cancelled Baso % (Auto) Cancelled Lymph # (Auto) Cancelled [place] # (Auto) Cancelled Eos # (Auto) Cancelled Baso # (Auto) Cancelled Abs Immat Gran (auto) Cancelled Absolute Neuts (auto) Cancelled Absolute Nucleated RBC Cancelled Nucleated RBC % (auto) Cancelled Sodium (135-145) mmol/L Potassium (3.3-5.1) mmol/L Chloride (96-108) mmol/L Carbon Dioxide (22-29) mmol/L Anion Gap (12-20) BUN (9-16) mg/dL Creatinine (0.5-1.4) mg/dL Estim Creat Clear Calc Estimated GFR Random Glucose (60-115) mg/dL Calcium (8.4-10.2) mg/dL Magnesium (1.6-2.6) mg/dL Total Bilirubin (0.0-1.0) mg/dL Direct Bilirubin (0.0-0.5) mg/dL AST (5-37) U/L ALT (0-40) U/L Alkaline Phosphatase (39-117) U/L Total Protein (6.5-8.0) g/dL Albumin (3.5-5.0) g/dL Lipase (8-78) U/L Urine Color Yellow Urine Appearance Clear Urine pH 5.5 (5.0-9.0) Ur Specific [place] <= 1.005 (1.005-1.025) Urine Protein Negative (Neg-Trace) mg/dL Urine Glucose (UA) Negative (Negative) mg/dL Urine Ketones Negative (Negative) mg/dL Urine Blood Negative (Negative) Urine Nitrite Negative (Negative) Ur Leukocyte Esterase Negative (Negative) Urine Opiates Screen Not Detected (Not Detect) Urine Fentanyl Screen Not Detected (Not Detect) Ur Barbiturates Screen Not Detected (Not Detect) Ur Phencyclidine Scrn Not Detected (Not Detect) Ur Amphetamines Screen Not Detected (Not Detect) U Benzodiazepines Scrn Not Detected (Not Detect) Urine Cocaine Screen Not Detected (Not Detect) U Marijuana (THC) Screen Not Detected (Not Detect) Ethyl Alcohol mg/dL 02/23/22 Range/Units 20:02 WBC RBC Hgb Hct MCV MCH MCHC RDW Plt Count MPV Immature Gran % (Auto) Neut % (Auto) Lymph % (Auto) [place] % (Auto) Eos % (Auto) Baso % (Auto) Lymph # (Auto) [place] # (Auto) Eos # (Auto) Baso # (Auto) Abs Immat Gran (auto) Absolute Neuts (auto) Absolute Nucleated RBC Nucleated RBC % (auto) Sodium 139 (135-145) mmol/L Potassium 4.4 (3.3-5.1) mmol/L Chloride 108 (96-108) mmol/L Carbon Dioxide 17 L (22-29) mmol/L Anion Gap 18 (12-20) BUN 13 (9-16) mg/dL Creatinine 0.79 (0.5-1.4) mg/dL Estim Creat Clear Calc 136.7 Estimated GFR > 60 Random Glucose 104 (60-115) mg/dL Calcium 9.3 D (8.4-10.2) mg/dL Magnesium 2.2 (1.6-2.6) mg/dL Total Bilirubin 0.2 (0.0-1.0) mg/dL Direct Bilirubin < 0.2 (0.0-0.5) mg/dL AST 33 (5-37) U/L ALT 24 (0-40) U/L Alkaline Phosphatase 63 (39-117) U/L Total Protein 7.7 (6.5-8.0) g/dL Albumin 4.7 (3.5-5.0) g/dL Lipase 47 (8-78) U/L Urine Color Urine Appearance Urine pH (5.0-9.0) Ur Specific [place] (1.005-1.025) Urine Protein (Neg-Trace) mg/dL Urine Glucose (UA) (Negative) mg/dL Urine Ketones (Negative) mg/dL Urine Blood (Negative) Urine Nitrite (Negative) Ur Leukocyte Esterase (Negative) Urine Opiates Screen (Not Detect) Urine Fentanyl Screen (Not Detect) Ur Barbiturates Screen (Not Detect) Ur Phencyclidine Scrn (Not Detect) Ur Amphetamines Screen (Not Detect) U Benzodiazepines Scrn (Not Detect) Urine Cocaine Screen (Not Detect) U Marijuana (THC) Screen (Not Detect) Ethyl Alcohol 190 mg/dL <OTTO Duggan - Last Filed: 02/24/22 09:11> Discharge Plan Discharge Clinical Impression: Alcoholic intoxication, Abdominal pain, Depressed <OTTO Mcgregor - Last Filed: 02/23/22 17:23> Patient Disposition: Still a Patient <OTTO Mcgregor - Last Filed: 02/23/22 17:23> Prescriptions: No Action clonazepam 0.5 mg tablet 1 tab PO BID PRN (Reason: anxiety) loratadine 10 mg tablet 1 tab PO DAILY PRN (Reason: allergies) nicotine 14 mg/24 hr patch 24 hour 1 patch topical DAILY albuterol sulfate [ProAir HFA] 90 mcg/actuation HFA aerosol inhaler 2 puff inhalation Q4-6H PRN (Reason: wheezing) clonidine HCl 0.1 mg Tablet 0.1 mg PO TID PRN (Reason: anxiety) Qty: 90 0RF Protocol: Hold for SBP< HOLD for SBP < : 90 gabapentin 600 mg Tablet 600 mg PO TID Qty: 90 0RF amlodipine 10 mg Tablet 10 mg PO DAILY Qty: 30 0RF Protocol: Hold for SBP< HOLD for SBP < : 90 multivitamin [Daily-Lanie] Tablet 1 tab PO DAILY Qty: 30 0RF venlafaxine 75 mg Capsule,Extended Release 24hr 75 mg PO DAILY Qty: 30 0RF naltrexone 50 mg Tablet 50 mg PO DAILY Qty: 30 0RF hydroxyzine HCl 50 mg Tablet 50 mg PO Q6H PRN (Reason: Anxiety) Qty: 30 0RF folic acid 1 mg Tablet 1 mg PO DAILY Qty: 30 0RF thiamine mononitrate (vit B1) 100 mg Tablet 100 mg PO DAILY Qty: 30 0RF dextroamphetamine-amphetamine 10 mg tablet 1 tab PO DAILY@1200 ziprasidone HCl 60 mg capsule 1 cap PO BID Vyvanse 40 mg capsule 1 cap PO DAILY trazodone 100 mg tablet 200 mg PO BEDTIME <OTTO Mcgregor - Last Filed: 02/23/22 17:23> Interventions: Lamb-Suicide Risk Severity Scale Last Done: 02/23/22 23:55 <OTTO Mcgregor - Last Filed: 02/23/22 17:23>
[2022-02-23 15:07] VITALS: BP 137/83; BP 150/86; PULSE 61; PULSE 69; RESP 17; TEMP 36.7; O2SAT 93; O2SAT 97; BMI 22.4
[2022-02-23 16:25] LABS: Appearance Urine Clear; Color Urine Yellow; Glucose Urine UA Negative (Negative); Leukocyte Esterase Urine Negative (Negative); Nitrite Urine Negative (Negative); PH 5.5 (5.0-9.0); Specific Gravity - Urine <= 1.005 (1.005-1.025); Urine Blood Negative (Negative); Urine Ketones Negative (Negative); Urine Protein Negative (Neg-Trace)
[2022-02-23 16:33] LABS: Amphetamine Screen Urine Not Detected (Not Detect); Barbiturates, Urine Not Detected (Not Detect); Benzodiazepines Screen Urine Not Detected (Not Detect); Cannabinoid Screen Urine Not Detected (Not Detect); Cocaine Screen Urine Not Detected (Not Detect); Fentanyl, urine Not Detected (Not Detect); Opiate Screen Urine Not Detected (Not Detect); Phencyclidine Screen Urine Not Detected (Not Detect)
--- NOTE | 2022-02-23 16:56 | PC.NURSE ---
pt refused blood work despite t/w explanation of importance. tesfaye bolden.
[2022-02-23 19:23] VITALS: BP 115/61; PULSE 61; RESP 17; TEMP 36.9; O2SAT 97
[2022-02-23 20:29] LABS: Alanine Aminotransferase 24 U/L (0-40); Albumin Level 4.7 g/dL (3.5-5.0); Alkaline Phosphatase 63 U/L (39-117); Anion Gap 18 (12-20); Aspartate Amino Transferase 33 U/L (5-37); Bilirubin Direct < 0.2 mg/dL (0.0-0.5); Bilirubin Total 0.2 mg/dL (0.0-1.0); Blood Urea Nitrogen 13 mg/dL (9-16); Calcium 9.3 mg/dL (8.4-10.2); Carbon Dioxide 17 mmol/L (22-29); Chloride 108 mmol/L (96-108); Creatinine Clr Calc Pharmacy 136.7; Estimated Glomerular Filt Rate > 60; Ethanol 190 mg/dL; Glucose Random 104 mg/dL (60-115); Lipase 47 U/L (8-78); Magnesium 2.2 mg/dL (1.6-2.6); Potassium 4.4 mmol/L (3.3-5.1); Sodium 139 mmol/L (135-145); Total Protein 7.7 g/dL (6.5-8.0)
[2022-02-23 22:43] VITALS: BP 154/82; PULSE 65; RESP 17; O2SAT 94
--- NOTE | 2022-02-24 01:03 | MHC.CARE ---
Pt was seen by the recovery team- declined services
[2022-02-24 02:12] VITALS: BP 141/80; PULSE 96; RESP 19; TEMP 36.6; O2SAT 98
--- NOTE | 2022-02-24 03:24 | PC.NURSE ---
Pt sleeping on stretcher at this time. Respirations are even and unlabored. Recovery team spoke with pt, pt declined services, report handed off to NEO Ramirez
--- NOTE | 2022-02-24 03:24 | PC.NURSE ---
assumed care of patient. patient is sleeping. respirations are equal and unlabored. able to make needs known. will continue to round hourly..
[2022-02-24 03:51] VITALS: BP 154/82; PULSE 74; RESP 19; TEMP 36.9; O2SAT 95
[2022-02-24] MEDS: chlordiazePOXIDE HCl 25 MG CAPSULE PO ×3 (04:34→13:05)
--- NOTE | 2022-02-24 04:35 | PC.NURSE ---
CIWA score was 7. Provider made aware and librium was ordered.
--- NOTE | 2022-02-24 05:08 | PC.NURSE ---
Pt does not want to foreign exchange trader into a gown NEO Patricio made aware. Pt given ice water and blanket.
[2022-02-24 07:36] VITALS: BP 142/78; PULSE 72; RESP 14; TEMP 36.8; O2SAT 95
[2022-02-24 09:17] VITALS: BP 136/86
--- NOTE | 2022-02-24 09:38 | MHC.RECOVRN ---
This typewriter aligner met w/ pt, pt laying down, alert/oriented. Pt requesting detox. Pt states is on the Vivitrol injection, pt reports has been drinking daily past 2 weeks. Daily consumption of ETOH includes 2 pints Vodka, 6 beers. Pt reports met w/ psychiatrist yesterday, who increased Effexor from 75mg to 150mg. Pt reports feeling depressed, pt denies SI/HI. This typewriter aligner to send detox referrals.
[2022-02-24 12:06] VITALS: BP 167/87; PULSE 68; RESP 16; O2SAT 96
--- NOTE | 2022-02-24 12:51 | PC.NURSE ---
Provider Elizabeth aware of vitals and CIWA
[2022-02-24 13:04] VITALS: BP 161/81
[2022-02-24] MEDS: Acetaminophen 325 MG TABLET 975 MG PO (13:05)
[2022-02-24] MEDS: cloNIDine HCL 0.1 MG TABLET PO (13:05)
--- NOTE | 2022-02-24 14:08 | MHC.RECOVRN ---
Pt accepted at [facility] transport provided for 2:30pm Admission. ED RN and Provider aware.
== END 2022-02-24 14:44 ==
PROVIDERS: Physician Assistant; Emergency Provider Internal Medicine
DX: F10.220 Alcohol dependence with intoxication, uncomplicated (principal); Y90.6 Blood alcohol level of 120-199 mg/100 ml; F32.A Depression, unspecified; R10.9 Unspecified abdominal pain; F14.10 Cocaine abuse, uncomplicated; I10 Essential (primary) hypertension; F12.90 Cannabis use, unspecified, uncomplicated; F17.210 Nicotine dependence, cigarettes, uncomplicated; Z79.899 Other long term (current) drug therapy
CPT/HCPCS: 36415; 74176; 80048; 80076; 80307; 81003; 82077; 83690; 83735; 99285

== ENCOUNTER 2022-03-25 10:18 | Emergency (ER) | payer OTHER, SELFPAY ==
[2022-03-25 10:33] VITALS: BP 145/89; PULSE 86; RESP 18; TEMP 36.9; O2SAT 99; BMI 28.8
--- NOTE | 2022-03-25 11:05 | ED_ITS ---
HPI - Medical Clearance General Chief complaint: Medical Clearance Stated complaint: Medical Clearance Time Seen by Provider: 03/25/22 10:40 Source: patient Mode of arrival: ambulatory History of Present Illness HPI Narrative: 41-year-old male with past medical history of ETOH abuse, depression, cocaine use disorder, presenting to the ED requesting medical clearance for detox. 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 Denies other illicit substances. Admits to ?history of withdrawal seizures. Denies SI/HI, fall, trauma, CP/SOB, abdominal pain MD complaint: medical clearance requested Related Information Home Medications Medication Instructions Recorded Confirmed clonazepam 0.5 mg tablet 1 tab PO BID PRN anxiety 11/23/20 02/06/22 loratadine 10 mg tablet 1 tab PO DAILY PRN allergies 12/26/20 02/06/22 nicotine 14 mg/24 hr daily 1 patch topical DAILY 11/30/21 02/06/22 transdermal patch albuterol sulfate 90 mcg/actuation 2 puff inhalation Q4-6H PRN 12/01/21 02/06/22 aerosol inhaler (ProAir HFA) wheezing dextroamphetamine-amphetamine 10 1 tab PO DAILY@1200 01/03/22 02/06/22 mg tablet lisdexamfetamine 40 mg capsule 1 cap PO DAILY 01/03/22 02/06/22 (Vyvanse) ziprasidone HCl 60 mg capsule 1 cap PO BID 01/03/22 02/06/22 trazodone 100 mg tablet 200 mg PO BEDTIME 02/06/22 02/06/22 Previous Rx's Medication Instructions Recorded amlodipine 10 mg tablet 10 mg PO DAILY #30 tabs 12/08/21 clonidine HCl 0.1 mg tablet 0.1 mg PO TID PRN anxiety #90 tabs 12/08/21 folic acid 1 mg tablet 1 mg PO DAILY #30 tabs 12/08/21 gabapentin 600 mg tablet 600 mg PO TID #90 tabs 12/08/21 hydroxyzine HCl 50 mg tablet 50 mg PO Q6H PRN Anxiety #30 tabs 12/08/21 multivitamin (Daily-Lanie tablet) 1 tab PO DAILY #30 tabs 12/08/21 naltrexone 50 mg tablet 50 mg PO DAILY #30 tabs 12/08/21 thiamine mononitrate (vit B1) 100 100 mg PO DAILY #30 tabs 12/08/21 mg tablet venlafaxine 75 mg capsule,extended 75 mg PO DAILY #30 caps 12/08/21 release 24 hr Allergies Allergy/AdvReac Type Severity Reaction Status Date / Time lisinopril [Lisinopril] Allergy Intermediate ANGIOEDEMA Verified 12/01/21 19:41 cat dander [CATS] Allergy Mild PUFFY EYES Verified 12/01/21 19:41 olanzapine [From ZYPREXA] Allergy Unknown UNKNOWN Verified 12/01/21 19:41 Review of Systems Review of Systems: Constitutional: No Fever, No Chills, No Fatigue, No Malaise ENT/Mouth: No Ear Pain, No Nasal Congestion, No sore throat, No Rhinorrhea, No Swallowing Difficulty Eyes: No Eye Pain, No Swelling, No Redness, No Vision Changes Cardiovascular: No Chest Pain, No SOB, No Palpitations Respiratory: No Cough, No Sputum, No Dyspnea Gastrointestinal: No Nausea, No Vomiting, No Abdominal pain Musculoskeletal: No joint pain, No Myalgias, No Joint Swelling Skin: No Skin Lesions, No rash Neuro: No Weakness, No Headache Psych: No Anxiety/Panic, No Depression, No SI/HI, No Social Issues Yes all other systems are reviewed and are negative Constitutional: Constitutional: Reports as per [facility] Past Medical History Attestation statement: The following information was validated with the patient. Medical History Alcoholism HTN (hypertension) Social History Social History Household Members: Other Household Members Other:: Pt reports gf kicked him out and he is currently homeless. Housing: Other Do you presently have visiting nurse or other home services: No Alcohol intake: current Alcohol intake frequency: 3 or more drinks per day Alcohol type: beer and hard liquor Patient Tobacco Use Status: Current everyday Tobacco user Tobacco use type: Cigarette Cigarette Packs Per Day: 0.5 Cigarettes Per Day: 10.0 Years Smoked: 12 e-Cigarette/Vaping Use: Former Use Second Hand Smoke Exposure: No Substance Use Type: Crack/Cocaine, Marijuana and Caffiene Advance Directives: No Advance Directives Information Provided: Yes service: No Sexual orientation: Straight/Heterosexual Physical Exam Vital Signs: Vital Signs: Last Vital Signs Temp 98.4 F 03/25/22 10:33 Pulse 86 03/25/22 10:33 Resp 18 03/25/22 10:33 BP 145/89 H 03/25/22 10:33 Pulse Ox 99 03/25/22 10:33 O2 Del Method 03/25/22 10:33 BMI result Body Mass Index 28.8 Const: Other: + EtOH odor on breath General: cooperative, no acute distress and intoxicated appearing Orientation/consciousness: patient oriented x3 HEENT: Head: Yes normal to inspection and Yes atraumatic Ears: hearing grossly normal bilaterally General nose exam: Normal external nose present Face and sinus: Yes normal facial exam Throat: Yes posterior oropharynx normal Eyes: General: appearance normal, both eyes and all related structures Pupils: Equal, round and reactive pupils present EOM: EOMs intact bilaterally Neck: Neck: Yes normal visual inspection and Yes no meningeal signs Resp: Effort & Inspection: normal respiratory effort and no respiratory distress Auscultation: clear to auscultation bilaterally, no crackles and no rales Cardio: Rate: regular rate Heart sounds: S1 normal heart sound present and S2 normal heart sound present GI: Inspection: Yes normal to inspection Palpation (GI): Soft to palpation, nontender and no guarding Skin: Rashes: no rashes Wounds: no wounds Neuro: General: patient oriented x3, gait normal, tone normal, moves all extremities, no meningeal signs, no focal motor deficits and CN's II-XI intact bilaterally Cranial nerves: Yes Equal, round and reactive pupils present Gait exam (Neuro): Normal gait present Extrem: General: Yes normal to inspection Psych: Thought content: suicidality and no homicidality Course Course Course Narrative: -tox screen positive for fentanyl, amphetamines, cocaine, and THC. -Ethanol 236 -COVID-19 and influenza negative -patient was seen by women's swim coach & there no beds available at [facility], will try [facility] -[id number]--patient has been sleeping comfortably on re-evaluation [id number]--no available beds at [facility] either. Discussed with data recovery planner and likely patient will have better luck tomorrow with [facility]. This was discussed with patient, he opted to be discharged and return tomorrow to try again. I discussed with patient he should call [facility] tomorrow on his own Patient is clinically sober, ambulating with steady gait. Results discussed with patient including worrisome signs and symptoms and strict return precautions, and when to return to the emergency department. They verbalized understanding and feel safe for discharge at this time. Medical Decision Making Medical Decision Making MDM Narrative: 41-year-old male with past medical history of ETOH abuse, depression, cocaine use disorder, presenting to the ED requesting medical clearance for detox. 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 On exam vital signs stable, NAD, intoxicated/EtOH odor on breath, ambulating with steady gait, no evidence of trauma. Concern for ETOH intoxication/dependence and substance abuse Plan: COVID-19/influenza testing, ethanol, [place], recovery Consult Differential Diagnosis Differential Diagnoses: The differential diagnosis associated with the presentation includes As above Consult Healthcare Provider Management of the patient was discussed with: Behavioral Health Provider Lab Data Labs: Lab Results 03/25/22 03/25/22 03/25/22 Range/Units 12:19 12:19 12:19 Urine Opiates Screen (Not Detect) Urine Fentanyl Screen (Not Detect) Ur Barbiturates Screen (Not Detect) Ur Phencyclidine Scrn (Not Detect) Ur Amphetamines Screen (Not Detect) U Benzodiazepines Scrn (Not Detect) Urine Cocaine Screen (Not Detect) U Marijuana (THC) Screen (Not Detect) Ethyl Alcohol 236 mg/dL COVID-19 ([facility]) Negative (Negative) COVID-19 Clin Com See Note Influenza Type A (ERASMO) Negative (Negative) Influenza Type B (ERASMO) Negative (Negative) Influenza A & B Note See Note 03/25/22 Range/Units 12:31 Urine Opiates Screen Not Detected (Not Detect) Urine Fentanyl Screen POSITIVE H (Not Detect) Ur Barbiturates Screen Not Detected (Not Detect) Ur Phencyclidine Scrn Not Detected (Not Detect) Ur Amphetamines Screen POSITIVE H (Not Detect) U Benzodiazepines Scrn Not Detected (Not Detect) Urine Cocaine Screen POSITIVE H (Not Detect) U Marijuana (THC) Screen POSITIVE H (Not Detect) Ethyl Alcohol mg/dL COVID-19 ([facility]) (Negative) COVID-19 Clin Com Influenza Type A (ERASMO) (Negative) Influenza Type B (ERASMO) (Negative) Influenza A & B Note Discharge Plan Discharge Clinical Impression: Alcohol abuse, Alcohol intoxication, Active substance abuse Patient Disposition: Still a Patient Instructions: Abuse of Alcohol (ED), Polysubstance Abuse (ED) Additional Instructions: Do not do drugs or drink alcohol this can kill you Prescriptions: No Action clonazepam 0.5 mg tablet 1 tab PO BID PRN (Reason: anxiety) loratadine 10 mg tablet 1 tab PO DAILY PRN (Reason: allergies) nicotine 14 mg/24 hr patch 24 hour 1 patch topical DAILY albuterol sulfate [ProAir HFA] 90 mcg/actuation HFA aerosol inhaler 2 puff inhalation Q4-6H PRN (Reason: wheezing) clonidine HCl 0.1 mg Tablet 0.1 mg PO TID PRN (Reason: anxiety) Qty: 90 0RF Protocol: Hold for SBP< HOLD for SBP < : 90 gabapentin 600 mg Tablet 600 mg PO TID Qty: 90 0RF amlodipine 10 mg Tablet 10 mg PO DAILY Qty: 30 0RF Protocol: Hold for SBP< HOLD for SBP < : 90 multivitamin [Daily-Lanie] Tablet 1 tab PO DAILY Qty: 30 0RF venlafaxine 75 mg Capsule,Extended Release 24hr 75 mg PO DAILY Qty: 30 0RF naltrexone 50 mg Tablet 50 mg PO DAILY Qty: 30 0RF hydroxyzine HCl 50 mg Tablet 50 mg PO Q6H PRN (Reason: Anxiety) Qty: 30 0RF folic acid 1 mg Tablet 1 mg PO DAILY Qty: 30 0RF thiamine mononitrate (vit B1) 100 mg Tablet 100 mg PO DAILY Qty: 30 0RF dextroamphetamine-amphetamine 10 mg tablet 1 tab PO DAILY@1200 ziprasidone HCl 60 mg capsule 1 cap PO BID Vyvanse 40 mg capsule 1 cap PO DAILY trazodone 100 mg tablet 200 mg PO BEDTIME [facility]errals: [facility] [Provider Group]
[2022-03-25 12:42] LABS: COVID-19 Test Negative (Negative); IDNOW Serial# 9DB6401D
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
[2022-03-25 12:51] LABS: Amphetamine Screen Urine POSITIVE (Not Detect); Barbiturates, Urine Not Detected (Not Detect); Benzodiazepines Screen Urine Not Detected (Not Detect); Cannabinoid Screen Urine POSITIVE (Not Detect); Cocaine Screen Urine POSITIVE (Not Detect); Fentanyl, urine POSITIVE (Not Detect); Opiate Screen Urine Not Detected (Not Detect); Phencyclidine Screen Urine Not Detected (Not Detect)
[2022-03-25 12:53] LABS: Ethanol 236 mg/dL
[2022-03-25 13:13] LABS: Influenza A Negative (Negative); Influenza B2 Negative (Negative)
--- NOTE | 2022-03-25 14:24 | MHC.RECOVRN ---
[facility] now does not have a bed available. Pt is now open to [facility]. Referral has been sent.
--- NOTE | 2022-03-25 16:11 | MHC.RECOVRN ---
Still awaiting review re [facility].
== END 2022-03-25 17:00 | disposition home or self-care (01) ==
PROVIDERS: Physician Assistant; Emergency Provider Student in an Organized Health Care Education/Training Program
DX: F10.129 Alcohol abuse with intoxication, unspecified (principal); Y90.7 Blood alcohol level of 200-239 mg/100 ml; F11.10 Opioid abuse, uncomplicated; F14.10 Cocaine abuse, uncomplicated; Z20.822 Contact with and (suspected) exposure to COVID-19; Z79.899 Other long term (current) drug therapy
CPT/HCPCS: 80307; 82077; 87502; 87635; 99282; 99284

== ENCOUNTER 2023-01-04 15:26 | Emergency (ER) | payer MEDICAID, SELFPAY ==
[2023-01-04 15:31] VITALS: BP 150/100; PULSE 86; O2SAT 97
[2023-01-04 15:50] VITALS: BP 131/73; PULSE 77; RESP 18; TEMP 37.2; O2SAT 93; BMI 23.1
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
--- NOTE | 2023-01-04 16:11 | MHC.CM.ED ---
Addendum entered by Sandra Gonzalez 01/04/23 16:17: Received return telephone call from [facility] wound clinic. They will reach out to the patient to arrange an outpatient appointment. Dr Mcdonald made aware. Original Note: Received consult from Dr Mcdonald requesting follow up appointment at [facility] Wound [facility]. Attempted to reach [facility]. Left voicemail with patient's name, and telephone information. Waiting for call back. Dr Mcdonald aware.
--- NOTE | 2023-01-04 16:21 | MHC.RECOVSUP ---
Addendum entered by Juwan De Guzman 01/04/23 18:38: no beds at [facility] and pt escorted out by security before the bed search continued. Original Note: Met with pt in ED22H who is here for RADHA. Pt reports drinking about 3 pints of alcohol a day and was last in ATS at [facility] not long ago. Pt is not on MAT and is currently only interested in going to [facility] for ATS. ATS bed search in process.
[2023-01-04 16:28] LABS: PLT CLUMP 1; SCAN SMEAR FLAG 1
[2023-01-04 16:30] LABS: Basophils Absolute Auto 0.1 X10*3/uL (0.0-0.2); Basophils Percent Auto 0.5 % (0-2); Eosinophils Absolute Auto 0.2 X10*3/uL (0.0-0.4); Eosinophils Percent Auto 2.1 % (0-4); Hemoglobin 12.6 g/dl (14.0-18.0); MANUAL DIFF FLAG SCAN; Mean Corpuscular HGB Conc 31.5 g/dl (31.0-36.0); Mean Corpuscular Hemoglobin 28.1 pg (27.0-33.0); Mean Corpuscular Volume 89.3 fL (80.0-98.0); Monocytes Absolute Auto 0.6 X10*3/uL (0.1-1.2); Monocytes Percent Auto 5.6 % (2-11); Neutrophils Absolute Auto 6.4 x10*3/uL (2.0-8.3); Neutrophils Percent Auto 61.8 % (45-73); Red Blood Count 4.48 X10*6/uL (4.60-5.80); Red Cell Distribution Width 14.8 % (11.0-16.0)
[2023-01-04 16:43] LABS: Alanine Aminotransferase 37 U/L (0-40); Albumin Level 3.7 g/dL (3.5-5.0); Alkaline Phosphatase 98 U/L (39-117); Anion Gap 18 (12-20); Aspartate Amino Transferase 46 U/L (5-37); Bilirubin Total 0.2 mg/dL (0.0-1.0); Blood Urea Nitrogen 7 mg/dL (9-16); Calcium 8.9 mg/dL (8.4-10.2); Carbon Dioxide 20 mmol/L (22-29); Chloride 108 mmol/L (96-108); Creatinine Clr Calc Pharmacy 146.6; Estimated Glomerular Filt Rate > 60; Ethanol 246 mg/dL; Glucose Random 116 mg/dL (60-115); Potassium 3.7 mmol/L (3.3-5.1); Sodium 142 mmol/L (135-145); Total Protein 7.2 g/dL (6.5-8.0)
[2023-01-04 16:53] LABS: Platelet Count 246 X10*3/uL (160-400); White Blood Count 10.4 X10*3/uL (4.8-10.8)
[2023-01-04 16:54] LABS: SLIDE REVIEW VERIFIED
--- NOTE | 2023-01-04 17:42 | PC.NURSE ---
Pt refusing xray, and demanding staff to get him something to drink/eat/get his medications/ get his cloths. Pt began to escalate in behaviors, belongings given back to patients. Pt escorted out of ED by security. .
== END 2023-01-04 17:52 | disposition home or self-care (01) ==
PROVIDERS: Emergency Provider Emergency Medicine; PCP Internal Medicine
DX: S51.002A Unspecified open wound of left elbow, initial encounter (principal); F10.129 Alcohol abuse with intoxication, unspecified; M25.522 Pain in left elbow; Y90.8 Blood alcohol level of 240 mg/100 ml or more; F14.90 Cocaine use, unspecified, uncomplicated; F17.210 Nicotine dependence, cigarettes, uncomplicated; F12.90 Cannabis use, unspecified, uncomplicated; W26.0XXA Contact with knife, initial encounter; Y93.9 Activity, unspecified; Y92.9 Unspecified place or not applicable; Y99.9 Unspecified external cause status; Z71.41 Alcohol abuse counseling and surveillance of alcoholic; Z79.899 Other long term (current) drug therapy; Z71.6 Tobacco abuse counseling; Z59.00 Homelessness unspecified
CPT/HCPCS: 36415; 80053; 80307; 85025; 99282; 99283

== ENCOUNTER 2023-01-10 07:42 | Emergency (ER) | payer MEDICAID, SELFPAY ==
[2023-01-10 08:17] VITALS: BP 150/79; PULSE 85; RESP 16; TEMP 36.8; O2SAT 96; BMI 33.8
--- NOTE | 2023-01-10 08:34 | ED.GENADULT ---
HPI - General Adult General Chief complaint: General Medical Stated complaint: COVID/Nausea Vomiting Time Seen by Provider: 01/10/23 08:34 Source: patient, RN notes reviewed and old records reviewed Mode of arrival: ambulatory Limitations: no limitations History of Present Illness HPI narrative: 42-year-old male with PMHx significant for HTN, MDD, cocaine use disorder, alcohol use disorder presents to the ED today with a complaint of ACKERMAN, N/V, diarrhea, hot/cold sweats and body aches after testing positive for COVID yesterday at [facility] detox center. Patient reports routine testing for COVID after and another patient at the detox center tested positive for COVID. Patient was started on Paxlovid and reports taking 2 doses of this. Reports mild headache and N/V yesterday (no episodes today), and loose stools. Admits to leaving the detox center yesterday because it was too crowded and being kicked out of his home yesterday by his girlfriend. States he has nowhere to go. Endorses cocaine use, last used Monday (3 days ago) along with EtOH consumption, reports drinking half pint of vodka last night. Admits to history of alcohol withdrawal seizures. Not seeking detox at this time. Denies fever, chills, tremors, neck pain, cough, chest pain, palpitations, shortness of breath, wheezing, dyspnea, hemoptysis, hematemesis, hematochezia, constipation, dysuria, or hematuria. Related Data Home Medications Medication Instructions Recorded Confirmed clonazepam 0.5 mg tablet 1 tab PO BID PRN anxiety 11/23/20 02/06/22 loratadine 10 mg tablet 1 tab PO DAILY PRN allergies 12/26/20 02/06/22 nicotine 14 mg/24 hr daily 1 patch topical DAILY 11/30/21 02/06/22 transdermal patch albuterol sulfate 90 mcg/actuation 2 puff inhalation Q4-6H PRN 12/01/21 02/06/22 aerosol inhaler (ProAir HFA) wheezing dextroamphetamine-amphetamine 10 1 tab PO DAILY@1200 01/03/22 02/06/22 mg tablet lisdexamfetamine 40 mg capsule 1 cap PO DAILY 01/03/22 02/06/22 (Vyvanse) ziprasidone HCl 60 mg capsule 1 cap PO BID 01/03/22 02/06/22 trazodone 100 mg tablet 200 mg PO BEDTIME 02/06/22 02/06/22 Previous Rx's Medication Instructions Recorded amlodipine 10 mg tablet 10 mg PO DAILY #30 tabs 12/08/21 clonidine HCl 0.1 mg tablet 0.1 mg PO TID PRN anxiety #90 tabs 12/08/21 folic acid 1 mg tablet 1 mg PO DAILY #30 tabs 12/08/21 gabapentin 600 mg tablet 600 mg PO TID #90 tabs 12/08/21 hydroxyzine HCl 50 mg tablet 50 mg PO Q6H PRN Anxiety #30 tabs 12/08/21 multivitamin (Daily-Lanie tablet) 1 tab PO DAILY #30 tabs 12/08/21 naltrexone 50 mg tablet 50 mg PO DAILY #30 tabs 12/08/21 thiamine mononitrate (vit B1) 100 100 mg PO DAILY #30 tabs 12/08/21 mg tablet venlafaxine 75 mg capsule,extended 75 mg PO DAILY #30 caps 12/08/21 release 24 hr cephalexin 500 mg capsule 500 mg PO Q8H #21 caps 01/04/23 Allergies Allergy/AdvReac Type Severity Reaction Status Date / Time lisinopril [Lisinopril] Allergy Intermediate ANGIOEDEMA Verified 12/01/21 19:41 cat dander [CATS] Allergy Mild PUFFY EYES Verified 12/01/21 19:41 olanzapine [From ZYPREXA] Allergy Unknown UNKNOWN Verified 12/01/21 19:41 divalproex sodium Allergy Angioedema Verified 01/04/23 15:53 [From Depakote] Review of Systems Review of Systems: Constitutional: No fever, +chills, No fatigue, night sweats, weight changes, +body aches ENT/Mouth: No ear pain, hearing loss, nasal congestion, sinus pain, rhinorrhea, sore throat Eyes: No eye pain, swelling, redness, vision changes, discharge Cardio: No chest pain, palpitations, DANIELSON, orthopnea, peripheral edema Pulm: No SOB, cough, sputum, wheezing, dyspnea, hemoptysis GI: +nausea, +vomiting, No hematemesis, No abdominal pain, +diarrhea, No constipation, hematochezia, melena : No irregular bleeding, dysuria, frequency, urgency, hesitancy, hematuria, flank pain, urinary flow changes, urinary incontinence or retention MSK: No back pain, neck pain, joint pain, myalgias Skin: No lesions, rashes Neuro: No weakness, numbness, paresthesias, LOC, dizziness, headache All other systems reviewed and are negative. [facility] Past Medical History Attestation statement: The following information was validated with the patient. Source: old records reviewed and nursing notes reviewed Medical History HTN (hypertension) Alcoholism Social History Social History Household Members: Other Household Members Other:: Pt reports gf kicked him out and he is currently homeless. Housing: Other Do you presently have visiting nurse or other home services: No Alcohol intake: current Alcohol intake frequency: 3 or more drinks per day Alcohol type: beer and hard liquor Patient Tobacco Use Status: Current everyday Tobacco user Tobacco use type: Cigarette Cigarette Packs Per Day: 0.5 Cigarettes Per Day: 10.0 Years Smoked: 12 Smoked in Last 30 Days: Yes e-Cigarette/Vaping Use: Former Use Second Hand Smoke Exposure: No Substance Use Type: Marijuana Advance Directives: No Advance Directives Information Provided: No service: No Sexual orientation: Straight/Heterosexual Physical Exam ED Vital Signs: Vital Signs - 24 hr 01/10/23 08:17 01/10/23 08:37 Temperature 98.3 F 98.0 F Pulse Rate 85 68 Respiratory Rate 16 16 Blood Pressure 150/79 H 141/75 H Pulse Oximetry 96 96 Oxygen Delivery Method Room Air Room Air BMI result Body Mass Index 33.8 Vital signs are stable. Patient afebrile, normotensive, tachycardic. Const General: cooperative, no acute distress, alert and awake Orientation/consciousness: patient oriented x3 Limitations: no limitations HENMT Head: Yes normal to inspection, Yes normocephalic and Yes atraumatic Ears: hearing grossly normal bilaterally, external ears normal and TM's normal bilaterally General nose exam: Normal external nose present Mouth: Normal oral and palatal mucosa present and moist mucous membranes Throat: Yes posterior oropharynx normal, Yes tonsils normal and Yes uvula midline Eyes General: appearance normal, both eyes and all related structures Conjunctivae: conjunctivae normal Sclerae: sclerae normal Pupils: Equal, round and reactive pupils present EOM: EOMs intact bilaterally Neck Neck: Yes normal visual inspection, Yes no lymphadenopathy and Yes no meningeal signs Resp Effort & Inspection: normal respiratory effort, able to speak in complete sentences and no respiratory distress Auscultation: clear to auscultation bilaterally, no crackles, no rales, no rhonchi and no wheezes Cardio Rate: regular rate Rhythm: regular rhythm Peripheral pulses: radial pulses present GI Other: Abdomen soft, nondistended, nontender, no rebound tenderness or guarding, normoactive bowel sounds throughout. Inspection: Yes normal to inspection General: Yes no CVA tenderness Back/Spine/Pelvis Other: No midline spinal tenderness, no paraspinal muscle tenderness, no step-off or deformity. Back: no CVA tenderness Skin General skin exam: no rashes or lesions noted and turgor normal Neuro Other: No tongue fasciculations. General: patient oriented x3, gait normal, moves all extremities, no meningeal signs and Unable to assess gait Cranial nerves: Yes CN's II-XII intact bilaterally, Yes Equal, round and reactive pupils present and Yes Nystagmus not present Gait exam (Neuro): Unable to assess gait Extrem Other: + there is a chronic healing wound to the dorsal aspect of the left elbow. There is no drainage. There is no surrounding erythema or warmth. There is no joint edema erythema or tenderness. General: Yes capillary refill normal and Yes no clubbing, cyanosis or edema Course Course Course Narrative: CBC with mild leukocytosis to 12.1 without left shift which appears to be patient's baseline when compared to previous. BUN 8 > patient receiving fluids. Liver enzymes are mildly elevated secondary to chronic alcohol use. Ethanol negative. CIWA 0. > I discussed unremarkable lab workup with patient. Patient's symptoms are consistent with COVID. I informed him that because he tested positive for COVID yesterday he must quarantine for at least 5 days and wear mask. I advised him that he may continue taking the Palovid that was prescribed to him by the detox center. He is afebrile in the ED but I informed him he may take ibuprofen and Tylenol as needed for body aches and fevers at home. Patient is not hypoxic. He is tolerating Gatorade in ED. He is still declining detox. He expresses understanding with plan. All questions answered at this time. Patient agreeable with disposition and stable for discharge. Medications Administered Discontinued Medications Generic Name Dose Route Start Last Admin Trade Name Freq PRN Reason Stop Dose Admin Sodium Chloride 1,000 mls @ 999 mls/hr 01/10/23 08:45 01/10/23 10:43 Ns IV 01/10/23 09:45 Infused .Q1H1M GABRIELLE Infusion Medical Decision Making Medical Decision Making [facility] Narrative: 42-year-old male with PMHx significant for HTN, MDD, cocaine use disorder, alcohol use disorder presents to the ED today with a complaint of ACKERMAN, N/V, diarrhea, hot/cold sweats and body aches after testing positive for COVID yesterday at [facility]. Vital signs stable, afebrile, not hypoxic. Patient nontoxic appearing and in no acute distress. There are no signs of acute alcohol withdrawal. RRR. Lungs are CTA bilaterally. There is a chronic, well-healed wound to the dorsal aspect of his left elbow without necrosis, discharge or surrounding erythema. Exam is nonfocal. Concern for COVID/ viral syndrome, acute etoh intoxication, etoh withdrawal, polysubstance use. Unlikely GERD, pneumonia, ACS or coronary vasospasm, appendicitis, pancreatitis, cholecystitis, diverticulitis, or acute abdomen. Plan at this time is to obtain basic labs, IV fluids, CIWA, and re-evaluation. Differential Diagnosis Differential Diagnoses: The differential diagnosis associated with the presentation includes As above. Admission/Observation Not indicated. Lab Data [facility] Lab Attestation statement: I reviewed the patient's lab results. As above. 01/10/23 09:31 01/10/23 09:31 Labs: Lab Results 01/10/23 Range/Units 09:31 WBC 12.0 H (4.8-10.8) X10*3/uL RBC 4.22 L (4.60-5.80) X10*6/uL Hgb 12.1 L (14.0-18.0) g/dl Hct 36.3 L (42.0-52.0) % MCV 86.0 (80.0-98.0) fL MCH 28.7 (27.0-33.0) pg MCHC 33.3 (31.0-36.0) g/dl RDW 15.0 (11.0-16.0) % Plt Count 336 D (160-400) X10*3/uL MPV 9.4 (9.4-12.4) fL Immature Gran % (Auto) 1.0 H (0.0-0.4) % Neut % (Auto) 74.0 H (45-73) % Lymph % (Auto) 15.2 L (20-40) % [place] % (Auto) 7.1 (2-11) % Eos % (Auto) 2.3 (0-4) % Baso % (Auto) 0.4 (0-2) % Lymph # (Auto) 1.8 (1.2-4.9) X10*3/uL [place] # (Auto) 0.9 (0.1-1.2) X10*3/uL Eos # (Auto) 0.3 (0.0-0.4) X10*3/uL Baso # (Auto) 0.1 (0.0-0.2) X10*3/uL Abs Immat Gran (auto) 0.12 H (0.00-0.03) X10*3/uL Absolute Neuts (auto) 8.8 H (2.0-8.3) x10*3/uL Absolute Nucleated RBC 0.000 (0.0-0.012) X10*3/uL Nucleated RBC % (auto) 0.0 (0.0-0.2) /100WBC Sodium 137 (135-145) mmol/L Potassium 4.0 (3.3-5.1) mmol/L Chloride 105 (96-108) mmol/L Carbon Dioxide 22 (22-29) mmol/L Anion Gap 14 (12-20) BUN 8 L (9-16) mg/dL Creatinine 0.70 (0.5-1.4) mg/dL Estim Creat Clear Calc 171.6 Estimated GFR > 60 Random Glucose 89 (60-115) mg/dL Calcium 9.1 (8.4-10.2) mg/dL Magnesium 2.1 (1.6-2.6) mg/dL Total Bilirubin 0.3 (0.0-1.0) mg/dL AST 64 H (5-37) U/L ALT 73 H (0-40) U/L Alkaline Phosphatase 83 (39-117) U/L Total Protein 7.1 (6.5-8.0) g/dL Albumin 3.8 (3.5-5.0) g/dL Lipase 23 (8-78) U/L Ethyl Alcohol < 10 mg/dL External Record Review External record reviewed: Inpatient record, Office record, Outpatient record, Prior outpatient labs, Prior outpatient radiology, Primary care record and Outside ED record Tests considered The following testing was considered but not selected: I considered obtaining a CT abdomen and pelvis however abdomen is soft, non distended and nontender to palpation with normoactive bowel sounds. Unlikely acute abdomen. Prescription Management I considered prescription management with: Pain Medication Chronic Conditions Patient?s care impacted by: Other (Cocaine use disorder, ETOH use disorder) Social Determinants Patient?s care significantly limited by Social Determinants of Health including: Inadequate housing, Problems related to primary support group and Other Social Determinant of Health Critical Care Time Critical Care Time Critical Care Time: No Discharge Plan Discharge Clinical Impression: COVID-19 Patient Disposition: Home, Self-Care Instructions: Covid-19 Viral Syndrome and Novel Coronavirus (ED) Hey/Ath Additional Instructions: You tested positive for COVID yesterday. Your labs were normal today. You received IV fluids. Take Ibuprofen or Tylenol as needed for fevers or body aches.? You may continue taking Paxlovid that has been prescribed to you. Quarantine for 5 days and ensure you wear a mask. After 5 days you should wear a mask for 5 days after that.? Practice social distancing and good hand hygiene. Drink plenty of fluids. Follow-up with your primary care provider this week. Return to the emergency department with new or worsening symptoms. In case of emergency call 911 You can purchase a pulse oximeter from your local pharmacy or grocery store, and monitor your oxygen saturation if it goes below 94% you should return to the emergency department for further evaluation. Prescriptions: No Action clonazepam 0.5 mg tablet 1 tab PO BID PRN (Reason: anxiety) loratadine 10 mg tablet 1 tab PO DAILY PRN (Reason: allergies) nicotine 14 mg/24 hr patch 24 hour 1 patch topical DAILY albuterol sulfate [ProAir HFA] 90 mcg/actuation HFA aerosol inhaler 2 puff inhalation Q4-6H PRN (Reason: wheezing) clonidine HCl 0.1 mg Tablet 0.1 mg PO TID PRN (Reason: anxiety) Qty: 90 0RF Protocol: Hold for SBP< HOLD for SBP < : 90 gabapentin 600 mg Tablet 600 mg PO TID Qty: 90 0RF amlodipine 10 mg Tablet 10 mg PO DAILY Qty: 30 0RF Protocol: Hold for SBP< HOLD for SBP < : 90 multivitamin [Daily-Lanie] Tablet 1 tab PO DAILY Qty: 30 0RF venlafaxine 75 mg Capsule,Extended Release 24hr 75 mg PO DAILY Qty: 30 0RF naltrexone 50 mg Tablet 50 mg PO DAILY Qty: 30 0RF hydroxyzine HCl 50 mg Tablet 50 mg PO Q6H PRN (Reason: Anxiety) Qty: 30 0RF folic acid 1 mg Tablet 1 mg PO DAILY Qty: 30 0RF thiamine mononitrate (vit B1) 100 mg Tablet 100 mg PO DAILY Qty: 30 0RF dextroamphetamine-amphetamine 10 mg tablet 1 tab PO DAILY@1200 ziprasidone HCl 60 mg capsule 1 cap PO BID Vyvanse 40 mg capsule 1 cap PO DAILY trazodone 100 mg tablet 200 mg PO BEDTIME cephalexin 500 mg capsule 500 mg PO Q8H Qty: 21 0RF Referrals: Mohit Brunner MD [Primary Care Provider] - Interventions: ED Discharge Assessment Last Done: 01/10/23 10:42 Discharge Date/Time: 01/10/23 11:21
[2023-01-10 08:37] VITALS: BP 141/75; PULSE 68; RESP 16; TEMP 36.7; O2SAT 96
--- NOTE | 2023-01-10 08:46 | PC.NURSE ---
Patient reports that he was at detox for 3 days. Reports on the 3rd day he had body aches and chills. Reports tested positive for COVID yesterday and then was discharged from detox. Reports that upon discharge he went home and drank ETOH to warm up . Reports feels worse today despite taking x 2 doses of paxlovid. Denies chest pain or sob.
[2023-01-10] MEDS: 0.9 % Sodium Chloride 1,000 ML 999 ML IV (09:30)
[2023-01-10 09:36] LABS: MANUAL DIFF FLAG NO
[2023-01-10 09:37] LABS: Basophils Absolute Auto 0.1 X10*3/uL (0.0-0.2); Basophils Percent Auto 0.4 % (0-2); Eosinophils Absolute Auto 0.3 X10*3/uL (0.0-0.4); Eosinophils Percent Auto 2.3 % (0-4); Hematocrit 36.3 % (42.0-52.0); Hemoglobin 12.1 g/dl (14.0-18.0); Imm Gran Abs Auto 0.12 X10*3/uL (0.00-0.03); Lymphocytes Absolute Auto 1.8 X10*3/uL (1.2-4.9); Lymphocytes Percent Auto 15.2 % (20-40); Mean Corpuscular HGB Conc 33.3 g/dl (31.0-36.0); Mean Corpuscular Hemoglobin 28.7 pg (27.0-33.0); Mean Platelet Volume 9.4 fL (9.4-12.4); Monocytes Absolute Auto 0.9 X10*3/uL (0.1-1.2); Monocytes Percent Auto 7.1 % (2-11); Neutrophils Absolute Auto 8.8 x10*3/uL (2.0-8.3); Platelet Count 336 X10*3/uL (160-400); Red Blood Count 4.22 X10*6/uL (4.60-5.80)
[2023-01-10 09:55] LABS: Alanine Aminotransferase 73 U/L (0-40); Albumin Level 3.8 g/dL (3.5-5.0); Alkaline Phosphatase 83 U/L (39-117); Anion Gap 14 (12-20); Aspartate Amino Transferase 64 U/L (5-37); Bilirubin Total 0.3 mg/dL (0.0-1.0); Blood Urea Nitrogen 8 mg/dL (9-16); Calcium 9.1 mg/dL (8.4-10.2); Carbon Dioxide 22 mmol/L (22-29); Chloride 105 mmol/L (96-108); Creatinine Clr Calc Pharmacy 171.6; Estimated Glomerular Filt Rate > 60; Ethanol < 10 mg/dL; Glucose Random 89 mg/dL (60-115); Lipase 23 U/L (8-78); Magnesium 2.1 mg/dL (1.6-2.6); Sodium 137 mmol/L (135-145); Total Protein 7.1 g/dL (6.5-8.0)
--- NOTE | 2023-01-10 10:43 | PC.NURSE ---
Discharge plan reviewed with patient who verbalized understanding
== END 2023-01-10 11:21 | disposition home or self-care (01) ==
PROVIDERS: Physician Assistant Medical; Emergency Provider Emergency Medicine Emergency Medical Services; PCP Internal Medicine
DX: U07.1 COVID-19 (principal); F14.20 Cocaine dependence, uncomplicated; F10.20 Alcohol dependence, uncomplicated; Y90.0 Blood alcohol level of less than 20 mg/100 ml; F33.1 Major depressive disorder, recurrent, moderate; Z79.899 Other long term (current) drug therapy
CPT/HCPCS: 36415; 80053; 80307; 83690; 83735; 85025; 96360; 99284

== ENCOUNTER 2023-01-28 01:38 | Emergency (ER) | payer OTHER, MEDICAID, SELFPAY ==
[2023-01-28] VITALS (8 sets, daily range): BP systolic 126–156; BP diastolic 69–99; PULSE 68–98; RESP 17–20; TEMP 36.4–37.2; O2SAT 85–99; BMI 36.1
--- NOTE | 2023-01-28 02:04 | ECG_ITS ---
Test Reason : CHEST PAIN Blood Pressure : / mmHG Vent. Rate : 072 BPM Atrial Rate : 072 BPM P-R Int : 154 ms QRS Dur : 100 ms QT Int : 432 ms P-R-T Axes : 049 -09 008 degrees QTc Int : 473 ms Normal sinus rhythm Minimal voltage criteria for LVH, may be normal variant ( R in aVL ) Nonspecific T wave abnormality Prolonged QT Abnormal ECG No significant changes seen Referred By: Generic ED Physician Electronically Signed By:СВЕТЛАНА LOCK MD
--- NOTE | 2023-01-28 02:27 | MHC.EDTECH ---
Patient changed over
--- NOTE | 2023-01-28 02:39 | ED_ITS ---
HPI - Alcohol General Chief Complaint: ETOH/Substance Use Stated Complaint: ETOH, Substance abuse Time Seen by Provider: 01/28/23 02:35 Source: patient and EMS Mode of arrival: EMS Limitations: no limitations History of Present Illness HPI narrative: Patient history of cocaine abuse and alcohol use disorder comes here for being intoxicated looking for some help patient has been here multiple times last visit was on 01/10/23 been positive for cocaine and fentanyl in the past no vomiting no fever Related Data Home Medications Medication Instructions Recorded Confirmed clonazepam 0.5 mg tablet 1 tab PO BID PRN anxiety 11/23/20 02/06/22 loratadine 10 mg tablet 1 tab PO DAILY PRN allergies 12/26/20 02/06/22 nicotine 14 mg/24 hr daily 1 patch topical DAILY 11/30/21 02/06/22 transdermal patch albuterol sulfate 90 mcg/actuation 2 puff inhalation Q4-6H PRN 12/01/21 02/06/22 aerosol inhaler (ProAir HFA) wheezing dextroamphetamine-amphetamine 10 1 tab PO DAILY@1200 01/03/22 02/06/22 mg tablet lisdexamfetamine 40 mg capsule 1 cap PO DAILY 01/03/22 02/06/22 (Vyvanse) ziprasidone HCl 60 mg capsule 1 cap PO BID 01/03/22 02/06/22 trazodone 100 mg tablet 200 mg PO BEDTIME 02/06/22 02/06/22 Previous Rx's Medication Instructions Recorded amlodipine 10 mg tablet 10 mg PO DAILY #30 tabs 12/08/21 clonidine HCl 0.1 mg tablet 0.1 mg PO TID PRN anxiety #90 tabs 12/08/21 folic acid 1 mg tablet 1 mg PO DAILY #30 tabs 12/08/21 gabapentin 600 mg tablet 600 mg PO TID #90 tabs 12/08/21 hydroxyzine HCl 50 mg tablet 50 mg PO Q6H PRN Anxiety #30 tabs 12/08/21 multivitamin (Daily-Lanie tablet) 1 tab PO DAILY #30 tabs 12/08/21 naltrexone 50 mg tablet 50 mg PO DAILY #30 tabs 12/08/21 thiamine mononitrate (vit B1) 100 100 mg PO DAILY #30 tabs 12/08/21 mg tablet venlafaxine 75 mg capsule,extended 75 mg PO DAILY #30 caps 12/08/21 release 24 hr cephalexin 500 mg capsule 500 mg PO Q8H #21 caps 01/04/23 Allergies Allergy/AdvReac Type Severity Reaction Status Date / Time lisinopril [Lisinopril] Allergy Intermediate ANGIOEDEMA Verified 12/01/21 19:41 cat dander [CATS] Allergy Mild PUFFY EYES Verified 12/01/21 19:41 olanzapine [From ZYPREXA] Allergy Unknown UNKNOWN Verified 12/01/21 19:41 divalproex sodium Allergy Angioedema Verified 01/04/23 15:53 [From Depakote] Review of Systems 2 Review of Systems: Yes all other systems are reviewed and are negative PMFSH Past Medical History Medical History HTN (hypertension) Alcoholism Social History Social History Household Members: Other Household Members Other:: Pt reports gf kicked him out and he is currently homeless. Housing: Other Do you presently have visiting nurse or other home services: No Alcohol intake: current Alcohol intake frequency: 3 or more drinks per day Alcohol type: beer and hard liquor Patient Tobacco Use Status: Current everyday Tobacco user Tobacco use type: Cigarette Cigarette Packs Per Day: 0.5 Cigarettes Per Day: 10.0 Years Smoked: 12 Smoked in Last 30 Days: Yes e-Cigarette/Vaping Use: Former Use Second Hand Smoke Exposure: No Use of substances other than those prescribed or required for medical reasons: Yes Substance Use Type: Crack/Cocaine Advance Directives: No Advance Directives Information Provided: Yes service: No Sexual orientation: Straight/Heterosexual Physical Exam ED Vital Signs: Vital Signs - 24 hr 01/28/23 02:02 01/28/23 03:27 01/28/23 03:42 Temperature 97.8 F Pulse Rate 76 75 98 Respiratory Rate 18 18 17 Blood Pressure 132/70 132/70 135/69 Pulse Oximetry 96 87 L 97 Oxygen Delivery Method Room Air Room Air Room Air Oxygen Flow Rate 01/28/23 05:50 Temperature Pulse Rate 68 Respiratory Rate 17 Blood Pressure 150/71 H Pulse Oximetry 99 Oxygen Delivery Method Nasal Cannula Oxygen Flow Rate 2 BMI result Body Mass Index 36.1 Appearance: Alert. Oriented X3. No acute distress. Intoxicated Eyes: PERRLA, No Nystagmus ENT: Pharynx normal. Oral Mucosa moist Neck: Normal inspection. Neck supple. CVS: Normal heart rate and rhythm. Pulses normal. Respiratory: No respiratory distress. Equal air entry bilateral, no wheezing/rales/rhonchi Abdomen: Soft mild epigastric tenderness Bowel sounds are present, no mass palpable, no CVA tenderness Skin: Skin warm and dry. Normal skin color. Normal skin turgor. Extremities: No lower extremity edema. No calf tenderness Neuro: Oriented X 3. Medical Decision Making Medical Decision Making [facility] Narrative: Patient alcoholic with cocaine abuse would like [place] [address] himself get Case team involved for evaluation Lab Data [facility] Lab Attestation statement: I reviewed the patient's lab results. 01/28/23 02:33 01/28/23 02:33 Labs: Lab Results 01/28/23 Range/Units 02:33 WBC 9.0 (4.8-10.8) X10*3/uL RBC 4.20 L (4.60-5.80) X10*6/uL Hgb 12.1 L (14.0-18.0) g/dl Hct 36.3 L (42.0-52.0) % MCV 86.4 (80.0-98.0) fL MCH 28.8 (27.0-33.0) pg MCHC 33.3 (31.0-36.0) g/dl RDW 15.5 (11.0-16.0) % Plt Count 272 (160-400) X10*3/uL MPV 9.3 L (9.4-12.4) fL Absolute Nucleated RBC 0.000 (0.0-0.012) X10*3/uL Nucleated RBC % (auto) 0.0 (0.0-0.2) /100WBC Sodium 137 (135-145) mmol/L Potassium 3.9 (3.3-5.1) mmol/L Chloride 99 (96-108) mmol/L Carbon Dioxide 25 (22-29) mmol/L Anion Gap 17 (12-20) BUN 11 (9-16) mg/dL Creatinine 0.79 (0.5-1.4) mg/dL Estim Creat Clear Calc 139.0 Estimated GFR > 60 Random Glucose 141 H (60-115) mg/dL Calcium 9.1 (8.4-10.2) mg/dL Total Bilirubin 0.2 (0.0-1.0) mg/dL AST 60 H (5-37) U/L ALT 48 H (0-40) U/L Alkaline Phosphatase 89 (39-117) U/L Total Protein 7.7 (6.5-8.0) g/dL Albumin 4.6 (3.5-5.0) g/dL Urine Opiates Screen Not Detected (Not Detect) Urine Fentanyl Screen POSITIVE H (Not Detect) Ur Barbiturates Screen POSITIVE H (Not Detect) Ur Phencyclidine Scrn Not Detected (Not Detect) Ur Amphetamines Screen Not Detected (Not Detect) U Benzodiazepines Scrn POSITIVE H (Not Detect) Urine Cocaine Screen POSITIVE H (Not Detect) U Marijuana (THC) Screen Not Detected (Not Detect) Ethyl Alcohol 268 mg/dL Discharge Plan Discharge Clinical Impression: Alcoholic intoxication, Cocaine use disorder, moderate, dependence Patient Disposition: Still a Patient Prescriptions: No Action clonazepam 0.5 mg tablet 1 tab PO BID PRN (Reason: anxiety) loratadine 10 mg tablet 1 tab PO DAILY PRN (Reason: allergies) nicotine 14 mg/24 hr patch 24 hour 1 patch topical DAILY albuterol sulfate [ProAir HFA] 90 mcg/actuation HFA aerosol inhaler 2 puff inhalation Q4-6H PRN (Reason: wheezing) clonidine HCl 0.1 mg Tablet 0.1 mg PO TID PRN (Reason: anxiety) Qty: 90 0RF Protocol: Hold for SBP< HOLD for SBP < : 90 gabapentin 600 mg Tablet 600 mg PO TID Qty: 90 0RF amlodipine 10 mg Tablet 10 mg PO DAILY Qty: 30 0RF Protocol: Hold for SBP< HOLD for SBP < : 90 multivitamin [Daily-Lanie] Tablet 1 tab PO DAILY Qty: 30 0RF venlafaxine 75 mg Capsule,Extended Release 24hr 75 mg PO DAILY Qty: 30 0RF naltrexone 50 mg Tablet 50 mg PO DAILY Qty: 30 0RF hydroxyzine HCl 50 mg Tablet 50 mg PO Q6H PRN (Reason: Anxiety) Qty: 30 0RF folic acid 1 mg Tablet 1 mg PO DAILY Qty: 30 0RF thiamine mononitrate (vit B1) 100 mg Tablet 100 mg PO DAILY Qty: 30 0RF dextroamphetamine-amphetamine 10 mg tablet 1 tab PO DAILY@1200 ziprasidone HCl 60 mg capsule 1 cap PO BID Vyvanse 40 mg capsule 1 cap PO DAILY trazodone 100 mg tablet 200 mg PO BEDTIME cephalexin 500 mg capsule 500 mg PO Q8H Qty: 21 0RF
[2023-01-28 02:46] LABS: Amphetamine Screen Urine Not Detected (Not Detect); Barbiturates, Urine POSITIVE (Not Detect); Benzodiazepines Screen Urine POSITIVE (Not Detect); Cannabinoid Screen Urine Not Detected (Not Detect); Cocaine Screen Urine POSITIVE (Not Detect); Fentanyl, urine POSITIVE (Not Detect); Opiate Screen Urine Not Detected (Not Detect); Phencyclidine Screen Urine Not Detected (Not Detect)
--- NOTE | 2023-01-28 02:54 | MHC.EDTECH ---
Security took patient belongings
[2023-01-28 03:49] LABS: Hematocrit 36.3 % (42.0-52.0); Hemoglobin 12.1 g/dl (14.0-18.0); Mean Corpuscular HGB Conc 33.3 g/dl (31.0-36.0); Mean Corpuscular Hemoglobin 28.8 pg (27.0-33.0); Mean Corpuscular Volume 86.4 fL (80.0-98.0); Mean Platelet Volume 9.3 fL (9.4-12.4); Platelet Count 272 X10*3/uL (160-400); Red Cell Distribution Width 15.5 % (11.0-16.0)
[2023-01-28 04:06] LABS: Ethanol 268 mg/dL
[2023-01-28 04:09] LABS: Alanine Aminotransferase 48 U/L (0-40); Albumin Level 4.6 g/dL (3.5-5.0); Alkaline Phosphatase 89 U/L (39-117); Anion Gap 17 (12-20); Aspartate Amino Transferase 60 U/L (5-37); Bilirubin Total 0.2 mg/dL (0.0-1.0); Blood Urea Nitrogen 11 mg/dL (9-16); Calcium 9.1 mg/dL (8.4-10.2); Carbon Dioxide 25 mmol/L (22-29); Chloride 99 mmol/L (96-108); Estimated Glomerular Filt Rate > 60; Glucose Random 141 mg/dL (60-115); Potassium 3.9 mmol/L (3.3-5.1); Sodium 137 mmol/L (135-145); Total Protein 7.7 g/dL (6.5-8.0)
--- NOTE | 2023-01-28 06:30 | PC.NURSE ---
Pt KEEGAN, called himself from the side of the road reporting alcohol and cocaine use wants help . [facility] Labs drawn VSS. Patient briefly placed on O2 at 2L via nasal cannula. Sats 87% on room air. Sats improved and oxygen removed per provider. Ciwa scoring at 0 at this time. After review of lab work pt + for Benzos, Barbs, cocaine and fentanyl. Pt requesting case mgt and to be placed on [address]. Reviewed with and he discussed with PT.
--- NOTE | 2023-01-28 07:30 | PC.NURSE ---
pt is currently asleep, respirations even and unlabored. pt is awaiting care team evaluation
--- NOTE | 2023-01-28 09:16 | PC.NURSE ---
pt is alert and oriented, skin pwd, respirations even and unlabored, pt is reporting that he is suicidal at this time, he wants to overdose on heroin, is also concern about his right foot because reports stepping on a broken crack pipe, very small lac noticed to the second toe, bleeding under control at this time
--- NOTE | 2023-01-28 09:35 | PC.NURSE ---
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 client seemed appropriately alert and active despite the fact he had inquired about his meds and inhaler (patient had good looking VS) ten minutes prior to being moved over from main ED
--- NOTE | 2023-01-28 09:36 | PC.NURSE ---
report given to glo, rn and pt moved over to the pod
--- NOTE | 2023-01-28 10:18 | MHC.RECOVRN ---
Met with pt prior to moving to the pod in ED21. Pt laying in bed, asleep, wakes to voice. Pt irritable and somewhat difficult to engage in conversation, reporting being uncomfortable and dehydrated. Pt reports alcohol use, 3 pints vodka daily as well as 6 beers; 18 grams cocaine (INH) since Monday; 2 bags heroin/fentanyl (IN) daily x 1 week. Pt requesting Section 35, educated pt on lack of ability to section from the ED. Pt hesitant regarding ATS, however, requesting [facility]. Pt informed [facility] does not take pts insurance. Pt is not interested in other ATS facilities. At this point, pt states I'm going to hurt myself. T/w notified pts RN as well as ED provider.
[2023-01-28] MEDS: amLODIPine Besylate 10 MG TABLET PO (11:01)
--- NOTE | 2023-01-28 11:16 | PC.NURSE ---
client complains of cramps, given water, then wants to tell t/w how different temperature water makes a person use the bathroom faster i'm not asking for you to have an attitude with me-youre worse than my baby mother
--- NOTE | 2023-01-28 11:47 | PC.NURSE ---
tried to review clients medications with him, client digresses while discussing and keeps bringing up older medications (last filled in november) requested provider have pharmacy complete med rec with client.
--- NOTE | 2023-01-28 12:53 | PC.NURSE ---
called pharmacy to request med rec for client
--- NOTE | 2023-01-28 13:06 | PC.NURSE ---
client asks for bacitracin, staff tell the client we dont have that supplied. client asks again for medications, t/w informs client once they are ordered they will be delivered. client accuses t/w of laughing at cleitn when he asks for salt and pepper. t/w responded i was smiling at patient . i then replied to client i would try not to smile at him. client then came back out to ask for fork, t/w provided client with fork. client says they must think im a monkey client then states we dont sit on the nack of the bus no more inferring a racial comment?
[2023-01-28 13:10] LABS: COVID-19 Test Negative (Negative); IDNOW Serial# 08D9AD1C
[2023-01-28] MEDS: Acetaminophen 325 MG TABLET 650 MG PO (13:13)
[2023-01-28] MEDS: Ondansetron ODT 4 MG TAB.RAPDIS TRANSLINGU (13:14)
[2023-01-28] MEDS: hydrOXYzine HCL 25 MG TABLET PO (13:14)
--- NOTE | 2023-01-28 14:24 | PHA.MEDREC ---
Pharmacy Consult ? Medication Reconciliation Pharmacy has completed the medication reconciliation Patient mentioned all meds were in his belongings, however unable to confirm through belongings because they are locked up. Confirmed meds with patient. Patient mentions they take Klonopin and clonidine essentially everyday and ibuprofen 600mg Q8H prn.
[2023-01-28] MEDS: Gabapentin 600 MG TABLET PO ×2 (15:04→20:23)
[2023-01-28] MEDS: clonazePAM 0.5 MG TABLET PO (15:04)
--- NOTE | 2023-01-28 17:37 | PC.NURSE ---
patient when he doesnt appreciate response from nurse starts to attempt to antagonize nurse you cant be , you probably have four cats, and a turtle patient continues to harass nurse when he's disatisfied with responses from nurse i want to talk to provider about why im not getting my medications t/w explained how when morning medications were dispensed he was on the main side of the emergency department.
--- NOTE | 2023-01-28 18:01 | PC.NURSE ---
client loses temper and abuses phone. patient redirected about not abusing property i dont care
--- NOTE | 2023-01-28 18:25 | PC.NURSE ---
client continues to try and antagonize nurse, whats your zodiac sign? t/w replies, thats not [employer] continues to ask... mushroom client responds you do look like a mushroom and continues to try and insult t/w.
[2023-01-28] MEDS: traZODone HCL 100 MG TABLET 300 MG PO (20:23)
[2023-01-28] MEDS: LORazepam 1 MG TABLET 2 MG PO (20:23)
[2023-01-28] MEDS: Thiamine HCL 100 MG TABLET PO (20:23)
[2023-01-28] MEDS: hydrOXYzine HCL 50 MG TABLET 100 MG PO (20:23)
[2023-01-28] MEDS: cloNIDine HCL 0.2 MG TABLET PO (20:23)
--- NOTE | 2023-01-29 05:49 | PC.NURSE ---
Patient slept through the night, no distress observed/reported, patient is known for his med seeking behavior, compliant with his HS medication, Ativan 2 mg PO administered at 2022 for comfort with + effect, disposition per care team is dual diagnoses bed bed search, however, patient is requesting for section-35 particularly requesting to have send to [facility], labs completed/resulted, behavior non concerning, VSS, asymptomatic of ETOH withdrawal at this time, will continue to monitor.
--- NOTE | 2023-01-29 07:07 | PC.NURSE ---
patient appears to remain asleep at present respirations are even and unlabored patient appears in no distress
[2023-01-29] MEDS: cloNIDine HCL 0.1 MG TABLET PO (11:06)
[2023-01-29] MEDS: Loratadine 10 MG TABLET PO (11:06)
[2023-01-29] MEDS: Venlafaxine HCl ER 150 MG CAP.ER.24H PO (11:06)
[2023-01-29] MEDS: amLODIPine Besylate 10 MG TABLET PO (11:06)
[2023-01-29] MEDS: Venlafaxine HCl ER 37.5 MG CAP.ER.24H PO (11:06)
[2023-01-29] MEDS: Cholecalciferol (Vitamin D3) 25 MCG TABLET PO (11:07)
[2023-01-29] MEDS: hydrOXYzine HCL 25 MG TABLET PO (11:07)
[2023-01-29] MEDS: Gabapentin 600 MG TABLET PO ×3 (11:07→20:17)
[2023-01-29] MEDS: Thiamine HCL 100 MG TABLET PO ×2 (11:07→20:17)
[2023-01-29] MEDS: Pyridoxine HCl (Vitamin B6) 50 MG TABLET PO (11:07)
[2023-01-29] MEDS: Folic Acid 1 MG TABLET PO (11:07)
[2023-01-29] MEDS: clonazePAM 0.5 MG TABLET PO (11:16)
[2023-01-29 11:17] VITALS: BP 160/81; PULSE 69; RESP 18; TEMP 36.9; O2SAT 95
[2023-01-29] MEDS: Nicotine 14 MG PATCH.TD24 TRANSDERMA (11:37)
--- NOTE | 2023-01-29 12:40 | PC.NURSE ---
client continues to swear at and berate staff about rules, trying to access belongings.
[2023-01-29 20:07] VITALS: BP 139/92; PULSE 76; RESP 20; TEMP 36.8; O2SAT 97
[2023-01-29] MEDS: cloNIDine HCL 0.2 MG TABLET PO (20:16)
[2023-01-29] MEDS: hydrOXYzine HCL 50 MG TABLET 100 MG PO (20:17)
[2023-01-29] MEDS: Acetaminophen 325 MG TABLET 650 MG PO (21:56)
[2023-01-29] MEDS: Milk of Magnesia 30 ML ORAL.SUSP PO (21:56)
[2023-01-29] MEDS: traZODone HCL 100 MG TABLET 300 MG PO (21:56)
[2023-01-29 22:16] LABS: Appearance Urine Clear; Color Urine Yellow; Glucose Urine UA Negative (Negative); Leukocyte Esterase Urine Trace (Negative); Nitrite Urine Negative (Negative); Specific Gravity - Urine >= 1.030 (1.005-1.025); UMIC TRIGGER UACC YES; Urine Blood Negative (Negative); Urine Ketones Trace mg/dL (Negative); Urine Protein Negative (Neg-Trace)
[2023-01-29 22:21] LABS: Bacteria Urine None Seen (None Seen); Hyaline Casts Urine 0-2 /LPF (0-2); RBC Urine 0-2 /HPF (0-2); Squamous Epithelial Cell Urine 0-2 /HPF (0-2); WBC Urine 0-5 /HPF (0-5)
[2023-01-30 03:39] VITALS: BP 144/96; PULSE 65; RESP 18; TEMP 36.1; O2SAT 98
[2023-01-30] MEDS: clonazePAM 0.5 MG TABLET PO ×2 (03:39→08:50)
--- NOTE | 2023-01-30 07:10 | PC.NURSE ---
Assumed care of pt at 1900. PT requesting medication for pain and constipation. PT reports requests medication several of times during day shift. While awaiting med order pt became upset and called this mother of his child was overheard calling her vulgar names and threatening. This RN encouraged PT to keep conversation peaceful as there were patients sleeping in the main area. PT was redirectable. Requested to PRN medications and night meds. This RN put verbal read back order for pain and constipation and provided PT with meds. He slept for most of shift, and when he was awake PT was pleasant, in no acute distress. CIWA 0 Plan is for PT for be discharged PT wants to be section 35.
[2023-01-30] MEDS: hydrOXYzine HCL 25 MG TABLET PO (08:46)
[2023-01-30] MEDS: Loratadine 10 MG TABLET PO (08:46)
[2023-01-30] MEDS: Venlafaxine HCl ER 150 MG CAP.ER.24H PO (08:46)
[2023-01-30] MEDS: Cholecalciferol (Vitamin D3) 25 MCG TABLET PO (08:46)
[2023-01-30] MEDS: Venlafaxine HCl ER 37.5 MG CAP.ER.24H PO (08:46)
[2023-01-30] MEDS: Folic Acid 1 MG TABLET PO (08:46)
[2023-01-30] MEDS: amLODIPine Besylate 10 MG TABLET PO (08:46)
[2023-01-30] MEDS: Thiamine HCL 100 MG TABLET PO (08:46)
[2023-01-30] MEDS: cloNIDine HCL 0.1 MG TABLET PO (08:46)
[2023-01-30] MEDS: Gabapentin 600 MG TABLET PO (08:46)
[2023-01-30 08:54] VITALS: BP 136/78; PULSE 58; RESP 17; TEMP 37; O2SAT 95
--- NOTE | 2023-01-30 09:44 | PC.NURSE ---
Zeferino was OOB and ate 100% of his breakfast. Compliant with AM medications and req/rec PRN Clonazepam for anxiety with good effect. Denies SI/HI/AVH and reports plan [place] and section 35 himself to a treatment program.
== END 2023-01-30 09:46 | disposition home or self-care (01) ==
PROVIDERS: Emergency Medicine; Emergency Provider Internal Medicine
DX: F10.220 Alcohol dependence with intoxication, uncomplicated (principal); Y90.8 Blood alcohol level of 240 mg/100 ml or more; F14.20 Cocaine dependence, uncomplicated; R45.851 Suicidal ideations; R10.13 Epigastric pain; Z11.52 Encounter for screening for COVID-19; F19.10 Other psychoactive substance abuse, uncomplicated; F33.1 Major depressive disorder, recurrent, moderate; I10 Essential (primary) hypertension; F17.210 Nicotine dependence, cigarettes, uncomplicated; Z79.899 Other long term (current) drug therapy
CPT/HCPCS: 36415; 80053; 80307; 81001; 85027; 87635; 93005; 99285; S9485